=== PATIENT | female | born 1945 | race Caucasian/White ===

== ENCOUNTER 2018-10-26 08:33 | Outpatient (CLI) | payer MEDICARE, SELFPAY ==
[2018-10-26 11:30] LABS: ALT 28 U/L (12-78); AST 23 U/L (15-37); Cholesterol 161 mg/dL (50-200); HDL Cholesterol 44 mg/dL (40-60); LDL CHOLESTEROL 107 mg/dL (<100); Triglyceride 32 mg/dL (30-150)
[2018-10-29 09:29] LABS: Hepatitis C Ab w Rflx HCV PCR Negative (NEGAT)
== END 2018-10-26 08:53 ==
PROVIDERS: PCP Physician Assistant Medical; Visit Provider Nurse Practitioner Family
DX: E78.5 Hyperlipidemia, unspecified (principal)
CPT/HCPCS: 36415; 80061; 83721; 86803; 84450; 84460

== ENCOUNTER 2019-04-01 09:56 | Outpatient (REF) | payer MEDICARE, SELFPAY ==
[2019-04-01 22:26] LABS: Anion Gap 9.5 mmol/L (3-11); BUN 18 mg/dL (7-18); CO2 26.5 mmol/L (21.0-32.0); CREATININE 0.74 mg/dL (0.55-1.02); Calcium 9.1 mg/dL (8.5-10.1); Chloride 105 mmol/L (98-107); Glucose 96 mg/dL (70-100); Magnesium 1.8 mg/dL (1.8-2.4); Sodium 141 mmol/L (136-145); TSH 3.36 uIU/mL (0.358-3.74); Vitamin B12 730 pg/mL (193-986)
== END 2019-04-01 10:16 ==
LOC: NCHCN 09:56
PROVIDERS: PCP Physician Assistant Medical; Visit Provider Nurse Practitioner Family
DX: R20.2 Paresthesia of skin (principal); I48.0 Paroxysmal atrial fibrillation; Z79.01 Long term (current) use of anticoagulants; E78.5 Hyperlipidemia, unspecified; E03.9 Hypothyroidism, unspecified; I10 Essential (primary) hypertension; F32.9 Major depressive disorder, single episode, unspecified
CPT/HCPCS: 80048; 82607; 83735; 84443

== ENCOUNTER 2019-08-29 02:36 | Outpatient (CLI) | payer MEDICARE, SELFPAY ==
--- NOTE | 2019-08-29 15:04 | DI.MAMMO_ITS ---
EXAM: MAMMO SCREENING CLINICAL HISTORY: SCREENING, Z12.39, [facility], Z00.00 TECHNIQUE: Mammograms were interpreted according to the usual protocol including computer analysis w Mark media system, tomosynthesis and C-view imaging. COMPARISON: Current examination is compared with previous examinations including March 2018 FINDINGS: Breasts are of moderate density with fairly symmetrical distribution of fibroglandular tissue. No do minant mass or clumped microcalcification is identified in either breast. Current examination is com pared with previous examinations including March 2018 and there has been no gross interval change in a ppearance in comparison with the previous studies. IMPRESSION: No specific evidence of malignancy at this time. Routine screening examinations are suggested at year ly intervals in this age group according to the ACS/ACR guidelines. Category 1, breast density catego ry B. BI-RADS Cat 1 - Negative Breast Density - Category B - Scattered areas of fibroglandular density
== END 2019-08-29 02:56 ==
PROVIDERS: PCP Physician Assistant Medical; Visit Provider Nurse Practitioner Family
DX: Z12.31 Encounter for screening mammogram for malignant neoplasm of breast (principal)
CPT/HCPCS: 77063; 77067

== ENCOUNTER 2020-06-25 23:19 | Observation (INO) | payer MEDICARE, OTHER, SELFPAY ==
--- NOTE | 2020-06-25 23:00 | RT.EKG_ITS ---
APPROVED REPORT Exam: Resting ECG Patient Location: E HR:119 bpm ECG Measurements Heart Rate 119 AXIS OK [id number] P [id number] QRSd 91 QRS 70 QT 333 T 84 QTc 468 Conclusion Atrial fibrillation...V-rate 100-149, irreg A-activity Paired ventricular premature complexes...sequence of 2 V complexes Low voltage, extremity leads...all extremity leads <0.5mV
[2020-06-25 23:19] VITALS: BP 159/109; PULSE 137; RESP 18; TEMP 36.5; O2SAT 98
[2020-06-25 23:27] VITALS: BP 159/109; PULSE 128
[2020-06-25] MEDS: dilTIAZem 25 MG/5 ML VIAL 20 MG IVP (23:27)
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
[2020-06-25 23:32] VITALS: RESP 18
[2020-06-25 23:40] LABS: Abs Immature Grans 0.02 10^3/uL (0.0-0.06); Absolute Basophil Count 0.04 10^3/uL (0.0-0.2); Absolute Lymphocyte Count 1.53 10^3/uL (1.2-3.4); Absolute Monocyte Count 1.17 10^3/uL (0.1-0.8); Absolute Neutrophil Count 6.45 10^3/uL (1.2-6.7); Basophils % 0.4; Eosinophils % 1.1; HCT 44.9 % (36.0-46.0); Immature Grans % 0.2; Lymphocytes % 16.4; MCH 31.1 pg (27.0-33.0); MCHC 33.4 % (32.0-36.0); MCV 93.2 fL (80-95); MPV 10.1 fL (8.0-11.0); Monocytes % 12.6; Neutrophils % 69.3; Nucleated RBC 0 %; Platelet Count 207 10^3/uL (130-400); RBC 4.82 10^6/uL (3.93-5.22); RDW 12.5 % (11.7-14.6); RDW-SD 43.2 fL; WBC 9.31 10^3/uL (4.4-10.8)
[2020-06-25] MEDS: dilTIAZem 125 MG in Normal Saline 100 ML IV (23:41)
[2020-06-25] MEDS: Normal Saline 1,000 ML 1000 ML IV (23:42)
[2020-06-25 23:45] VITALS: BP 143/94; PULSE 109; PULSE 89; RESP 19; O2SAT 96
--- NOTE | 2020-06-25 23:48 | DI.RAD_ITS ---
EXAM: XR PORTABLE CHEST AP CLINICAL HISTORY: general fatigue, ?pna TECHNIQUE: 2D digital imaging was performed. COMPARISON: CR PORTABLE CHEST ONE VIEW from 08/03/2016 FINDINGS: MEDIASTINUM: Normal. HEART: Normal. PULMONARY VASCULATURE: Normal. LUNGS: When compared to the prior film, there do appear to be increased lung markings in the right pe rihilar region. This may represent atelectasis or pneumonia. PLEURAL SPACE: No pleural effusion or pneumothorax. BONE:Within normal limits for the patient's age. OTHER FINDINGS:Normal. IMPRESSION: Opacities in the right perihilar region which may represent atelectasis or pneumonia. DATA REPOSITORY: RADIATION DOSE DELIVERED:
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
--- NOTE | 2020-06-25 23:57 | DI.VRAD_ITS ---
PROCEDURE INFORMATION: Exam: XR Chest, 1 View Exam date and time: 06/25/2020 11:49 PM Age: 75 years old Clinical indication: Other: General fatigue TECHNIQUE: Imaging protocol: XR of the chest Views: 1 view. COMPARISON: CR PORTABLE CHEST ONE VIEW 08/03/2016 3:18 PM FINDINGS: Lungs: Question trace parenchymal opacities in the right lung, could indicate overlapping shadows versus trace scarring or acute infiltrate. Pleural space: Unremarkable. No pleural effusion. No pneumothorax. Heart/Mediastinum: Unremarkable. No cardiomegaly. Bones/joints: Unremarkable. IMPRESSION: Question trace parenchymal opacities in the right lung, could indicate overlapping shadows versus trace scarring or acute infiltrate. Dictated and Authenticated by: Giovanni Tate MD. Ordering:CHRISTY Davila MD
[2020-06-26] VITALS (31 sets, daily range): BP systolic 108–150; BP diastolic 72–108; PULSE 75–121; RESP 16–29; TEMP 36.4–37.1; O2SAT 95–99
--- NOTE | 2020-06-26 | DI.CT_ITS ---
EXAM: CT ABDOMEN PELVIS W CLINICAL HISTORY: colitis. TECHNIQUE: Imaging Protocol: Axial computed tomography images with coronal and sagittal reformatted images were created and reviewed CONTRAST MATERIAL: Intravenous: Omnipaque 350 Contrast volume: 87 cc Oral: Yes COMPARISON: CR,XR XR PORTABLE CHEST AP from 06/25/2020 FINDINGS: There is enlargement of both atria as well as the left lateral ventricle. There is an infiltrate at the right lung base. No effusion is seen. There is no biliary dilatation. No gallstones are seen. Pancreas, spleen, adrenals and kidneys are unremarkable. Bladder is unremarkable. Patient is statu s post hysterectomy. Stomach is not dilated. There is mild diffuse dilatation of loops of small bow el. Fluid is noted in the colon. There is no abnormal bowel wall thickening. There is no pneumatos is. The aorta shows mild to moderate calcification. The branch vessels show normal enhancement. De generative changes are seen in the spine. Impression: Fluid-filled loops of small and large bowel without evidence of obstruction. No bowel wall thickenin g. Right lower lobe infiltrate. RADIATION DOSE DELIVERED: Total DLP DATA REPOSITORY: All CT scans at this facility are submitted to the National Radiology Data Registry (NRDR) Dose Index Registry (DIR) with the [employer] (ACR). RADIATION OPTIMIZATION: All CT scans at this facility use at least one of these dose optimization te chniques: automated exposure control; mA and/or kV adjustment per patient size (includes targeted exa ms where dose is matched to clinical indication); or iterative reconstruction.
[2020-06-26 00:01] LABS: INR 1.1 (0.9-1.1); Prothrombin Time 10.9 sec (9.3-11.0)
[2020-06-26 00:05] LABS: ALT 41 U/L (14-59); AST 22 U/L (15-37); Albumin 3.4 g/dL (3.4-5.0); Alkaline Phosphatase 88 U/L (46-116); Anion Gap 9.9 mmol/L (3-11); BUN 13 mg/dL (7-18); Bilirubin, Total 0.6 mg/dL (0.2-1.0); CO2 23.1 mmol/L (21.0-32.0); CREATININE 1.04 mg/dL (0.55-1.02); Calcium 9.3 mg/dL (8.5-10.1); Chloride 105 mmol/L (98-107); Estimated GFR 51.38 (mL/min/1.73m2); Glucose 109 mg/dL (74-106); Magnesium 1.6 mg/dL (1.8-2.4); NT-proBNP 2037 pg/mL (<300); Potassium 3.3 mmol/L (3.5-5.1); Sodium 138 mmol/L (136-145); Total Protein 6.9 g/dL (6.4-8.2)
[2020-06-26 00:07] LABS: Troponin I < 0.05 ng/mL (<0.06)
[2020-06-26] MEDS: MAGNESIUM SULFATE 2 GM/50 ML BAG IVPB (00:27)
--- NOTE | 2020-06-26 00:28 | NUR.NOTE ---
Purse given to to take home. Aware of plan for admission. MD Winkler in to see pt
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
[2020-06-26] MEDS: Potassium Chloride 20 MEQ TABCR 40 MEQ PO (00:43)
[2020-06-26 01:13] LABS: FREE T4 0.98 ng/dL (0.76-1.46)
[2020-06-26] MEDS: POTASSIUM CHLORIDE/0.9% NACL 1,000 ML 125 MEQ IV ×2 (01:19→09:02)
[2020-06-26 07:11] LABS: Anion Gap 9.8 mmol/L (3-11); BUN 11 mg/dL (7-18); CO2 19.2 mmol/L (21.0-32.0); CREATININE 0.81 mg/dL (0.55-1.02); Chloride 109 mmol/L (98-107); Potassium 3.6 mmol/L (3.5-5.1); Sodium 138 mmol/L (136-145); Troponin I < 0.05 ng/mL (<0.06)
[2020-06-26] MEDS: Levothyroxine 88 MCG TAB PO (07:32)
[2020-06-26] MEDS: Apixaban 5 MG TAB PO ×2 (07:32→20:00)
[2020-06-26 07:50] LABS: Magnesium 1.9 mg/dL (1.8-2.4)
--- NOTE | 2020-06-26 08:07 | W.PM.PROGNOT ---
Date of Service Date of service: 06/26/20 Time of Service: 11:57 Subjective Subjective Interval history since last seen: Patient was made a PUI because of the diarrhea. Due to her PUI status, I spoke to her on the phone while visualizing her through the glass ICU door and on the video camera in the ICU. She looked comfortable, not in respiratory distress. On cardizem at 5 mg/hr, HR 80-low 100s. 108/85 this am. Getting weaned off of cardizem gtt to oral cardizem today. She feels a lot better, but still has generalized abdominal cramping (but not focal pain). Still having diarrhea - yellow liquid. Denies dizziness, chest pain, feels a little bit short of breath (because she always does when she is in Afib). Denies nausea. Asks if all of the eliquis is in her system given the diarrhea - because she does not want to have a stroke. We talked about how the risk of stroke off of anticoagulation with Afib is 5-6% per year, but that some of the eliquis is likely still getting absorbed. We talked about getting a CT scan of the abdomen if she is COVID-19 negative. Objective Objective Clinical Data: Abnormal lab results 06/25/20 06/25/20 06/26/20 Range/Units 23:32 23:32 06:25 Absolute Monocytes 1.17 H (0.1-0.8) 10^3/uL Potassium 3.3 L (3.5-5.1) mmol/L Chloride 109 H (98-107) mmol/L Carbon Dioxide 19.2 L (21.0-32.0) mmol/L Creatinine 1.04 H (0.55-1.02) mg/dL Glucose 109 H (74-106) mg/dL Magnesium 1.6 L (1.8-2.4) mg/dL NT-Pro-B Natriuret Pep 2037 H (<300) pg/mL TSH 5.40 H (0.36-3.74) uIU/mL Vital Signs Temperature 36.6 C 06/26/20 07:35 Temperature Source Temporal Artery Scan 06/26/20 07:35 Pulse 91 H 06/26/20 07:01 Pulse 121 H 06/26/20 07:01 Respiratory Rate 22 06/26/20 07:01 Respiratory Effort Non-Labored 06/26/20 07:35 Respiratory Depth Normal 06/26/20 07:35 Respiratory Pattern Irregular 06/26/20 07:35 Blood Pressure 108/85 06/26/20 07:01 Blood Pressure Mean 90 06/26/20 07:01 Blood Pressure Position Supine 06/26/20 05:11 Pulse Oximetry 95 06/26/20 05:11 Oxygen Delivery Method Room Air 06/26/20 01:30 Oxygen Flow Rate 0 06/26/20 01:30 Intake & Output 06/25/20 06/25/20 06/26/20 11:59 23:59 11:59 Intake Total 1570 / 1570 Output Total 200 / 200 Balance 1370 / 1370 Weight 61.235 kg 61.1 kg Intake: IV 1000 / 1000 Oral 570 / 570 Output: Urine 200 / 200 Other: Urine Color Yellow Urine Appearance Clear Comment mixed with stool Stool Size Moderate Stool Characteristics Liquid Voiding Methods Bedside Commode Laboratory Results WBC 9.31 10^3/uL (4.4-10.8) 06/25/20 23:32 RBC 4.82 10^6/uL (3.93-5.22) 06/25/20 23:32 Hgb 15.0 g/dL (11.2-15.7) 06/25/20 23:32 Hct 44.9 % (36.0-46.0) 06/25/20 23:32 MCV 93.2 fL (80-95) 06/25/20 23:32 MCH 31.1 pg (27.0-33.0) 06/25/20 23:32 MCHC 33.4 % (32.0-36.0) 06/25/20 23:32 RDW 12.5 % (11.7-14.6) 06/25/20 23:32 Plt Count 207 10^3/uL (130-400) 06/25/20 23:32 MPV 10.1 fL (8.0-11.0) 06/25/20 23:32 Immature Gran % 0.2 06/25/20 23:32 Neutrophils % 69.3 06/25/20 23:32 Lymphocytes % 16.4 06/25/20 23:32 Monocytes % 12.6 06/25/20 23:32 Eosinophils % 1.1 06/25/20 23:32 Basophils % 0.4 06/25/20 23:32 Nucleated RBC % 0 % 06/25/20 23:32 Absolute Neutrophils 6.45 10^3/uL (1.2-6.7) 06/25/20 23:32 Absolute Lymphocytes 1.53 10^3/uL (1.2-3.4) 06/25/20 23:32 Absolute Monocytes 1.17 10^3/uL (0.1-0.8) H 06/25/20 23:32 Absolute Eosinophils 0.10 10^3/uL (0.0-0.7) 06/25/20 23:32 Absolute Basophils 0.04 10^3/uL (0.0-0.2) 06/25/20 23:32 PT 10.9 sec (9.3-11.0) 06/25/20 23:32 INR 1.1 (0.9-1.1) 06/25/20 23:32 APTT 29.0 sec (21.0-31.4) 06/25/20 23:32 Sodium 138 mmol/L (136-145) 06/26/20 06:25 Potassium 3.6 mmol/L (3.5-5.1) 06/26/20 06:25 Chloride 109 mmol/L (98-107) H 06/26/20 06:25 Carbon Dioxide 19.2 mmol/L (21.0-32.0) L 06/26/20 06:25 Anion Gap 9.8 mmol/L (3-11) 06/26/20 06:25 BUN 11 mg/dL (7-18) 06/26/20 06:25 Creatinine 0.81 mg/dL (0.55-1.02) 06/26/20 06:25 Estimated GFR/1.73 m2 >= 60.00 (mL/min/1.73m2) 06/26/20 06:25 Glucose 109 mg/dL (74-106) H 06/25/20 23:32 Calcium 9.3 mg/dL (8.5-10.1) 06/25/20 23:32 Magnesium 1.9 mg/dL (1.8-2.4) 06/26/20 06:25 Total Bilirubin 0.6 mg/dL (0.2-1.0) 06/25/20 23:32 AST 22 U/L (15-37) 06/25/20 23:32 ALT 41 U/L (14-59) 06/25/20 23:32 Alkaline Phosphatase 88 U/L (46-116) 06/25/20 23:32 Troponin I < 0.05 ng/mL (<0.06) 06/26/20 06:25 NT-Pro-B Natriuret Pep 2037 pg/mL (<300) H 06/25/20 23:32 Total Protein 6.9 g/dL (6.4-8.2) 06/25/20 23:32 Albumin 3.4 g/dL (3.4-5.0) 06/25/20 23:32 TSH 5.40 uIU/mL (0.36-3.74) H 06/25/20 23:32 Free T4 0.98 ng/dL (0.76-1.46) 06/25/20 23:32
--- NOTE | 2020-06-26 08:38 | PDOC.CMIN ---
- If Service Date Differs Date of service: 06/26/20 Time of Service: 08:38 Care Management Initial Assess REASON FOR HOSPITALIZATION:: Afib, PUI, rule out COVID PAST MEDICAL HISTORY/PAST SURGICAL HISTORY:: Afib PREVIOUS FUNCTIONAL STATUS/SOCIAL/FAMILY SUPPORTS:: Rosibel lives with her spouse in [place], [place] she drives and is indepedent with ADL's. CURRENT FUNCTIONAL STATUS:: Rosibel is in the ICU she was ruled out for cdiff, Covid is pending at time of CM review, she is a PUI. ADVANCE DIRECTIVES:: None on file - CM to offer forms Has patient been provided with info about the portal/API?: No Did the patient sign up for the portal?: No CODE STATUS:: Full Code INSURANCE COVERAGE / FINANCIAL ISSUES:: Medicare CURRENT HOME/COMMUNITY SERVICES/EQUIPMENT:: No current services. PRIMARY CARE PHYSICIAN:: Manjula Parra POTENTIAL DISCHARGE NEEDS:: Follow up with primary care and specility as directed. PATIENT/FAMILY EDUCATION NEEDS:: Discharge education, limitations and follow up plan of care including ask me three and self management. ANTICIPATED BARRIERS TO DISCHARGE:: None TRANSPORTATION:: Via private car wtih family at time of discharge PLAN:: Rosibel will be discharged home when medically ready. CM will continue to assess for discharge needs and coordiante disposition.
[2020-06-26] MEDS: dilTIAZem 60 MG TAB PO ×2 (11:39→20:00)
--- NOTE | 2020-06-26 13:47 | PHA.REVIEW ---
Pharmacy Admission Review - Admission Clinical Review (Last Reviewed 06/26/20 @ 00:51 by Jose Winkler MD) Atrial fibrillation with RVR (Acute) Diarrhea (Acute) hydralazine Allergy (Intermediate, Unverified 06/17/17 10:52) Dizziness/Lightheade metoprolol Allergy (Unverified 06/17/17 10:52) Cardiac Dysrythmia isosorbide mononitrate [From Imdur] Adverse Reaction (Intermediate, Unverified 06/17/17 10:52) Skin Rash Height 5 ft 2 in Weight 61.1 kg - Renal Dosing Renal Dosing: BUN 11 mg/dL (7-18) 06/26/20 06:25 Creatinine 0.81 mg/dL (0.55-1.02) 06/26/20 06:25 Medications needing adjustments: Reviewed (Crcl ~46 mL/min current meds okay) - Anticoagulation Anticoagulation: Hgb 15.0 g/dL (11.2-15.7) 06/25/20 23:32 Hct 44.9 % (36.0-46.0) 06/25/20 23:32 Plt Count 207 10^3/uL (130-400) 06/25/20 23:32 INR 1.1 (0.9-1.1) 06/25/20 23:32 Creatinine 0.81 mg/dL (0.55-1.02) 06/26/20 06:25 DVT Prohphylaxis: N/A Therapeutic Anticoagulation: Reviewed Medications: Apixaban - Opiate Usage Evaluate Pain Scale/Pains Meds: N/A - Relevant Labs Sodium 138 mmol/L (136-145) 06/26/20 06:25 Potassium 3.6 mmol/L (3.5-5.1) 06/26/20 06:25 Chloride 109 mmol/L (98-107) H 06/26/20 06:25 Magnesium 1.9 mg/dL (1.8-2.4) 06/26/20 06:25 Electrolytes, C-Reactive P, ESR: Reviewed - DM Control DM Control: Glucose 109 mg/dL (74-106) H 06/25/20 23:32 Insulin Dosing: N/A - Heart Failure/DE Heart Failure/DE: Troponin I < 0.05 ng/mL (<0.06) 06/26/20 06:25 NT-Pro-B Natriuret Pep 2037 pg/mL (<300) H 06/25/20 23:32 EF%, KAYE's, B-Blockers, Diuretics: Reviewed - BP Control BP Control: Blood Pressure 127/100 Blood Pressure 138/85 Blood Pressure 143/80 Blood Pressure 137/97 Blood Pressure 136/77 Blood Pressure 127/72 Blood Pressure 134/88 If elevated: Reviewed (HR-86) - Qtc Review If Elevated: N/A (QTc 468) - IV to PO Switch IV Medications: Reviewed - Home Meds Home Med List reviewed: Intervened (Updated schedule of albuterol on home med list based on external med history. Nursing talked to pt regarding diltiazem dose as last Rx for diltiazem was 300 mg and pt had 240 mg on home meds list. Per pt outpatient provider changed the dose to 300 mg, but she asked if she could finish the 240 mg caps before starting the 300 mg caps. Made inpatient provider aware of this. Should be a max of 3 grams per day of acetaminophen given pt's age. Separate admin of levothyroxine from calcium, magnesium, and multivitamin. Separate admin of multivitamin from calcium carbonate. Increased risk of toxicity when taking multiple forms of vitamin D.) Relevent Home Meds Not ordered & why?: albuterol (PRN), calcium carbonate, cholecalciferol, doxazosin (being held), fish oil, lisinopril (being held), magnesium, multivitamin, potassium - Current meds Current Medication Order Review: Intervened (Discontinued duplicate med orders.) - Comments Comments/Follow Ups: Watch HR, BP, mag, Cl, K+, and for med changes (restart of home meds, change from IR to ER diltiazem)
[2020-06-26 14:26] LABS: COVID-19 RT-PCR UVMMC Result Negative (Negative)
[2020-06-26] MEDS: Furosemide 20 MG/2 ML VIAL IVP (16:35)
[2020-06-26] MEDS: Normal Saline Flush 10 ML SYR IVP ×2 (16:36→20:25)
[2020-06-26] MEDS: Normal Saline 500 ML IV (18:40)
[2020-06-26] MEDS: Potassium Chloride 10 MEQ TABCR PO (20:00)
[2020-06-26] MEDS: Cholecalciferol (Vitamin D3) 1,000 UNIT TAB 1000 UNITS PO (20:00)
[2020-06-26] MEDS: Omnipaque 350 MG/ML 100 ML BTL IJ (20:23)
[2020-06-26] MEDS: Normal Saline - Diluent 50 ML VIAL IV (20:24)
[2020-06-26] MEDS: Omnipaque 350 MG/ML 50 ML BTL PO (20:24)
--- NOTE | 2020-06-26 20:49 | DI.VRAD_ITS ---
PROCEDURE INFORMATION: Exam: CT Abdomen And Pelvis With Contrast Exam date and time: 06/26/2020 5:01 PM Age: 75 years old Clinical indication: Condition or disease; Other: Colitis; Prior surgery TECHNIQUE: Imaging protocol: Computed tomography of the abdomen and pelvis with intravenous contrast. Radiation optimization: All CT scans at this facility use at least one of these dose optimization techniques: automated exposure control; mA and/or kV adjustment per patient size (includes targeted exams where dose is matched to clinical indication); or iterative reconstruction. Contrast material: [id number]; Contrast volume: 87 ml; Contrast route: INTRAVENOUS (IV); Other technique: GI contrast given. COMPARISON: No relevant prior studies available. FINDINGS: Lungs: There is hazy right lower lobe consolidation, mild. Cardiomegaly. Liver: Mild heterogeneity noted to the hepatic enhancement pattern. Low-density right lobe lesion, probable cyst. Gallbladder and bile ducts: Normal. No calcified stones. No ductal dilation. Pancreas: Normal. No ductal dilation. Spleen: Normal. No splenomegaly. Adrenals: Normal. No mass. Kidneys and ureters: Normal. No hydronephrosis. Stomach and bowel: There are some diffusely distended small bowel loops with diameter up to 3 cm involving the opacified jejunal loops and unopacified ileal loops. No evidence for transition zone. There are air-fluid levels present in the colon which can be associated with diarrheal illness. No concerning wall thickening evident. Appendix: No evidence of appendicitis. Intraperitoneal space: Mild ascites. Vasculature: Moderate atherosclerotic change present in the vasculature. Lymph nodes: Unremarkable. No enlarged lymph nodes. Bladder: Unremarkable as visualized. Reproductive: Unremarkable as visualized. Bones/joints: Moderate lumbar spondylosis. Soft tissues: Unremarkable. IMPRESSION: 1. Nonspecific bowel pattern. Suspect ileus. Pattern not typical for obstruction. There may be a diarrheal illness involving the colon. 2. Cardiomegaly with heterogeneous hepatic enhancement. Consider possible degree of congestive heart failure. Dictated and Authenticated by: Jaqueline Leon MD. Ordering:TA Honeycutt MD
--- NOTE | 2020-06-26 20:55 | NUR.NOTE ---
To radiology for Ct of abdomen and pelvis after drinking all of contrast provided by dept. pt left in w/c with ticket to ride. Monitor dc'd as ordered. 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 Used commode for more liquid stool and then returned to bed.
[2020-06-27 00:01] VITALS: BP 147/92; PULSE 90; RESP 17; TEMP 36.9; O2SAT 96
[2020-06-27] MEDS: dilTIAZem 60 MG TAB PO ×2 (00:07→06:13)
[2020-06-27 03:30] VITALS: BP 125/78; PULSE 81; RESP 16; TEMP 36; O2SAT 97
[2020-06-27] MEDS: Levothyroxine 88 MCG TAB PO (06:12)
[2020-06-27 06:37] LABS: Abs Immature Grans 0.02 10^3/uL (0.0-0.06); Absolute Basophil Count 0.03 10^3/uL (0.0-0.2); Absolute Eosinophil Count 0.17 10^3/uL (0.0-0.7); Absolute Lymphocyte Count 2.12 10^3/uL (1.2-3.4); Absolute Monocyte Count 0.83 10^3/uL (0.1-0.8); Absolute Neutrophil Count 2.47 10^3/uL (1.2-6.7); Basophils % 0.5; HCT 41.6 % (36.0-46.0); HGB 13.8 g/dL (11.2-15.7); Immature Grans % 0.4; Lymphocytes % 37.6; MCH 30.7 pg (27.0-33.0); MCHC 33.2 % (32.0-36.0); MCV 92.7 fL (80-95); MPV 9.9 fL (8.0-11.0); Monocytes % 14.7; Neutrophils % 43.8; Nucleated RBC 0 %; Platelet Count 235 10^3/uL (130-400); RBC 4.49 10^6/uL (3.93-5.22); RDW 12.5 % (11.7-14.6); RDW-SD 42.7 fL; WBC 5.64 10^3/uL (4.4-10.8)
[2020-06-27 07:07] LABS: Anion Gap 8.8 mmol/L (3-11); BUN 9 mg/dL (7-18); CO2 20.2 mmol/L (21.0-32.0); CREATININE 0.77 mg/dL (0.55-1.02); Calcium 8.7 mg/dL (8.5-10.1); Calculated LDL 93 mg/dL (<100); Chloride 110 mmol/L (98-107); Cholesterol 136 mg/dL (<200); Glucose 73 mg/dL (74-106); HDL Cholesterol 25 mg/dL (40-60); Magnesium 1.5 mg/dL (1.8-2.4); Potassium 3.3 mmol/L (3.5-5.1); Sodium 139 mmol/L (136-145); Triglyceride 94 mg/dL (<150)
[2020-06-27 07:48] VITALS: BP 139/85; PULSE 86; RESP 17; TEMP 36.4; O2SAT 96
[2020-06-27] MEDS: Multivitamin TAB 1 TAB PO (08:31)
[2020-06-27] MEDS: Apixaban 5 MG TAB PO (08:31)
[2020-06-27] MEDS: Calcium Carbonate *TUMS* 500 MG CHEW 1000 MG PO (08:31)
[2020-06-27] MEDS: Omega-3 Fatty Acids 1000 MG CAP PO (08:31)
[2020-06-27] MEDS: dilTIAZem CD 120 MG CAPCR 240 MG PO (08:31)
[2020-06-27] MEDS: Potassium Chloride 20 MEQ TABCR PO (08:32)
[2020-06-27] MEDS: Cholecalciferol (Vitamin D3) 1,000 UNIT TAB 1000 UNITS PO (08:32)
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
[2020-06-27] MEDS: Normal Saline 500 ML IV (09:50)
[2020-06-27] MEDS: MAGNESIUM SULFATE 2 GM/50 ML BAG IVPB (09:50)
[2020-06-27 10:18] LABS: Bilirubin Negative (Negative); Blood Negative (Negative); Clarity Sl Cloudy (Clear); Glucose Negative (Negative); Ketones Negative (Negative); Leukocyte Esterase Negative (Negative); Nitrite Positive (Negative); Specific Gravity 1.015 (1.005-1.025); Urobilinogen 0.2 EU/dL (Up TO 0.2); pH 5.5 (5-8)
[2020-06-27 10:27] LABS: Bacteria Many HPF (Negative); C & S Indicated? Yes; Casts Negative LPF (Negative); Crystals Negative HPF (Negative); Epithelial Cells Few HPF (Negative); Mucus Negative (Negative); RBC 0-2 HPF (0-2)
[2020-06-27] MEDS: Fosfomycin Tromethamine 3 GM PACKET PO (10:41)
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
[2020-06-27 11:46] VITALS: BP 144/85; PULSE 83; RESP 17; TEMP 36.2; O2SAT 96
[2020-06-30 16:23] LABS: Misc Referral (VDH) See Comments
== END 2020-06-27 13:48 | disposition home or self-care (01) ==
LOC: ER 06-26 00:36 → ICU 06-26 08:55 → MS 06-26 23:00
PROVIDERS: Family Medicine; Internal Medicine; Admitting Provider General Practice; Emergency Provider Emergency Medicine; PCP Nurse Practitioner Family; Visit Provider General Practice
DX: I48.91 Unspecified atrial fibrillation (principal); Z11.59 Encounter for screening for other viral diseases; R19.7 Diarrhea, unspecified; E03.9 Hypothyroidism, unspecified; Z79.899 Other long term (current) drug therapy; R53.1 Weakness; R30.0 Dysuria
CPT/HCPCS: 36415; 80048; 80051; 80053; 80061; 84520; 87077; 93005; 96361; 96365; 96375; 99217; 99222; 99291; NC; U0003; 71045; 74177; 81003; 81015; 82565; 83735; 83880; 84439; 84443; 84484; 85025; 85610; 85730; 87086; 87186; 87324; 93010; 99218; G0378; J1941; J3490; Q9967

== ENCOUNTER 2020-07-02 14:03 | Outpatient (REF) | payer MEDICARE, OTHER, SELFPAY ==
[2020-07-02 20:19] LABS: Anion Gap 7.8 mmol/L (3-11); BUN 12 mg/dL (7-18); CO2 26.2 mmol/L (21.0-32.0); CREATININE 0.86 mg/dL (0.55-1.02); Calcium 9.4 mg/dL (8.5-10.1); Chloride 104 mmol/L (98-107); Glucose 83 mg/dL (74-106); Magnesium 1.7 mg/dL (1.8-2.4); Potassium 4.7 mmol/L (3.5-5.1); Sodium 138 mmol/L (136-145)
[2020-07-15 10:41] LABS: Misc Referral (VDH) See Comments
== END 2020-07-02 14:23 ==
LOC: NCHCN 14:03
PROVIDERS: Family Medicine; PCP Nurse Practitioner Family; Visit Provider Nurse Practitioner Family
DX: R89.9 Unspecified abnormal finding in specimens from other organs, systems and tissues (principal); R19.7 Diarrhea, unspecified
CPT/HCPCS: 80048; 87329; 83735; 84443

== ENCOUNTER 2020-07-03 03:00 | Emergency (ER) | payer MEDICARE, OTHER, SELFPAY ==
[2020-07-03] VITALS (20 sets, daily range): BP systolic 129–153; BP diastolic 72–117; PULSE 92–145; RESP 18–29; TEMP 37.6; O2SAT 93–98
--- NOTE | 2020-07-03 03:14 | ED.GENADUL_ITS ---
Discharge Plan Disposition Patient Disposition: HOME Condition: Good Discharge Details Clinical Impression: Diarrhea, Atrial fibrillation Primary Care Provider: Manjula Parra ED Provider: Abhishek Blair [place] Meds and New Rx's Prescriptions: Continued levothyroxine 88 MCG tablet 88 mcg PO DAILY RF: 0 albuterol sulfate 8.5 GM HFA aerosol inhaler 2 puff Inhalation Q4H PRN PRNRF: 0 lisinopril 40 MG tablet 40 mg PO DAILY RF: 0 multivitamin 1 EACH capsule 1 ea PO DAILY RF: 0 Eliquis 5 MG tablet 5 mg PO BID RF: 0 (DME) inhalational spacing device [Aerochamber Plus Flow-Vu] 1 EACH spacer 1 ea Miscellaneous DIRECTED Qty: 1 RF: 0 calcium carbonate 500 MG tablet,chewable 1,000 mg PO DAILY RF: 0 doxazosin 1 MG tablet 1 mg PO DAILY RF: 0 acetaminophen [Tylenol Extra Strength] 500 MG tablet 1,000 mg PO Q6H PRN PRNRF: 0 potassium chloride [Klor-Con M20] 20 MEQ tablet,ER particles/crystals 20 meq PO QAM RF: 0 potassium chloride [Klor-Con M10] 10 MEQ tablet,ER particles/crystals 10 meq PO QPM RF: 0 cholecalciferol (vitamin D3) 1,000 UNITS tablet 1,000 units PO BID RF: 0 Fish Oil 1 EACH capsule 1 ea PO DAILY RF: 0 magnesium L-lactate [Magtab] 84 MG tablet extended release 84 mg PO DAILY Qty: 30 RF: 0 diltiazem HCl 300 mg capsule,extended release 24hr 300 mg PO DAILY RF: 0 Discharge Instructions Instructions: Loperamide (By mouth), Acute Diarrhea (ED) Additional Instructions: Your laboratory studies tonight looked fine. You may try [id number] loperamide (Imodium) for your diarrhea. Continue to stay hydrated and eat a BRAT diet. Do not take your Cardizem this morning as we gave you to you here. Follow-up with primary care next week. Stool studies sent by her are still pending. Return to ED for fever, persistent abdominal pain, vomiting, bloody diarrhea. Referrals: Manjula Parra [Primary Care Provider] - Medical Decision Making Patient presenting with continued diarrhea and generalized weakness. She has history of A. fib. Rate here seems to be quite variable. She takes her Cardizem in the morning. Her abdomen is benign. She is not hypotensive. I reviewed her work-up from before which included CT scan of the abdomen pelvis, stool studies including C. difficile and enteric pathogens. CT scan showed fluid-filled loops of small and large bowel without obstruction or bowel wall thickening. There was evidence of right lower lobe but patient denies cough, shortness of breath, fever. C. diff screen and enteric pathogen screen had come back negative. Primary care has sent Giardia and cryptosporidium testing as well as repeat enteric pathogen screen yesterday. Blood work yesterday showed normal kidney function with normal potassium and essentially normal magnesium just a little low at 1.7. Because of her variable rate will place an IV and give liter of fluid. We will give her her oral Cardizem a little early. We will also give a dose of Imodium. Recheck BMP. BMP remains normal. Heart rate better controlled with liter of fluid and 10 mg IV Cardizem. She has received her oral morning dose of Cardizem as well. She is feeling better. 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 Stool studies still pending from PCP but had been negative previously. Continue hydration and BRAT diet. Medical Records Medical records reviewed: Yes I reviewed the patient's medical records. Lab Data Lab results reviewed: Yes I reviewed the patient's lab results. Labs: HPI General Mode of arrival: ambulatory . Date/Time Provider Initiated Documentation: 07/03/20 03:02 . Limitations to Documentation: no limitations . Information obtained by: patient, RN notes reviewed and old records reviewed . HPI Narrative: Patient presents with continued watery diarrhea which she has now had for a little over a week. She has mild nausea but no real vomiting. She has intermittent cramps which are sporadic and not persistent. She denies fever. She was admitted a week ago with diarrhea, electrolyte disturbance, A. fib with RVR. She continues to have diarrhea. She was seen by her primary care yesterday with repeat stool studies sent and electrolytes rechecked. She does not know these results. She does not have much of an appetite but does manage to eat rice, applesauce, toast, fluids. She has not taken anything for the diarrhea. She denies having lightheadedness, chest pain, shortness of breath. Just feels very weak and rundown. Related Data Home Medications Medication Instructions Recorded Confirmed Agusto 5 mg PO BID 09/13/14 07/03/20 albuterol sulfate 2 puff INHALATION Q4H PRN PRN 09/13/14 07/03/20 inhalational spacing device #1 spacer 09/13/14 06/17/17 [Aerochamber Plus Flow-Vu] levothyroxine 88 mcg PO DAILY 09/13/14 07/03/20 lisinopril 40 mg PO DAILY 09/13/14 07/03/20 multivitamin 1 ea PO DAILY 09/13/14 07/03/20 calcium carbonate 1,000 mg PO DAILY 08/03/16 07/03/20 magnesium L-lactate [Magtab] 84 mg PO DAILY #30 tabcr 01/27/17 07/03/20 Fish Oil 1 ea PO DAILY 06/17/17 07/03/20 acetaminophen [Tylenol Extra 1,000 mg PO Q6H PRN PRN 06/17/17 07/03/20 Strength] cholecalciferol (vitamin D3) 1,000 units PO BID 06/17/17 07/03/20 doxazosin 1 mg PO DAILY 06/17/17 07/03/20 potassium chloride [Klor-Con M10] 10 meq PO QPM 06/17/17 07/03/20 potassium chloride [Klor-Con M20] 20 meq PO QAM 06/17/17 07/03/20 diltiazem HCl 300 mg PO DAILY 06/26/20 07/03/20 Previous Rx's Medication Instructions Recorded inhalational spacing device #1 spacer 09/13/14 [Aerochamber Plus Flow-Vu] magnesium L-lactate [Magtab] 84 mg PO DAILY #30 tabcr 01/27/17 Allergies Allergy/AdvReac Type Severity Reaction Status Date / Time hydralazine Allergy Intermediate Dizziness/L Unverified 07/03/20 03:16 ightheade metoprolol Allergy Cardiac Unverified 07/03/20 03:16 Dysrythmia isosorbide mononitrate AdvReac Intermediate Skin Rash Unverified 07/03/20 03:16 [From Imdur] General Stated Complaint: Nausea/Vomit/Diar MARTHA: 3 Review of Systems Narrative: As documented in HPI otherwise negative as below. Const: no fever, chills Resp: no cough, SOB, pleuritic pain CV: no CP, diaphoresis, edema, syncope GI: no vomiting Neuro: no headache, numbness, focal weakness, confusion PFSH Medical History Atrial fibrillation Essential hypertension (01/27/17) Hyperlipidemia, mixed (01/27/17) Hypothyroidism Surgical History S/P hysterectomy Social History Smoking/Tobacco Use Status: Never Alcohol Intake: never Drug use: Never Substance use type: does not use Do you feel safe at home: Yes Do you feel safe in your relationship?: Yes Exam Narrative Exam Narrative: Vitals: Afebrile. Tachycardic and hypertensive, normal oxygen saturation. Const: WDWN elderly female in NAD. HEENT: NC/AT. Eyes: Normal conjunctiva and sclera. Neck: Supple. Trachea midline. Lungs: Normal respiratory effort. Lungs are clear. Cor: Irr/irr without murmur. Good radial pulses. GI: Soft. NT/ND. No guarding or rebound. Neuro: A+O x 3. Normal speech, mentation, gait. Cranial nerves II - XII grossly intact. No gross motor or sensory deficit. Skin: Warm and dry without rash. Course Vital Signs Vital signs: Vital Signs Temperature 99.7 F H 07/03/20 03:09 Pulse 120 H 07/03/20 03:09 Respiratory Rate 18 07/03/20 03:09 Blood Pressure 153/117 H 07/03/20 03:09 Pulse Oximetry 97 07/03/20 03:09 Temperature 99.7 F H 07/03/20 03:09 Temperature Source Temporal Artery Scan 07/03/20 03:09 Pulse 120 H 07/03/20 03:09 Respiratory Rate 18 07/03/20 03:09 Blood Pressure 153/117 H 07/03/20 03:09 Blood Pressure Position Sitting 07/03/20 03:09 Pulse Oximetry 97 07/03/20 03:09 Oxygen Delivery Method Room Air 07/03/20 03:09 Oxygen Flow Rate 0 07/03/20 03:09 Pain Level 0 07/03/20 03:09
[2020-07-03] MEDS: Normal Saline 1,000 ML 1000 ML IV (03:39)
[2020-07-03] MEDS: Loperamide 2 MG CAP PO (03:47)
[2020-07-03] MEDS: dilTIAZem CD 300 MG CAPCR PO (03:51)
[2020-07-03 03:56] LABS: Anion Gap 8.8 mmol/L (3-11); BUN 11 mg/dL (7-18); CO2 24.2 mmol/L (21.0-32.0); Calcium 9.8 mg/dL (8.5-10.1); Chloride 106 mmol/L (98-107); Estimated GFR 53.76 (mL/min/1.73m2); Glucose 109 mg/dL (74-106); Potassium 3.6 mmol/L (3.5-5.1); Sodium 139 mmol/L (136-145)
[2020-07-03] MEDS: dilTIAZem 25 MG/5 ML VIAL 10 MG IVP (04:29)
--- NOTE | 2020-07-03 04:36 | NUR.NOTE ---
Nursing Note: No diarrhea since arrival to the ER.
== END 2020-07-03 05:13 | disposition home or self-care (01) ==
PROVIDERS: Emergency Provider Emergency Medicine; PCP Nurse Practitioner Family
DX: I48.91 Unspecified atrial fibrillation (principal); R19.7 Diarrhea, unspecified; R53.1 Weakness; Z79.01 Long term (current) use of anticoagulants; I10 Essential (primary) hypertension
CPT/HCPCS: 36415; 80048; 96361; 96374; 99284

== ENCOUNTER 2020-08-31 00:45 | Outpatient (CLI) | payer MEDICARE, OTHER, SELFPAY ==
--- NOTE | 2020-08-31 | DI.MAMMO_ITS ---
EXAM: MG MAMMO SCREENING CLINICAL HISTORY: SCREENING,Z12.39 TECHNIQUE: Mammograms were interpreted according to the usual protocol including computer analysis w [facility] CAD system, tomosynthesis and C-view imaging. COMPARISON: FINDINGS: The breasts of moderate density with fairly symmetrical distribution of fibroglandular tissue. No do minant mass or clumped microcalcification is identified in either breast. The current examination is compared with previous examinations including August 2019 and there has been no gross interval usha nge in appearance in comparison with the prior studies. IMPRESSION: No specific evidence of malignancy at this time. Routine screening examinations are suggested at ye shimon intervals in this age group according to the ACS ACR guidelines. BI-RADS Category 1 - Negative Breast Density - Category B - Scattered areas of fibroglandular density
== END 2020-08-31 01:05 ==
PROVIDERS: PCP Nurse Practitioner Family; Visit Provider Nurse Practitioner Family
DX: Z12.31 Encounter for screening mammogram for malignant neoplasm of breast (principal)
CPT/HCPCS: 77063; 77067

== ENCOUNTER 2020-11-26 09:01 | Outpatient (REF) | payer MEDICARE, OTHER, SELFPAY ==
[2020-11-26 15:34] LABS: HCT 41.5 % (36.0-46.0); HGB 13.7 g/dL (11.2-15.7); MCH 30.7 pg (27.0-33.0); MPV 11.1 fL (8.0-11.0); Platelet Count 234 10^3/uL (130-400); RBC 4.46 10^6/uL (3.93-5.22); RDW-SD 41.6 fL; WBC 7.81 10^3/uL (4.4-10.8)
[2020-11-26 16:07] LABS: Anion Gap 7.1 mmol/L (3-11); BUN 20 mg/dL (7-18); CO2 29.9 mmol/L (21.0-32.0); CREATININE 0.9 mg/dL (0.55-1.02); Calcium 10.3 mg/dL (8.5-10.1); Chloride 104 mmol/L (98-107); Glucose 92 mg/dL (74-106); Potassium 4.5 mmol/L (3.5-5.1); Sodium 141 mmol/L (136-145)
== END 2020-11-26 09:02 | disposition home or self-care (01) ==
LOC: LBN 09:01
PROVIDERS: PCP Nurse Practitioner Family; Visit Provider Internal Medicine Cardiovascular Disease
DX: Z79.01 Long term (current) use of anticoagulants (principal); Z79.899 Other long term (current) drug therapy; I48.20 Chronic atrial fibrillation, unspecified
CPT/HCPCS: 80048; 85027; 83735

== ENCOUNTER 2021-10-01 13:42 | Outpatient (REF) | payer MEDICARE, OTHER, SELFPAY ==
[2021-10-01 15:10] LABS: ALT 38 U/L (14-59); AST 25 U/L (15-37); Calculated LDL 153 mg/dL (<100); Cholesterol 228 mg/dL (<200); HDL Cholesterol 55 mg/dL (40-60); TSH (W/Ref FT4) 1.03 uIU/mL (0.36-3.74); Triglyceride 100 mg/dL (<150)
[2021-10-01 15:36] LABS: Creatine Kinase 83 U/L (26-192)
== END 2021-10-01 13:43 | disposition home or self-care (01) ==
LOC: NCHCN 13:42
PROVIDERS: PCP Nurse Practitioner Family; Visit Provider Nurse Practitioner Family
DX: E78.5 Hyperlipidemia, unspecified (principal); E03.9 Hypothyroidism, unspecified
CPT/HCPCS: 80061; 82550; 84443; 84450; 84460

== ENCOUNTER 2021-10-19 18:53 | Outpatient (REF) | payer MEDICARE, OTHER, SELFPAY | END 2021-10-19 18:54 | disposition home or self-care (01) | LOC: LBN 18:53 | PROVIDERS: PCP Nurse Practitioner Family; Visit Provider Nurse Practitioner Family | DX: N39.0 Urinary tract infection, site not specified (principal) | CPT/HCPCS: 87077; 87086; 87186 ==

== ENCOUNTER 2022-01-04 17:54 | Outpatient (REF) | payer MEDICARE, OTHER, SELFPAY ==
[2022-01-04 13:03] LABS: Anion Gap 6.1 mmol/L (3-11); BUN 25 mg/dL (7-18); CO2 29.9 mmol/L (21.0-32.0); Calcium 10.2 mg/dL (8.5-10.1); Calculated LDL 137 mg/dL (<100); Chloride 103 mmol/L (98-107); Cholesterol 196 mg/dL (<200); Estimated GFR 53.62 (mL/min/1.73m2); Ferritin 190 ng/mL (8-252); Glucose 89 mg/dL (74-106); HDL Cholesterol 45 mg/dL (40-60); Magnesium 2.1 mg/dL (1.8-2.4); Potassium 4.1 mmol/L (3.5-5.1); Sodium 139 mmol/L (136-145); Triglyceride 70 mg/dL (<150)
== END 2022-01-04 17:55 | disposition home or self-care (01) ==
LOC: NCHCN 17:54
PROVIDERS: PCP Nurse Practitioner Family; Visit Provider Nurse Practitioner Family
DX: E78.5 Hyperlipidemia, unspecified (principal); Z00.00 Encounter for general adult medical examination without abnormal findings; I10 Essential (primary) hypertension
CPT/HCPCS: 80048; 80061; 82728; 83735

== ENCOUNTER 2022-01-28 01:00 | Outpatient (CLI) | payer MEDICARE, OTHER, SELFPAY ==
--- NOTE | 2022-01-28 | DI.MAMMO_ITS ---
Exam(s) MAMMO SCREENING EXAM: MAMMO SCREENING CLINICAL HISTORY: SCREENING, Z12.39. TECHNIQUE: Bilateral full field digital CC and MLO mammographic images were obtained with 3D tomosyn thesis and utilizing computer aided detection (CAD). COMPARISON: Prior mammograms were reviewed, the most recent being August 2020. FINDINGS: There has been no significant change in the appearance and distribution of the fibroglandular tissue. There are no new findings in the immediate vicinity of a biopsy marker device in the posterior medial aspect of the left breast which has been present since at least 2013. There are no new spiculated masses nor malignant appearing microcalcification groups. There is no significant architectural distortion nor skin thickening-retraction. IMPRESSION: No radiographic evidence of malignancy. BI-RADS Category 1 - Negative Breast Density - Category B - Scattered areas of fibroglandular density Breast density Category C or D implies that the patient has dense breast tissue. Dense breast tissue can make it harder to find cancer on a mammogram. Dense breast tissue is also associated with an incr eased risk of breast cancer. This information about the result of the mammogram report was provided to the patient to raise their awareness. Use this report when you speak with the patient about their risks for breast cancer, which includes their family history. At that time, you may recommend additional screening tests (Ultrasoun d or MRI) as these tests may add significant information. A negative radiographic report should not delay biopsy if a dominant or clinically suspicious mass is present. Up to ten percent of cancers are not identified on mammography. A negative report may reinforce clinical impression. Adenosis and dense breasts may obscure an underlying neoplasm. False positive reports average 6 to 10%. Patient will receive a letter notifying them of these results.
== END 2022-01-28 01:20 ==
PROVIDERS: PCP Nurse Practitioner Family; Visit Provider Nurse Practitioner Family
DX: Z12.31 Encounter for screening mammogram for malignant neoplasm of breast (principal)
CPT/HCPCS: 77063; 77067

== ENCOUNTER 2022-04-18 17:25 | Outpatient (REF) | payer MEDICARE, OTHER, SELFPAY ==
[2022-04-18 15:08] LABS: HCT 42.8 % (36.0-46.0); MCH 30.9 pg (27.0-33.0); MCHC 32.7 % (32.0-36.0); MCV 95 fL (80-95); MPV 10.5 fL (8.0-11.0); Platelet Count 263 10^3/uL (130-400); RBC 4.53 10^6/uL (3.93-5.22); RDW 12.5 % (11.7-14.6); RDW-SD 43.3 fL; WBC 7.11 10^3/uL (4.4-10.8)
[2022-04-18 15:24] LABS: Calculated LDL 163 mg/dL (<100); Cholesterol 229 mg/dL (<200); HDL Cholesterol 54 mg/dL (40-60); Triglyceride 62 mg/dL (<150)
== END 2022-04-18 17:26 | disposition home or self-care (01) ==
LOC: NCHCN 17:25
PROVIDERS: PCP Nurse Practitioner Family; Visit Provider Nurse Practitioner Family
DX: I10 Essential (primary) hypertension (principal); E78.5 Hyperlipidemia, unspecified; Z79.01 Long term (current) use of anticoagulants; I48.20 Chronic atrial fibrillation, unspecified
CPT/HCPCS: 80061; 85027

== ENCOUNTER 2023-01-16 11:57 | Outpatient (REF) | payer MEDICARE, OTHER, SELFPAY ==
[2023-01-16 16:23] LABS: BUN 23 mg/dL (7-18); CREATININE 0.9 mg/dL (0.55-1.02); Calcium 9.8 mg/dL (8.5-10.1); Calculated LDL 156 mg/dL (<100); Chloride 103 mmol/L (98-107); Cholesterol 223 mg/dL (<200); Estimated GFR 65.03 (mL/min/1.73m2); Glucose 109 mg/dL (74-106); HDL Cholesterol 53 mg/dL (40-60); Potassium 3.8 mmol/L (3.5-5.1); Sodium 138 mmol/L (136-145); Triglyceride 71 mg/dL (<150)
[2023-01-17 13:30] LABS: TSH (W/Ref FT4) 0.99 uIU/mL (0.36-3.74)
== END 2023-01-16 11:58 | disposition home or self-care (01) ==
LOC: NCHCN 11:57
PROVIDERS: PCP Nurse Practitioner Family; Visit Provider Nurse Practitioner Family
DX: E78.5 Hyperlipidemia, unspecified (principal); E03.9 Hypothyroidism, unspecified; I10 Essential (primary) hypertension
CPT/HCPCS: 80048; 80061; 84443

== ENCOUNTER 2023-02-13 16:03 | Inpatient (IN) | payer MEDICARE, OTHER, SELFPAY ==
[2023-02-13] VITALS (27 sets, daily range): BP systolic 105–140; BP diastolic 47–88; PULSE 47–90; RESP 16–29; TEMP 36.1–39.5; O2SAT 89–97
--- NOTE | 2023-02-13 16:45 | RT.EKG_ITS ---
APPROVED REPORT Exam: Resting ECG Reason for Exam: abd pain Patient Location: E HR:79 bpm ECG Measurements Heart Rate 79 AXIS AZ 147 P 62 QRSd 89 QRS 12 QT 393 T 75 QTc 436 Conclusion Sinus rhythm...normal P axis, V-rate 60- 99 Atrial premature complexes in couplets...pair SV complexes w/ short R-R Consider anterior infarct...Q >30mS in V2-V5. Sinus. Normal axis. PACs. No STEMI. I have reviewed and interpreted ECG and agree with software generated interpretation.
--- NOTE | 2023-02-13 16:45 | DI.CT_ITS ---
Exam(s) CT CHEST/ABD/PEL W EXAM: CT CHEST/ABD/PEL W CLINICAL HISTORY: L flank/LUQ pain, lower back pain TECHNIQUE: Imaging Protocol: Axial computed tomography images with coronal and sagittal reformatted images were created and reviewed CONTRAST MATERIAL: Intravenous: Omnipaque 350 contrast volume:100 mL Oral: No COMPARISON: CT CT ABDOMEN PELVIS W from 06/26/2020 FINDINGS: CHEST: Tracheobronchial tree: Patent where visualized. Pulmonary parenchyma: There is scarring or atelectasis in the lung bases bilaterally. No focal conso lidating infiltrates are seen. No architectural distortion. Visualized thyroid gland: Calcifications are seen in the thyroid gland. No follow-up is recommended. Mediastinum and Delia: No dominant adenopathy or fluid collection. The esophagus is unremarkable. The re is a small hiatal hernia. Pleura: No effusion or pneumothorax. Heart: Cardiomegaly. Mild coronary artery calcification is present. No pericardial effusion. Pulmonary arteries: Due to the bolus timing, segmental subsegmental evaluation for pulmonary emboli i s limited. No large central pulmonary embolus is present. Aorta: Thoracic aorta non-dilated. Atherosclerosis. No evidence of dissection. Lymph nodes: Within normal limits. Soft tissues: Unremarkable. Bones:Within normal limits for the patient's age. ABDOMEN: Liver: Normal density. No measurable mass. Portal, Superior Mesenteric, and Splenic Veins: Unremarkable. Gallbladder and Biliary Tract: No radiodense calculus or dilation. Pancreas: Normal density, no abnormal calcifications or inflammatory process. Spleen: Normal. Adrenals: There is a stable left adrenal nodule. The right adrenal gland is unremarkable. Kidneys: Normal size, contour and axis. No radiodense stones or obstructive uropathy. There are few t iny hypodensities in the kidneys. They are too small for further characterization but likely reflect small cysts. No follow-up is recommended. Abdominal Aorta: Abdominal portion non-dilated. Atherosclerosis is present. Bowel: There is no evidence of obstruction or bowel wall thickening. The ascending colon and proxima l transverse colon featureless. No bowel wall thickening or inflammatory stranding is seen. The sig moid colon also has a somewhat featureless appearance to it. There is no evidence of appendicitis. There are few scattered diverticula in the sigmoid colon, but no evidence of acute diverticulitis. Peritoneal Cavity: No ascites, collection or mesenteric inflammatory response. No free air. Lymph Nodes: Within normal limits. Bones: Within normal limits for the patient's age. Soft Tissues: There is a fat containing left inguinal hernia. PELVIS: Bladder: Symmetric distention, no gross wall thickening. Reproductive Organs: Status post hysterectomy. Lymph Nodes: Within normal limits. Bones: Degenerative changes are seen throughout the spine. Grade 1 spondylolisthesis of L4 on L5 is noted. IMPRESSION: 1. Chronic pulmonary changes. No definite acute pulmonary process. 2. Featureless appearance to the colon raising the question of chronic inflammatory disease such as u lcerative colitis. 3. Diverticula are seen in the colon but no evidence of acute diverticulitis. RADIATION DOSE DELIVERED: 1,280.85mGy.cm Total DLP DATA REPOSITORY: All CT scans at this facility are submitted to the National Radiology Data Registry (NRDR) Dose Index Registry (DIR) with the [employer] (ACR). RADIATION OPTIMIZATION: All CT scans at this facility use at least one of these dose optimization te chniques: automated exposure control; mA and/or kV adjustment per patient size (includes targeted exa ms where dose is matched to clinical indication); or iterative reconstruction.
--- NOTE | 2023-02-13 16:52 | ED.GENADUL_ITS ---
Discharge Plan Disposition Patient Disposition: Admit to [facility] Condition: Fair Discharge Details Clinical Impression: Fever of unknown origin, Leukocytosis, Bandemia Admit Date/Time: 02/14/23 11:15 Admit Provider: Jose Skelton Attending Provider: Jose Skelton Primary Care Provider: Manjula Parra ED Provider: Kaya Lee Discharge Data Discharge Date/Time-TO BE ENTERED AT DEPARTURE: 02/13/23 21:19 Medical Decision Making 1620 -- 78-year-old female with a history of hypertension, hyperlipidemia, hypothyroidism and atrial fibrillation on Eliquis presents for generalized fatigue, malaise, nausea and dry heaving since last night and abdominal and back pain today. She was unaware of having a fever. Patient appears generally unwell but nontoxic. Her oral temp was 100.4. Her rectal temp was 103.1. Her abdomen is soft and not significantly tender. She has no CVA tenderness. Normal ENT exam. She has no complaint of posterior headache, neck pain, meningeal signs or altered mental status to suggest meningitis. Lungs clear throughout however her oxygen saturation is 94% on room air. Remainder vitals reassuring. Differential diagnosis includes pyelonephritis, kidney stone, urinary tract infection, pancreatitis, cholecystitis, COVID, influenza. Will obtain screening labs, CT chest abdomen and pelvis and give IV Tylenol, bolus IV fluids. There is an interaction with Zofran and her dofetilide with risk of QT prolongation. EKG obtained and notes normal QTc. Will order IV Zofran. 1900 --Labs and imaging reviewed. White blood cell count 21.65. Bands 5. Lactate normal at 0.7. Magnesium 1.7 and potassium 3.3, will replete. Troponin, lipase and TSH within normal limits. Urinalysis negative for infection. FLUVID negative. CT chest abdomen pelvis negative for acute findings. Patient reassessed and she states she feels better. She still appears fatigued. Oxygen saturation 94 to 96% on room air. She again demonstrates no meningeal signs and is oriented x3. She has no complaint of posterior headache or neck pain. Discussed with patient at length that I do not have a source for her fever and leukocytosis at this time but would recommend admission for observation overnight and potential initiation of antibiotics. She is agreeable with plan. Case discussed with hospitalist accepts patient for admission. Zosyn IV ordered. 1930 --patient noted to have oxygen saturation 86% while sleeping. She was awakened and oxygen saturation increased to 96%. She denies any known history of sleep apnea. When she fell asleep again, oxygen saturation dropped to 89%, will place on 1 L nasal cannula oxygen. Medical Records Medical records reviewed: Yes I reviewed the patient's medical records. Imaging Data Radiologic Study: Radiologist's impression: CT Chest With Contrast; Diagnostic Exam date and time: 02/13/2023 6:02 PM Age: 78 years old Clinical indication: Other: L flank/luq pain, lower back pain; Additional info: R/O kidney stone, pyelo, pneumonia TECHNIQUE: Imaging protocol: Diagnostic computed tomography of the chest with contrast. 3D rendering (Not supervised by radiologist): MIP and/or 3D reconstructed images were created by the technologist. Radiation optimization: All CT scans at this facility use at least one of these dose optimization techniques: automated exposure control; mA and/or kV adjustment per patient size (includes targeted exams where dose is matched to clinical indication); or iterative reconstruction. Contrast material: OMNIPAQUE 350; Contrast volume: 100 ml; Contrast route: INTRAVENOUS (IV);? COMPARISON: CR XR PORTABLE CHEST AP 06/25/2020 11:41 PM FINDINGS: Lungs: Mild scattered scarring/atelectasis noted in the lung bases. No acute pulmonary infiltrate. Pleural spaces: Unremarkable. No pneumothorax. No pleural effusion. Heart: There is moderate cardiomegaly with particular enlargement of the atria. Lymph nodes: Unremarkable. No enlarged lymph nodes. Vasculature: Unremarkable. No aortic aneurysm.? Bones/joints: Moderate degenerative changes noted throughout the thoracic spine. No acute fracture. Soft tissues: Unremarkable. IMPRESSION: No acute abnormality evident in the chest.? Chronic findings as noted.? CT Abdomen And Pelvis With Contrast Exam date and time: 02/13/2023 6:02 PM Age: 78 years old Clinical indication: Other: L flank/luq pain, lower back pain; Additional info: R/O kidney stone, pyelo, pneumonia TECHNIQUE: Imaging protocol: Computed tomography of the abdomen and pelvis with contrast. 3D rendering (Not supervised by radiologist): MIP and/or 3D reconstructed images were created by the technologist. Radiation optimization: All CT scans at this facility use at least one of these dose optimization techniques: automated exposure control; mA and/or kV adjustment per patient size (includes targeted exams where dose is matched to clinical indication); or iterative reconstruction. Contrast material: OMNIPAQUE 350; Contrast volume: 100 ml; Contrast route: INTRAVENOUS (IV);? COMPARISON: CT ABDOMEN PELVIS W 06/26/2020 8:28 PM FINDINGS: Liver: The liver appears mildly enlarged but otherwise unremarkable. Gallbladder and bile ducts: Normal. No calcified stones. No ductal dilation. Pancreas: Normal. No ductal dilation. Spleen: Normal. No splenomegaly. Adrenal glands: Normal. No mass. Kidneys and ureters: Normal. No hydronephrosis. Stomach and bowel: Unremarkable. No obstruction. No mucosal thickening. Appendix: No evidence of appendicitis. Intraperitoneal space: Unremarkable. No free air. No significant fluid collection. Vasculature: Diffuse atherosclerotic calcification noted in the aorta. No evidence of aortic aneurysm or dissection. Lymph nodes: Unremarkable. No enlarged lymph nodes. Urinary bladder: Unremarkable as visualized. Reproductive: Uterus is surgically absent. No adnexal abnormality. Bones/joints: Significant degenerative changes noted throughout the lumbar spine. There is significant facet arthropathy producing grade 1 anterolisthesis of L4. No acute fracture. Soft tissues: Unremarkable. IMPRESSION: No acute abnormality evident in the abdomen or pelvis.? Stable chronic findings as noted. Lab Data Lab results reviewed: Yes I reviewed the patient's lab results. Labs: 02/13/23 18:53 Blood Blood Culture - Final Staphylococcus Aureus 02/13/23 18:44 Blood Blood Culture - Final Staphylococcus Aureus Laboratory Tests Range/Units 02/13/23 02/13/23 02/13/23 17:15 17:15 17:15 WBC (4.4-10.8) 10^3/uL 21.65 H RBC (3.93-5.22) 10^6/uL 4.47 Hgb (11.2-15.7) g/dL 13.8 Hct (36.0-46.0) % 40.4 MCV (80-95) fL 90 MCH (27.0-33.0) pg 30.9 MCHC (32.0-36.0) % 34.2 RDW (11.7-14.6) % 12.1 Plt Count (130-400) 10^3/uL 243 MPV (8.0-11.0) fL 10.0 Immature Gran % See Differential Neutrophils % 81.0 Band Neutrophils % 5 Lymphocytes % 5.0 Monocytes % 7.0 Eosinophils % 0.0 Basophils % 0.0 Metamyelocytes % 2 Nucleated RBC % (0.0-0.3) % 0.0 Absolute Neutrophils (1.2-6.7) 10^3/uL 18.62 H Absolute Lymphocytes (1.2-3.4) 10^3/uL 1.08 L Absolute Monocytes (0.1-0.8) 10^3/uL 1.52 H Absolute Eosinophils (0.0-0.7) 10^3/uL 0.00 Absolute Basophils (0.0-0.2) 10^3/uL 0.00 RBC Morphology Normal PT (9.3-11.0) sec INR (0.9-1.1) VBG Lactate (0.6-1.4) mmol/L Sodium (136-145) mmol/L 136 Potassium (3.5-5.1) mmol/L 3.3 L Chloride (98-107) mmol/L 102 Carbon Dioxide (21.0-32.0) mmol/L 25.6 Anion Gap (3-11) mmol/L 8.4 BUN (7-18) mg/dL 13 Creatinine (0.55-1.02) mg/dL 0.8 Est GFR (CKD-EPI 2020) (mL/min/1.73m2) 74.44 Glucose (74-106) mg/dL 145 H Calcium (8.5-10.1) mg/dL 9.6 Magnesium (1.8-2.4) mg/dL 1.7 L Total Bilirubin (0.2-1.0) mg/dL 1.7 H AST (15-37) U/L 17 ALT (14-59) U/L 16 Alkaline Phosphatase (46-116) U/L 69 Troponin I (<or=60) ng/L < 50 C-Reactive Protein (0.0-0.3) mg/dL Total Protein (6.4-8.2) g/dL 7.5 Albumin (3.4-5.0) g/dL 3.4 Lipase (16-77) U/L 13 L Procalcitonin ng/mL TSH (0.36-3.74) uIU/mL Urine Color (Yellow) Urine Clarity (Clear) Urine pH (5-8) Ur Specific [place] (1.005-1.025) Urine Protein (Negative) mg/dL Urine Ketones (Negative) mg/dL Urine Blood (Negative) Urine Nitrite (Negative) Urine Bilirubin (Negative) Urine Urobilinogen (Up to 0.2) mg/dL Ur Leukocyte Esterase (Negative) Urine RBC (0-2) HPF Urine WBC (0-5) HPF Ur Epithelial Cells (Negative) HPF Urine Crystals (Negative) HPF Urine Bacteria (Negative) HPF Urine Casts (Negative) LPF Urine Mucus (Negative) Ur Culture Indicated? Urine Glucose (Negative) mg/dL Lyme Disease Antibody (Negative) COVID-19 Source SARS-CoV-2 (PCR) (Negative) Influenza Type A (PCR) (Negative) Influenza Type B (PCR) (Negative) RSV (PCR) (Negative) Range/Units 02/13/23 02/13/23 02/13/23 17:15 17:20 17:35 WBC (4.4-10.8) 10^3/uL RBC (3.93-5.22) 10^6/uL Hgb (11.2-15.7) g/dL Hct (36.0-46.0) % MCV (80-95) fL MCH (27.0-33.0) pg MCHC (32.0-36.0) % RDW (11.7-14.6) % Plt Count (130-400) 10^3/uL MPV (8.0-11.0) fL Immature Gran % Neutrophils % Band Neutrophils % Lymphocytes % Monocytes % Eosinophils % Basophils % Metamyelocytes % Nucleated RBC % (0.0-0.3) % Absolute Neutrophils (1.2-6.7) 10^3/uL Absolute Lymphocytes (1.2-3.4) 10^3/uL Absolute Monocytes (0.1-0.8) 10^3/uL Absolute Eosinophils (0.0-0.7) 10^3/uL Absolute Basophils (0.0-0.2) 10^3/uL RBC Morphology PT (9.3-11.0) sec INR (0.9-1.1) VBG Lactate (0.6-1.4) mmol/L Sodium (136-145) mmol/L Potassium (3.5-5.1) mmol/L Chloride (98-107) mmol/L Carbon Dioxide (21.0-32.0) mmol/L Anion Gap (3-11) mmol/L BUN (7-18) mg/dL Creatinine (0.55-1.02) mg/dL Est GFR (CKD-EPI 2020) (mL/min/1.73m2) Glucose (74-106) mg/dL Calcium (8.5-10.1) mg/dL Magnesium (1.8-2.4) mg/dL Total Bilirubin (0.2-1.0) mg/dL AST (15-37) U/L ALT (14-59) U/L Alkaline Phosphatase (46-116) U/L Troponin I (<or=60) ng/L C-Reactive Protein (0.0-0.3) mg/dL Total Protein (6.4-8.2) g/dL Albumin (3.4-5.0) g/dL Lipase (16-77) U/L Procalcitonin ng/mL TSH (0.36-3.74) uIU/mL 0.41 Urine Color (Yellow) Yellow Urine Clarity (Clear) Clear Urine pH (5-8) 7.0 Ur Specific [place] (1.005-1.025) 1.015 Urine Protein (Negative) mg/dL Trace H Urine Ketones (Negative) mg/dL Negative Urine Blood (Negative) Negative Urine Nitrite (Negative) Negative Urine Bilirubin (Negative) Negative Urine Urobilinogen (Up to 0.2) mg/dL 0.2 Ur Leukocyte Esterase (Negative) Negative Urine RBC (0-2) HPF 0-2 Urine WBC (0-5) HPF 0-2 Ur Epithelial Cells (Negative) HPF Few Urine Crystals (Negative) HPF Negative Urine Bacteria (Negative) HPF Negative Urine Casts (Negative) LPF Negative Urine Mucus (Negative) Negative Ur Culture Indicated? No Urine Glucose (Negative) mg/dL Negative Lyme Disease Antibody (Negative) COVID-19 Source Nasopharynx SARS-CoV-2 (PCR) (Negative) Negative Influenza Type A (PCR) (Negative) Negative Influenza Type B (PCR) (Negative) Negative RSV (PCR) (Negative) Negative Range/Units 02/13/23 02/13/23 02/13/23 18:53 18:53 18:53 WBC (4.4-10.8) 10^3/uL RBC (3.93-5.22) 10^6/uL Hgb (11.2-15.7) g/dL Hct (36.0-46.0) % MCV (80-95) fL MCH (27.0-33.0) pg MCHC (32.0-36.0) % RDW (11.7-14.6) % Plt Count (130-400) 10^3/uL MPV (8.0-11.0) fL Immature Gran % Neutrophils % Band Neutrophils % Lymphocytes % Monocytes % Eosinophils % Basophils % Metamyelocytes % Nucleated RBC % (0.0-0.3) % Absolute Neutrophils (1.2-6.7) 10^3/uL Absolute Lymphocytes (1.2-3.4) 10^3/uL Absolute Monocytes (0.1-0.8) 10^3/uL Absolute Eosinophils (0.0-0.7) 10^3/uL Absolute Basophils (0.0-0.2) 10^3/uL RBC Morphology PT (9.3-11.0) sec INR (0.9-1.1) VBG Lactate (0.6-1.4) mmol/L 0.7 Sodium (136-145) mmol/L Potassium (3.5-5.1) mmol/L Chloride (98-107) mmol/L Carbon Dioxide (21.0-32.0) mmol/L Anion Gap (3-11) mmol/L BUN (7-18) mg/dL Creatinine (0.55-1.02) mg/dL Est GFR (CKD-EPI 2020) (mL/min/1.73m2) Glucose (74-106) mg/dL Calcium (8.5-10.1) mg/dL Magnesium (1.8-2.4) mg/dL Total Bilirubin (0.2-1.0) mg/dL AST (15-37) U/L ALT (14-59) U/L Alkaline Phosphatase (46-116) U/L Troponin I (<or=60) ng/L C-Reactive Protein (0.0-0.3) mg/dL 3.53 H Total Protein (6.4-8.2) g/dL Albumin (3.4-5.0) g/dL Lipase (16-77) U/L Procalcitonin ng/mL 0.8 TSH (0.36-3.74) uIU/mL Urine Color (Yellow) Urine Clarity (Clear) Urine pH (5-8) Ur Specific [place] (1.005-1.025) Urine Protein (Negative) mg/dL Urine Ketones (Negative) mg/dL Urine Blood (Negative) Urine Nitrite (Negative) Urine Bilirubin (Negative) Urine Urobilinogen (Up to 0.2) mg/dL Ur Leukocyte Esterase (Negative) Urine RBC (0-2) HPF Urine WBC (0-5) HPF Ur Epithelial Cells (Negative) HPF Urine Crystals (Negative) HPF Urine Bacteria (Negative) HPF Urine Casts (Negative) LPF Urine Mucus (Negative) Ur Culture Indicated? Urine Glucose (Negative) mg/dL Lyme Disease Antibody (Negative) COVID-19 Source SARS-CoV-2 (PCR) (Negative) Influenza Type A (PCR) (Negative) Influenza Type B (PCR) (Negative) RSV (PCR) (Negative) Range/Units 02/13/23 02/13/23 02/14/23 18:53 21:35 06:03 WBC (4.4-10.8) 10^3/uL RBC (3.93-5.22) 10^6/uL Hgb (11.2-15.7) g/dL Hct (36.0-46.0) % MCV (80-95) fL MCH (27.0-33.0) pg MCHC (32.0-36.0) % RDW (11.7-14.6) % Plt Count (130-400) 10^3/uL MPV (8.0-11.0) fL Immature Gran % Neutrophils % Band Neutrophils % Lymphocytes % Monocytes % Eosinophils % Basophils % Metamyelocytes % Nucleated RBC % (0.0-0.3) % Absolute Neutrophils (1.2-6.7) 10^3/uL Absolute Lymphocytes (1.2-3.4) 10^3/uL Absolute Monocytes (0.1-0.8) 10^3/uL Absolute Eosinophils (0.0-0.7) 10^3/uL Absolute Basophils (0.0-0.2) 10^3/uL RBC Morphology PT (9.3-11.0) sec 11.5 H INR (0.9-1.1) 1.1 VBG Lactate (0.6-1.4) mmol/L Sodium (136-145) mmol/L 138 Potassium (3.5-5.1) mmol/L 3.5 Chloride (98-107) mmol/L 105 Carbon Dioxide (21.0-32.0) mmol/L 24.0 Anion Gap (3-11) mmol/L 9.0 BUN (7-18) mg/dL 10 Creatinine (0.55-1.02) mg/dL 1.0 Est GFR (CKD-EPI 2020) (mL/min/1.73m2) 56.95 Glucose (74-106) mg/dL 128 H Calcium (8.5-10.1) mg/dL 8.7 Magnesium (1.8-2.4) mg/dL 2.1 Total Bilirubin (0.2-1.0) mg/dL 1.0 AST (15-37) U/L 14 L ALT (14-59) U/L 15 Alkaline Phosphatase (46-116) U/L 56 Troponin I (<or=60) ng/L C-Reactive Protein (0.0-0.3) mg/dL Total Protein (6.4-8.2) g/dL 6.0 L Albumin (3.4-5.0) g/dL 2.6 L Lipase (16-77) U/L Procalcitonin ng/mL TSH (0.36-3.74) uIU/mL Urine Color (Yellow) Urine Clarity (Clear) Urine pH (5-8) Ur Specific [place] (1.005-1.025) Urine Protein (Negative) mg/dL Urine Ketones (Negative) mg/dL Urine Blood (Negative) Urine Nitrite (Negative) Urine Bilirubin (Negative) Urine Urobilinogen (Up to 0.2) mg/dL Ur Leukocyte Esterase (Negative) Urine RBC (0-2) HPF Urine WBC (0-5) HPF Ur Epithelial Cells (Negative) HPF Urine Crystals (Negative) HPF Urine Bacteria (Negative) HPF Urine Casts (Negative) LPF Urine Mucus (Negative) Ur Culture Indicated? Urine Glucose (Negative) mg/dL Lyme Disease Antibody (Negative) Negative COVID-19 Source SARS-CoV-2 (PCR) (Negative) Influenza Type A (PCR) (Negative) Influenza Type B (PCR) (Negative) RSV (PCR) (Negative) Range/Units 02/14/23 02/14/23 02/14/23 06:03 06:03 06:03 WBC (4.4-10.8) 10^3/uL 14.93 H RBC (3.93-5.22) 10^6/uL 3.84 L Hgb (11.2-15.7) g/dL 11.7 D Hct (36.0-46.0) % 35.8 L MCV (80-95) fL 93 MCH (27.0-33.0) pg 30.5 MCHC (32.0-36.0) % 32.7 RDW (11.7-14.6) % 12.6 Plt Count (130-400) 10^3/uL 202 MPV (8.0-11.0) fL 10.0 Immature Gran % 0.6 Neutrophils % 89.2 Band Neutrophils % Lymphocytes % 5.4 Monocytes % 4.5 Eosinophils % 0.0 Basophils % 0.3 Metamyelocytes % Nucleated RBC % (0.0-0.3) % 0.0 Absolute Neutrophils (1.2-6.7) 10^3/uL 13.32 H Absolute Lymphocytes (1.2-3.4) 10^3/uL 0.81 L Absolute Monocytes (0.1-0.8) 10^3/uL 0.67 Absolute Eosinophils (0.0-0.7) 10^3/uL 0.00 Absolute Basophils (0.0-0.2) 10^3/uL 0.04 RBC Morphology PT (9.3-11.0) sec 11.4 H INR (0.9-1.1) 1.1 VBG Lactate (0.6-1.4) mmol/L Sodium (136-145) mmol/L Potassium (3.5-5.1) mmol/L Chloride (98-107) mmol/L Carbon Dioxide (21.0-32.0) mmol/L Anion Gap (3-11) mmol/L BUN (7-18) mg/dL Creatinine (0.55-1.02) mg/dL Est GFR (CKD-EPI 2020) (mL/min/1.73m2) Glucose (74-106) mg/dL Calcium (8.5-10.1) mg/dL Magnesium (1.8-2.4) mg/dL Total Bilirubin (0.2-1.0) mg/dL AST (15-37) U/L ALT (14-59) U/L Alkaline Phosphatase (46-116) U/L Troponin I (<or=60) ng/L C-Reactive Protein (0.0-0.3) mg/dL 6.50 H Total Protein (6.4-8.2) g/dL Albumin (3.4-5.0) g/dL Lipase (16-77) U/L Procalcitonin ng/mL TSH (0.36-3.74) uIU/mL Urine Color (Yellow) Urine Clarity (Clear) Urine pH (5-8) Ur Specific [place] (1.005-1.025) Urine Protein (Negative) mg/dL Urine Ketones (Negative) mg/dL Urine Blood (Negative) Urine Nitrite (Negative) Urine Bilirubin (Negative) Urine Urobilinogen (Up to 0.2) mg/dL Ur Leukocyte Esterase (Negative) Urine RBC (0-2) HPF Urine WBC (0-5) HPF Ur Epithelial Cells (Negative) HPF Urine Crystals (Negative) HPF Urine Bacteria (Negative) HPF Urine Casts (Negative) LPF Urine Mucus (Negative) Ur Culture Indicated? Urine Glucose (Negative) mg/dL Lyme Disease Antibody (Negative) COVID-19 Source SARS-CoV-2 (PCR) (Negative) Influenza Type A (PCR) (Negative) Influenza Type B (PCR) (Negative) RSV (PCR) (Negative) ECG Data Attestation: I personally reviewed and interpreted this ECG (s) as follows: Interpretation: Rate of 79, sinus with rate variation vs afib, p waves not visible in all leads, normal axis, no STEMI. HPI General Mode of arrival: wheelchair . Date/Time Provider Initiated Documentation: 02/13/23 16:20 . Limitations to Documentation: no limitations . Information obtained by: patient . HPI Narrative: Patient is an 78-year-old female with a history of hypertension, hyperlipidemia, hypothyroidism, atrial fibrillation on Eliquis presents for general malaise since last night with nausea and dry heaving in the middle the night with left- sided abdominal and back pain and lower back pain since this morning. She states the pain in her abdomen is intermittent and sharp and worse with moving. She states the pain in her back is extending also from her left upper quadrant and left side of her abdomen but also has pain across her lower back. She was unaware of having a fever. She states she took Tylenol earlier this morning for pain relief. She states her last bowel movement was today and within normal limits. She denies any ear pain, sore throat, chest pain, difficulty breathing or urinary symptoms. She states she has an occasional cough at baseline but does not feel it is any worse than usual and denies any sputum production. She states she went to a wedding yesterday and felt fine. Related Data Home Medications Medication Instructions Recorded Confirmed albuterol sulfate 90 mcg/actuation 2 puff inhalation Q4H PRN PRN 09/13/14 0 02/13/23 aerosol inhaler apixaban 5 mg tablet (Eliquis) 5 mg PO BID 09/13/14 02/13/23 inhalational spacing device ##1 09/13/14 02/13/23 (Aerochamber Plus Flow-Vu) levothyroxine 88 mcg tablet 88 mcg PO DAILY 09/13/14 02/13/23 lisinopril 40 mg tablet 40 mg PO DAILY 09/13/14 02/13/23 multivitamin 1 ea PO DAILY 09/13/14 02/13/23 calcium carbonate 200 mg calcium 1,000 mg PO DAILY 08/03/16 02/13/23 (500 mg) chewable tablet magnesium L-lactate 84 mg 84 mg PO DAILY ##30 01/27/17 02/13/23 tablet,extended release (Magtab) acetaminophen 500 mg tablet 1,000 mg PO Q6H PRN PRN 06/17/17 02/13/23 (Tylenol Extra Strength) cholecalciferol (vitamin D3) 25 1,000 units PO DAILY 06/17/17 02/13/23 mcg (1,000 unit) tablet doxazosin 1 mg tablet 1 mg PO DAILY 06/17/17 07/03/20 omega-3 fatty acids-fish oil 340 1 ea PO DAILY 06/17/17 02/13/23 mg-1,000 mg capsule (Fish Oil) potassium chloride 10 mEq 10 meq PO QPM 06/17/17 02/13/23 tablet,extended release(part/cryst) (Klor-Con M) potassium chloride 20 mEq 20 meq PO QAM 06/17/17 02/13/23 tablet,extended release(part/cryst) (Klor-Con M) diltiazem HCl 300 mg 300 mg PO DAILY 06/26/20 07/03/20 capsule,extended release 24 hr amlodipine 10 mg tablet 10 mg PO DAILY 02/13/23 02/13/23 dofetilide 250 mcg capsule 250 mcg PO BID 02/13/23 02/13/23 Previous Rx's Medication Instructions Recorded inhalational spacing device ##1 09/13/14 (Aerochamber Plus Flow-Vu) magnesium L-lactate 84 mg 84 mg PO DAILY ##30 01/27/17 tablet,extended release (Magtab) Allergies Allergy/AdvReac Type Severity Reaction Status Date / Time hydralazine Allergy Intermediate Dizziness/L Unverified 02/13/23 16:11 ightheade metoprolol Allergy Cardiac Unverified 02/13/23 16:11 Dysrythmia isosorbide mononitrate AdvReac Intermediate Skin Rash Unverified 02/13/23 16:11 [From Imdur] General Stated Complaint: GenMedical MARTHA: 3 Review of Systems All systems reviewed & are unremarkable except as noted in HPI and below Constitutional Constitutional: Reports as per HPI, Denies chills, Reports fatigue, Denies fever(s), Reports headache(s) and Reports malaise Eyes Eyes: Denies blurry vision ENT Ears, Nose, Mouth, and Throat: Denies dizziness, Reports headache(s), Denies sore throat and Denies throat swelling Cardiovascular Cardiovascular: Denies chest pain and Denies dyspnea Respiratory Respiratory: Denies cough and Denies dyspnea Gastrointestinal Gastrointestinal: Reports abdominal pain, Denies diarrhea and Denies vomiting Genitourinary Genitourinary: Denies hematuria and Denies dysuria Musculoskeletal Musculoskeletal: Reports back pain and Denies numbness Integumentary/Breasts Skin/Breast: Denies lesions and Denies rash Neurologic Neurologic: Denies dizziness, Reports headache(s), Denies localized weakness and Denies numbness Endocrine Endocrine: Reports fatigue Allergic/Immunologic Allergic/Immunologic: Denies throat swelling PFSH All Active Problems (Updated 02/18/23 @ 02:13 by Kaya Lee DO) Fever of unknown origin (Acute) Leukocytosis (Acute) Bandemia (Acute) Tricuspid valve regurgitation, secondary (Acute) Mitral regurgitation (Chronic) Lumbar degenerative disc disease (Acute) Staphylococcus aureus bacteremia (Acute) Palliative care encounter (Acute) Advance care planning (Acute) Discharge planning issues (Acute) DVT prophylaxis (Acute) Back pain (Acute) Gram-positive cocci bacteremia (Acute) Sepsis (Acute) Leukocytosis (leucocytosis) (Acute) Hypokalemia (Chronic) Gastritis (Acute) Fever (Acute) Atrial fibrillation with RVR (Acute) Diarrhea (Acute) Medical History Atrial fibrillation Essential hypertension (01/27/17) Hyperlipidemia, mixed (01/27/17) Hypothyroidism Surgical History History of cardiac radiofrequency ablation History of cataract surgery S/P hysterectomy Social History Smoking/Tobacco Use Status: Never Smoking risk assessment performed?: Yes Alcohol Intake: never Drug use: Never Substance use type: does not use Do you feel safe at home: Yes Do you feel safe in your relationship?: Yes Exam Const General: cooperative, uncomfortable and no acute distress Orientation: alert, awake and oriented x3 HENMT Head: normal to inspection Ears: hearing grossly normal bilaterally and external ears normal Face and sinus: normal facial exam Mouth: oral mucosae normal Throat: posterior oropharynx normal Eyes General: appearance normal, both eyes and all related structures Pupils: PERRL EOM: EOM intact bilaterally Neck Neck: normal visual inspection and No submandibular swelling Lymphatic: no lymphadenopathy noted Chest Chest: normal inspection of the chest and no tenderness Resp Effort & Inspection: normal respiratory effort and able to speak in complete sentences Auscultation: clear to auscultation bilaterally Cardio Rate: regular rate Rhythm: regular rhythm GI Inspection: normal to inspection Palpation: soft, not firm, not rigid and nontender Auscultation: hypoactive bowel sounds Back/Spine/Pelvis Back: no CVA tenderness Thoracic/Lumbar Spine: thoracic and lumbar spine normal to inspection Skin General skin exam: no rashes or lesions noted Neuro General: patient alert, patient awake and patient oriented x3 Cognition: normal cognition Speech: speech normal Motor: muscle tone normal throughout Sensory Exam: no sensory deficits noted Extrem General: normal to inspection, full ROM, capillary refill normal, no calf tenderness bilaterally and no edema Psych Appearance: grossly normal Mental Status: mental status grossly normal Speech and Movement: speech and movement normal Affect: normal affect Course Vital Signs Vital signs: Vital Signs Temperature 100.4 F H 02/13/23 16:08 Pulse 90 02/13/23 16:08 Respiratory Rate 16 02/13/23 16:08 Blood Pressure 140/88 02/13/23 16:08 Pulse Oximetry 94 02/13/23 16:08 Temperature 103.1 F H 02/13/23 16:40 Temperature Source Rectal 02/13/23 16:40 Pulse 90 02/13/23 16:08 Respiratory Rate 16 02/13/23 16:08 Respiratory Effort Non-Labored, Short of Breath 02/13/23 16:11 Blood Pressure 140/88 02/13/23 16:08 Blood Pressure Position Sitting 02/13/23 16:08 Pulse Oximetry 94 02/13/23 16:08 Oxygen Delivery Method Room Air 02/13/23 16:08 Oxygen Flow Rate 0 02/13/23 16:08 Pain Level 7 02/13/23 16:08
[2023-02-13] MEDS: ACETAMINOPHEN 1,000 MG/100 ML BTL 400 MG IVPB (17:21)
[2023-02-13] MEDS: Ondansetron 4 MG/2 ML VIAL IVP (17:23)
[2023-02-13] MEDS: Normal Saline 1,000 ML 1000 ML IV ×2 (17:23→19:36)
[2023-02-13 17:32] LABS: Abs Immature Grans 0.13 10^3/uL (0.0-0.06); HCT 40.4 % (36.0-46.0); HGB 13.8 g/dL (11.2-15.7); MCH 30.9 pg (27.0-33.0); MCHC 34.2 % (32.0-36.0); MCV 90 fL (80-95); Platelet Count 243 10^3/uL (130-400); RBC 4.47 10^6/uL (3.93-5.22); RDW 12.1 % (11.7-14.6); RDW-SD 40.2 fL; WBC 21.65 10^3/uL (4.4-10.8)
[2023-02-13 17:50] LABS: Bilirubin Negative (Negative); Blood Negative (Negative); Clarity Clear (Clear); Glucose Negative (Negative); Ketones Negative (Negative); Leukocyte Esterase Negative (Negative); Nitrite Negative (Negative); Specific Gravity 1.015 (1.005-1.025); Urobilinogen 0.2 mg/dL (Up to 0.2)
[2023-02-13 17:50] LABS: ALT 16 U/L (14-59); AST 17 U/L (15-37); Alkaline Phosphatase 69 U/L (46-116); Anion Gap 8.4 mmol/L (3-11); Bilirubin, Total 1.7 mg/dL (0.2-1.0); CO2 25.6 mmol/L (21.0-32.0); Chloride 102 mmol/L (98-107); Potassium 3.3 mmol/L (3.5-5.1); Sodium 136 mmol/L (136-145); Total Protein 7.5 g/dL (6.4-8.2)
[2023-02-13 17:55] LABS: Lipase 13 U/L (16-77); Troponin I < 50 ng/L (<or=60)
[2023-02-13 18:00] LABS: Albumin 3.4 g/dL (3.4-5.0); BUN 13 mg/dL (7-18); CREATININE 0.8 mg/dL (0.55-1.02); Calcium 9.6 mg/dL (8.5-10.1); Estimated GFR 74.44 (mL/min/1.73m2); Glucose 145 mg/dL (74-106); Magnesium 1.7 mg/dL (1.8-2.4); TSH (W/Ref FT4) 0.41 uIU/mL (0.36-3.74)
[2023-02-13 18:04] LABS: Bacteria Negative HPF (Negative); C & S Indicated? No; Casts Negative LPF (Negative); Crystals Negative HPF (Negative); Epithelial Cells Few HPF (Negative); Mucus Negative (Negative); RBC 0-2 HPF (0-2); WBC 0-2 HPF (0-5)
[2023-02-13] MEDS: Normal Saline - Diluent 50 ML VIAL IJ (18:04)
[2023-02-13] MEDS: Omnipaque 350 MG/ML 100 ML BTL IJ (18:05)
[2023-02-13] MEDS: Normal Saline Flush 10 ML SYR IVP (18:05)
[2023-02-13 18:08] LABS: COVID-19 PCR Negative (Negative); Influenza A PCR Negative (Negative); Influenza B PCR Negative (Negative); RSV PCR Negative (Negative)
[2023-02-13 18:12] LABS: Absolute Lymphocyte Count 1.08 10^3/uL (1.2-3.4); Absolute Monocyte Count 1.52 10^3/uL (0.1-0.8); Absolute Neutrophil Count 18.62 10^3/uL (1.2-6.7); Bands % 5
[2023-02-13 18:13] LABS: Diff Comment Manual Differential; Metamyelocytes % 2; RBC Morphology Normal
[2023-02-13 18:13] LABS: Source Nasopharynx
[2023-02-13] MEDS: MAGNESIUM SULFATE 1 GM/100 ML BAG IVPB (18:30)
[2023-02-13] MEDS: POTASSIUM CHLORIDE 20 MEQ/100 ML BAG 50 MEQ IVPB (18:30)
--- NOTE | 2023-02-13 18:51 | DI.VRAD_ITS ---
PROCEDURE INFORMATION: Exam: CT Chest With Contrast; Diagnostic Exam date and time: 02/13/2023 6:02 PM Age: 78 years old Clinical indication: Other: L flank/luq pain, lower back pain; Additional info: R/O kidney stone, pyelo, pneumonia TECHNIQUE: Imaging protocol: Diagnostic computed tomography of the chest with contrast. 3D rendering (Not supervised by radiologist): MIP and/or 3D reconstructed images were created by the technologist. Radiation optimization: All CT scans at this facility use at least one of these dose optimization techniques: automated exposure control; mA and/or kV adjustment per patient size (includes targeted exams where dose is matched to clinical indication); or iterative reconstruction. Contrast material: OMNIPAQUE 350; Contrast volume: 100 ml; Contrast route: INTRAVENOUS (IV); COMPARISON: CR XR PORTABLE CHEST AP 06/25/2020 11:41 PM FINDINGS: Lungs: Mild scattered scarring/atelectasis noted in the lung bases. No acute pulmonary infiltrate. Pleural spaces: Unremarkable. No pneumothorax. No pleural effusion. Heart: There is moderate cardiomegaly with particular enlargement of the atria. Lymph nodes: Unremarkable. No enlarged lymph nodes. Vasculature: Unremarkable. No aortic aneurysm. Bones/joints: Moderate degenerative changes noted throughout the thoracic spine. No acute fracture. Soft tissues: Unremarkable. IMPRESSION: No acute abnormality evident in the chest. Chronic findings as noted. PROCEDURE INFORMATION: Exam: CT Abdomen And Pelvis With Contrast Exam date and time: 02/13/2023 6:02 PM Age: 78 years old Clinical indication: Other: L flank/luq pain, lower back pain; Additional info: R/O kidney stone, pyelo, pneumonia TECHNIQUE: Imaging protocol: Computed tomography of the abdomen and pelvis with contrast. 3D rendering (Not supervised by radiologist): MIP and/or 3D reconstructed images were created by the technologist. Radiation optimization: All CT scans at this facility use at least one of these dose optimization techniques: automated exposure control; mA and/or kV adjustment per patient size (includes targeted exams where dose is matched to clinical indication); or iterative reconstruction. Contrast material: OMNIPAQUE 350; Contrast volume: 100 ml; Contrast route: INTRAVENOUS (IV); COMPARISON: CT ABDOMEN PELVIS W 06/26/2020 8:28 PM FINDINGS: Liver: The liver appears mildly enlarged but otherwise unremarkable. Gallbladder and bile ducts: Normal. No calcified stones. No ductal dilation. Pancreas: Normal. No ductal dilation. Spleen: Normal. No splenomegaly. Adrenal glands: Normal. No mass. Kidneys and ureters: Normal. No hydronephrosis. Stomach and bowel: Unremarkable. No obstruction. No mucosal thickening. Appendix: No evidence of appendicitis. Intraperitoneal space: Unremarkable. No free air. No significant fluid collection. Vasculature: Diffuse atherosclerotic calcification noted in the aorta. No evidence of aortic aneurysm or dissection. Lymph nodes: Unremarkable. No enlarged lymph nodes. Urinary bladder: Unremarkable as visualized. Reproductive: Uterus is surgically absent. No adnexal abnormality. Bones/joints: Significant degenerative changes noted throughout the lumbar spine. There is significant facet arthropathy producing grade 1 anterolisthesis of L4. No acute fracture. Soft tissues: Unremarkable. IMPRESSION: No acute abnormality evident in the abdomen or pelvis. Stable chronic findings as noted. Dictated and Authenticated by: Jc Euceda MD. Ordering:JANNA Kirkpatrick MD
[2023-02-13 18:59] LABS: Lactate 0.7 mmol/L (0.6-1.4)
--- NOTE | 2023-02-13 19:21 | HPE_ITS ---
Date of service: 02/13/23 Time of Service: 19:21 Assessment and Plan Assessment and plan (1) Fever: Start date: 02/13/23 Status: Acute Assessment and plan: This is an 78-year-old lady who had sudden onset of fever with fatigue and malaise as well as GI symptoms and mild back pain but no obvious source of her fever other than possible gastritis with possible viral infection with exposure and going to a wedding prior to presentation. He was rather short onset of symptoms for exposure and usual incubation times. Other possibility would be bacteremia with abdominal source the patient has been covered with IV Zosyn with doxycycline added because of possibly bronchitis on CT of the chest. She does have mild respiratory symptoms chronically on rescue inhalers for asthma/COPD. This has not been exacerbated recently. Patient will be converted to oral therapy with follow-up on cultures and adjusted accordingly if positive cultures with sensitivities. If she has no positive cultures and fever resolves this could be treated as a viral infection with cessation of antibiotics and supportive care. She will be placed on a clear fluid diet with some nausea with the gastritis. She also be placed on a PPI only if symptoms persist with patient chronically not on anything more than times and presently not having significant gastric symptoms. She is a full code. (2) Gastritis: Start date: 02/13/23 Status: Acute Assessment and plan: Clear fluid diet and symptomatic care holding off on PPI for now with patient feeling better. This may be indicative of viral infection with high fever with no other source for fever thus far discovered. She will have a diet advanced as tolerated. (3) Leukocytosis (leucocytosis): Start date: 02/13/23 Status: Acute Assessment and plan: Significant elevation of WBC above 20,000 and mostly neutrophils with this to be trended as patient is treated with IV antibiotics awaiting culture reports. Symptomatic care and encourage oral hydration. Follow-up CRP and procalcitonin. Lactic has been normal and anion gap was normal. The patient is not appearing septic. Qualifiers: Leukocytosis type: other Qualified Code(s): D72.828 - Other elevated white blood cell count (4) Hypokalemia: Status: Chronic Assessment and plan: Currently on the potassium supplement as outpatient and controlled but acutely low. Patient also had low magnesium with magnesium IV being given. IV potassium with gentle hydration and continue oral potassium with trending lab daily. Patient is not chronically on diuretics. (5) Atrial fibrillation: Assessment and plan: Paroxysmal atrial fibrillation by history status post ablation and on Eliquis. Continue outpatient medical therapy with patient off Cardizem though this was questioned on her outpatient home medication list. Qualifiers: Atrial fibrillation type: paroxysmal Qualified Code(s): I48.0 - Paroxysmal atrial fibrillation (6) Essential hypertension: Assessment and plan: Patient blood pressure slightly low and multiple outpatient medical therapy will be held for now and reinitiated as she is observed with her acute admission. She usually is on lisinopril and Norvasc which is held with Tikosyn to be continued for her atrial fibrillation and off diltiazem as mentioned. She also is on doxazosin which is being held. (7) Hypothyroidism: Assessment and plan: Stable on present dose of supplement to be continued the same. History of Present Illness History of Present Illness Chief Complaint: Nausea with general malaise and fatigue, abdominal cramps and low back pain Narrative: This is an 78-year-old female patient who presented to the ED with sudden onset of nausea with dry heaves the night prior to presentation with with fever measured up to over 103 and general malaise and fatigue. She also had abdominal cramping with discomfort in her lower abdomen and back pain which she attributed to her chronic low back pain. She denies any diarrhea. She had had some rigors and chills but no sweats. At the time I saw the patient she was afebrile and comfortable. She had received some fluids in the ED and was initiated on Zosyn with doxycycline for possible infectious process involving abdominal source and the possibility of bacteremia with her high fever. She also had evidence of bronchitis on imaging which will be covered with doxycycline. She denies any worsening cough but does have chronic asthma with some cough without production of sputum. She does use a rescue inhaler for chronic asthma and has never been a smoker or exposed to secondary smoke. She does with her who has not been ill. She did go to a wedding the evening prior to presentation may have been exposed to illnesses there but no one at the wedding that she is aware of has been ill. She had no different foods or exposure to ticks. She denies any rash but does occasionally have bruises with minor trauma being on Eliquis for paroxysmal atrial fibrillation. Patient had no chest pain or other complaints upon presentation. She denies any weight gain or edema. She is compliant with her medical therapy and is not on Cardizem at this time for her atrial fibrillation having had ablation therapy for her atrial fibrillation and on dofetilide for atrial fibrillation. She also is on antihypertensives though her blood pressure is lower at this time. Patient was admitted for IV antibiotic therapy and follow-up on cultures with a markedly elevated white count though her lactic acid was normal. Procalcitonin and CRP were ordered. At this time she feels closer to baseline. She is a full code. Review of Systems Narrative: 13 point review of systems otherwise unrevealing or stable. PFSH All Active Problems (Updated 02/14/23 @ 00:51 by Jose Skelton) Leukocytosis (leucocytosis) (Acute) Hypokalemia (Chronic) Gastritis (Acute) Fever (Acute) Atrial fibrillation with RVR (Acute) Diarrhea (Acute) Medical History Atrial fibrillation Essential hypertension (01/27/17) Hyperlipidemia, mixed (01/27/17) Hypothyroidism Surgical History History of cardiac radiofrequency ablation History of cataract surgery S/P hysterectomy Social History Smoking/Tobacco Use Status: Never Smoking risk assessment performed?: Yes Alcohol Intake: never Drug use: Never Substance use type: does not use Do you feel safe at home: Yes Do you feel safe in your relationship?: Yes Meds Allergies and Home Medications Allergies Allergy/AdvReac Type Severity Reaction Status Date / Time hydralazine Allergy Intermediate Dizziness/L Unverified 02/13/23 16:11 ightheade metoprolol Allergy Cardiac Unverified 02/13/23 16:11 Dysrythmia isosorbide mononitrate AdvReac Intermediate Skin Rash Unverified 02/13/23 16:11 [From Imdur] Home Medications Medication Instructions Recorded Confirmed Type albuterol sulfate 90 mcg/actuation 2 puff inhalation Q4H PRN PRN 09/13/14 02/13/23 History aerosol inhaler apixaban 5 mg tablet (Eliquis) 5 mg PO BID 09/13/14 02/13/23 History inhalational spacing device ##1 09/13/14 02/13/23 Rx (Aerochamber Plus Flow-Vu) levothyroxine 88 mcg tablet 88 mcg PO DAILY 09/13/14 02/13/23 History lisinopril 40 mg tablet 40 mg PO DAILY 09/13/14 02/13/23 History multivitamin 1 ea PO DAILY 09/13/14 02/13/23 History calcium carbonate 200 mg calcium 1,000 mg PO DAILY 08/03/16 02/13/23 History (500 mg) chewable tablet magnesium L-lactate 84 mg 84 mg PO DAILY ##30 01/27/17 02/13/23 Rx tablet,extended release (Magtab) acetaminophen 500 mg tablet 1,000 mg PO Q6H PRN PRN 06/17/17 02/13/23 History (Tylenol Extra Strength) cholecalciferol (vitamin D3) 25 1,000 units PO DAILY 06/17/17 02/13/23 History mcg (1,000 unit) tablet doxazosin 1 mg tablet 1 mg PO DAILY 06/17/17 07/03/20 History omega-3 fatty acids-fish oil 340 1 ea PO DAILY 06/17/17 02/13/23 History mg-1,000 mg capsule (Fish Oil) potassium chloride 10 mEq 10 meq PO QPM 06/17/17 02/13/23 History tablet,extended release(part/cryst) (Klor-Con M) potassium chloride 20 mEq 20 meq PO QAM 06/17/17 02/13/23 History tablet,extended release(part/cryst) (Klor-Con M) diltiazem HCl 300 mg 300 mg PO DAILY 06/26/20 07/03/20 History capsule,extended release 24 hr amlodipine 10 mg tablet 10 mg PO DAILY 02/13/23 02/13/23 History dofetilide 250 mcg capsule 250 mcg PO BID 02/13/23 02/13/23 History Exam Narrative Exam Narrative: General: Patient appears appropriate for age, alert and oriented x3 and in no acute distress. She is given on a normal conversation sitting up in bed. HEENT: Normocephalic, eyes with pupils equal and reactive to light symme trically, extraocular movement intact and sclera anicteric. Oropharynx with moist mucosa and fair dentition. Neck: Supple without JVD. Back: Slightly stooped posture without CVA tenderness. Lungs: Decreased aeration over the right base with inspiratory coarse crackles sparsely and bronchovesicular breath sounds diffusely with better aeration over other areas of the lungs. No focalizing rales. Slight increased expiratory phase to cough but no expiratory wheeze. Breast: Exam deferred. Heart: Bradycardic rate with irregular rhythm with cardiac care unit nurse revealing sinus rhythm with frequent PACs. No appreciable murmur or gallop. Abdomen: Slightly obese contour, soft and nontender to palpation with no palpable hepatosplenomegaly. No focalizing tenderness or guarding and no rebound. Bowel sounds positive in all quadrants. Genitalia/rectal: Exam deferred. Extremities: Without clubbing, cyanosis or pitting edema. Good capillary refill. Old bruise over right knee which is small without induration. Joints have mild bony arthritic changes. Skin: Normal color, warm and dry with no acute rashes but occasional bruises as mentioned. Neuro: Cranial nerves II through XII gross intact, no focal motor deficits and no tremor. Psych: Normal affect and mood. No abnormal thought processes. Remote and recent memory intact. Results Imaging Imaging Studies: Exam: CT Chest With Contrast; Diagnostic Exam date and time: 02/13/2023 6:02 PM Age: 78 years old Clinical indication: Other: L flank/luq pain, lower back pain; Additional info: R/O kidney stone, pyelo, pneumonia TECHNIQUE: Imaging protocol: Diagnostic computed tomography of the chest with contrast. 3D rendering (Not supervised by radiologist): MIP and/or 3D reconstructed images were created by the technologist. Radiation optimization: All CT scans at this facility use at least one of these dose optimization techniques: automated exposure control; mA and/or kV adjustment per patient size (includes targeted exams where dose is matched to clinical indication); or iterative reconstruction. Contrast material: OMNIPAQUE 350; Contrast volume: 100 ml; Contrast route: INTRAVENOUS (IV);? COMPARISON: CR XR PORTABLE CHEST AP 06/25/2020 11:41 PM FINDINGS: Lungs: Mild scattered scarring/atelectasis noted in the lung bases. No acute pulmonary infiltrate. Pleural spaces: Unremarkable. No pneumothorax. No pleural effusion. Heart: There is moderate cardiomegaly with particular enlargement of the atria. Lymph nodes: Unremarkable. No enlarged lymph nodes. Vasculature: Unremarkable. No aortic aneurysm.? Bones/joints: Moderate degenerative changes noted throughout the thoracic spine. No acute fracture. Soft tissues: Unremarkable. IMPRESSION: No acute abnormality evident in the chest.? Chronic findings as noted.? Exam: CT Abdomen And Pelvis With Contrast Exam date and time: 02/13/2023 6:02 PM Age: 78 years old Clinical indication: Other: L flank/luq pain, lower back pain; Additional info: R/O kidney stone, pyelo, pneumonia TECHNIQUE: Imaging protocol: Computed tomography of the abdomen and pelvis with contrast. 3D rendering (Not supervised by radiologist): MIP and/or 3D reconstructed images were created by the technologist. Radiation optimization: All CT scans at this facility use at least one of these dose optimization techniques: automated exposure control; mA and/or kV adjustment per patient size (includes targeted exams where dose is matched to clinical indication); or iterative reconstruction. Contrast material: OMNIPAQUE 350; Contrast volume: 100 ml; Contrast route: INTRAVENOUS (IV);? COMPARISON: CT ABDOMEN PELVIS W 06/26/2020 8:28 PM FINDINGS: Liver: The liver appears mildly enlarged but otherwise unremarkable. Gallbladder and bile ducts: Normal. No calcified stones. No ductal dilation. Pancreas: Normal. No ductal dilation. Spleen: Normal. No splenomegaly. Adrenal glands: Normal. No mass. Kidneys and ureters: Normal. No hydronephrosis. Stomach and bowel: Unremarkable. No obstruction. No mucosal thickening. Appendix: No evidence of appendicitis. Intraperitoneal space: Unremarkable. No free air. No significant fluid collection. Vasculature: Diffuse atherosclerotic calcification noted in the aorta. No evidence of aortic aneurysm or dissection. Lymph nodes: Unremarkable. No enlarged lymph nodes. Urinary bladder: Unremarkable as visualized. Reproductive: Uterus is surgically absent. No adnexal abnormality. Bones/joints: Significant degenerative changes noted throughout the lumbar spine. There is significant facet arthropathy producing grade 1 anterolisthesis of L4. No acute fracture. Soft tissues: Unremarkable. IMPRESSION: No acute abnormality evident in the abdomen or pelvis.? Stable chronic findings as noted. Exam(s) [id number] US:Echocardiogram Heart *[facility]* *[facility]* [address] [place] [address] ? Date of study: 04/04/2017 ? Transthoracic Echocardiography M-mode, complete 2D, complete spectral Doppler, and color Doppler *STUDY CONCLUSIONS* Summary: 1. Left ventricle: The cavity size was normal. There was mild concentric ?? hypertrophy. Systolic function was normal. The estimated ejection ?? fraction was 60-65%. Wall motion was normal; there were no regional ?? wall motion abnormalities. 2. Mitral valve: There was mild to moderate regurgitation. 3. Left atrium: The atrium was severely dilated. 4. Right ventricle: The cavity size was normal. Wall thickness was ?? normal. Systolic function was normal. 5. Right atrium: The atrium was moderately dilated. 6. Tricuspid valve: There was mild-moderate regurgitation. 7. Pulmonary arteries: Pulmonary systolic pressure was increased, in the ?? range of 45mm Hg to 50mm Hg. 8. Inferior vena cava: The vessel was dilated. The respirophasic ?? diameter changes were in the normal range (greater than or equal to ?? 50%). Labs 02/13/23 17:15 02/13/23 17:15 Labs: Laboratory Results - last 24 hr 02/13/23 02/13/23 02/13/23 17:15 17:15 17:15 WBC 21.65 H RBC 4.47 Hgb 13.8 Hct 40.4 MCV 90 MCH 30.9 MCHC 34.2 RDW 12.1 Plt Count 243 MPV 10.0 Immature Gran % See Differential Neutrophils % 81.0 Band Neutrophils % 5 Lymphocytes % 5.0 Monocytes % 7.0 Eosinophils % 0.0 Basophils % 0.0 Metamyelocytes % 2 Nucleated RBC % 0.0 Absolute Neutrophils 18.62 H Absolute Lymphocytes 1.08 L Absolute Monocytes 1.52 H Absolute Eosinophils 0.00 Absolute Basophils 0.00 RBC Morphology Normal VBG Lactate Sodium 136 Potassium 3.3 L Chloride 102 Carbon Dioxide 25.6 Anion Gap 8.4 BUN 13 Creatinine 0.8 Est GFR (CKD-EPI 2020) 74.44 Glucose 145 H Calcium 9.6 Magnesium 1.7 L Total Bilirubin 1.7 H AST 17 ALT 16 Alkaline Phosphatase 69 Troponin I < 50 Total Protein 7.5 Albumin 3.4 Lipase 13 L TSH Urine Color Urine Clarity Urine pH Ur Specific [place] Urine Protein Urine Ketones Urine Blood Urine Nitrite Urine Bilirubin Urine Urobilinogen Ur Leukocyte Esterase Urine RBC Urine WBC Ur Epithelial Cells Urine Crystals Urine Bacteria Urine Casts Urine Mucus Ur Culture Indicated? Urine Glucose COVID-19 Source SARS-CoV-2 (PCR) Influenza Type A (PCR) Influenza Type B (PCR) RSV (PCR) 02/13/23 02/13/23 02/13/23 17:15 17:20 17:35 WBC RBC Hgb Hct MCV MCH MCHC RDW Plt Count MPV Immature Gran % Neutrophils % Band Neutrophils % Lymphocytes % Monocytes % Eosinophils % Basophils % Metamyelocytes % Nucleated RBC % Absolute Neutrophils Absolute Lymphocytes Absolute Monocytes Absolute Eosinophils Absolute Basophils RBC Morphology VBG Lactate Sodium Potassium Chloride Carbon Dioxide Anion Gap BUN Creatinine Est GFR (CKDEPI 2020) Glucose Calcium Magnesium Total Bilirubin AST ALT Alkaline Phosphatase Troponin I Total Protein Albumin Lipase TSH 0.41 Urine Color Yellow Urine Clarity Clear Urine pH 7.0 Ur Specific [place] 1.015 Urine Protein Trace H Urine Ketones Negative Urine Blood Negative Urine Nitrite Negative Urine Bilirubin Negative Urine Urobilinogen 0.2 Ur Leukocyte Esterase Negative Urine RBC 0-2 Urine WBC 0-2 Ur Epithelial Cells Few Urine Crystals Negative Urine Bacteria Negative Urine Casts Negative Urine Mucus Negative Ur Culture Indicated? No Urine Glucose Negative COVID-19 Source Nasopharynx SARS-CoV-2 (PCR) Negative Influenza Type A (PCR) Negative Influenza Type B (PCR) Negative RSV (PCR) Negative 02/13/23 18:53 WBC RBC Hgb Hct MCV MCH MCHC RDW Plt Count MPV Immature Gran % Neutrophils % Band Neutrophils % Lymphocytes % Monocytes % Eosinophils % Basophils % Metamyelocytes % Nucleated RBC % Absolute Neutrophils Absolute Lymphocytes Absolute Monocytes Absolute Eosinophils Absolute Basophils RBC Morphology VBG Lactate 0.7 Sodium Potassium Chloride Carbon Dioxide Anion Gap BUN Creatinine Est GFR (CKD-EPI 2020) Glucose Calcium Magnesium Total Bilirubin AST ALT Alkaline Phosphatase Troponin I Total Protein Albumin Lipase TSH Urine Color Urine Clarity Urine pH Ur Specific [place] Urine Protein Urine Ketones Urine Blood Urine Nitrite Urine Bilirubin Urine Urobilinogen Ur Leukocyte Esterase Urine RBC Urine WBC Ur Epithelial Cells Urine Crystals Urine Bacteria Urine Casts Urine Mucus Ur Culture Indicated? Urine Glucose COVID-19 Source SARS-CoV-2 (PCR) Influenza Type A (PCR) Influenza Type B (PCR) RSV (PCR) Last Vital Signs Temp 39.5 C H 02/13/23 17:21 Pulse 55 L 02/13/23 19:15 Resp 21 02/13/23 19:15 BP 109/51 L 02/13/23 19:15 Pulse Ox 91 L 02/13/23 19:10 Time Spent Time spent with Patient: >75 minutes Time was spent: preparing to see the patient(eg.review tests), obtaining and/or reviewing separately otained hiistory, ordering medications,tests, procedures, referring, communicating with other health home care administrator, indepentently interpreting results, counseling the patient and care coordination
[2023-02-13] MEDS: PIPERACILLIN/TAZO 3.375 GM in Normal Saline 50 ML IVPB (19:36)
[2023-02-13 21:24] LABS: C-Reactive Protein 3.53 mg/dL (0.0-0.3)
[2023-02-13 21:45] LABS: Procalcitonin 0.8 ng/mL
[2023-02-13 21:54] LABS: INR 1.1 (0.9-1.1); Prothrombin Time 11.5 sec (9.3-11.0)
[2023-02-13] MEDS: POTASSIUM CHLORIDE/0.9% NACL 1,000 ML 100 MEQ IV (22:00)
[2023-02-13] MEDS: Apixaban 5 MG TAB PO (22:06)
[2023-02-13] MEDS: MAGNESIUM SULFATE 2 GM/50 ML BAG IVPB (22:06)
[2023-02-13] MEDS: DOXYCYCLINE 100 MG in Normal Saline 100 ML IVPB (22:36)
[2023-02-13] MEDS: Normal Saline 100 ML (22:37)
[2023-02-14] VITALS (17 sets, daily range): BP systolic 129–176; BP diastolic 57–81; PULSE 56–78; RESP 16–66; TEMP 37.2–40.1; O2SAT 90–96
[2023-02-14] MEDS: PIPERACILLIN/TAZO 3.375 GM in Normal Saline 50 ML IVPB ×2 (01:10→08:26)
[2023-02-14] MEDS: Acetaminophen 325 MG TAB PO ×4 (01:10→19:52)
[2023-02-14] MEDS: Levothyroxine 88 MCG TAB PO (05:04)
[2023-02-14 06:36] LABS: Abs Immature Grans 0.09 10^3/uL (0.0-0.06); Absolute Basophil Count 0.04 10^3/uL (0.0-0.2); Absolute Monocyte Count 0.67 10^3/uL (0.1-0.8); Basophils % 0.3; HCT 35.8 % (36.0-46.0); HGB 11.7 g/dL (11.2-15.7); Immature Grans % 0.6; Lymphocytes % 5.4; MCH 30.5 pg (27.0-33.0); MCHC 32.7 % (32.0-36.0); MCV 93 fL (80-95); Monocytes % 4.5; Neutrophils % 89.2; Platelet Count 202 10^3/uL (130-400); RBC 3.84 10^6/uL (3.93-5.22); RDW 12.6 % (11.7-14.6); RDW-SD 43.1 fL; WBC 14.93 10^3/uL (4.4-10.8)
[2023-02-14 06:41] LABS: Absolute Lymphocyte Count 0.81 10^3/uL (1.2-3.4); Absolute Neutrophil Count 13.32 10^3/uL (1.2-6.7)
[2023-02-14 06:56] LABS: INR 1.1 (0.9-1.1); Prothrombin Time 11.4 sec (9.3-11.0)
[2023-02-14 06:59] LABS: ALT 15 U/L (14-59); AST 14 U/L (15-37); Albumin 2.6 g/dL (3.4-5.0); Alkaline Phosphatase 56 U/L (46-116); BUN 10 mg/dL (7-18); Calcium 8.7 mg/dL (8.5-10.1); Chloride 105 mmol/L (98-107); Estimated GFR 56.95 (mL/min/1.73m2); Glucose 128 mg/dL (74-106); Magnesium 2.1 mg/dL (1.8-2.4); Potassium 3.5 mmol/L (3.5-5.1); Sodium 138 mmol/L (136-145)
[2023-02-14] MEDS: Calcium Carbonate *TUMS* 500 MG CHEW 1000 MG PO (08:21)
[2023-02-14] MEDS: Magnesium Lactate-SR 84 MG TABCR PO (08:22)
[2023-02-14] MEDS: Apixaban 5 MG TAB PO ×2 (08:22→19:53)
[2023-02-14] MEDS: Omega-3 Fatty Acids 1000 MG CAP PO (08:22)
[2023-02-14] MEDS: Dofetilide 250 MCG CAP PO ×2 (08:22→19:53)
[2023-02-14] MEDS: Cholecalciferol (Vitamin D3) 1,000 UNIT TAB 1000 UNITS PO (08:22)
[2023-02-14] MEDS: Multivitamin TAB 1 TAB PO (08:22)
[2023-02-14] MEDS: Potassium Chloride 20 MEQ TABCR PO (08:22)
[2023-02-14] MEDS: DOXYCYCLINE 100 MG in Normal Saline 100 ML IVPB (10:50)
[2023-02-14] MEDS: VANCOMYCIN/WATER (PEG) 1.5 GM/300 ML BAG IVPB (10:51)
[2023-02-14] MEDS: Ketorolac 15 MG/ML VIAL IVP (11:19)
--- NOTE | 2023-02-14 11:39 | PDOC.CMIN ---
- If Service Date Differs Date of service: 02/14/23 Time of Service: 11:39 Care Management Initial Assess REASON FOR HOSPITALIZATION:: Fever with leukocytosis, gastritis PAST MEDICAL HISTORY/PAST SURGICAL HISTORY:: All Active Problems. Leukocytosis (leucocytosis) (Acute). Hypokalemia (Chronic). Gastritis (Acute). Fever (Acute). Atrial fibrillation with RVR (Acute). Diarrhea (Acute). Medical History. Atrial fibrillation. Essential hypertension (01/27/17). Hyperlipidemia, mixed (01/27/17). Hypothyroidism. Surgical History. History of cardiac radiofrequency ablation. History of cataract surgery. S/P hysterectomy PREVIOUS FUNCTIONAL STATUS/SOCIAL/FAMILY SUPPORTS:: Rosibel lives in [place] with her , Dylan. They have a son, Giovanni, who is supportive and lives nearby. She is independent at baseline with her ADL's. CURRENT FUNCTIONAL STATUS:: Tiffanie was lying in bed when CM met with her. She stated that she is feeling a little better than when she arrived, and that her fever has reduced, but she is still not feeling well and is tired. Her and son were in the room visiting. She stated that she is very independent at baseline, and has good support from her family. CM will continue to follow. ADVANCE DIRECTIVES:: Not on file. Palliative care has been consulted to discuss goals of care and complete forms, if agreeable. Has patient been provided with info about the portal/API?: Yes Did the patient sign up for the portal?: No CODE STATUS:: Full Code INSURANCE COVERAGE / FINANCIAL ISSUES:: [facility]/ [employer] CURRENT HOME/COMMUNITY SERVICES/EQUIPMENT:: None PRIMARY CARE PHYSICIAN:: Manjula Parra POTENTIAL DISCHARGE NEEDS:: Evaluations for further needs, follow up appointments. PATIENT/FAMILY EDUCATION NEEDS:: Review discharge instructions and limitations, discussion of self care needs including ask me three. ANTICIPATED BARRIERS TO DISCHARGE:: None identified. TRANSPORTATION:: Via private vehicle with her . PLAN:: Anticipate Rosibel will return home once medically cleared. Her will drive her home via private vehicle when ready. She will follow up with her PCP and discharge plan of care. CM will continue to follow.
[2023-02-14] MEDS: Lisinopril 20 MG TAB PO (11:56)
[2023-02-14] MEDS: cefTRIAXone 2 GM/50 ML BAG IVPB (12:42)
[2023-02-14] MEDS: traMADol 50 MG TAB PO (17:15)
--- NOTE | 2023-02-14 18:38 | PGE_ITS ---
Date of Service Date of service: 02/14/23 Time of Service: 17:15 Assessment and Plan Assessment and plan (1) Sepsis: Status: Acute Assessment and plan: With gram positive cocci in clusters on blood cultures, 4/4 bottles. Abx changed to vancomcyin, ceftriaxone (high dose). Ok to d/c doxycycline. Will repeat blood cultures in am. Obtain echocardiogram. Obtain MRI thoracic and lumbar spine to rule out osteomyelitis/discitis/epidural abscess. There are currently no neurologic deficits to suggest an epidural abscess and I think the MRI can wait until the morning. Antipyretics. While febrile, would continue IVF. Trend CRP, procalcitonin. (2) Gram-positive cocci bacteremia: Status: Acute Assessment and plan: As above (3) Back pain: Status: Acute Assessment and plan: As above (4) Gastritis: Start date: 02/13/23 Status: Acute Assessment and plan: I think this is possibly a response to her septic process. CT abdomen/pelvis showed no evidence of acute diverticulitis, though it suggested possible UC. Will test the patient for infectious causes of diarrhea and provide her with anti-emetics and anti-diarrheals. (5) Hypokalemia: Status: Chronic Assessment and plan: Replete; recheck in am (6) Atrial fibrillation: Assessment and plan: Paroxysmal atrial fibrillation, s/p ablation, on dofetilide and eliquis. Continue current therapy. Qualifiers: Atrial fibrillation type: paroxysmal Qualified Code(s): I48.0 - Paroxysmal atrial fibrillation (7) Essential hypertension: Assessment and plan: We resumed a low dose of her lisinopril. Amlodipine remains on hold. We need to verify if the patient is actually taking diltiazem and doxazosin (the patient states that she felt dizzy and fell while taking doxazosin 3 weeks ago). (8) Hypothyroidism: Assessment and plan: Continue levothyroxine. (9) DVT prophylaxis: Status: Acute Assessment and plan: Continue apixaban (10) Discharge planning issues: Status: Acute Assessment and plan: Full code Palliative care and PT consulted. Subjective Subjective Interval history since last seen: Ms Metcalf c/o [id number] back pain and a circumferential abdominal pain, especially so on the left. She has a little bit of a headache, but no neck pain or pain anywhere else. She denies dizziness, chest pain, shortness of breath. At the time of my visit, she denied nausea. She did report having one episode of diarrhea. Since then, she did develop nausea and vomiting as well as had more bouts of diarrhea. As far as her back pain, she has never had back surgery. She always has some back pain, but it got a lot worse yesterday. She has had tingling in her BLEs for years. There has been no new weakness in the legs - just generalized weakness that she has had all over. She has not had numbness in her saddle area or her legs. 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 She had not had any constipation or fecal incontinence until developing diarrhea today. She does not have any prosthetic joints. The only metal in her body, she thinks, is a marker in her left breast which was placed for a breast biopsy many years ago. Exam Narrative Exam Narrative: General: A very pleasant elderly female who is very uncomfortable when turning, A&Ox3, NAD at rest, appears ill HEENT: EOMI, MMM Heart: RRR, no m/r/g Lungs: CTAB Abdomen: soft, nontender, nondistended Back: no lesions/redness, TTP mid-lower back Extremities: no edema BLEs, no c/c. Objective Last Vital Signs Temp 38.6 C H 02/14/23 18:25 Pulse 57 L 02/14/23 15:34 Resp 18 02/14/23 15:34 BP 165/73 H 02/14/23 15:34 Pulse Ox 93 02/14/23 15:34 Laboratory Results - last 24 hr 02/13/23 02/13/23 02/13/23 18:53 18:53 18:53 WBC RBC Hgb Hct MCV MCH MCHC RDW Plt Count MPV Immature Gran % Neutrophils % Lymphocytes % Monocytes % Eosinophils % Basophils % Nucleated RBC % Absolute Neutrophils Absolute Lymphocytes Absolute Monocytes Absolute Eosinophils Absolute Basophils PT INR VBG Lactate 0.7 Sodium Potassium Chloride Carbon Dioxide Anion Gap BUN Creatinine Est GFR (CKD-EPI 2020) Glucose Calcium Magnesium Total Bilirubin AST ALT Alkaline Phosphatase C-Reactive Protein 3.53 H Total Protein Albumin Procalcitonin 0.8 02/13/23 02/14/23 02/14/23 21:35 06:03 06:03 WBC 14.93 H RBC 3.84 L Hgb 11.7 D Hct 35.8 L MCV 93 MCH 30.5 MCHC 32.7 RDW 12.6 Plt Count 202 MPV 10.0 Immature Gran % 0.6 Neutrophils % 89.2 Lymphocytes % 5.4 Monocytes % 4.5 Eosinophils % 0.0 Basophils % 0.3 Nucleated RBC % 0.0 Absolute Neutrophils 13.32 H Absolute Lymphocytes 0.81 L Absolute Monocytes 0.67 Absolute Eosinophils 0.00 Absolute Basophils 0.04 PT 11.5 H INR 1.1 VBG Lactate Sodium 138 Potassium 3.5 Chloride 105 Carbon Dioxide 24.0 Anion Gap 9.0 BUN 10 Creatinine 1.0 Est GFR (CKD-EPI 2020) 56.95 Glucose 128 H Calcium 8.7 Magnesium 2.1 Total Bilirubin 1.0 AST 14 L ALT 15 Alkaline Phosphatase 56 C-Reactive Protein Total Protein 6.0 L Albumin 2.6 L Procalcitonin 02/14/23 02/14/23 06:03 06:03 WBC RBC Hgb Hct MCV MCH MCHC RDW Plt Count MPV Immature Gran % Neutrophils % Lymphocytes % Monocytes % Eosinophils % Basophils % Nucleated RBC % Absolute Neutrophils Absolute Lymphocytes Absolute Monocytes Absolute Eosinophils Absolute Basophils PT 11.4 H INR 1.1 VBG Lactate Sodium Potassium Chloride Carbon Dioxide Anion Gap BUN Creatinine Est GFR (CKD-EPI 2020) Glucose Calcium Magnesium Total Bilirubin AST ALT Alkaline Phosphatase C-Reactive Protein 6.50 H Total Protein Albumin Procalcitonin Time Spent with Patient Time Spent with Patient: 35-49 minutes Time was spent: preparing to see the patient(eg.review tests), obtaining and/or reviewing separately otained hiistory, ordering medications,tests, procedures, referring, communicating with other health child care lead teacher, indepentently interpreting results, counseling the patient and care coordination
[2023-02-14] MEDS: Ondansetron 4 MG/2 ML VIAL IVP (18:49)
[2023-02-14] MEDS: Loperamide 2 MG CAP PO (18:50)
[2023-02-14] MEDS: Potassium Chloride 10 MEQ TABCR PO (19:53)
[2023-02-15] VITALS (14 sets, daily range): BP systolic 96–193; BP diastolic 47–91; PULSE 56–92; RESP 16–24; TEMP 36.7–39.2; O2SAT 88–98
--- NOTE | 2023-02-15 | DI.RAD_ITS ---
Exam(s) XR CHEST 2V PA LATERAL EXAM: XR CHEST 2V PA LATERAL CLINICAL HISTORY: pneumonia TECHNIQUE: 2D digital imaging was performed. COMPARISON: CR PORTABLE CHEST ONE VIEW from 08/03/2016 CR,XR XR PORTABLE CHEST AP from 06/25/[address] ABDOMEN PELVIS W from 06/26/[address] CHEST/ABD/PEL W from 02/13/2023 MR MR THORACIC SPINE WO/W from 02/15/2023 FINDINGS: HEART: Enlarged, unchanged. Aorta: Tortuous. PULMONARY VASCULATURE: Normal. LUNGS: Increased densities seen in the right upper lobe and posterior right lower lobe. Trace right pleural effusion. No left-sided infiltrate is visible. PLEURAL SPACE: No pleural effusion or pneumothorax. BONE:Unremarkable for age. IMPRESSION: Right upper and lower lobe infiltrates. Trace right pleural effusion. DATA REPOSITORY: RADIATION DOSE DELIVERED:
[2023-02-15] MEDS: traMADol 50 MG TAB PO ×2 (02:41→21:24)
[2023-02-15] MEDS: Levothyroxine 88 MCG TAB PO (06:28)
--- NOTE | 2023-02-15 06:39 | NUR.NOTE ---
pt called rn into room c/o of SOB. On assessment pt rigoring and tachypnec. VS taken (see worklist). pt sating at 88% on RA. Pt placed on 3 L NC SpO2 up to 95%. Tordol administered. concessions manager made aware. Pt now resting comfortably in bed on 2 L NC sating 96%.
[2023-02-15 06:54] LABS: Absolute Basophil Count 0.05 10^3/uL (0.0-0.2); Absolute Eosinophil Count 0.02 10^3/uL (0.0-0.7); Absolute Monocyte Count 1.18 10^3/uL (0.1-0.8); Absolute Neutrophil Count 12.75 10^3/uL (1.2-6.7); Basophils % 0.3; Eosinophils % 0.1; HCT 38.5 % (36.0-46.0); HGB 12.8 g/dL (11.2-15.7); Immature Grans % 0.7; Lymphocytes % 6.6; MCH 30.8 pg (27.0-33.0); MCHC 33.2 % (32.0-36.0); MCV 93 fL (80-95); MPV 10.5 fL (8.0-11.0); Monocytes % 7.8; Neutrophils % 84.5; Platelet Count 196 10^3/uL (130-400); RBC 4.16 10^6/uL (3.93-5.22); RDW 12.4 % (11.7-14.6); RDW-SD 42.8 fL; WBC 15.09 10^3/uL (4.4-10.8)
[2023-02-15 07:00] LABS: Anion Gap 4.5 mmol/L (3-11); BUN 7 mg/dL (7-18); C-Reactive Protein 7.65 mg/dL (0.0-0.3); CO2 26.5 mmol/L (21.0-32.0); CREATININE 0.7 mg/dL (0.55-1.02); Calcium 9.3 mg/dL (8.5-10.1); Chloride 104 mmol/L (98-107); Estimated GFR 87.37 (mL/min/1.73m2); Glucose 145 mg/dL (74-106); Magnesium 1.5 mg/dL (1.8-2.4); Potassium 3.4 mmol/L (3.5-5.1); Sodium 135 mmol/L (136-145)
[2023-02-15] MEDS: Lisinopril 20 MG TAB PO (07:56)
[2023-02-15] MEDS: Omega-3 Fatty Acids 1000 MG CAP PO (07:56)
[2023-02-15] MEDS: Potassium Chloride 20 MEQ TABCR PO (07:56)
[2023-02-15] MEDS: Cholecalciferol (Vitamin D3) 1,000 UNIT TAB 1000 UNITS PO (07:56)
[2023-02-15] MEDS: Multivitamin TAB 1 TAB PO (07:56)
[2023-02-15] MEDS: Dofetilide 250 MCG CAP PO ×2 (07:56→20:10)
[2023-02-15] MEDS: Magnesium Lactate-SR 84 MG TABCR PO (07:56)
[2023-02-15] MEDS: Calcium Carbonate *TUMS* 500 MG CHEW 1000 MG PO (07:57)
[2023-02-15] MEDS: Apixaban 5 MG TAB PO ×2 (07:57→20:11)
--- NOTE | 2023-02-15 08:00 | DI.MRI_ITS ---
Exam(s) MR THORACIC SPINE WO/W EXAM: MR THORACIC SPINE WO/W CLINICAL HISTORY: back pain, bacteremia. TECHNIQUE: Multiplanar multisequence MRI of the Thoracic spine was performed. CONTRAST MATERIAL: IV Contrast: 13 mL of Dotarem contrast administered. COMPARISON: CT CT CHEST/ABD/PEL W from 02/13/2023 FINDINGS: Bones: The vertebral body heights are well maintained. Alignment is satisfactory. The signal characte ristics are unremarkable. There are small endplate osteophytes Cord: The thoracic cord is normal size and signal intensity. No intrinsic cord lesion is present. N o abnormal enhancement. Discs: No disc herniation. Mild disc bulging. Soft tissues: Normal. There is no evidence of suspicious enhancement in the thoracic spine.. Lungs: Not well evaluated due to respiratory motion. Small right pleural effusion, not present on pr ior CT. right upper lobe infiltrate visible posteriorly. Question of additional posterior left upp er lobe infiltrate. IMPRESSION: No significant abnormality in the lumbar spine. No findings to suggest osteomyelitis or discitis. A right upper lobe infiltrate is visible as well as a small right pleural effusion. Question of rodrigo tional smaller left upper lobe infiltrate. Chest x-ray recommended. DATA REPOSITORY:
--- NOTE | 2023-02-15 08:00 | DI.MRI_ITS ---
Exam(s) MR LUMBAR SPINE WO/W EXAM: MR LUMBAR SPINE WO/W CLINICAL HISTORY: lower back pain, bacteremia TECHNIQUE: Multiplanar multisequence MRI of the Lumbar Spine was performed. CONTRAST MATERIAL: IV Contrast: 13 mL of Dotarem contrast administered for both the thoracic and lum bar spine exams.. COMPARISON: CR,XR XR PORTABLE CHEST AP from 06/25/[address] CHEST/ABD/PEL W from 02/13/2023 FINDINGS: Bones: The last intervertebral disc space is designated the L5/S1 level for the numbering purpose of this examination. The vertebral body heights are well maintained. Alignment is satisfactory. The sig nal characteristics are unremarkable. Cord: The conus tip ends at the T12 level. It is of normal size and signal intensity. T12-L1: No disc herniations or bulges are present. L1-2: Loss of disc height eccentric toward the right. Mild disc bulging. Facet degenerative changes. Right neural foraminal narrowing. No central canal stenosis. L2-3: Loss of disc height eccentric toward the left. Endplate osteophytes causing bilateral neural fo raminal narrowing, severe on the left. No significant central canal stenosis. L3-4: Disc space narrowing and prominent endplate osteophytes eccentric toward the left. Facet degen erative changes. Severe left neural foraminal narrowing. Mild central canal stenosis. L4-5: Mild broad-based disc bulging. Facet degenerative changes. Ligamentous hypertrophy. Mild centr al canal stenosis. Moderate to severe right neural foraminal narrowing. L5-S1: Mild disc bulging. Facet degenerative changes. No significant central canal stenosis. Moderat e bilateral neural foraminal narrowing. Soft tissues: The visualized SI joints and sacrum are well maintained. The paraspinal soft tissues ar e unremarkable. There is no evidence of suspicious enhancement. IMPRESSION: Degenerative changes causing multilevel neural foraminal narrowing. Mild central canal stenosis noted at L3-4. No findings to suggest osteomyelitis or discitis. DATA REPOSITORY:
[2023-02-15] MEDS: Normal Saline Flush 10 ML SYR IVP (09:31)
[2023-02-15] MEDS: Gadoterate meglumine 20 ML SYRINGE 13 ML IVP (09:32)
[2023-02-15] MEDS: VANCOMYCIN/WATER (PEG) 1 GM/200 ML BAG IVPB (10:27)
--- NOTE | 2023-02-15 11:00 | IN_ITS ---
Date of service: 02/15/23 Time of Service: 10:18 PT Notes Visit Reasons: Fever with Leukocytosis, Gastritis Physical Therapy Inpatient Initial Evaluation Date: 02/15/2023 Referring Doctor: Tangela House MD PT Orders: PT CONSULT: Limited ability Precautions: Fall. Standard. Activity as tolerated. Patient Profile/Admitting Diagnosis: Tiffanie is an 78-year-old female admitted on 02/13/2023 due to generalized fatigue, nausea, dry heaving abdominal pain, and back pain. Patient is admitted to [facility] for management of sepsis, gram-positive bacteremia, back pain, gastritis, leukocytosis, hypokalemia, hypothyroidism, and atrial fibrillation. PMHX: All Active Problems?(Updated 02/14/23 @ 00:51 by Jose Skelton) Leukocytosis (leucocytosis) (Acute) Hypokalemia (Chronic) Gastritis (Acute) Fever (Acute) Atrial fibrillation with RVR (Acute) Diarrhea (Acute) Medical History? Atrial fibrillation Essential hypertension (01/27/17) Hyperlipidemia, mixed (01/27/17) Hypothyroidism Surgical History? History of cardiac radiofrequency ablation History of cataract surgery S/P hysterectomy Social History/Home Situation: Lives with in a private home with a ramp to enter. Laundry area is in the basement with a flight of steps with support on both sides. Bedroom is on the second floor with a rail on one side. Independent with all aspects of ADLs prior to admission. Equipment Owned/DME: None Subjective: Reports decreasing pain in her tummy and back areas. States that she has been going to physical therapy for her right shoulder pain sustained from a previous fall. Indicates having fallen several days ago on her left upper extremity. Verbalizes increased pain in her low back area that radiates down her right leg with walking. Complained of SOB with walking. Feels that she is more swollen in her legs today. Objective: General Observation: Came back from MRI testing being transferred by PROPERTY ASSESSMENT MONITOR from transport chair to bedside chair with no assistive device. Telemetry monitoring in place. IV access left upper extremity. Nurse Roxann managing IV pole. Dylan and daughter present as well. Mental Status: Alert and oriented as to person, place, time, and purpose. Able to pay attention, focus, and respond appropriately. Pain: 3?4/10 in abdominal and low back areas Vital Signs: BP relatively higher at 165/70s mmHg; all other VS are WNL ROM: Right Upper Extremity: Shoulder Flexion WFL. Shoulder abduction WFL. Elbow flexion WFL. Wrist flexion WFL. Functional opening and closing of hand WFL. Left Upper Extremity: Shoulder Flexion WFL. Shoulder abduction WFL. Elbow flexion WFL. Wrist flexion WFL. Functional opening and closing of hand WFL. Right Lower Extremity: Hip flexion WFL. Hip abduction WFL. Knee flexion WFL. Ankle dorsiflexion WFL. Ankle plantarflexion WFL. Left Lower Extremity: Hip flexion WFL. Hip abduction WFL. Knee flexion WFL. Ankle dorsiflexion WFL. Ankle plantarflexion WFL. Strength: Right Upper Extremity: Shoulder flexors 4-/5. Shoulder abductors 4-/5. Elbow flexors 4-/5. Elbow extensors 4-/5. Content Administrator strong. Left Upper Extremity: Shoulder flexors 4-/5. Shoulder abductors 4-/5. Elbow flexors 4-/5. Elbow extensors 4-/5. Content Administrator strong. Right Lower Extremity: Hip flexors 3+/5. Hip abductors 3+/5. Knee flexors 4-/5. Knee extensors 4-/5. Ankle dorsiflexors 4-/5. Ankle plantarflexors 4-/5. Left Lower Extremity: Hip flexors 4/5. Hip abductors 4/5. Knee flexors 4/5. Knee extensors 4/5. Ankle dorsiflexors 4/5. Ankle plantarflexors 4/5. Bed Mobility/Transfers: Supine to sit independent Sit to supine independent Sit to stand independent Stand to sit independent Bed to reclining chair supervision Reclining chair to bed supervision Gait: Instructed patient with level surface ambulation of 250 feet requiring stand by assist. Merlyn decreased. Step height on R decreased. Step length on R decreased. Reported lateralization of pain to the R LE with activity limiting distance walked. 91% oxygen saturation via finger oximetry after activity. Balance: Static Sitting: Normal Dynamic Sitting: Normal Static Standing: Fair Dynamic Standing: Fair Special Tests: Mobility Limitations Standardized Measure [facility] 6 clicks Basic Mobility Inpatient Short Form: Raw Score: 23 CMS Score: 11% deficit Informed Consent/Education: Patient was instructed in purpose of PT consult and plan of care. Agreeable to proceed with established PT POC to achieve personal goals. Assessment: Activity tolerance limited by pain report in low back and abdominal area, shortness of breath and fatigue. Patient presents with clinical signs and symptoms consistent with current/admitting diagnoses that have resulted to mobility limitations, gait instability, generalized weakness, and overall ADL decline as demonstrated by the following impairment level findings: 1. Decreased strength to B UE/LE major muscle groups 2. Impaired standing balance 3. Impaired activity tolerance 4. Shortness of breath 5. Swelling in B legs Impairments are contributing to the following functional limitations: 1. Decline in bed mobility skills 2. Decline in transfer skills 3. Difficulty with ambulation without assistive device and physical assistance 4. Increased completion time for mobility ADL performance 5. Increased risk for falls 6. Difficulty with managing steps alone safely Patient is assessed as a [id number] moderate complexity based on the following: History: 78-year-old female with past medical history as indicated above Examination: Demonstrable impairment in strength, balance, and mobility level with underlying impairments and functional limitations as exhibited above as well as deficit score of 11% utilizing the [facility] Mobility Inpatient Short Form Presentation: Evolving Decision Makin moderate complexity Goals: Goals X1 week 1. Supine-Sit independent 2. Sit-Supine independent 3. Sit-Stand independent 4. Stand-Sit independent with no AD 5. Bed-Chair independent with no AD 6. Chair-Bed independent with no AD 7. Independent gait on level surface with use of no for at least AD feet without report of pain nor dyspnea 8. Independent stair negotiation while holding onto 1 rail rails for at least 12 steps without report of pain nor dyspnea 9. Independent with home exercise program 10. Good static and dynamic standing balance/tolerance PLAN OF CARE/TREATMENT PLAN: 1-2x/day, 7 days/week x 1 week. Plan of care has been reviewed with the WIND FIELD MANAGER providing the service under Physical Therapy direction. Initiate low back exercises to minimize pain: posterior pelvic tilts x10, pelvic rock x 10, piriformis stretch x 5 sh x 5 reps, AKTC with ADIM x 5 Progress mobility level to using no AD with level surface ambulation and stair negotiation. Provide HEP for above exercises. DISCHARGE RECOMMENDATIONS: [] Home with no services [] [X] Home with services. HH PT to increase safety with mobility ADL performance at home and then resume OP PT for UE rehab. [] Home with outpatient PT [] [] SNF for continued rehabilitation [] [] Security Compliance Engineer Care [] [] SNF versus LTC based on ability to participate and progress [] TREATMENT CODE/TIME: 16577 x 20, [id number] x 12 minutes beginning at 10:18 AM. Thank you for the opportunity to participate in the care of this patient. Angelika Wynn PT, DPT, CLT [facility] [place], [place]
[2023-02-15] MEDS: Loperamide 2 MG CAP PO (11:40)
[2023-02-15] MEDS: Acetaminophen 325 MG TAB PO ×2 (11:40→19:28)
[2023-02-15] MEDS: Ketorolac 15 MG/ML VIAL IVP (11:41)
[2023-02-15 11:42] LABS: Lyme Ab w Rflx to Lyme Confirm Negative (Negative)
[2023-02-15] MEDS: cefTRIAXone 2 GM/50 ML BAG IVPB (11:49)
--- NOTE | 2023-02-15 13:41 | PDOC.CMPRO ---
- If Service Date Differs Date of service: 02/15/23 Time of Service: 13:41 Care Management Progress Note S/O:Tiffanie was sitting up in bed visiting with her son Giovanni when CM met with her. She was pleasant and agreeable to conversation and engaged well with CM. Tiffanie stated that she is feeling a little bit better today, although she admitted that she has some lower abdominal and hip pain. She explained that she had dry heaves yesterday and feels it may be muscular discomfort from that. CM discussed the fact that she has bacteremia and that it is likely she will need IV antibiotics for an extended period of time. CM explained the various options for administering the medication; home infusion, through the OP Infusion center or swing bed. Tiffanie indicated that she would prefer home infusion if it is feasible. While it is known that she has S. aureus bacteremia, susceptibilities are as yet unknown. The source of her fever and bacteremia remains unclear as well. A:iTffanie is an 78 year old woman admitted on 02/14/23 with fever P:Anticipate Rosibel will return home once medically cleared. She will likely need emt intermediate IV antibiotics for her bacteremia. It is not yet clear what the medication and regimen will be; that information will help determine the methodology for the infusions. Her will drive her home via private vehicle and she will follow up with her PCP and discharge plan of care. CM will continue to follow and support discharge needs.
--- NOTE | 2023-02-15 14:42 | CHAPLAIN ---
Rosibel was in bed and had her and son visiting with her when I stopped in. In introduced myself and explained my role. She was pleasant but seemed tired and not interested in further conversation. I offered support and let her know that third shift lieutenant is available 15/05 when she asked if I'm here everyday. I will continue to visit. According to Care Management notes, Rosibel is waiting to hear if she'll need longterm IV antibiotics and if they can be administered at home.
--- NOTE | 2023-02-15 15:13 | PGE_ITS ---
Date of Service Date of service: 02/15/23 Time of Service: 15:13 Assessment and Plan Assessment and plan (1) Staphylococcus aureus bacteremia: Status: Acute Assessment and plan: patient currently on high dose Rocephin and Vancomcyin. She has evidence of consolidation on her CXR, this may be her source of her bacteremia. Her echo did not show vegetations however she has significant aortic calcifications and has MR and TR. Repeat blood cultures were drawn today. If they continue to be positive then I will recommend she go to [facility] or [facility] for HALEY. I explained to her and caregiver as well as the patient that she will need 6 weeks of iv antibiotics. I inquired as to whether or not she has any hardware such as a prosthetic joint that could be a nidus for infection and she denies any. She says that she will get frequent cuts/scratches from working in the yard but has no open sores. Professional time spent interviewing and examining patient, discussion of goals of care with hospital team (care management, nursing and consulting professionals) was 45 minutes. (2) Atrial fibrillation: Assessment and plan: patient has hx of afib but rhythm remains SR w/ frequent PAC and PVC. I will resume diltiazem but use short acting and titrate as her BP and HR allow. She has reaction to metoprolol. Qualifiers: Atrial fibrillation type: paroxysmal Qualified Code(s): I48.0 - Par oxysmal atrial fibrillation (3) Back pain: Status: Acute Assessment and plan: patient has lumbar DJD; no abscess or osteomyelitis on her MRI of her lumbar or thoracic spine. she has L3-L4 central canall stenosis that is mild. will use topical NSAIDS (i.e. voltaren gel). (4) DVT prophylaxis: Status: Acute Assessment and plan: patient chronically on apixaban for her PAF. (5) Discharge planning issues: Status: Acute (6) Lumbar degenerative disc disease: Status: Acute Subjective Subjective Interval history since last seen: Patient complains of increased dyspnea w/ any effort. She states that this has been coming on for several weeks prior to admission. No CP. She understands that she has a bacterial infection in her blood stream. I told her that her blood cultures are growing Staph aureus. I also explained this to her and to her caregiver. I explained the serious nature and how this can or may have already infected her heart valves. Her echocardiogram demonstrated normal LV size and fxn w/ LVEF 55% and probably normal RV size and fxn. However she has moderate MR and moderate TR and her RVSP is significantly elevated at 64 mm. While the echo did not go over her diastolic function, she most certainly has diastolic HF. Exam Narrative Exam Narrative: Elderly white female lying in bed in semirecumbent position moderately dyspneic with prolonged conversation. Neck veins show prominent JVD Lungs with diffuse bilateral rales Heart is irregular rhythm and slightly tachycardic with a systolic murmur over the apex no thrill heave or gallop Abdomen soft nontender Lower extremities without peripheral cyanosis or edema Skin exam reveals no open sores or ulcers or wounds of her hands arms legs feet. Objective Last Vital Signs Temp 37.7 C H 02/15/23 11:19 Pulse 60 02/15/23 11:19 Resp 16 02/15/23 11:19 BP 159/73 H 02/15/23 11:19 Pulse Ox 92 02/15/23 11:19 Laboratory Results - last 24 hr 02/13/23 02/15/23 02/15/23 18:53 06:25 06:25 WBC 15.09 H RBC 4.16 Hgb 12.8 Hct 38.5 MCV 93 MCH 30.8 MCHC 33.2 RDW 12.4 Plt Count 196 MPV 10.5 Immature Gran % 0.7 Neutrophils % 84.5 Lymphocytes % 6.6 Monocytes % 7.8 Eosinophils % 0.1 Basophils % 0.3 Nucleated RBC % 0.0 Absolute Neutrophils 12.75 H Absolute Lymphocytes 1.00 L Absolute Monocytes 1.18 H Absolute Eosinophils 0.02 Absolute Basophils 0.05 Sodium 135 L Potassium 3.4 L Chloride 104 Carbon Dioxide 26.5 Anion Gap 4.5 BUN 7 Creatinine 0.7 Est GFR (CKD-EPI 2020) 87.37 Glucose 145 H Calcium 9.3 Magnesium 1.5 L C-Reactive Protein 7.65 H Lyme Disease Antibody Negative Time Spent with Patient Time Spent with Patient: 35-49 minutes Time was spent: preparing to see the patient(eg.review tests), obtaining and/or reviewing separately otained hiistory, ordering medications,tests, procedures, referring, communicating with other health rn critical care, indepentently interpreting results, counseling the patient and care coordination
[2023-02-15 15:44] LABS: Lab Add On Test DONE
[2023-02-15 16:03] LABS: NT-proBNP 5031 pg/mL (<300)
--- NOTE | 2023-02-15 16:04 | W.PALLCONSUL ---
Date of service: 02/15/23 Time of Service: 13:00 History of Present Illness Narrative: Mrs. Moreno is an 78 y/o F currently inpatient in ICU at [facility] 2/2 sepsis w/staph; PMHx sig for A Fib, HTN, HLD, hypothyroid; present today Dylan and son Michele Hospital course: presented to ED on 02/13 w/CC fatigue, N/V, abd/back pain; febrile, leukocytosis found on work up, consistent w/sepsis, admitted inpatient for observation and abx; clear liquid diet d/t gastritis on admit; gram positive cocci in initial cultures, vanco and ceftriaxone on board, repeat cultures pending; no known source of infection at this time, ECHO/MRI both neg today; work-up ongoing; plan 6wks abx pending culture today, TBD on abx treatment plan; - MRI found lumbar spinal stenosis, consistent w/pain complaints; ECHO w/multiple valve regurg - per staff: fever broke last night, pain improved, N/abd pain improved w/Zofran this morning; has had a busy day w/imaging, OOB and visits; tolerating clear liquid diet appropriately Tiffanie reports it has been a busy day but is agreeable to meet w/palliative care; - A fib: she has had this chronically, f/b Dr. Soto, most recently seen less than a month ago; occasionally it acts up w/increased tachy/palpitation sensations, had previously participated in conversion around 1x/wk, but stopped going, has been converting on own w/24h typically, this has been occurring more; considering restarting conversions; denies sensation currently; aware of leaky valve, however has not heard results of ECHO - decreased exercise tolerance w/increased SOB noted, remains independent w/ADLs at baseline and during hosiptal stay; no pain; hoping to get better Jello, looking forward to increasing diet from clear liquids - lives in [place] w/ Dylan, son Michele lives close by, 3 other daughters, all involved Has never completed AD, nor identified a HCA; would want ba Bautista to be HCA w/shared decision making w/other 3 daughters; preference to have all life-sustaining interventions done at this time, including CPR if her heart were to stop; would want to be kept alive w/machines, give me a couple of months Assessment and Plan Assessment and plan (1) Discharge planning issues: Status: Acute Assessment and plan: discharge status unclear, pending blood cultures and abx plan (2) Back pain: Status: Acute Assessment and plan: improved today MRI confirms stenosis (3) Gram-positive cocci bacteremia: Status: Acute Assessment and plan: continue vanc and ceftriaxone repeat BC pending ECHO/MRI r/o infective etiology; source remains unknown (4) Sepsis: Status: Acute Assessment and plan: as above (5) Leukocytosis (leucocytosis): Status: Acute Assessment and plan: improving Qualifiers: Leukocytosis type: other Qualified Code(s): D72.828 - Other elevated white blood cell count (6) Gastritis: Status: Acute Assessment and plan: controlled, continues clear liquid (7) Advance care planning: Status: Acute Assessment and plan: never completed AD/HCA Discussion regarding Code Status preferences - patient wants to be a Full Code identified HCA as ba Bautista, would want all family participating in decision agreeable to follow up w/PC to review/complete AD, in outpatient setting (8) Palliative care encounter: Status: Acute Assessment and plan: PC to follow-up outpatient available for repeat consult pending discharge plans Review of Systems Narrative: as per HPI PFSH All Active Problems (Updated 02/15/23 @ 16:19 by Yodit Murphy NP) Palliative care encounter (Acute) Advance care planning (Acute) Discharge planning issues (Acute) DVT prophylaxis (Acute) Back pain (Acute) Gram-positive cocci bacteremia (Acute) Sepsis (Acute) Leukocytosis (leucocytosis) (Acute) Hypokalemia (Chronic) Gastritis (Acute) Fever (Acute) Atrial fibrillation with RVR (Acute) Diarrhea (Acute) Medical History Atrial fibrillation Essential hypertension (01/27/17) Hyperlipidemia, mixed (01/27/17) Hypothyroidism Surgical History History of cardiac radiofrequency ablation History of cataract surgery S/P hysterectomy Social History Smoking/Tobacco Use Status: Never Smoking risk assessment performed?: Yes Alcohol Intake: never Drug use: Never Substance use type: does not use Do you feel safe at home: Yes Do you feel safe in your relationship?: Yes Exam Narrative Exam Narrative: General: older adult famle, comfortable, NAD; lying in bed w/ and son at bedside throughout visit HEENT: atraumatic, normocephalic, hearing WNL Resp: normal resp effort, able to speak full sentences, no acute resp distress, on room air Skin: no lesions or rashes noted; did not conduct full skin exam Extremities: no pedal edema Psych: cooperative, pleasant, calm; speech/movement WNL; MS appropriate; thought process normal; insight/judgment limited Results Last Vital Signs Temp 99.3 F 02/15/23 15:15 Pulse 68 02/15/23 15:15 Resp 20 02/15/23 15:15 BP 175/91 H 02/15/23 15:15 Pulse Ox 93 02/15/23 15:15 Labs 02/15/23 06:25 02/15/23 06:25 Labs: Laboratory Results - last 24 hr 02/13/23 02/15/23 02/15/23 18:53 06:25 06:25 WBC 15.09 H RBC 4.16 Hgb 12.8 Hct 38.5 MCV 93 MCH 30.8 MCHC 33.2 RDW 12.4 Plt Count 196 MPV 10.5 Immature Gran % 0.7 Neutrophils % 84.5 Lymphocytes % 6.6 Monocytes % 7.8 Eosinophils % 0.1 Basophils % 0.3 Nucleated RBC % 0.0 Absolute Neutrophils 12.75 H Absolute Lymphocytes 1.00 L Absolute Monocytes 1.18 H Absolute Eosinophils 0.02 Absolute Basophils 0.05 Sodium 135 L Potassium 3.4 L Chloride 104 Carbon Dioxide 26.5 Anion Gap 4.5 BUN 7 Creatinine 0.7 Est GFR (CKD-EPI 2020) 87.37 Glucose 145 H Calcium 9.3 Magnesium 1.5 L C-Reactive Protein 7.65 H Lyme Disease Antibody Negative Add-On Test Request 02/15/23 06:25 WBC RBC Hgb Hct MCV MCH MCHC RDW Plt Count MPV Immature Gran % Neutrophils % Lymphocytes % Monocytes % Eosinophils % Basophils % Nucleated RBC % Absolute Neutrophils Absolute Lymphocytes Absolute Monocytes Absolute Eosinophils Absolute Basophils Sodium Potassium Chloride Carbon Dioxide Anion Gap BUN Creatinine Est GFR (CKD-EPI 2020) Glucose Calcium Magnesium C-Reactive Protein Lyme Disease Antibody Add-On Test Request DONE
--- NOTE | 2023-02-15 16:07 | W.POCUS ---
Pocus Exam Limited Thoracic Lung Exam DATE OF EXAM: 02/15/23 PROVIDER THAT PERFORMED THE STUDY: Louis Claros REASON FOR EXAM: Shortness ofBreath VISUALIZED STRUCTURES: right anterior, left anterior, right lateral, left lateral, right posterior, left posterior, right subcostal and left subcostal PERTINENT FINDINGS/IMPRESSION: B-lines/left side thoracis location: anterior, lateral and posterior, B-lines/right side thoracis location: anterior, lateral and posterior and Pneumonia (RLL consolidation, dense B lines LLL w/ ragged pleura, suggestive of consolidation in LLL) INCIDENTAL FINDINGS: Patient w/ diffuse bilateral B line pattern in upper and lower bailon in anterior, posterolateral and posterior bailon w/ heavy predominance in both bases, consolidation and small effusion seen in right posterolateral field. Findings are consistent w/ pneumonia and CHF; clinical correlation recommended. Exam complete
[2023-02-15] MEDS: Potassium Chloride 10 MEQ CAPCR 20 MEQ PO (16:09)
[2023-02-15] MEDS: Furosemide 20 MG/2 ML VIAL IVP (16:09)
--- NOTE | 2023-02-15 17:44 | PT.INTREAT ---
Date of service: 02/15/23 Time of Service: 16:46 PT Notes Visit Reasons: Fever with Leukocytosis, Gastritis Physical Therapy Inpatient Treatment Note Date: 02/15/2023 Precautions: Fall. Standard. Activity as tolerated. Subjective: Per son, patient was this shaky when she spiked a temp the last time. Wondering whether fever is returning. Nurse Roxann was approached and retoook patients VS. Politely refused doing more this afternoon due to fatigue, chills, and SOB. Objective: General Observation: Shakiness/chills in B UE/LE Mental Status: Alert and oriented as to person, place, time, and purpose. Pain: R low back pain at 2-12/30 Vital Signs: Nurse Eden recommended use of 2L of O2 when OOB Bed Mobility/Transfers: Supine to sit independent Sit to supine independent Sit to stand independent Stand to sit independent Bed to bedside commode supervision bedside commomde to bed supervision Gait: Instructed patient with level surface ambulation of 250 feet requiring stand by assist. Merlyn decreased.? Step height on R decreased.? Step length? on R decreased.? Reported lateralization of pain to the R LE with activity limiting distance walked.? 91% oxygen saturation via finger oximetry after activity. Balance: Static Sitting: Normal Dynamic Sitting: Normal Static Standing: Fair Dynamic Standing: Fair Assessment: Limited by increased shakiness in B UE/LE and OLGUIN with oxygen saturation 88% on RA with just transfer to and from bed to use bedside commode to void urine. Has just taken Lasix. Deferred any further activity this afternoon aside from providing transfer assiatnce and facilitating safe bed positioning. PLAN OF CARE/TREATMENT PLAN: 1-2x/day, 7 days/week x 1 week. Plan of care has been reviewed with the BAND INSTRUMENT REPAIRER providing the service under Physical Therapy direction. Initiate low back exercises to minimize pain: posterior pelvic tilts x10,? pelvic rock x 10,? piriformis stretch x 5 sh x 5 reps,? AKTC with ADIM x 5 Progress mobility level to using no AD with level surface ambulation and stair negotiation. Provide HEP for above exercises. DISCHARGE RECOMMENDATIONS: [] ? Home with no services [] [X] ? Home with services.? HH PT to increase safety with mobility ADL performance at home and then resume OP PT for UE rehab. [] ? Home with outpatient PT [] [] ? SNF for continued rehabilitation [] [] ? Surg Tech Care [] [] ? SNF versus LTC based on ability to participate and progress [] TREATMENT CODE/TIME: [id number] x 19 minutes beginning at 16:46 PM.
[2023-02-15] MEDS: Magnesium Oxide 400 MG TAB 800 MG PO (20:10)
[2023-02-15] MEDS: Potassium Chloride 10 MEQ TABCR 20 MEQ PO (20:11)
[2023-02-16] VITALS (9 sets, daily range): BP systolic 150–175; BP diastolic 70–91; PULSE 59–85; RESP 16–18; TEMP 36–38.5; O2SAT 91–96
[2023-02-16] MEDS: Acetaminophen 325 MG TAB PO (05:34)
[2023-02-16] MEDS: Levothyroxine 88 MCG TAB PO (05:34)
[2023-02-16 06:26] LABS: Abs Immature Grans 0.07 10^3/uL (0.0-0.06); Absolute Basophil Count 0.05 10^3/uL (0.0-0.2); Absolute Eosinophil Count 0.04 10^3/uL (0.0-0.7); Absolute Lymphocyte Count 1.22 10^3/uL (1.2-3.4); Basophils % 0.4; Eosinophils % 0.3; HCT 37.6 % (36.0-46.0); HGB 12.6 g/dL (11.2-15.7); Immature Grans % 0.6; Lymphocytes % 9.8; MCH 30.7 pg (27.0-33.0); MCHC 33.5 % (32.0-36.0); MCV 92 fL (80-95); MPV 10.7 fL (8.0-11.0); Neutrophils % 78.9; Platelet Count 209 10^3/uL (130-400); RDW 12.1 % (11.7-14.6); WBC 12.46 10^3/uL (4.4-10.8)
[2023-02-16 06:30] LABS: Absolute Monocyte Count 1.25 10^3/uL (0.1-0.8); Absolute Neutrophil Count 9.83 10^3/uL (1.2-6.7)
[2023-02-16 06:48] LABS: Anion Gap 3.7 mmol/L (3-11); BUN 5 mg/dL (7-18); CO2 32.3 mmol/L (21.0-32.0); CREATININE 0.7 mg/dL (0.55-1.02); Calcium 9.3 mg/dL (8.5-10.1); Chloride 102 mmol/L (98-107); Estimated GFR 87.37 (mL/min/1.73m2); Glucose 101 mg/dL (74-106); Potassium 3.1 mmol/L (3.5-5.1); Sodium 138 mmol/L (136-145)
[2023-02-16 06:51] LABS: C-Reactive Protein 9.06 mg/dL (0.0-0.3); Magnesium 1.5 mg/dL (1.8-2.4)
[2023-02-16] MEDS: Normal Saline Flush 10 ML SYR IVP ×3 (08:24→15:16)
[2023-02-16] MEDS: Magnesium Oxide 400 MG TAB 800 MG PO ×2 (08:26→21:51)
[2023-02-16] MEDS: Omega-3 Fatty Acids 1000 MG CAP PO (08:26)
[2023-02-16] MEDS: Dofetilide 250 MCG CAP PO ×2 (08:26→21:50)
[2023-02-16] MEDS: Cholecalciferol (Vitamin D3) 1,000 UNIT TAB 1000 UNITS PO (08:27)
[2023-02-16] MEDS: Magnesium Lactate-SR 84 MG TABCR PO (08:27)
[2023-02-16] MEDS: Multivitamin TAB 1 TAB PO (08:27)
[2023-02-16] MEDS: Lisinopril 20 MG TAB PO (08:27)
[2023-02-16] MEDS: Calcium Carbonate *TUMS* 500 MG CHEW 1000 MG PO (08:27)
[2023-02-16] MEDS: Potassium Chloride 20 MEQ TABCR PO (08:27)
[2023-02-16] MEDS: Apixaban 5 MG TAB PO ×2 (08:27→21:51)
[2023-02-16] MEDS: Diclofenac 1% Gel 100 GM TUBE TP ×3 (08:32→16:14)
--- NOTE | 2023-02-16 09:09 | PDOC.CMPRO ---
- If Service Date Differs Date of service: 02/16/23 Time of Service: 09:09 Care Management Progress Note S/O:Tiffanie was sitting up in a chair when CM met with her. Her and son were present and participated in the discussion. Tiffanie indicated that she is finally beginning to feel better. She has less pain and her breathing has improved. Tiffanie's blood cultures drawn on 02/15/23 remain positive. To date, 4/4 sets are growing gram positive cocci. The 2 sets from 02/13/23 have grown MSSA. Tiffanie had a fever again at 5:30 am of 38.5, but has been afebrile since, with the highest temperature today being 37.7. The provider has discontinued the Vancomycin as MRSA has been ruled out. At this time Tiffanie continues to be treated for the bacteremia with Rocephin. The provider has indicated that [facility] department may be consulted for their recommendations for agent of choice and duration of treatment. Both Tiffanie and her family have stated that if it is possible, they would like to either come to the Infusion Center or have home infusion to complete the course of treatment when she is ready for discharge. e of her fever and bacteremia remains unclear as well. A:Tiffanie is an 78 year old woman admitted on 02/14/23 with fever P:Anticipate Rosibel will return home once medically cleared. She will likely need watermelon harvesting supervisor IV antibiotics for her bacteremia. It is not yet clear what the medication and regimen will be; that information will help determine the methodology for the infusions. Her will drive her home via private vehicle and she will follow up with her PCP and discharge plan of care. CM will continue to follow and support discharge needs.
[2023-02-16] MEDS: VANCOMYCIN/WATER (PEG) 1 GM/200 ML BAG IVPB (10:07)
[2023-02-16] MEDS: cefTRIAXone 2 GM/50 ML BAG IVPB (11:29)
[2023-02-16] MEDS: amLODIPine 10 MG TAB PO (11:55)
[2023-02-16 12:26] LABS: Vancomycin, Random 29.1 ug/mL
[2023-02-16] MEDS: traMADol 50 MG TAB PO (13:26)
--- NOTE | 2023-02-16 13:56 | PT.INNT ---
Date of service: 02/16/23 Time of Service: 11:38 PT Notes Visit Reasons: Fever with Leukocytosis, Gastritis Patient is on the phone. Therapist to return this afternoon.
--- NOTE | 2023-02-16 14:26 | W.PM.PROGNOT ---
Date of Service Date of service: 02/16/23 Time of Service: 14:26 Assessment and Plan Assessment and plan (1) Staphylococcus aureus bacteremia: Status: Acute Assessment and plan: Will dc her vancomycin and increase her Rocephin to 2 gm IV q12h. I will also consult w/ I.D. at [employer], and I told her that I would discuss her case w/ Dr. Soto, her vocational technical education teacher Professional time spent interviewing and examining patient, discussion of goals of care with hospital team (care management, nursing and consulting professionals) was 30 minutes. (2) Atrial fibrillation: Assessment and plan: patient refused her diltiazem. she remains on Tikosyn at 250 mcg bid. she remains anticoagulated on apixaban 5 mg bid. Her rhythm goes intermittent afib and at times is NSR w/ PAC and PVC. I will discuss her case w/ Dr. Soto and see if he would recommend addition of diltiazem. Her electrolytes needs to be corrected as her K is low at 3.1 today and her Mg is also low at 1.5. Her diarrhea may be contributed by the addition of magnesium oxide. Qualifiers: Atrial fibrillation type: paroxysmal Qualified Code(s): I48.0 - Paroxysmal atrial fibrillation (3) Back pain: Status: Acute Assessment and plan: patient has lumbar DJD; no abscess or osteomyelitis on her MRI of her lumbar or thoracic spine. she has L3-L4 central canall stenosis that is mild. will use topical NSAIDS (i.e. voltaren gel). continue Tramadol prn (4) Lumbar degenerative disc disease: Status: Acute (5) DVT prophylaxis: Status: Acute Assessment and plan: patient chronically on apixaban for her PAF. (6) Discharge planning issues: Status: Acute Assessment and plan: patient will be dc home when medically stable. I anticipate that she will either need home health w/ home antibiotic or she will have to return for outpatient infusions. Subjective Subjective Interval history since last seen: Patient complaining of still being on liquid diet, she also says that she is having diarrhea about 3 liquid BM today. She still has bacteremia as of yestedays repeat blood cultures. Her initial BC from 02/13 grew MSSA. I will dc her vancomycin and put her on high dose Rocephin 2 gm IV q12h. She asked me to talk w/ her vocational technical education teacher, Dr. Donn Soto at [facility] [place], [place]. I explained to her that with repeat blood cultures she will likely need a HALEY to look for vegetations on her valves. Exam Narrative Exam Narrative: Patient is alert, oriented, complaining of lower back pain; I explained to her that her MRI of her spine did not show any abscess or osteomyelitis Lungs: improved, less rales; now only in lower bailon bilaterally Heart: irregular, irregular Extremities: no pitting edema Objective Last Vital Signs Temp 37.0 C 02/16/23 11:11 Pulse 61 02/16/23 11:11 Resp 18 02/16/23 11:11 BP 175/91 H 02/16/23 11:11 Pulse Ox 95 02/16/23 11:11 Laboratory Results - last 24 hr 02/15/23 02/15/23 02/16/23 06:25 06:25 05:36 WBC RBC Hgb Hct MCV MCH MCHC RDW Plt Count MPV Immature Gran % Neutrophils % Lymphocytes % Monocytes % Eosinophils % Basophils % Nucleated RBC % Absolute Neutrophils Absolute Lymphocytes Absolute Monocytes Absolute Eosinophils Absolute Basophils Sodium Potassium Chloride Carbon Dioxide Anion Gap BUN Creatinine Est GFR (CKD-EPI 2020) Glucose Calcium Magnesium 1.5 L C-Reactive Protein 9.06 H NT-Pro-B Natriuret Pep 5031 H Random Vancomycin Add-On Test Request DONE 02/16/23 02/16/23 02/16/23 05:36 05:36 11:55 WBC 12.46 H RBC 4.10 Hgb 12.6 Hct 37.6 MCV 92 MCH 30.7 MCHC 33.5 RDW 12.1 Plt Count 209 MPV 10.7 Immature Gran % 0.6 Neutrophils % 78.9 Lymphocytes % 9.8 Monocytes % 10.0 Eosinophils % 0.3 Basophils % 0.4 Nucleated RBC % 0.0 Absolute Neutrophils 9.83 H Absolute Lymphocytes 1.22 Absolute Monocytes 1.25 H Absolute Eosinophils 0.04 Absolute Basophils 0.05 Sodium 138 Potassium 3.1 L Chloride 102 Carbon Dioxide 32.3 H Anion Gap 3.7 BUN 5 L Creatinine 0.7 Est GFR (CKD-EPI 2020) 87.37 Glucose 101 Calcium 9.3 Magnesium C-Reactive Protein NT-Pro-B Natriuret Pep Random Vancomycin 29.1 Add-On Test Request Time Spent with Patient Time Spent with Patient: 25-34 minutes Time was spent: preparing to see the patient(eg.review tests), ordering medications,tests, procedures, referring, communicating with other health child care leader, indepentently interpreting results, counseling the patient and care coordination
[2023-02-16 14:36] LABS: C Diff PCR Negative (Negative)
[2023-02-16] MEDS: POTASSIUM CHLORIDE 10 MEQ/100 ML BAG 100 MEQ IVPB ×3 (14:54→18:18)
[2023-02-16] MEDS: MAGNESIUM SULFATE 4 GM/100 ML BAG IVPB (14:54)
--- NOTE | 2023-02-16 15:08 | PT.INNT ---
Date of service: 02/16/23 Time of Service: 15:08 PT Notes Visit Reasons: Fever with Leukocytosis, Gastritis Patient declines therapy, citing too much back pain. RN reports pt had Tramadol at 1:30, pt questions why it hasn't kicked in. Patient states doing therapy right now might kill her. Advised pt that if she changes her mind, I'm here until 5 pm.
--- NOTE | 2023-02-16 16:06 | PHA.REVIEW2 ---
Pharmacy Admission Review - Admission Clinical Review (Last Reviewed 02/15/23 @ 16:15 by Yodit Murphy NP) Lumbar degenerative disc disease (Acute) Staphylococcus aureus bacteremia (Acute) Palliative care encounter (Acute) Advance care planning (Acute) Discharge planning issues (Acute) DVT prophylaxis (Acute) Back pain (Acute) Gram-positive cocci bacteremia (Acute) Sepsis (Acute) Leukocytosis (leucocytosis) (Acute) Gastritis (Acute) Fever (Acute) hydralazine Allergy (Intermediate, Unverified 02/13/23 16:11) Dizziness/Lightheade metoprolol Allergy (Unverified 02/13/23 16:11) Cardiac Dysrythmia isosorbide mononitrate [From Imdur] Adverse Reaction (Intermediate, Unverified 02/13/23 16:11) Skin Rash Resuscitation Status Full Code Height 5 ft 2 in Weight 68.6 kg - Renal Dosing Renal Dosing: BUN 5 mg/dL (7-18) L 02/16/23 05:36 Creatinine 0.7 mg/dL (0.55-1.02) 02/16/23 05:36 Medications needing adjustments: Reviewed (crcl = 40, current meds ok) - Anticoagulation Anticoagulation: Hgb 12.6 g/dL (11.2-15.7) 02/16/23 05:36 Hct 37.6 % (36.0-46.0) 02/16/23 05:36 Plt Count 209 10^3/uL (130-400) 02/16/23 05:36 INR 1.1 (0.9-1.1) 02/14/23 06:03 Creatinine 0.7 mg/dL (0.55-1.02) 02/16/23 05:36 DVT Prophylaxis: Reviewed Medications: Apixaban Therapeutic Anticoagulation: Reviewed Medications: Apixaban (Afib) - Opiate Usage Evaluate Pain Scale/Pains Meds: Reviewed - Relevant Labs Sodium 138 mmol/L (136-145) 02/16/23 05:36 Potassium 3.1 mmol/L (3.5-5.1) L 02/16/23 05:36 Chloride 102 mmol/L (98-107) 02/16/23 05:36 Magnesium 1.5 mg/dL (1.8-2.4) L 02/16/23 05:36 C-Reactive Protein 9.06 mg/dL (0.0-0.3) H 02/16/23 05:36 Electrolytes, C-Reactive P, ESR: Reviewed (mag + potassium repletion) - DM Control DM Control: Glucose 101 mg/dL (74-106) 02/16/23 05:36 DM Control: Reviewed - Cardiac Review Cardiac Review: Troponin I < 50 ng/L (<or=60) 02/13/23 17:15 NT-Pro-B Natriuret Pep 5031 pg/mL (<300) H 02/15/23 06:25 BP, HR, EF%: Reviewed - Qtc Review QTc: Reviewed (QTc = 436 on 02/13/23) - IV to PO Switch IV Medications: Reviewed - Home Meds Home Med List reviewed: Reviewed - Current meds Current Medication Order Review: Reviewed Antibiotic Review - Pharmacy Antibiotic Review Pharmacy Antibiotic Activity: Abx regimen adjustment (switched from ceftriaxone + vanco to oxacillin 2g q4h per ID consult (MSSA)) Relevant Labs: Relevant Labs 02/16/23 05:36 C-Reactive Protein 9.06 H - Antibiotic Information Antibiotic Review Info: indication: bacteremia, duration: 4-6 weeks
[2023-02-16] MEDS: Acetaminophen 500 MG TAB 1000 MG PO (16:10)
[2023-02-16] MEDS: Loperamide 2 MG CAP PO (16:10)
[2023-02-16 18:58] LABS: Legionella Ag Detection Urine Negative (Negative)
[2023-02-16] MEDS: Potassium Chloride 10 MEQ TABCR 20 MEQ PO (21:51)
[2023-02-17] VITALS (8 sets, daily range): BP systolic 132–206; BP diastolic 74–92; PULSE 57–75; RESP 16–21; TEMP 36.4–37.4; O2SAT 93–98
[2023-02-17] MEDS: Acetaminophen 500 MG TAB 1000 MG PO ×4 (01:02→22:55)
[2023-02-17 06:48] LABS: Abs Immature Grans 0.06 10^3/uL (0.0-0.06); Absolute Basophil Count 0.07 10^3/uL (0.0-0.2); Absolute Eosinophil Count 0.17 10^3/uL (0.0-0.7); Absolute Lymphocyte Count 1.81 10^3/uL (1.2-3.4); Absolute Monocyte Count 1.13 10^3/uL (0.1-0.8); Basophils % 0.6; Eosinophils % 1.5; HCT 35.4 % (36.0-46.0); Immature Grans % 0.5; Lymphocytes % 16.4; MCH 30.4 pg (27.0-33.0); MCHC 33.9 % (32.0-36.0); MCV 90 fL (80-95); MPV 10.1 fL (8.0-11.0); Monocytes % 10.2; Neutrophils % 70.8; Platelet Count 244 10^3/uL (130-400); RBC 3.95 10^6/uL (3.93-5.22); RDW 11.9 % (11.7-14.6); RDW-SD 38.9 fL; WBC 11.03 10^3/uL (4.4-10.8)
[2023-02-17 06:52] LABS: Absolute Neutrophil Count 7.81 10^3/uL (1.2-6.7)
[2023-02-17] MEDS: Levothyroxine 88 MCG TAB PO (06:53)
[2023-02-17 07:17] LABS: Anion Gap 5.8 mmol/L (3-11); BUN 7 mg/dL (7-18); C-Reactive Protein 9.54 mg/dL (0.0-0.3); CO2 29.2 mmol/L (21.0-32.0); CREATININE 0.6 mg/dL (0.55-1.02); Chloride 105 mmol/L (98-107); Estimated GFR 90.68 (mL/min/1.73m2); Glucose 94 mg/dL (74-106); Potassium 3.2 mmol/L (3.5-5.1); Sodium 140 mmol/L (136-145)
[2023-02-17] MEDS: Magnesium Lactate-SR 84 MG TABCR PO (07:46)
[2023-02-17] MEDS: amLODIPine 10 MG TAB PO (07:46)
[2023-02-17] MEDS: Apixaban 5 MG TAB PO ×2 (07:46→19:15)
[2023-02-17] MEDS: Omega-3 Fatty Acids 1000 MG CAP PO (07:46)
[2023-02-17] MEDS: Multivitamin TAB 1 TAB PO (07:47)
[2023-02-17] MEDS: Potassium Chloride 20 MEQ TABCR PO ×4 (07:47→19:14)
[2023-02-17] MEDS: Magnesium Oxide 400 MG TAB 800 MG PO ×2 (07:47→19:13)
[2023-02-17] MEDS: Calcium Carbonate *TUMS* 500 MG CHEW 1000 MG PO (07:47)
[2023-02-17] MEDS: Dofetilide 250 MCG CAP PO ×2 (07:47→19:14)
[2023-02-17] MEDS: Lisinopril 20 MG TAB 40 MG PO (07:47)
[2023-02-17] MEDS: Cholecalciferol (Vitamin D3) 1,000 UNIT TAB 1000 UNITS PO (07:47)
[2023-02-17 08:34] LABS: Lab Add On Test DONE
--- NOTE | 2023-02-17 08:58 | PDOC.CMPRO ---
- If Service Date Differs Date of service: 02/17/23 Time of Service: 08:58 Care Management Progress Note S/O:Tiffanie was sitting up in a chair when CM met with her. She was smiling and stated that she is feeling even better today than yesterday. She went on to state that she feels a little bit better each day. Tiffanie has not had a fever since early yesterday morning and her WBC is down to 11.03; it was 21.65 on admission. Tiffanie has been working with PT. She did well this morning and was able to ambulate 300 feet. Tiffanie shared that she is very active at baseline and is rarely home. Now that the organism and susceptibilities causing her bacteremia are known, a definitive plan for her antibiotic regimen has been formulated. She will be receiving Oxacillin 2Gm Iv Q4h for 4-6 weeks. Efforts are underway to schedule Tiffanie for a HALEY at [facility], hopefully Monday. If it is negative she will likely only need 4 weeks. Referrals were sent to [facility] and [facility] for pricing and to determine if they are able to accommodate the frequency of the infusions. A:Tiffanie is an 78 year old woman admitted on 02/14/23 with fever P:Anticipate Rosibel will return home once medically cleared. She will need market reporter IV antibiotics (4-6 weeks) for her bacteremia. She will be receiving Oxacillin 2 Gm IV every 4h. Referrals have been sent to [facility] and [facility] . Tiffanie's will drive her home via private vehicle and she will follow up with her PCP and discharge plan of care. CM will continue to follow and support discharge needs.
[2023-02-17] MEDS: Normal Saline Flush 10 ML SYR IVP ×4 (10:21→21:43)
--- NOTE | 2023-02-17 10:26 | PT.INTREAT ---
Date of service: 02/17/23 Time of Service: 10:06 PT Notes Visit Reasons: Fever with Leukocytosis, Gastritis Inpatient Physical Therapy Treatment Note [facility] Date: [] PRECAUTIONS: Fall. Standard. Activity as tolerated. SUBJECTIVE: Patient reports feeling much better today than yesterday, back pain about a 2, agreeable to therapy. OBJECTIVE: PAIN: patient reports a 2, during ambulation reports right hip acting up as well. BED MOBILITY/TRANSFERS Rolling L/R: independent Supine-sit: independent Sit-supine: independent Sit-stand: independent Stand-sit: independent Bed-Chair:independent Chair-bed: independent GAIT Assistive Device: rolling walker Weight bearing: full Assist: contact guard with gait belt Distance: 300 feet Deviation: good foot clearance in swing phase, forward leaning posture, symmetrical stride length early but reduced stance phase on right as patient started to verbalize that right hip was bothering her. VITALS: THEREX: supine pelvic rocks x5, patient reports that is uncomfortable, alternating knee to chest, patient reports pulling sensation in low back as well as right hip pain even in reduced range. ASSESSMENT: Patient tolerated ambulation well, back exercises rapidly degraded patient's countenance. PLAN: Confer with PT re: core activation exercises. Patient agreeable to walk again in the afternoon. TREATMENT CODE/TIME: 04369 Gait 12 minutes
[2023-02-17 11:52] LABS: Campylobacter PCR Negative (Negative); Salmonella PCR Negative (Negative); Shiga Toxin PCR Negative (Negative); Shigella/Enteroinvasive Ecoli Negative (Negative)
--- NOTE | 2023-02-17 13:24 | PGE_ITS ---
Date of Service Date of service: 02/17/23 Time of Service: 13:53 Assessment and Plan Assessment and plan (1) Staphylococcus aureus bacteremia: Status: Acute Assessment and plan: Case has been reviewed with ID Dr. Kothari from [facility] as well as with Dr. Recinos from cardiology at [facility] as well as with the HALEY service at [facility]. Plan will be for HALEY on Monday. Continue oxacillin 2 g IV every 4 hours. Continue monitoring her labs and repeating her blood cultures daily until there is no growth. Professional time spent interviewing and examining patient, discussion of goals of care with hospital team (care management, nursing and consulting professionals) was 30 minutes. (2) Atrial fibrillation: Assessment and plan: Patient states that Dr. Soto is told her not to take Cardizem due to concern for low heart rates. Patient admits that even prior to hospitalization she been going in and out of atrial fibrillation. She can feel it when it occurs. I confirm with her that the monitor shows her being intermittent sinus rhythm with PACs and intermittently going into A-fib at a controlled rate. For now we will continue current dose of Tikosyn. Not treat with diltiazem or metoprolol unless she has rapid A-fib. Patient remains on apixaban. Qualifiers: Atrial fibrillation type: paroxysmal Qualified Code(s): I48.0 - Paroxysmal atrial fibrillation (3) Back pain: Status: Acute Assessment and plan: patient has lumbar DJD; no abscess or osteomyelitis on her MRI of her lumbar or thoracic spine. she has L3-L4 central canall stenosis that is mild. will use topical NSAIDS (i.e. voltaren gel). continue Tramadol prn (4) Lumbar degenerative disc disease: Status: Acute (5) DVT prophylaxis: Status: Acute Assessment and plan: patient chronically on apixaban for her PAF. (6) Discharge planning issues: Status: Acute Assessment and plan: patient will be dc home when medically stable. Patient will need home health services with assistance with IV infusion of 4 to 6 weeks of oxacillin. Subjective Subjective Interval history since last seen: Patient states she is feeling better if she is not feeling short of breath today. I explained to her and her and her daughter that I have made calls to [facility] cardiology and infectious disease services. ID recommends a minimum of 4 weeks and up to 6 weeks of IV antibiotics targeted to MSSA bacteremia. This should include either Ancef or nafcillin or oxacillin. I switch her over to oxacillin 2 g IV every 4 hours. Case management has faxed orders from me to 2 different home health companies to see with the cost of coverage for 6 weeks of oxacillin will be. I also explained to the patient and her family that I have arranged with [facility] cardiology to perform a HALEY but this cannot be done until next Monday. HALEY will be performed to look for vegetations on her valves. If vegetations are present she will need at least 6 weeks of antibiotics. I also explained that once her blood cultures are showing no growth we can proceed with a PICC line so she can do home antibiotic therapy. Exam Narrative Exam Narrative: Patient is alert and oriented x3. Lungs are clear to auscultation Heart is irregularly irregular with a soft systolic murmur over the apex no thrill or heave Extremities without peripheral edema Review of telemetry shows she goes intermittent atrial fibrillation with intermittent normal sinus rhythm with frequent PACs. Objective Last Vital Signs Temp 36.7 C 02/17/23 11:24 Pulse 57 L 02/17/23 11:24 Resp 19 02/17/23 11:24 BP 155/91 H 02/17/23 11:24 Pulse Ox 96 02/17/23 11:24 Laboratory Results - last 24 hr 02/15/23 02/15/23 02/16/23 13:25 20:20 15:07 WBC RBC Hgb Hct MCV MCH MCHC RDW Plt Count MPV Immature Gran % Neutrophils % Lymphocytes % Monocytes % Eosinophils % Basophils % Nucleated RBC % Absolute Neutrophils Absolute Lymphocytes Absolute Monocytes Absolute Eosinophils Absolute Basophils Sodium Potassium Chloride Carbon Dioxide Anion Gap BUN Creatinine Est GFR (CKD-EPI 2020) Glucose Calcium Magnesium C-Reactive Protein Stl C.difficile Tox PCR Negative Cancelled Urine Legionella Ag Negative Add-On Test Request 02/17/23 02/17/23 02/17/23 06:20 06:20 06:20 WBC 11.03 H RBC 3.95 Hgb 12.0 Hct 35.4 L MCV 90 MCH 30.4 MCHC 33.9 RDW 11.9 Plt Count 244 MPV 10.1 Immature Gran % 0.5 Neutrophils % 70.8 Lymphocytes % 16.4 Monocytes % 10.2 Eosinophils % 1.5 Basophils % 0.6 Nucleated RBC % 0.0 Absolute Neutrophils 7.81 H Absolute Lymphocytes 1.81 Absolute Monocytes 1.13 H Absolute Eosinophils 0.17 Absolute Basophils 0.07 Sodium 140 Potassium 3.2 L Chloride 105 Carbon Dioxide 29.2 Anion Gap 5.8 BUN 7 Creatinine 0.6 Est GFR (CKD-EPI 2020) 90.68 Glucose 94 Calcium 9.0 Magnesium C-Reactive Protein 9.54 H Stl C.difficile Tox PCR Urine Legionella Ag Add-On Test Request DONE 02/17/23 06:20 WBC RBC Hgb Hct MCV MCH MCHC RDW Plt Count MPV Immature Gran % Neutrophils % Lymphocytes % Monocytes % Eosinophils % Basophils % Nucleated RBC % Absolute Neutrophils Absolute Lymphocytes Absolute Monocytes Absolute Eosinophils Absolute Basophils Sodium Potassium Chloride Carbon Dioxide Anion Gap BUN Creatinine Est GFR (CKD-EPI 2020) Glucose Calcium Magnesium 2.0 C-Reactive Protein Stl C.difficile Tox PCR Urine Legionella Ag Add-On Test Request Time Spent with Patient Time Spent with Patient: 25-34 minutes Time was spent: preparing to see the patient(eg.review tests), ordering medications,tests, procedures, referring, communicating with other health customer care representative ([facility] cardiology and HALEY services and infectious disease services), indepentently interpreting results, counseling the patient and care coordination
--- NOTE | 2023-02-17 15:40 | PT.INNT ---
PT Notes Visit Reasons: Fever with Leukocytosis, Gastritis Patient declined therapy this afternoon.
[2023-02-17 16:54] LABS: Potassium 3.5 mmol/L (3.5-5.1)
[2023-02-17] MEDS: Loperamide 2 MG CAP PO (17:36)
[2023-02-17 18:32] LABS: Anaplasma phagocytophilum Negative (Negative); B. miyamotoi PCR Negative (Negative); Babesia divergens/MO-1 Negative (Negative); Babesia duncani Negative (Negative); Babesia microti Negative (Negative); Ehrlichia chaffeensis Negative (Negative); Ehrlichia ewingii/canis Negative (Negative); Ehrlichia muris eauclairensis Negative (Negative)
[2023-02-17] MEDS: cloNIDine 0.1 MG TAB PO (23:35)
[2023-02-18] VITALS (10 sets, daily range): BP systolic 131–166; BP diastolic 60–98; PULSE 51–66; RESP 19–20; TEMP 36–36.7; O2SAT 93–98
[2023-02-18] MEDS: Levothyroxine 88 MCG TAB PO (05:56)
[2023-02-18] MEDS: Omega-3 Fatty Acids 1000 MG CAP PO (08:57)
[2023-02-18] MEDS: Multivitamin TAB 1 TAB PO (08:57)
[2023-02-18] MEDS: Lisinopril 20 MG TAB 40 MG PO (08:57)
[2023-02-18] MEDS: Potassium Chloride 20 MEQ TABCR PO ×2 (08:57→11:19)
[2023-02-18] MEDS: Cholecalciferol (Vitamin D3) 1,000 UNIT TAB 1000 UNITS PO (08:58)
[2023-02-18] MEDS: amLODIPine 10 MG TAB PO (08:58)
[2023-02-18] MEDS: Acetaminophen 500 MG TAB 1000 MG PO ×2 (08:58→16:11)
[2023-02-18] MEDS: Calcium Carbonate *TUMS* 500 MG CHEW 1000 MG PO (08:58)
[2023-02-18] MEDS: Dofetilide 250 MCG CAP PO ×2 (08:58→20:01)
[2023-02-18] MEDS: Apixaban 5 MG TAB PO ×2 (08:58→20:01)
[2023-02-18] MEDS: Magnesium Oxide 400 MG TAB 800 MG PO ×2 (09:18→20:02)
--- NOTE | 2023-02-18 09:27 | PT.INTREAT ---
PT Notes Visit Reasons: Fever with Leukocytosis, Gastritis PRECAUTIONS: Fall. Standard. Activity as tolerated. SUBJECTIVE: Pt in bed when approached for therapy this morning, pt agreed to participating with therapy. OBJECTIVE: ? PAIN: Pt reports 3/10 for lowback pain, reports that the gait belt helps with minimizing pain ? BED MOBILITY/TRANSFERS ? Rolling L/R: independent Supine-sit: independent ? Sit-supine: independent ? Sit-stand:?independent ? Stand-sit: independent? Bed-Chair:independent ? Chair-bed: independent ? GAIT? Assistive Device: rolling walker? Weight bearing: full Assist: SBA? Distance:? 300' x2 ? Deviation: decreased step height and step length. ? Therapeutic Activities 73485 10mins: instruction in dynamic activities with one on one patient contact by the provider to improve functional performance?as follows: Standing/Seated/Supine TRA activation Standing/Seated/Supine gluteal sets Deep breathing exercises ? ASSESSMENT:? Pt able to complete two round around the perimeter of the MS payne without increase on her low anupama pain, took seated rest break inbetween distances to allow for morning pills to be taken orally and prevent over fatigue as well. PLAN: Continue with global strengthening and continue with gait training, as tolerated for progression toward baseline level of function. TREATMENT CODE/TIME: 01828 Gait 20 minutes [id number] Therapeutic activity 10mins 7:35-8:05am
--- NOTE | 2023-02-18 09:43 | PT.INTREAT ---
PT Notes Visit Reasons: Fever with Leukocytosis, Gastritis PRECAUTIONS: Fall. Standard. Activity as tolerated. SUBJECTIVE: Pt in bed when approached for therapy this morning, pt wearing lumbar support this morning, pt agreed to participating with therapy. OBJECTIVE: ? PAIN: pt reports 1/10 for pain ? BED MOBILITY/TRANSFERS ? Rolling L/R: independent Supine-sit: independent ? Sit-supine: independent ? Sit-stand:?independent ? Stand-sit: independent? Bed-Chair:independent ? Chair-bed: independent ? GAIT? Assistive Device: rolling walker? Weight bearing: full Assist: SBA? Distance:? 300' x2 ? Deviation: good step quality with min verbal cue for emphasis on hip flexion and knee flexion to increase step height. ? Therapeutic Activities 55360 15mins: instruction in dynamic activities with one on one patient contact by the provider to improve functional performance?as follows: Standing/Seated/Supine TRA activation Standing/Seated/Supine gluteal sets Deep breathing exercises ? ? Stair negotiation training 6steps on 4 4steps on 6, 14steps initiated by going up followed by going down flight of stairs unilateral handrail, step through gait SBA for safety. ? ASSESSMENT:? Pt reports that the lowback is feeling very good today and was able to tolerate addition of stair training taking rest break after pt reach the top of the stairs before coming down. pt reports that the lowback pain did not increased with activity. PLAN: Continue with global strengthening and continue with gait training, as tolerated for progression toward baseline level of function. TREATMENT CODE/TIME: 16197 Gait 10 minutes [id number] Therapeutic activity 15mins 7:40-8:10am
[2023-02-18] MEDS: Normal Saline Flush 10 ML SYR IVP ×4 (10:09→21:40)
[2023-02-18 10:49] LABS: ALT 17 U/L (14-59); AST 20 U/L (15-37); Albumin 2.6 g/dL (3.4-5.0); Alkaline Phosphatase 67 U/L (46-116); BUN 11 mg/dL (7-18); Bilirubin, Total 0.5 mg/dL (0.2-1.0); C-Reactive Protein 5.81 mg/dL (0.0-0.3); CREATININE 0.8 mg/dL (0.55-1.02); Calcium 9.8 mg/dL (8.5-10.1); Chloride 105 mmol/L (98-107); Estimated GFR 74.44 (mL/min/1.73m2); Glucose 116 mg/dL (74-106); Magnesium 1.8 mg/dL (1.8-2.4); Potassium 4.4 mmol/L (3.5-5.1); Sodium 138 mmol/L (136-145); Total Protein 6.2 g/dL (6.4-8.2)
[2023-02-18 11:17] LABS: Abs Immature Grans 0.09 10^3/uL (0.0-0.06); Absolute Basophil Count 0.08 10^3/uL (0.0-0.2); Absolute Eosinophil Count 0.31 10^3/uL (0.0-0.7); Absolute Lymphocyte Count 1.85 10^3/uL (1.2-3.4); Absolute Neutrophil Count 7.97 10^3/uL (1.2-6.7); Basophils % 0.7; Eosinophils % 2.7; HCT 36.6 % (36.0-46.0); HGB 12.6 g/dL (11.2-15.7); Immature Grans % 0.8; Lymphocytes % 16.1; MCH 31.3 pg (27.0-33.0); MCHC 34.4 % (32.0-36.0); MCV 91 fL (80-95); MPV 10.9 fL (8.0-11.0); Monocytes % 10.4; Neutrophils % 69.3; Platelet Count 254 10^3/uL (130-400); RBC 4.03 10^6/uL (3.93-5.22); RDW 12.1 % (11.7-14.6); RDW-SD 40.6 fL
[2023-02-18] MEDS: Diclofenac 1% Gel 100 GM TUBE TP (11:20)
--- NOTE | 2023-02-18 13:22 | PGE_ITS ---
Date of Service Date of service: 02/18/23 Time of Service: 13:22 Assessment and Plan Assessment and plan (1) Staphylococcus aureus bacteremia: Status: Acute Assessment and plan: continue oxacillin 2 gm iv q4h; awaiting HALEY for next week at [facility], hopefully on Monday but have not heard a confirmed time yet. blood cultures were still positive as of 02/17. repeat blood cultures sent today. Professional time spent interviewing and examining patient, discussion of goals of care with hospital team (care management, nursing and consulting professionals) was 20 minutes. (2) Atrial fibrillation: Assessment and plan: Patient states that Dr. Soto is told her not to take Cardizem due to concern for low heart rates. Patient admits that even prior to hospitalization she been going in and out of atrial fibrillation. She can feel it when it occurs. I confirm with her that the monitor shows her being intermittent sinus rhythm with PACs and intermittently going into A-fib at a controlled rate. For now we will continue current dose of Tikosyn. Not treat with diltiazem or metoprolol unless she has rapid A-fib. Patient remains on apixaban. Patient currently in sinus rhythm to sinus bradycardia w/ PACs Qualifiers: Atrial fibrillation type: paroxysmal Qualified Code(s): I48.0 - Paroxysmal atrial fibrillation (3) Back pain: Status: Acute Assessment and plan: patient has lumbar DJD; no abscess or osteomyelitis on her MRI of her lumbar or thoracic spine. she has L3-L4 central canall stenosis that is mild. will use topical NSAIDS (i.e. voltaren gel). continue Tramadol prn (4) Lumbar degenerative disc disease: Status: Acute Assessment and plan: as above (5) DVT prophylaxis: Status: Acute Assessment and plan: patient chronically on apixaban for her PAF. (6) Discharge planning issues: Status: Acute Assessment and plan: patient will be dc home when medically stable. Patient will need home health services with assistance with IV infusion of 4 to 6 weeks of oxacillin. Subjective Subjective Interval history since last seen: She is feeling better. No acute complaints. Back pain is better. She was wearing her soft back brace and has been ambulating for P.T. w/ walker. No fevers for 48 hr. CRP still elevated but declining at 5.8 from 9.5. WBC still elevated at 11,000. Potassium is finally normalized at 4.4. Exam Narrative Exam Narrative: Rosibel is alert and oriented person place time circumstance sitting up in her chair talking with the nurse. Lungs are clear anteriorly posteriorly she has some fine bibasilar rales no rhonchi or wheezing Heart is regular rate and rhythm with a systolic murmur over the apex Extremities without peripheral cyanosis or edema Objective Last Vital Signs Temp 36.7 C 02/18/23 11:07 Pulse 54 L 02/18/23 11:07 Resp 20 02/18/23 11:07 BP 149/81 H 02/18/23 11:07 Pulse Ox 96 02/18/23 11:07 Laboratory Results - last 24 hr 02/15/23 02/17/23 02/18/23 13:25 16:32 09:39 WBC RBC Hgb Hct MCV MCH MCHC RDW Plt Count MPV Immature Gran % Neutrophils % Lymphocytes % Monocytes % Eosinophils % Basophils % Nucleated RBC % Absolute Neutrophils Absolute Lymphocytes Absolute Monocytes Absolute Eosinophils Absolute Basophils Sodium 138 Potassium 3.5 4.4 Chloride 105 Carbon Dioxide 27.0 Anion Gap 6.0 BUN 11 Creatinine 0.8 Est GFR (CKD-EPI 2020) 74.44 Glucose 116 H Calcium 9.8 Magnesium 1.8 Total Bilirubin 0.5 AST 20 ALT 17 Alkaline Phosphatase 67 C-Reactive Protein 5.81 H Total Protein 6.2 L Albumin 2.6 L Stool Campylobacter PCR Negative Stool Salmonella PCR Negative Stool Shigella PCR Negative Shiga Toxin (PCR) Negative 02/18/23 10:37 WBC 11.50 H RBC 4.03 Hgb 12.6 Hct 36.6 MCV 91 MCH 31.3 MCHC 34.4 RDW 12.1 Plt Count 254 MPV 10.9 Immature Gran % 0.8 Neutrophils % 69.3 Lymphocytes % 16.1 Monocytes % 10.4 Eosinophils % 2.7 Basophils % 0.7 Nucleated RBC % 0.0 Absolute Neutrophils 7.97 H Absolute Lymphocytes 1.85 Absolute Monocytes 1.20 H Absolute Eosinophils 0.31 Absolute Basophils 0.08 Sodium Potassium Chloride Carbon Dioxide Anion Gap BUN Creatinine Est GFR (CKD-EPI 2020) Glucose Calcium Magnesium Total Bilirubin AST ALT Alkaline Phosphatase C-Reactive Protein Total Protein Albumin Stool Campylobacter PCR Stool Salmonella PCR Stool Shigella PCR Shiga Toxin (PCR) Time Spent with Patient Time Spent with Patient: <25 minutes Time was spent: preparing to see the patient(eg.review tests), ordering med ications,tests, procedures, indepentently interpreting results, counseling the patient and care coordination
[2023-02-18] MEDS: Furosemide 20 MG TAB PO (14:06)
[2023-02-19] VITALS (9 sets, daily range): BP systolic 156–167; BP diastolic 83–99; PULSE 54–72; RESP 20; TEMP 35.9–36.8; O2SAT 93–99
[2023-02-19] MEDS: Acetaminophen 500 MG TAB 1000 MG PO ×4 (00:12→23:39)
[2023-02-19] MEDS: Normal Saline Flush 10 ML SYR IVP ×3 (01:52→14:25)
[2023-02-19] MEDS: Levothyroxine 88 MCG TAB PO (05:40)
[2023-02-19 06:23] LABS: Abs Immature Grans 0.17 10^3/uL (0.0-0.06); Absolute Eosinophil Count 0.49 10^3/uL (0.0-0.7); Absolute Lymphocyte Count 3.21 10^3/uL (1.2-3.4); Absolute Monocyte Count 0.97 10^3/uL (0.1-0.8); Basophils % 0.8; Eosinophils % 4.1; HCT 38.9 % (36.0-46.0); Immature Grans % 1.4; Lymphocytes % 26.9; MCH 30.2 pg (27.0-33.0); MCHC 33.4 % (32.0-36.0); MCV 91 fL (80-95); MPV 11.3 fL (8.0-11.0); Monocytes % 8.1; Neutrophils % 58.7; Platelet Count 303 10^3/uL (130-400); RDW 12.4 % (11.7-14.6); RDW-SD 40.7 fL; WBC 11.93 10^3/uL (4.4-10.8)
[2023-02-19 06:40] LABS: Anion Gap 8.6 mmol/L (3-11); BUN 13 mg/dL (7-18); CO2 29.4 mmol/L (21.0-32.0); Calcium 10.2 mg/dL (8.5-10.1); Chloride 104 mmol/L (98-107); Estimated GFR 56.95 (mL/min/1.73m2); Glucose 105 mg/dL (74-106); Potassium 3.4 mmol/L (3.5-5.1); Sodium 142 mmol/L (136-145)
[2023-02-19] MEDS: Multivitamin TAB 1 TAB PO (08:47)
[2023-02-19] MEDS: Omega-3 Fatty Acids 1000 MG CAP PO (08:47)
[2023-02-19] MEDS: Lisinopril 20 MG TAB 40 MG PO (08:48)
[2023-02-19] MEDS: Calcium Carbonate *TUMS* 500 MG CHEW 1000 MG PO (08:49)
[2023-02-19] MEDS: Potassium Chloride 20 MEQ TABCR PO (08:49)
[2023-02-19] MEDS: amLODIPine 10 MG TAB PO (08:50)
[2023-02-19] MEDS: Cholecalciferol (Vitamin D3) 1,000 UNIT TAB 1000 UNITS PO (08:50)
[2023-02-19] MEDS: Magnesium Oxide 400 MG TAB 800 MG PO ×2 (08:50→19:52)
[2023-02-19] MEDS: Diclofenac 1% Gel 100 GM TUBE TP ×4 (08:51→21:37)
[2023-02-19] MEDS: Apixaban 5 MG TAB PO ×2 (08:52→19:53)
[2023-02-19] MEDS: Dofetilide 250 MCG CAP PO ×2 (08:53→19:53)
[2023-02-19] MEDS: Furosemide 20 MG TAB PO (08:53)
--- NOTE | 2023-02-19 10:16 | W.PM.PROGNOT ---
Date of Service Date of service: 02/19/23 Time of Service: 10:16 Assessment and Plan Assessment and plan (1) Staphylococcus aureus bacteremia: Status: Acute Assessment and plan: continue oxacillin 2 gm iv q4h; awaiting HALEY for next week at [facility], hopefully on Monday but have not heard a confirmed time yet. blood cultures were still positive as of 02/17. repeat blood cultures from 02/18 are still pending results. Professional time spent interviewing and examining patient, discussion of goals of care with hospital team (care management, nursing and consulting professionals) was 20 minutes. (2) Atrial fibrillation: Assessment and plan: patient goes in and out of afib. she remains on Tikosyn 250 mcg bid and Eliquis 5 mg bid; she will follow up w/ Dr. Donn Soto upon discharge Qualifiers: Atrial fibrillation type: paroxysmal Qualified Code(s): I48.0 - Paroxysmal atrial fibrillation (3) Back pain: Status: Acute Assessment and plan: patient has lumbar DJD; no abscess or osteomyelitis on her MRI of her lumbar or thoracic spine. she has L3-L4 central canall stenosis that is mild. will use topical NSAIDS (i.e. voltaren gel). continue Tramadol prn (4) Lumbar degenerative disc disease: Status: Acute Assessment and plan: as above (5) DVT prophylaxis: Status: Acute Assessment and plan: patient chronically on apixaban for her PAF. (6) Discharge planning issues: Status: Acute Assessment and plan: patient will be dc home when medically stable. Patient will need home health services with assistance with IV infusion of 4 to 6 weeks of oxacillin. Subjective Subjective Interval history since last seen: Patient is feeling better today, almost human per the patient. No fevers or chills and no CP. I asked her if Dr. Soto is aware that she goes in and out of afib. She says that he is. I explained to her that Tikosyn is suppose to keep her in sinus rhythm and if she is going in and out of afib then her Tikosyn is not doing its job and it is time to either increase her dose or change to another anitarrhythmic or accept that she is not going to maintain sinus rhythm and focus on rate control in addition to anticoagulation. I told her that I will leave this Dr. Soto to decide. As for her HALEY, I told her that the woman who schedules the HALEY at [facility] never got back to us after she told me on Monday that they would schedule her on Monday. I spoke w/ the transfer center at [facility] and they could not get in touch w/ anyone in the HALEY department but will call me back tomorrow after 8 am. I told the patient that her HALEY may or may not happen tomorrow. We will keep her NPO tonight for possible HALEY tomorrow. Exam Narrative Exam Narrative: Rosibel is alert and oriented sitting up at the bedside talking with her nurse. She is in no discomfort. Denies any dyspnea or chest pain. Lungs are clear anteriorly posterior she has some fine bibasilar rales Heart is irregularly irregular and controlled rate Extremities without edema Objective Last Vital Signs Temp 35.9 C L 02/19/23 07:37 Pulse 71 02/19/23 09:05 Resp 20 02/19/23 07:37 BP 158/99 H 02/19/23 07:37 Pulse Ox 99 02/19/23 07:37 Laboratory Results - last 24 hr 02/18/23 02/18/23 02/19/23 09:39 10:37 05:48 WBC 11.50 H RBC 4.03 Hgb 12.6 Hct 36.6 MCV 91 MCH 31.3 MCHC 34.4 RDW 12.1 Plt Count 254 MPV 10.9 Immature Gran % 0.8 Neutrophils % 69.3 Lymphocytes % 16.1 Monocytes % 10.4 Eosinophils % 2.7 Basophils % 0.7 Nucleated RBC % 0.0 Absolute Neutrophils 7.97 H Absolute Lymphocytes 1.85 Absolute Monocytes 1.20 H Absolute Eosinophils 0.31 Absolute Basophils 0.08 Sodium 138 142 Potassium 4.4 3.4 L D Chloride 105 104 Carbon Dioxide 27.0 29.4 Anion Gap 6.0 8.6 BUN 11 13 Creatinine 0.8 1.0 Est GFR (CKD-EPI 2020) 74.44 56.95 Glucose 116 H 105 Calcium 9.8 10.2 H Magnesium 1.8 Total Bilirubin 0.5 AST 20 ALT 17 Alkaline Phosphatase 67 C-Reactive Protein 5.81 H Total Protein 6.2 L Albumin 2.6 L 02/19/23 05:48 WBC 11.93 H RBC 4.30 Hgb 13.0 Hct 38.9 MCV 91 MCH 30.2 MCHC 33.4 RDW 12.4 Plt Count 303 MPV 11.3 H Immature Gran % 1.4 Neutrophils % 58.7 Lymphocytes % 26.9 Monocytes % 8.1 Eosinophils % 4.1 Basophils % 0.8 Nucleated RBC % 0.0 Absolute Neutrophils 7.00 H Absolute Lymphocytes 3.21 Absolute Monocytes 0.97 H Absolute Eosinophils 0.49 Absolute Basophils 0.10 Sodium Potassium Chloride Carbon Dioxide Anion Gap BUN Creatinine Est GFR (CKD-EPI 2020) Glucose Calcium Magnesium Total Bilirubin AST ALT Alkaline Phosphatase C-Reactive Protein Total Protein Albumin Time Spent with Patient Time Spent with Patient: <25 minutes Time was spent: preparing to see the patient(eg.review tests), referring, communicating with other health post anesthesia care unit nurse (discussion w/ nursing and [facility] transfer center), indepentently interpreting results, counseling the patient and care coordination
[2023-02-19] MEDS: Normal Saline 500 ML 100 ML IV (10:18)
[2023-02-19] MEDS: Potassium Chloride 10 MEQ CAPCR 30 MEQ PO (11:04)
[2023-02-19 12:07] LABS: Lab Add On Test DONE
[2023-02-19 12:15] LABS: Magnesium 1.9 mg/dL (1.8-2.4)
[2023-02-19 16:58] LABS: Streptococcus Pneumoniae Ag, U Negative (Negative)
[2023-02-19] MEDS: Potassium Chloride 10 MEQ CAPCR 20 MEQ PO (19:52)
[2023-02-20] VITALS (10 sets, daily range): BP systolic 128–183; BP diastolic 75–99; PULSE 51–78; RESP 17–20; TEMP 36–36.9; O2SAT 94–98
[2023-02-20] MEDS: Levothyroxine 88 MCG TAB PO (05:23)
[2023-02-20 07:05] LABS: Anion Gap 8.9 mmol/L (3-11); BUN 13 mg/dL (7-18); CO2 29.1 mmol/L (21.0-32.0); Calcium 9.4 mg/dL (8.5-10.1); Chloride 106 mmol/L (98-107); Estimated GFR 56.95 (mL/min/1.73m2); Glucose 99 mg/dL (74-106); Potassium 3.4 mmol/L (3.5-5.1); Sodium 144 mmol/L (136-145)
[2023-02-20] MEDS: Lisinopril 20 MG TAB 40 MG PO (08:46)
[2023-02-20] MEDS: Omega-3 Fatty Acids 1000 MG CAP PO (08:46)
[2023-02-20] MEDS: Multivitamin TAB 1 TAB PO (08:47)
[2023-02-20] MEDS: Potassium Chloride 10 MEQ CAPCR 20 MEQ PO ×2 (08:47→20:55)
[2023-02-20] MEDS: Calcium Carbonate *TUMS* 500 MG CHEW 1000 MG PO (08:47)
[2023-02-20] MEDS: Furosemide 20 MG TAB PO (08:48)
[2023-02-20] MEDS: Dofetilide 250 MCG CAP PO ×2 (08:48→20:55)
[2023-02-20] MEDS: amLODIPine 10 MG TAB PO (08:48)
[2023-02-20] MEDS: Cholecalciferol (Vitamin D3) 1,000 UNIT TAB 1000 UNITS PO (08:48)
[2023-02-20] MEDS: Magnesium Oxide 400 MG TAB 800 MG PO ×2 (08:48→20:54)
[2023-02-20] MEDS: Acetaminophen 500 MG TAB 1000 MG PO ×3 (08:49→23:57)
[2023-02-20] MEDS: Diclofenac 1% Gel 100 GM TUBE TP ×4 (08:50→21:02)
[2023-02-20] MEDS: Normal Saline Flush 10 ML SYR IVP ×2 (09:08→16:50)
--- NOTE | 2023-02-20 09:15 | CMPROGNOTE_ITS ---
- If Service Date Differs Date of service: 02/20/23 Time of Service: 09:15 Care Management Progress Note S/O:Tiffanie was sitting up in a chair when CM met with her. She was in good spirits and has been ambulating in the hallway and visiting with family. Tiffanie was to have had a HALEY at [facility] today but [facility] stated they never received the order. CM re-faxed the order to [facility] and the provider is waiting to hear back. Last week CM faxed referrals to [facility] and [facility] for home infusion of IVAB. [facility] is having staffing issues at this time and are unable to accomodate her treatment plan. [facility] called CM this morning and informed CM that Medicare will not cover the cost of Oxacillin and her out of pocket cost would be over $!200/week. CM discussed the situation with the provider and the order will be re-submitted using a different antibiotic to determine if that can be covered. A:Tiffanie is an 78 year old woman admitted on 02/14/23 with fever P:Anticipate Rosibel will return home once medically cleared. She will need nursing home IV antibiotics (4-6 weeks) for her bacteremia. Referrals have been sent to [facility] and [facility] (see above). [facility] declined the referral and [facility] learned that Medicare will not support the use of Oxacillin. A different will be considered. CM will continue to follow and support discharge needs.
--- NOTE | 2023-02-20 09:15 | PDOC.CMPRO ---
- If Service Date Differs Date of service: 02/20/23 Time of Service: 09:15 Care Management Progress Note S/O:Tiffanie was sitting up in a chair when CM met with her. She was in good spirits and has been ambulating in the hallway and visiting with family. Tiffanie was to have had a HALEY at [facility] today but [facility] stated they never received the order. CM re-faxed the order to [facility] and the provider is waiting to hear back. Last week CM faxed referrals to [facility] and [facility] for home infusion of IVAB. [facility] is having staffing issues at this time and are unable to accomodate her treatment plan. [facility] called CM this morning and informed CM that Medicare will not cover the cost of Oxacillin and her out of pocket cost would be over $!200/week. CM discussed the situation with the provider and the order will be re-submitted using a different antibiotic to determine if that can be covered. A:Tiffanie is an 78 year old woman admitted on 02/14/23 with fever P:Anticipate Rosibel will return home once medically cleared. She will need fci IV antibiotics (4-6 weeks) for her bacteremia. Referrals have been sent to [facility] and [facility] (see above). [facility] declined the referral and [facility] learned that Medicare will not support the use of Oxacillin. A different will be considered. CM will continue to follow and support discharge needs.
--- NOTE | 2023-02-20 10:27 | W.PM.PROGNOT ---
Date of Service Date of service: 02/20/23 Time of Service: 10:27 Assessment and Plan Assessment and plan (1) Staphylococcus aureus bacteremia: Status: Acute Assessment and plan: continue oxacillin 2 gm iv q4h; repeat blood cultures from 02/18 no growth to date. She will need 6 weeks of antibiotics from 02/18 (end date will be April 01) Still awaiting HALEY. [facility] says that they never recievied the faxed order for the HALEY on Monday. I called [facility] and our meter reader has repeated the fax order and I asked her to follow up w/ phone call to confirm. Professional time spent interviewing and examining patient, discussion of goals of care with hospital team (care management, nursing and consulting professionals) was 20 minutes. (2) Atrial fibrillation: Assessment and plan: patient goes in and out of afib. she remains on Tikosyn 250 mcg bid and Eliquis 5 mg bid; she will follow up w/ Dr. Donn Soto upon discharge Qualifiers: Atrial fibrillation type: paroxysmal Qualified Code(s): I48.0 - Paroxysmal atrial fibrillation (3) Back pain: Status: Acute Assessment and plan: patient has lumbar DJD; no abscess or osteomyelitis on her MRI of her lumbar or thoracic spine. she has L3-L4 central canall stenosis that is mild. will use topical NSAIDS (i.e. voltaren gel). continue Tramadol prn. Back pain seems to be improving. Patient working w/ P.T. (4) Lumbar degenerative disc disease: Status: Acute Assessment and plan: as above (5) DVT prophylaxis: Status: Acute Assessment and plan: patient chronically on apixaban for her PAF. (6) Discharge planning issues: Status: Acute Assessment and plan: patient will be dc home when medically stable. Patient will need home health services with assistance with IV infusion of 4 to 6 weeks of oxacillin. Subjective Subjective Patient reports: no new complaints and feels better; denies shortness of breath Exam Narrative Exam Narrative: Rosibel is alert and oriented sitting up at the bedside talking with physical therapist. She is in no discomfort. Denies any dyspnea or chest pain. Lungs are clear anteriorly posterior she has some fine bibasilar rales Heart is very regular today. Extremities without edema Objective Last Vital Signs Temp 36.9 C 02/20/23 07:17 Pulse 64 02/20/23 07:17 Resp 17 02/20/23 07:17 BP 168/77 H 02/20/23 07:17 Pulse Ox 95 02/20/23 07:17 Laboratory Results - last 24 hr 02/13/23 02/15/23 02/19/23 18:53 20:20 05:48 Sodium Potassium Chloride Carbon Dioxide Anion Gap BUN Creatinine Est GFR (CKD-EPI 2020) Glucose Calcium Magnesium B. divergens/MO-1 PCR Negative Babesia duncani (PCR) Negative Babesia microti DNA PCR Negative E.chaffeensis DNA (PCR) Negative E.ewingii/canis DNA PCR Negative E.muris eauclairensis (PCR) Negative Ur Strep pneumoniae Ag Negative A. phagocytophilum (PCR) Negative Blood B. miyamotoi (PCR) Negative Add-On Test Request DONE 02/19/23 02/20/23 05:48 06:09 Sodium 144 Potassium 3.4 L Chloride 106 Carbon Dioxide 29.1 Anion Gap 8.9 BUN 13 Creatinine 1.0 Est GFR (CKD-EPI 2020) 56.95 Glucose 99 Calcium 9.4 Magnesium 1.9 B. divergens/MO-1 PCR Babesia duncani (PCR) Babesia microti DNA PCR E.chaffeensis DNA (PCR) E.ewingii/canis DNA PCR E.muris eauclairensis (PCR) Ur Strep pneumoniae Ag A. phagocytophilum (PCR) Blood B. miyamotoi (PCR) Add-On Test Request Time Spent with Patient Time Spent with Patient: <25 minutes Time was spent: preparing to see the patient(eg.review tests), indepentently interpreting results, counseling the patient and care coordination
[2023-02-20] MEDS: Apixaban 5 MG TAB PO ×2 (10:50→20:55)
--- NOTE | 2023-02-20 11:36 | PT.INTREAT ---
Date of service: 02/20/23 Time of Service: 10:19 PT Notes Visit Reasons: Fever with Leukocytosis, Gastritis Inpatient Physical Therapy Treatment Note [facility] Date: 02/20/23 PRECAUTIONS: Fall, standard, activity as tolerated SUBJECTIVE: Patient supine in bed, reports just getting into bed, reports feeling extremely fatigued, is agreeable to therapy. OBJECTIVE: PAIN: 0/10 reported BED MOBILITY/TRANSFERS Rolling L/R: Independent Supine-sit: Independent Sit-supine: Independent Sit-stand: Independent Stand-sit: Independent Bed-Chair: Independent Chair-bed: Independent GAIT Assistive Device: Rolling walker Weight bearing: Full Assist: standby Distance: 900 feet, with seated rest after every 300 feet Deviation: head forward posture, good foot clearance, symmetrical stride length, ASSESSMENT: Patient tolerates session very well. PLAN: Continue plan of care, this afternoon focus on stairs, patient needs to be able to do a full flight. TREATMENT CODE/TIME: 25875 Gait 23 minutes
--- NOTE | 2023-02-20 12:51 | DI.RAD_ITS ---
Exam(s) XR PORTABLE CHEST AP EXAM: XR PORTABLE CHEST AP CLINICAL HISTORY: picc line placement TECHNIQUE: 2D digital imaging was performed of the chest. One image was obtained. An AP view was ob tained. COMPARISON: CR,XR XR PORTABLE CHEST AP from 06/25/2020 CR XR CHEST 2V PA LATERAL from 02/15/2023 FINDINGS: Examination is limited due to patient positioning. MEDIASTINUM: Normal. HEART: Normal. PULMONARY VASCULATURE: Normal. LUNGS: There has been significant improvement of the pulmonary infiltrates compared to the prior exam ination. No new infiltrates are seen. PLEURAL SPACE: No pleural effusion or pneumothorax. BONE:Within normal limits for the patient's age. OTHER FINDINGS:The tip of the right PICC line is seen in the superior vena cava. IMPRESSION: Tip of the right PICC line is seen in the superior vena cava. The findings were discussed with the [facility] care team on the date of the examination. DATA REPOSITORY: RADIATION DOSE DELIVERED:
[2023-02-20] MEDS: Normal Saline 500 ML 30 ML IV (14:00)
[2023-02-20 15:04] LABS: Mycoplasma Pneumoniae PCR Negative; Specimen source sputum
--- NOTE | 2023-02-20 17:06 | PT.INTREAT ---
Date of service: 02/20/23 Time of Service: 15:32 PT Notes Visit Reasons: Fever with Leukocytosis, Gastritis Inpatient Physical Therapy Treatment Note [facility] Date: 02/20/23 PRECAUTIONS: Standard, Activity as Tolerated SUBJECTIVE: Patient reports being concerned that she will miss health and social care teacher, feels better after resting up (initially refused therapy immediately following PICC placement). OBJECTIVE: PAIN: None reported BED MOBILITY/TRANSFERS Rolling L/R: Independent Supine-sit: Independent Sit-supine: Independent Sit-stand: Independent Stand-sit: Independent Bed-Chair: Independent Chair-bed: Independent GAIT Assistive Device: front wheeled walker Weight bearing: full Assist: standby Distance: 100 feet Deviation: good foot clearance, symmetrical step length, forward curved posture. ASSESSMENT: Patient tolerates therapy well, asks to remain sitting at the end of the dumas by the window. and RN notified. PLAN: Continue strengthening per plan of care TREATMENT CODE/TIME: 21234 Gait 10 minutes
[2023-02-21] VITALS (12 sets, daily range): BP systolic 109–191; BP diastolic 62–99; PULSE 51–89; RESP 16–18; TEMP 36.3–37.2; O2SAT 95–98
[2023-02-21] MEDS: Levothyroxine 88 MCG TAB PO (05:42)
[2023-02-21 07:27] LABS: Anion Gap 10.5 mmol/L (3-11); BUN 16 mg/dL (7-18); CO2 27.5 mmol/L (21.0-32.0); Calcium 9.6 mg/dL (8.5-10.1); Chloride 104 mmol/L (98-107); Estimated GFR 56.95 (mL/min/1.73m2); Glucose 98 mg/dL (74-106); Magnesium 1.8 mg/dL (1.8-2.4); Potassium 3.3 mmol/L (3.5-5.1); Sodium 142 mmol/L (136-145)
--- NOTE | 2023-02-21 09:09 | CMPROGNOTE_ITS ---
- If Service Date Differs Date of service: 02/21/23 Time of Service: 09:10 Care Management Progress Note S/O:Tiffanie was sitting up in a chair when CM met with her. She appeared to be in good spirits and engaged easily with CM. Tiffanie is scheduled to go to [facility] for a HALEY tomorrow morning. Transportation via [employer] was coordinated by the nursing supervisor cell maintenance. They will arrive at [facility] at 7am to be at [facility] for 8:30 am. Tiffanie will likely be discharged on 02/23/23. LOUANN is coordinating home IVAB infusions through [facility] and [facility]. Tiffanie has a close and supportive family and her daughters have offered to assist with the process at home as needed. A:Tiffanie is an 78 year old woman admitted on 02/14/23 with fever P:Tiffanie is scheduled to go to [facility] via [employer] tomorrow with a 0700 pickup time. She will likely discharge home on . Tiffanie will have new home health services for nursing to enable her to receive IVAB infusions through [facility]. She will follow up with her community providers and plan of care and transport with family. CM will continue to follow and support Tiffanie and her discharge planning needs.
[2023-02-21] MEDS: Lisinopril 20 MG TAB 40 MG PO (09:23)
[2023-02-21] MEDS: Dofetilide 250 MCG CAP PO ×2 (09:25→20:00)
[2023-02-21] MEDS: amLODIPine 10 MG TAB PO (09:25)
[2023-02-21] MEDS: Cholecalciferol (Vitamin D3) 1,000 UNIT TAB 1000 UNITS PO (09:25)
[2023-02-21] MEDS: Potassium Chloride 10 MEQ CAPCR 20 MEQ PO ×3 (09:26→19:59)
[2023-02-21] MEDS: Omega-3 Fatty Acids 1000 MG CAP PO (09:26)
[2023-02-21] MEDS: Multivitamin TAB 1 TAB PO (09:26)
[2023-02-21] MEDS: Furosemide 20 MG TAB PO (09:26)
[2023-02-21] MEDS: Magnesium Oxide 400 MG TAB 800 MG PO ×2 (09:27→19:59)
[2023-02-21] MEDS: Apixaban 5 MG TAB PO (09:28)
[2023-02-21] MEDS: Acetaminophen 500 MG TAB 1000 MG PO ×2 (09:28→15:14)
[2023-02-21] MEDS: Calcium Carbonate *TUMS* 500 MG CHEW 1000 MG PO (09:29)
[2023-02-21] MEDS: Normal Saline Flush 10 ML SYR IVP ×3 (09:31→17:59)
[2023-02-21] MEDS: Diclofenac 1% Gel 100 GM TUBE TP ×3 (09:34→19:59)
--- NOTE | 2023-02-21 12:38 | W.PM.PROGNOT ---
Date of Service Date of service: 02/21/23 Time of Service: 12:38 Assessment and Plan Assessment and plan (1) Staphylococcus aureus bacteremia: Status: Acute Assessment and plan: continue oxacillin 2 gm iv q4h; repeat blood cultures from 02/18 no growth to date. She will need 6 weeks of antibiotics from 02/18 (end date will be April 01) When discharged, changing to ampicillin d/t insurance coverage. HALEY scheduled as down and back at [facility] for tomorrow AM (2) Atrial fibrillation: Assessment and plan: patient goes in and out of afib. she remains on Tikosyn 250 mcg bid and Eliquis 5 mg bid; she will follow up w/ Dr. Donn Soto upon discharge Qualifiers: Atrial fibrillation type: paroxysmal Qualified Code(s): I48.0 - Paroxysmal atrial fibrillation (3) Back pain: Status: Acute Assessment and plan: patient has lumbar DJD; no abscess or osteomyelitis on her MRI of her lumbar or thoracic spine. + L3-L4 central canal stenosis that is mild. Continue topical NSAIDS (i.e. voltaren gel) and Tramadol prn. Patient working w/ P.T. (4) Lumbar degenerative disc disease: Status: Acute Assessment and plan: as above (5) DVT prophylaxis: Status: Acute Assessment and plan: patient chronically on apixaban for her PAF. (6) Discharge planning issues: Status: Acute Assessment and plan: patient will be dc home when medically stable. Patient will need home health services with assistance with IV infusion of 4 to 6 weeks of oxacillin. Subjective Subjective Patient reports: no new complaints, feels better and afebrile; denies nausea, vomiting or shortness of breath Interval history since last seen: Appetite improved today. Exam Narrative Exam Narrative: Sitting in recliner. NAD. Plesant and conversant. Lungs are clear. Nonlabored breathing. Heart RRR. No murmur Extremities without edema Objective Last Vital Signs Temp 36.3 C L 02/21/23 11:33 Pulse 64 02/21/23 11:33 Resp 16 02/21/23 11:33 BP 185/92 H 02/21/23 11:33 Pulse Ox 98 02/21/23 11:33 Laboratory Results - last 24 hr 02/15/23 02/21/23 14:26 06:00 Sodium 142 Potassium 3.3 L Chloride 104 Carbon Dioxide 27.5 Anion Gap 10.5 BUN 16 Creatinine 1.0 Est GFR (CKD-EPI 2020) 56.95 Glucose 98 Calcium 9.6 Magnesium 1.8 M. pneumoniae Source sputum M. pneumoniae (PCR) Negative Time Spent with Patient Time Spent with Patient: 25-34 minutes Time was spent: preparing to see the patient(eg.review tests), obtaining and/or reviewing separately otained hiistory, ordering medications,tests, procedures, indepentently interpreting results and counseling the patient
--- NOTE | 2023-02-21 13:37 | PT.INNT ---
Date of service: 02/21/23 Time of Service: 10:03 PT Notes Visit Reasons: Fever with Leukocytosis, Gastritis Patient is sitting up in chair, IV present in left arm. Declines therapy while hooked up to IV, reports she will do double this afternooon.
--- NOTE | 2023-02-21 16:37 | PT.INTREAT ---
Date of service: 02/21/23 Time of Service: 16:00 PT Notes Visit Reasons: Fever with Leukocytosis, Gastritis Inpatient Physical Therapy Treatment Note [facility] Date: 02/21/23 PRECAUTIONS:Fall, Standard, Activity as tolerated SUBJECTIVE: Patient reports fatigue, is agreeable to therapy OBJECTIVE: PAIN: none reported BED MOBILITY/TRANSFERS Rolling L/R: independent Supine-sit: independent Sit-supine: independent Sit-stand: independent Stand-sit: independent Bed-Chair: independent Chair-bed: independent GAIT Assistive Device: front wheeled walker Weight bearing: full Assist: supervision Distance: 650 feet Deviation: Patient demonstrates forward leaning posture, good foot clearance, good stride length, symmetrical stepping. STAIRS: Patient ascends and descends 13 stairs in stairwell in continuous reciprocal gait pattern with one railing. Contact guard with gait belt. Patient demonstrates good balance and safety awareness. ASSESSMENT: Patient tolerates therapy well. PLAN: Continue treatment per plan of care TREATMENT CODE/TIME: 45112 Gait 27 minutes starting at 1600.
[2023-02-22] VITALS (9 sets, daily range): BP systolic 150–195; BP diastolic 71–99; PULSE 61–81; RESP 18–19; TEMP 36.4–37.3; O2SAT 96–98
[2023-02-22] MEDS: Levothyroxine 88 MCG TAB PO (05:28)
[2023-02-22 06:57] LABS: Abs Immature Grans 0.32 10^3/uL (0.0-0.06); Absolute Basophil Count 0.13 10^3/uL (0.0-0.2); Absolute Eosinophil Count 0.37 10^3/uL (0.0-0.7); Absolute Monocyte Count 1.06 10^3/uL (0.1-0.8); Absolute Neutrophil Count 8.61 10^3/uL (1.2-6.7); Eosinophils % 2.9; HCT 38.5 % (36.0-46.0); HGB 12.7 g/dL (11.2-15.7); Immature Grans % 2.5; Lymphocytes % 18.7; MCH 30.3 pg (27.0-33.0); MCV 92 fL (80-95); MPV 10.5 fL (8.0-11.0); Monocytes % 8.2; Neutrophils % 66.7; Platelet Count 348 10^3/uL (130-400); RBC 4.19 10^6/uL (3.93-5.22); RDW 12.9 % (11.7-14.6); RDW-SD 43.5 fL; WBC 12.91 10^3/uL (4.4-10.8)
[2023-02-22 07:10] LABS: Absolute Lymphocyte Count 2.41 10^3/uL (1.2-3.4)
--- NOTE | 2023-02-22 09:40 | PDOC.CMPRO ---
- If Service Date Differs Date of service: 02/22/23 Time of Service: 09:40 Care Management Progress Note S/O:Tiffanie went to [email or web address] today for a HALEY. Per provider, there is no vegetation on her heart valves which may mean a shorter course of IV antibiotics. Tiffanie was gone most of the day and reported being exhausted upon her return. She was dozing on and off when CM met with her. has coordinated the delivery of her IVAB through [facility]. They will arrive by [facility] late tomorrow afternoon at her home. CM will also coordinate with home health to initiate services tomorrow after their arrival. A:Tiffanie is an 78 year old woman admitted on 02/14/23 with fever P:Tiffanie will likely discharge home tomorrow. She will have new home health services for nursing to enable her to receive IVAB infusions through [facility]. She will follow up with her community providers and plan of care and transport with family. will continue to follow and support Tiffanie and her discharge planning needs.
--- NOTE | 2023-02-22 11:32 | PT.INNT ---
Date of service: 02/22/23 PT Notes Visit Reasons: Fever with Leukocytosis, Gastritis Patient out of facility for an [id number] HALEY.
[2023-02-22] MEDS: Potassium Chloride 10 MEQ CAPCR 20 MEQ PO ×2 (13:54→20:16)
[2023-02-22] MEDS: amLODIPine 10 MG TAB PO (14:23)
[2023-02-22] MEDS: Lisinopril 20 MG TAB 40 MG PO (14:25)
[2023-02-22] MEDS: Acetaminophen 500 MG TAB 1000 MG PO (15:52)
[2023-02-22] MEDS: Diclofenac 1% Gel 100 GM TUBE TP ×2 (15:53→20:16)
--- NOTE | 2023-02-22 16:03 | W.PM.PROGNOT ---
Date of Service Date of service: 02/22/23 Time of Service: 16:03 Assessment and Plan Assessment and plan (1) Staphylococcus aureus bacteremia: Status: Acute Assessment and plan: HALEY negative for valvular vegetations. repeat blood cultures from 02/18 no growth to date. She will need 6 weeks of antibiotics from 02/18 (end date will be April 01) Changing antibiotic coverage from oxacillin to cefazolin d/t insurance coverage as well as for ease of administration (Q8H vs Q4H). (2) Atrial fibrillation: Assessment and plan: patient goes in and out of afib. she remains on Tikosyn 250 mcg bid and Eliquis 5 mg bid; she will follow up w/ Dr. Donn Soto upon discharge Qualifiers: Atrial fibrillation type: paroxysmal Qualified Code(s): I48.0 - Paroxysmal atrial fibrillation (3) Back pain: Status: Acute Assessment and plan: patient has lumbar DJD; no abscess or osteomyelitis on her MRI of her lumbar or thoracic spine. + L3-L4 central canal stenosis that is mild. Continue topical NSAIDS (i.e. voltaren gel) and Tramadol prn. Patient working w/ P.T. (4) Lumbar degenerative disc disease: Status: Acute Assessment and plan: as above (5) DVT prophylaxis: Status: Acute Assessment and plan: patient chronically on apixaban for her PAF. (6) Discharge planning issues: Status: Acute Assessment and plan: Likely home tomorrow if antibiotic is delivered. Patient will need home health services with assistance with IV infusion of 6 weeks of cefazolin. Subjective Subjective Patient reports: no new complaints and afebrile; denies nausea, vomiting or shortness of breath Exam Narrative Exam Narrative: Lying in bed. Appears tired. NAD. Plesant and conversant. Lungs are clear. Nonlabored breathing. Heart RRR. No murmur Extremities without edema Objective Last Vital Signs Temp 36.7 C 02/22/23 13:45 Pulse 77 02/22/23 13:45 Resp 18 02/22/23 13:45 BP 195/99 H 02/22/23 13:45 Pulse Ox 96 02/22/23 13:45 Laboratory Results - last 24 hr 02/22/23 06:00 WBC 12.91 H RBC 4.19 Hgb 12.7 Hct 38.5 MCV 92 MCH 30.3 MCHC 33.0 RDW 12.9 Plt Count 348 MPV 10.5 Immature Gran % 2.5 Neutrophils % 66.7 Lymphocytes % 18.7 Monocytes % 8.2 Eosinophils % 2.9 Basophils % 1.0 Nucleated RBC % 0.0 Absolute Neutrophils 8.61 H Absolute Lymphocytes 2.41 Absolute Monocytes 1.06 H Absolute Eosinophils 0.37 Absolute Basophils 0.13 Time Spent with Patient Time Spent with Patient: 25-34 minutes Time was spent: preparing to see the patient(eg.review tests), ordering medications,tests, procedures, referring, communicating with other health pediatric critical care nurse and indepentently interpreting results
[2023-02-22] MEDS: Apixaban 5 MG TAB PO (20:15)
[2023-02-22] MEDS: Magnesium Oxide 400 MG TAB 800 MG PO (20:15)
[2023-02-22] MEDS: Dofetilide 250 MCG CAP PO (20:15)
[2023-02-22] MEDS: ceFAZolin 2 GM/50 ML BAG IVPB (22:22)
[2023-02-23] VITALS (7 sets, daily range): BP systolic 125–177; BP diastolic 68–88; PULSE 53–84; RESP 16; TEMP 36.4–37.5; O2SAT 94–98
[2023-02-23] MEDS: ceFAZolin 2 GM/50 ML BAG IVPB ×3 (05:35→21:04)
[2023-02-23] MEDS: Levothyroxine 88 MCG TAB PO (05:35)
[2023-02-23 07:23] LABS: Abs Immature Grans 0.24 10^3/uL (0.0-0.06); Absolute Eosinophil Count 0.22 10^3/uL (0.0-0.7); Absolute Lymphocyte Count 2.03 10^3/uL (1.2-3.4); Absolute Monocyte Count 1.19 10^3/uL (0.1-0.8); Absolute Neutrophil Count 10.17 10^3/uL (1.2-6.7); Basophils % 0.9; Eosinophils % 1.6; HCT 36.7 % (36.0-46.0); HGB 12.1 g/dL (11.2-15.7); Immature Grans % 1.7; Lymphocytes % 14.5; MCH 30.1 pg (27.0-33.0); MCV 91 fL (80-95); MPV 9.4 fL (8.0-11.0); Monocytes % 8.5; Neutrophils % 72.8; Platelet Count 396 10^3/uL (130-400); RBC 4.02 10^6/uL (3.93-5.22); RDW 12.8 % (11.7-14.6); RDW-SD 42.5 fL; WBC 13.97 10^3/uL (4.4-10.8)
[2023-02-23 07:25] LABS: Absolute Basophil Count 0.13 10^3/uL (0.0-0.2)
[2023-02-23 07:33] LABS: Anion Gap 12.5 mmol/L (3-11); BUN 14 mg/dL (7-18); CO2 23.5 mmol/L (21.0-32.0); Chloride 102 mmol/L (98-107); Estimated GFR 56.95 (mL/min/1.73m2); Glucose 103 mg/dL (74-106); Potassium 3.4 mmol/L (3.5-5.1); Sodium 138 mmol/L (136-145)
[2023-02-23] MEDS: Diclofenac 1% Gel 100 GM TUBE TP ×3 (08:28→17:15)
[2023-02-23] MEDS: Magnesium Oxide 400 MG TAB 800 MG PO ×2 (08:29→21:04)
[2023-02-23] MEDS: Omega-3 Fatty Acids 1000 MG CAP PO (08:29)
[2023-02-23] MEDS: Apixaban 5 MG TAB PO ×2 (08:29→21:04)
[2023-02-23] MEDS: amLODIPine 10 MG TAB PO (08:30)
[2023-02-23] MEDS: Dofetilide 250 MCG CAP PO ×2 (08:30→21:04)
[2023-02-23] MEDS: Calcium Carbonate *TUMS* 500 MG CHEW 1000 MG PO (08:30)
[2023-02-23] MEDS: Acetaminophen 500 MG TAB 1000 MG PO ×2 (08:30→17:15)
[2023-02-23] MEDS: Cholecalciferol (Vitamin D3) 1,000 UNIT TAB 1000 UNITS PO (08:30)
[2023-02-23] MEDS: Lisinopril 20 MG TAB 40 MG PO (08:31)
[2023-02-23] MEDS: Multivitamin TAB 1 TAB PO (08:31)
[2023-02-23] MEDS: Potassium Chloride 10 MEQ CAPCR 20 MEQ PO ×3 (08:31→21:04)
[2023-02-23] MEDS: Furosemide 20 MG TAB PO (08:31)
--- NOTE | 2023-02-23 09:29 | PT.INTREAT ---
Date of service: 02/23/23 Time of Service: 09:10 PT Notes Visit Reasons: Fever with Leukocytosis, Gastritis Inpatient Physical Therapy Treatment Note [facility] Date: 02/23/23 PRECAUTIONS: Fall, standard, activity as tolerated. SUBJECTIVE: patient reports feeling like a million bucks, she just showered and is clean and fresh. Also reports more energy this morning. OBJECTIVE: PAIN: none reported BED MOBILITY/TRANSFERS Rolling L/R: Independent Supine-sit: Independent Sit-supine: Independent Sit-stand: Independent Stand-sit: Independent Bed-Chair: Independent Chair-bed: Independent GAIT Assistive Device: front wheeled walker Weight bearing: full Assist: supervision Distance: 600 feet Deviation: forward stooped posture. Patient declines to wear lumbar support. Good foot clearance, reduced stride length, adequate gait speed. STAIRS: Ascends and descends 13 stairs with standby assist, reciprocal gait pattern, one hand rail. ASSESSMENT: Patient tolerates therapy well today, demonstrates minimal shortness of breath after ascending 13 stairs and approximately 500 feet through 600 foot walk. Recovers quickly in standing. PLAN: Continue therapy per plan of care. Patient may discharge home today with home health services. TREATMENT CODE/TIME: 51363 Gait 14 minutes beginning at 9:10 a.m.
--- NOTE | 2023-02-23 12:31 | W.PM.PROGNOT ---
Date of Service Date of service: 02/23/23 Time of Service: 12:31 Assessment and Plan Assessment and plan (1) Staphylococcus aureus bacteremia: Status: Acute Assessment and plan: HALEY negative for valvular vegetations. repeat blood cultures from 02/18 no growth to date. She will need 6 weeks of antibiotics from 02/18 (end date will be April 01) Changing antibiotic coverage from oxacillin to cefazolin d/t insurance coverage as well as for ease of administration (Q8H vs Q4H). D/C planned for tomorrow when antibiotic will be available and HH in place. (2) Atrial fibrillation: Assessment and plan: patient goes in and out of afib. she remains on Tikosyn 250 mcg bid and Eliquis 5 mg bid; she will follow up w/ Dr. Donn Soto upon discharge Qualifiers: Atrial fibrillation type: paroxysmal Qualified Code(s): I48.0 - Paroxysmal atrial fibrillation (3) Back pain: Status: Acute Assessment and plan: patient has lumbar DJD; no abscess or osteomyelitis on her MRI of her lumbar or thoracic spine. + L3-L4 central canal stenosis that is mild. Continue topical NSAIDS (i.e. voltaren gel) and Tramadol prn. Patient working w/ P.T. (4) Lumbar degenerative disc disease: Status: Acute Assessment and plan: as above (5) DVT prophylaxis: Status: Acute Assessment and plan: patient chronically on apixaban for her PAF. (6) Discharge planning issues: Status: Acute Assessment and plan: Home tomorrow if antibiotic is delivered. Patient will need home health services with assistance with IV infusion of 6 weeks of cefazolin. Subjective Subjective Patient reports: no new complaints, tolerating a regular diet and afebrile; denies nausea, vomiting or shortness of breath Exam Narrative Exam Narrative: Sitting up in bed. NAD. Pleasant and conversant. Lungs are clear. Nonlabored breathing. Heart RRR. No murmur Extremities without edema Objective Last Vital Signs Temp 36.4 C L 02/23/23 12:21 Pulse 67 02/23/23 12:21 Resp 16 02/23/23 12:21 BP 138/84 02/23/23 12:21 Pulse Ox 96 02/23/23 12:21 Laboratory Results - last 24 hr 02/23/23 02/23/23 02/23/23 06:00 06:00 07:05 WBC Cancelled RBC Cancelled Hgb Cancelled Hct Cancelled MCV Cancelled MCH Cancelled MCHC Cancelled RDW Cancelled Plt Count Cancelled MPV Cancelled Immature Gran % Cancelled Neutrophils % Cancelled Band Neutrophils % Cancelled Lymphocytes % Cancelled Atypical Lymphs % Cancelled Monocytes % Cancelled Eosinophils % Cancelled Basophils % Cancelled Metamyelocytes % Cancelled Myelocytes % Cancelled Promyelocytes % Cancelled Other Cells % Cancelled Nucleated RBC % Cancelled Absolute Neutrophils Cancelled Absolute Lymphocytes Cancelled Absolute Monocytes Cancelled Absolute Eosinophils Cancelled Absolute Basophils Cancelled RBC Morphology Cancelled Polychromasia Cancelled Hypochromasia Cancelled Poikilocytosis Cancelled Basophilic Stippling Cancelled Anisocytosis Cancelled Microcytosis Cancelled Macrocytosis Cancelled Spherocytes Cancelled Tear Drop Cells Cancelled Ovalocytes Cancelled Stomatocytes Cancelled Knowles-Niederwald Bodies Cancelled [place] Cells/Echinocytes Cancelled Acanthocytes (Spur) Cancelled Schistocytes Cancelled Sodium Cancelled 138 Potassium Cancelled 3.4 L Chloride Cancelled 102 Carbon Dioxide Cancelled 23.5 Anion Gap Cancelled 12.5 H BUN Cancelled 14 Creatinine Cancelled 1.0 Est GFR (CKD-EPI 2020) Cancelled 56.95 Glucose Cancelled 103 Calcium Cancelled 10.0 02/23/23 07:05 WBC 13.97 H RBC 4.02 Hgb 12.1 Hct 36.7 MCV 91 MCH 30.1 MCHC 33.0 RDW 12.8 Plt Count 396 MPV 9.4 Immature Gran % 1.7 Neutrophils % 72.8 Band Neutrophils % Lymphocytes % 14.5 Atypical Lymphs % Monocytes % 8.5 Eosinophils % 1.6 Basophils % 0.9 Metamyelocytes % Myelocytes % Promyelocytes % Other Cells % Nucleated RBC % 0.0 Absolute Neutrophils 10.17 H Absolute Lymphocytes 2.03 Absolute Monocytes 1.19 H Absolute Eosinophils 0.22 Absolute Basophils 0.13 RBC Morphology Polychromasia Hypochromasia Poikilocytosis Basophilic Stippling Anisocytosis Microcytosis Macrocytosis Spherocytes Tear Drop Cells Ovalocytes Stomatocytes Knowles-Niederwald Bodies [place] Cells/Echinocytes Acanthocytes (Spur) Schistocytes Sodium Potassium Chloride Carbon Dioxide Anion Gap BUN Creatinine Est GFR (CKD-EPI 2020) Glucose Calcium Time Spent with Patient Time Spent with Patient: <25 minutes Time was spent: preparing to see the patient(eg.review tests), ordering medications,tests, procedures, referring, communicating with other health vocational childcare teacher and indepentently interpreting results
--- NOTE | 2023-02-23 12:36 | PDOC.CMPRO ---
- If Service Date Differs Date of service: 02/23/23 Time of Service: 12:36 Care Management Progress Note S/O:Tiffanie was sitting up on the side of her bed when CM met with her. She remains in good spirits and engaged well with CM. Tiffanie's discharge is going to be postponed until tomorrow. Home health was not able to accommodate a same day admission today and the time of the antibiotic delivery could not be confirmed. LOUANN was informed by DylanTiffanie's that the antibiotics did, in fact, arrive at 11 am. CM coordinated with [facility] to initiate Tiffanie's admission at 1 pm tomorrow. Her antibiotic, Ancef, is scheduled every 8 hours at 10 pm, 6 am and 2 pm. Tiffanie has indicated that all of her children are likely to participate in the education for and administration of the medication. A:Tiffanie is an 78 year old woman admitted on 02/14/23 with fever P:Tiffanie will likely discharge home tomorrow. She will have new home health services for nursing to enable her to receive IVAB infusions through [facility]. She will follow up with her community providers and plan of care and transport with family. will continue to follow and support Tiffanie and her discharge planning needs.
--- NOTE | 2023-02-23 14:07 | CHAPLAIN ---
Tiffanie was happy to let me know that she's being discharged tomorrow. She's been here more than a week and is looking forward to getting back to her home. She remains in good spirits, is pleasant and easily engages in conversation.
[2023-02-23 15:17] LABS: Lab Add On Test DONE
--- NOTE | 2023-02-23 16:10 | PT.INTREAT ---
Date of service: 02/23/23 Time of Service: 15:28 PT Notes Visit Reasons: Fever with Leukocytosis, Gastritis Inpatient Physical Therapy Treatment Note [facility] Date: 02/23/23 PRECAUTIONS: Fall. Standard. Activity as tolerated. SUBJECTIVE: Patient reports feeling ok, a little tired. OBJECTIVE: PAIN: none reported BED MOBILITY/TRANSFERS Rolling L/R: Independent Supine-sit: Independent Sit-supine: Independent Sit-stand: Independent Stand-sit: Independent Bed-Chair: Independent Chair-bed: Independent GAIT Assistive Device: Front wheeled walker, upgraded to single point cane skilled nursing. Weight bearing: full Assist: supervision with FWW, CGA with single point cane Distance: 700 feet Deviation: head forward posture. No loss of balance, no shortness of breath. STAIRS: ascends and descends 13 stairs with single railing, single point cane. ASSESSMENT: Patient's stamina is improving, Patient appears safe with single point cane as evidenced by a comfortable, even step length, a natural arm swing. PLAN: Continue treatment per plan of care, Patient expected to discharge to home tomorrow with home health PT services. TREATMENT CODE/TIME: 59257 Gait 14 minutes beginning at 15:28
[2023-02-24 00:30] VITALS: BP 130/87; PULSE 85; RESP 15; TEMP 37; O2SAT 95
[2023-02-24 03:10] VITALS: BP 158/75; PULSE 53; RESP 16; TEMP 36.8; O2SAT 94
[2023-02-24] MEDS: Levothyroxine 88 MCG TAB PO (05:28)
[2023-02-24] MEDS: ceFAZolin 2 GM/50 ML BAG IVPB (05:28)
[2023-02-24 06:42] LABS: Abs Immature Grans 0.14 10^3/uL (0.0-0.06); Absolute Eosinophil Count 0.27 10^3/uL (0.0-0.7); Absolute Lymphocyte Count 2.44 10^3/uL (1.2-3.4); Absolute Neutrophil Count 7.37 10^3/uL (1.2-6.7); Eosinophils % 2.3; HGB 11.9 g/dL (11.2-15.7); Immature Grans % 1.2; Lymphocytes % 21.2; MCH 30.4 pg (27.0-33.0); MCHC 33.1 % (32.0-36.0); MCV 92 fL (80-95); MPV 10.4 fL (8.0-11.0); Monocytes % 10.4; Neutrophils % 63.9; Platelet Count 309 10^3/uL (130-400); RBC 3.91 10^6/uL (3.93-5.22); RDW 12.8 % (11.7-14.6); RDW-SD 42.7 fL; WBC 11.53 10^3/uL (4.4-10.8)
[2023-02-24 06:48] LABS: Absolute Basophil Count 0.12 10^3/uL (0.0-0.2)
[2023-02-24 07:04] LABS: C-Reactive Protein 2.46 mg/dL (0.0-0.3)
[2023-02-24] MEDS: Diclofenac 1% Gel 100 GM TUBE TP (07:54)
[2023-02-24] MEDS: Magnesium Oxide 400 MG TAB 800 MG PO (07:54)
[2023-02-24] MEDS: Calcium Carbonate *TUMS* 500 MG CHEW 1000 MG PO (07:54)
[2023-02-24] MEDS: Apixaban 5 MG TAB PO (07:54)
[2023-02-24] MEDS: amLODIPine 10 MG TAB PO (07:55)
[2023-02-24] MEDS: Furosemide 20 MG TAB PO (07:55)
[2023-02-24] MEDS: Omega-3 Fatty Acids 1000 MG CAP PO (07:55)
[2023-02-24] MEDS: Acetaminophen 500 MG TAB 1000 MG PO (07:55)
[2023-02-24] MEDS: Cholecalciferol (Vitamin D3) 1,000 UNIT TAB 1000 UNITS PO (07:55)
[2023-02-24] MEDS: Dofetilide 250 MCG CAP PO (07:56)
[2023-02-24] MEDS: Lisinopril 20 MG TAB 40 MG PO (07:56)
[2023-02-24] MEDS: Multivitamin TAB 1 TAB PO (07:56)
[2023-02-24] MEDS: Potassium Chloride 10 MEQ CAPCR 20 MEQ PO (07:56)
[2023-02-24 08:03] VITALS: BP 167/88; PULSE 66; RESP 17; TEMP 36.5; O2SAT 97
--- NOTE | 2023-02-24 09:57 | CMDISCH_ITS ---
- If Service Date Differs Date of service: 02/24/23 Time of Service: 09:57 LACE Index Scoring Tool - Questions: Length of Stay (in days): 7 - 13 Acuity (Admit via E.D.?): Yes E.D. Visits: 1 - Answers: Total Score: 9 Risk of Readmission: Low Risk Care Management Discharge Reason for Hospitalization: Fever with leukocytosis, gastritis Discharge Plan: Tiffanie will discharge home with new home health services for nursing to enable her to receive IVAB infusions through [facility]. She will follow up with her community providers and plan of care and transport with family. Patient/Family Education Needs: Review discharge instructions and limitations, d iscussion of self care needs including ask me three. Services Needed at Discharge: Home Delivered Meals, Home Health Care Services
--- NOTE | 2023-02-24 10:26 | W.PM.DS.N ---
Date of service: 02/24/23 Time of Service: 10:26 DS: Diagnosis Discharge Diagnosis (1) Staphylococcus aureus bacteremia: Status: Acute Asessment and Plan: To complete a 6 week course of IV antibiotics; initially on oxacillin, now discharged on cefazolin through 04/01/23. Monitor CMP, CBC weekly. (2) Atrial fibrillation: Asessment and Plan: On Tikosyn and Eliquis. (3) Back pain: Status: Acute Asessment and Plan: PT for acute on chronic back pain. (4) Lumbar degenerative disc disease: Status: Acute Asessment and Plan: above. (5) Discharge planning issues: Status: Acute Asessment and Plan: Home with nursing and PT. Discharge Plan Disposition Patient Disposition: Home W/Home Health Services Condition: Improving Discharge Details Reason For Visit: Fever with Leukocytosis, Gastritis Admit Date/Time: 02/14/23 11:15 Admit Provider: Jose Skelton Attending Provider: Jose Skelton Primary Care Provider: Manjula Parra Hospital Course Hospital Course: This is an 78-year-old female patient who presented to the ED with sudden onset of nausea with dry heaves the night prior to presentation with with fever measured up to over 103 and general malaise and fatigue.? She also had abdominal cramping with discomfort in her lower abdomen and back pain which she attributed to her chronic low back pain.? She denied any diarrhea.? She had had some rigors and chills but no sweats.? At the time hospitalist saw the patient she was afebrile and comfortable.? She had received some fluids in the ED and was initiated on Zosyn with doxycycline for possible infectious process involving abdominal source and the possibility of bacteremia with her high fever.? She also had evidence of bronchitis on imaging which will be covered with doxycycline.? She denied any worsening cough but does have chronic asthma with some cough without production of sputum.? She does use a rescue inhaler for chronic asthma and has never been a smoker or exposed to secondary smoke.? She lives with her who has not been ill.? She did go to a wedding the evening prior to presentation may have been exposed to illnesses there but no one at the wedding that she is aware of has been ill.? She had no different foods or exposure to ticks.? She denied any rash but does occasionally have bruises with minor trauma being on Eliquis for paroxysmal atrial fibrillation.? Patient had no chest pain or other complaints upon presentation.? She denied any weight gain or edema.? She is compliant with her medical therapy and is not on Cardizem at this time for her atrial fibrillation having had ablation therapy for her atrial fibrillation and on dofetilide for atrial fibrillation.? She also is on antihypertensives though her blood pressure was lower at time of presentation.? Patient was admitted for IV antibiotic therapy and follow-up on cultures with a markedly elevated white count though her lactic acid was normal.? See Diagnosis PCP f/u in 1-2 weeks. Home Meds and New Rx's Prescriptions: New acetaminophen 500 mg Tablet 1,000 mg PO Q8H PRN (Reason: Back Pain) Qty: 0 0RF cefazolin in dextrose (iso-os) 2 gram/50 mL Piggyback 2 g IVPB Q8H Qty: 0 0RF polyethylene glycol 3350 17 gram Powder In Packet 17 g PO DAILY PRN PRN (Reason: Constipation) Qty: 0 0RF diclofenac sodium 1 % Gel 2 - 4 g topical QID Qty: 200 1RF Continued levothyroxine 88 MCG tablet 88 mcg PO DAILY albuterol sulfate 8.5 GM HFA aerosol inhaler 2 puff Inhalation Q4H PRN PRN Patient Comments: not recently Rx Instructions: q4-6h prn lisinopril 40 MG tablet 40 mg PO DAILY multivitamin 1 EACH capsule 1 ea PO DAILY Eliquis 5 MG tablet 5 mg PO BID calcium carbonate 500 MG tablet,chewable 1,000 mg PO DAILY acetaminophen [Tylenol Extra Strength] 500 MG tablet 1,000 mg PO Q6H PRN PRN potassium chloride [Klor-Con M20] 20 MEQ tablet,ER particles/crystals 20 meq PO QAM potassium chloride [Klor-Con M10] 10 MEQ tablet,ER particles/crystals 10 meq PO QPM cholecalciferol (vitamin D3) 1,000 UNITS tablet 1,000 units PO DAILY Fish Oil 1 EACH capsule 1 ea PO DAILY dofetilide 250 mcg capsule 250 mcg PO BID Patient Comments: TAKE ONE CAPSULE BY MOUTH TWICE A DAY amlodipine 10 mg tablet 10 mg PO DAILY Patient Comments: TAKE ONE TABLET BY MOUTH EVERY DAY magnesium L-lactate [Magtab] 84 MG tablet extended release 84 mg PO DAILY Qty: 30 0RF Discontinued doxazosin 1 MG tablet 1 mg PO DAILY Patient Comments: No longer taking 02/13/23 CT diltiazem HCl 300 mg capsule,extended release 24hr 300 mg PO DAILY Patient Comments: No longer taking 02/13/23 CT No Action (DME) Aerochamber Plus Flow-Vu 1 EACH spacer 1 ea Miscellaneous DIRECTED Qty: 1 0RF Discharge Instructions Instructions: Gastritis (DC) Stand Alone Forms: Nursing Discharge Form Referrals: Manjula Parra [Primary Care Provider] - 03/06/23 4:00 pm Activity:: Activity as Tolerated Equipment/Supplies:: No Equipment Needed Diet:: Resume usual home diet Discharge Orders Discharge Orders: Discharge Order (Routine); Ordered 02/24/23 Ordered By: Tu Robledo DS: Summary Time Spent with Patient providing and/or coordinating discharge services: Greater than 30 minutes Status at Discharge Functional status at discharge: uses cane/walker Overall status at discharge: patient is progressing back to baseline Mental Status: mental status grossly normal Speech and Movement: speech clear Mood: congruent mood Affect: normal affect Exam Narrative Exam Narrative: Sitting in chair, then ambulating with nurse. NAD. Pleasant and conversant. Lungs are clear. Nonlabored breathing. Heart RRR. No murmur Extremities without edema Psych Mental Status: mental status grossly normal Speech and Movement: speech clear Mood: congruent mood Affect: normal affect DS: Data Vitals/I&O Vitals and I&O: Vital Signs Temperature 36.5 C 02/24/23 08:03 Temperature Source Tympanic 02/24/23 08:03 Pulse 66 02/24/23 08:03 Pulse Rhythm Regular 02/24/23 08:03 Pulse 55 L 02/13/23 20:45 Respiratory Rate 17 02/24/23 08:03 Respiratory Effort Normal, Non-Labored 02/24/23 08:03 Respiratory Depth Normal 02/24/23 08:03 Respiratory Pattern Normal 02/23/23 22:23 Blood Pressure 167/88 H 02/24/23 08:03 Blood Pressure Mean 64 02/13/23 20:45 Blood Pressure Position Sitting 02/13/23 16:08 Pulse Oximetry 97 02/24/23 08:03 Oxygen Delivery Method Room Air 02/24/23 08:03 Oxygen Flow Rate 0 02/24/23 08:03 Pain Level 2 02/23/23 22:25 Comment Pt. denies pain at this time. 02/21/23 11:40 Intake & Output 02/23/23 02/23/23 02/24/23 11:59 23:59 11:59 Intake Total 700 / 1670 970 / 1670 350 / 350 Output Total 470 / 820 350 / 820 150 / 150 Balance 230 / 850 620 / 850 200 / 200 Weight 65 kg 65.3 kg Intake: IV 50 / 150 100 / 150 Oral 650 / 1520 870 / 1520 350 / 350 Output: Urine 470 / 820 350 / 820 150 / 150 Other: Urine Color Yellow Pale Pale Urine Appearance Clear Clear Clear Stool Size Moderate Moderate Stool Characteristics Liquid Liquid Brown Voiding Methods Toilet Toilet Data Completed and Pending Labs on day of discharge: Labs from last 24 hours 02/24/23 02/24/23 02/14/23 05:50 05:50 06:03 WBC 11.53 H RBC 3.91 L Hgb 11.9 Hct 36.0 MCV 92 MCH 30.4 MCHC 33.1 RDW 12.8 Plt Count 309 MPV 10.4 Immature Gran % 1.2 Neutrophils % 63.9 Lymphocytes % 21.2 Monocytes % 10.4 Eosinophils % 2.3 Basophils % 1.0 Nucleated RBC % 0.0 Absolute Neutrophils 7.37 H Absolute Lymphocytes 2.44 Absolute Monocytes 1.20 H Absolute Eosinophils 0.27 Absolute Basophils 0.12 C-Reactive Protein 2.46 H Add-On Test Request DONE PFS All Active Problems Fever of unknown origin (Acute) Leukocytosis (Acute) Bandemia (Acute) Tricuspid valve regurgitation, secondary (Acute) Mitral regurgitation (Chronic) Lumbar degenerative disc disease (Acute) Staphylococcus aureus bacteremia (Acute) Palliative care encounter (Acute) Advance care planning (Acute) Discharge planning issues (Acute) DVT prophylaxis (Acute) Back pain (Acute) Gram-positive cocci bacteremia (Acute) Sepsis (Acute) Leukocytosis (leucocytosis) (Acute) Hypokalemia (Chronic) Gastritis (Acute) Fever (Acute) Atrial fibrillation with RVR (Acute) Diarrhea (Acute) Medical History Atrial fibrillation Essential hypertension (01/27/17) Hyperlipidemia, mixed (01/27/17) Hypothyroidism Surgical History History of cardiac radiofrequency ablation History of cataract surgery S/P hysterectomy Social History Smoking/Tobacco Use Status: Never Smoking risk assessment performed?: Yes Alcohol Intake: never Drug use: Never Substance use type: does not use Do you feel safe at home: Yes Do you feel safe in your relationship?: Yes Time Spent with Patient Time Spent with Patient: 45-69 minutes Time was spent: preparing to see the patient(eg.review tests), ordering medications,tests, procedures, referring, communicating with other health care transitions manager, indepentently interpreting results and counseling the patient
--- NOTE | 2023-02-24 10:37 | PDOC.HHF2F ---
Home Health Referral Home Health Orders Clinical synopsis of why skilled professionals are needed: Pt presented with fever and leukocytosis; septic. Found to have MSSA bacteremia. CXR should evidence of consolidation. Treated for pneumonia; likely pneumonia was source of bacteremia. Patient has lumbar DJD; no abscess or osteomyelitis on her MRI of her lumbar or thoracic spine. she has L3-L4 central canall stenosis that is mild; topical NSAIDS ordered. Initially on oxacillin. Changed to cefazolin; End date of 04/01/23. Medical diagnosis necessitation home health referral: MSSA bacteremia on course of IV antibiotics. Debility d/t acute on chronic back pain. Registered Nurse: Check all that apply Instruct on new or changed medication(s)/assess compliance: Ordered IV therapy, consisting of: Cefazolin 2 grams Q8H Physical Therapist: Check all that apply Increase strength & endurance for safe mobility at home: Ordered To design/establish home maintenance program: Ordered Fall reduction therapy program for patient with history of frequent falls: Ordered Home safety evaluation and teaching/gait training including stair management (if applicable): Ordered Home Bound Status Requires the aid of supportive device (check all that apply): Walker Assistance of another person (Describe assistance and medical necessity): Unsteady gait requiring assist device and standby assist. Describe why leaving home would require a considerable and taxing effort: Safety Concerns: describe (Extensive degenerative joint disease of vertebrae with acute on chronic pain. Unsteady gait with risk of falls. ) Encounter Date and Reason: I certify that a FTF encounter for this patient was performed on February 24, 2023 and that such encounter was related to the primary reason the patient requires home health services. The encounter was conducted in the following manner: By me as the certifying physician, BRIDAL CONSULTANT, PA or By an inpatient physician, BRIDAL CONSULTANT or PA during an inpatient stay who communicated findings to me, Certification And Authentication I certify that I composed the above information based on my clinical judgment relating to this patient's medical condition and, if applicable, clinical findings communicated to me by the NPP or inpatient physician who performed the FTF encounter. Name of Provider that will be monitoring home health services: Tu Robledo
--- NOTE | 2023-02-25 12:40 | INDS_ITS ---
Date of service: 02/23/23 PT Notes Visit Reasons: Fever with Leukocytosis, Gastritis Physical Therapy Inpatient Discharge Summary Date: 02/23/2023 Dates of service: 02/15/2023 through 02/23/2023 This is a clinical summary of care provided for the duration of dates listed above. No charge was made in the completion of this documentation. Referring Doctor:? Tangela House,? PT Orders: PT CONSULT: Limited ability Precautions: Fall. Standard. Activity as tolerated. Patient Profile/Admitting Diagnosis:? Tiffanie is an 78-year-old female admitted on 02/13/2023 due to generalized fatigue, nausea, dry heaving abdominal pain, and back pain.? Patient is admitted to [facility] for management of sepsis, gram-positive bacteremia, back pain, gastritis, leukocytosis, hypokalemia, hypothyroidism, and atrial fibrillation. PMHX: All Active Problems?(Updated 02/14/23 @ 00:51 by Jose Skelton) Leukocytosis (leucocytosis) (Acute) Hypokalemia (Chronic) Gastritis (Acute) Fever (Acute) Atrial fibrillation with RVR (Acute) Diarrhea (Acute) Medical History? Atrial fibrillation Essential hypertension (01/27/17) Hyperlipidemia, mixed (01/27/17) Hypothyroidism Surgical History? History of cardiac radiofrequency ablation History of cataract surgery S/P hysterectomy Social History/Home Situation: Lives with in a private home with a ramp to enter.? Laundry area is in the basement with a flight of steps with support on both sides.? Bedroom is on the second floor with a rail on one side.? Independent with all aspects of ADLs prior to admission. Equipment Owned/DME: None Subjective: Reports decreasing pain in her tummy and back areas.? States that she has been going to physical therapy for her right shoulder pain sustained from a previous fall.? Indicates having fallen several days ago on her left upper extremity.? Verbalizes increased pain in her low back area that radiates down her right leg with walking. Complained of SOB with walking.? Feels that she is more swollen in her legs today. Objective: General Observation: Came back from MRI testing being transferred by [facility] from transport chair to bedside chair with no assistive device.? Telemetry monitoring in place.? IV access left upper extremity.? Nurse Roxann managing IV pole.? Dylan and daughter present as well. Mental Status: Alert and oriented as to person, place, time, and purpose. Able to pay attention, focus, and respond appropriately. Pain: 3?4/10 in abdominal and low back areas Vital Signs: BP relatively higher at 165/70s mmHg; all other VS are WNL ROM: Right Upper Extremity: ? Shoulder Flexion WFL. Shoulder abduction WFL. Elbow flexion WFL. Wrist flexion WFL. Functional opening and closing of hand WFL. Left Upper Extremity:? Shoulder Flexion WFL. Shoulder abduction WFL. Elbow flexion WFL. Wrist flexion WFL. Functional opening and closing of hand WFL. Right Lower Extremity: Hip flexion WFL. Hip abduction WFL. Knee flexion WFL. Ankle dorsiflexion WFL. Ankle plantarflexion WFL. Left Lower Extremity: Hip flexion WFL. Hip abduction WFL. Knee flexion WFL. Ankle dorsiflexion WFL. Ankle plantarflexion WFL. Strength: Right Upper Extremity: Shoulder flexors 4-/5. Shoulder abductors 4-/5. Elbow flexors 4-/5. Elbow extensors 4-/5. Cabinetmaker Helper strong. Left Upper Extremity: Shoulder flexors 4-/5. Shoulder abductors 4-/5. Elbow flexors 4-/5. Elbow extensors 4-/5. Cabinetmaker Helper strong. Right Lower Extremity: Hip flexors 3+/5. Hip abductors 3+/5. Knee flexors 4-/5. Knee extensors 4-/5. Ankle dorsiflexors 4-/5. Ankle plantarflexors 4-/5. Left Lower Extremity: Hip flexors 4/5. Hip abductors 4/5. Knee flexors 4/5. Knee extensors 4/5. Ankle dorsiflexors 4/5. Ankle plantarflexors 4/5. BED MOBILITY/TRANSFERS? Rolling L/R: Independent Supine-sit: Independent? Sit-supine: Independent ? Sit-stand: Independent? Stand-sit: Independent ? Bed-Chair: Independent ? Chair-bed: Independent ? GAIT? Assistive Device: Front wheeled walker, upgraded to single point cane care home.? Weight bearing: full Assist: supervision with FWW, CGA with single point cane ? Distance:? 700 feet ? Deviation: head forward posture. No loss of balance, no shortness of breath.? STAIRS: ascends and descends 13 stairs with single railing, single point cane. ? Balance: Static Sitting: Normal Dynamic Sitting: Normal Static Standing: Fair Dynamic Standing: Fair Special Tests: Mobility Limitations Standardized Measure [facility]-PAC 6 clicks Basic Mobility Inpatient Short Form: Raw Score: 24? CMS Score: 0% deficit? ? ? Assessment: Activity tolerance limited by pain report in low back and abdominal area,? shortness of breath and fatigue.? Patient presents with clinical signs and symptoms consistent with current/admitting diagnoses that have resulted to mobility limitations, gait instability, generalized weakness, and overall ADL decline as demonstrated by the following impairment level findings: 1.? Decreased strength to B UE/LE major muscle groups 2.? Impaired standing balance 3.? Impaired activity tolerance 4.? Shortness of breath 5.? Swelling in B legs Impairments are contributing to the following functional limitations: 1.? Decline in bed mobility skills 2.? Decline in transfer skills 3.? Difficulty with ambulation without assistive device and physical assistance 4.? Increased completion time for mobility ADL performance 5.? Increased risk for falls 6.? Difficulty with managing steps alone safely Patient is [place] a 29838 moderate complexity based on the following: History: 78-year-old female with past medical history as indicated above Examination: Demonstrable impairment in strength, balance, and mobility level wi th underlying impairments and functional limitations as exhibited above as well as deficit score of 11% utilizing the [facility] Mobility Inpatient Short Form Presentation: Evolving Decision Makin moderate complexity Goals: Goals X1 week 1. Supine-Sit independent MET 2. Sit-Supine independent MET 3. Sit-Stand independent MET 4. Stand-Sit independent with no AD MET 5. Bed-Chair independent with no AD MET 6. Chair-Bed independent with no AD MET 7. Independent gait on level surface with use of no AD for at least 1000 feet without report of pain nor dyspnea NOT MET 8. Independent stair negotiation while holding onto 1 rail rails for at least 12 steps without report of pain nor dyspnea NOT MET 9. Independent with home exercise program NOT MET NOT MET 10. Good static and dynamic standing balance/tolerance PLAN OF CARE/TREATMENT PLAN: 1-2x/day, 7 days/week x 1 week. Plan of care has been reviewed with the CLINICAL DOCUMENTATION IMPROVEMENT SPECIALIST providing the service under Physical Therapy direction. Initiate low back exercises to minimize pain: posterior pelvic tilts x10,? pelvic rock x 10,? piriformis stretch x 5 sh x 5 reps,? AKTC with ADIM x 5 Progress mobility level to using no AD with level surface ambulation and stair negotiation. Provide HEP for above exercises. DISCHARGE RECOMMENDATIONS: [] ? Home with no services [] [X] ? Home with services.? HH PT to increase safety with mobility ADL performance at home and then resume OP PT for UE rehab. [] ? Home with outpatient PT [] [] ? SNF for continued rehabilitation [] [] ? Long-Term Care [] [] ? SNF versus LTC based on ability to participate and progress [] TREATMENT CODE/TIME: [place] Thank you for the opportunity to participate in the care of this patient. Angelika Wynn PT, DPT, CLT [facility] [place], [place]
== END 2023-02-24 11:13 | disposition home health service (06) | DRG 872 ==
LOC: ER 20:13 → MS 21:24
PROVIDERS: Family Medicine; Internal Medicine; Admitting Provider Family Medicine; Emergency Provider Physician Assistant; PCP Nurse Practitioner Family; Visit Provider Family Medicine
DX: I50.30 Unspecified diastolic (congestive) heart failure; I48.0 Paroxysmal atrial fibrillation; E87.6 Hypokalemia; B95.61 Methicillin susceptible Staphylococcus aureus infection as the cause of diseases classified elsewhere; K29.00 Acute gastritis without bleeding; E83.42 Hypomagnesemia; A41.9 Sepsis, unspecified organism; Z79.01 Long term (current) use of anticoagulants; E03.9 Hypothyroidism, unspecified; R19.7 Diarrhea, unspecified; I70.0 Atherosclerosis of aorta; I08.1 Rheumatic disorders of both mitral and tricuspid valves; I49.1 Atrial premature depolarization; I49.3 Ventricular premature depolarization; M51.36 Other intervertebral disc degeneration, lumbar region; I11.0 Hypertensive heart disease with heart failure; G89.29 Other chronic pain; M54.50 Low back pain, unspecified; M48.061 Spinal stenosis, lumbar region without neurogenic claudication; J45.909 Unspecified asthma, uncomplicated; J20.9 Acute bronchitis, unspecified; D72.825 Bandemia
CPT/HCPCS: 36410; 36415; 36569; 72158; 74177; 76604; 80048; 80053; 83690; 84145; 87040; 87077; 87081; 87449; 87493; 87505; 87637; 87798; 93005; 93312; 96365; 96367; 96368; 97110; 97112; 97116; 97162; 97530; 99285; 71045; 71046; 71260; 72157; 80202; 81003; 81015; 83605; 83735; 83880; 84132; 84443; 84484; 85025; 85610; 86140; 86618; 87070; 87186; 87205; 87581; 87899; 93010; 93306; 94667; 94668; 99223; 99231; 99232; 99233; 99239; A0425; A0428; G0378; J0131; J0690; J1885; J1941; J2405; J2543; J2700; J3475; J3480; J3490

== ENCOUNTER 2023-02-27 18:09 | Outpatient (REF) | payer MEDICARE, OTHER, SELFPAY ==
[2023-02-27 18:24] LABS: Abs Immature Grans 0.07 10^3/uL (0.0-0.06); Absolute Basophil Count 0.08 10^3/uL (0.0-0.2); Absolute Eosinophil Count 0.13 10^3/uL (0.0-0.7); Absolute Lymphocyte Count 2.15 10^3/uL (1.2-3.4); Absolute Monocyte Count 1.17 10^3/uL (0.1-0.8); Absolute Neutrophil Count 6.74 10^3/uL (1.2-6.7); Basophils % 0.8; Eosinophils % 1.3; HCT 31.9 % (36.0-46.0); HGB 10.4 g/dL (11.2-15.7); Immature Grans % 0.7; Lymphocytes % 20.8; MCH 30.4 pg (27.0-33.0); MCHC 32.6 % (32.0-36.0); MCV 93 fL (80-95); Monocytes % 11.3; Neutrophils % 65.1; Platelet Count 334 10^3/uL (130-400); RBC 3.42 10^6/uL (3.93-5.22); RDW 12.8 % (11.7-14.6); RDW-SD 43.8 fL; WBC 10.34 10^3/uL (4.4-10.8)
[2023-02-27 18:37] LABS: ALT 12 U/L (14-59); AST 13 U/L (15-37); Albumin 2.5 g/dL (3.4-5.0); Alkaline Phosphatase 67 U/L (46-116); Anion Gap 8.5 mmol/L (3-11); BUN 15 mg/dL (7-18); Bilirubin, Total 0.4 mg/dL (0.2-1.0); C-Reactive Protein 4.17 mg/dL (0.0-0.3); CO2 26.5 mmol/L (21.0-32.0); CREATININE 0.8 mg/dL (0.55-1.02); Calcium 9.9 mg/dL (8.5-10.1); Chloride 103 mmol/L (98-107); Estimated GFR 74.44 (mL/min/1.73m2); Glucose 105 mg/dL (74-106); Sodium 138 mmol/L (136-145); Total Protein 6.3 g/dL (6.4-8.2)
== END 2023-02-27 18:10 | disposition home or self-care (01) ==
LOC: LBN 18:09
PROVIDERS: PCP Nurse Practitioner Family; Visit Provider Nurse Practitioner Family
DX: A41.9 Sepsis, unspecified organism (principal); Z79.2 Long term (current) use of antibiotics; I11.0 Hypertensive heart disease with heart failure; B95.61 Methicillin susceptible Staphylococcus aureus infection as the cause of diseases classified elsewhere; I08.1 Rheumatic disorders of both mitral and tricuspid valves
CPT/HCPCS: 80053; 85025; 86140

== ENCOUNTER 2023-03-06 16:03 | Outpatient (REF) | payer MEDICARE, OTHER, SELFPAY ==
[2023-03-06 18:42] LABS: Abs Immature Grans 0.05 10^3/uL (0.0-0.06); Absolute Basophil Count 0.11 10^3/uL (0.0-0.2); Absolute Eosinophil Count 0.38 10^3/uL (0.0-0.7); Absolute Lymphocyte Count 1.93 10^3/uL (1.2-3.4); Absolute Neutrophil Count 6.18 10^3/uL (1.2-6.7); Basophils % 1.1; Eosinophils % 3.9; HCT 34.5 % (36.0-46.0); HGB 11.2 g/dL (11.2-15.7); Immature Grans % 0.5; MCHC 32.5 % (32.0-36.0); MCV 93 fL (80-95); MPV 10.6 fL (8.0-11.0); Monocytes % 10.4; Neutrophils % 64.1; Platelet Count 425 10^3/uL (130-400); RBC 3.73 10^6/uL (3.93-5.22); RDW 12.4 % (11.7-14.6); RDW-SD 42.5 fL; WBC 9.65 10^3/uL (4.4-10.8)
[2023-03-06 19:33] LABS: ALT 16 U/L (14-59); AST 16 U/L (15-37); Albumin 2.8 g/dL (3.4-5.0); Alkaline Phosphatase 77 U/L (46-116); Anion Gap 5.5 mmol/L (3-11); BUN 18 mg/dL (7-18); Bilirubin, Total 0.3 mg/dL (0.2-1.0); CO2 28.5 mmol/L (21.0-32.0); CREATININE 0.9 mg/dL (0.55-1.02); Calcium 10.4 mg/dL (8.5-10.1); Chloride 103 mmol/L (98-107); Estimated GFR 64.63 (mL/min/1.73m2); Glucose 81 mg/dL (74-106); Potassium 4.2 mmol/L (3.5-5.1); Sodium 137 mmol/L (136-145)
[2023-03-06 19:42] LABS: TSH (W/Ref FT4) 2.77 uIU/mL (0.36-3.74)
== END 2023-03-06 16:04 | disposition home or self-care (01) ==
LOC: LBN 16:03
PROVIDERS: PCP Nurse Practitioner Family; Visit Provider Nurse Practitioner Family
DX: R79.89 Other specified abnormal findings of blood chemistry; E03.9 Hypothyroidism, unspecified; R78.81 Bacteremia; M54.59 Other low back pain; L50.8 Other urticaria
CPT/HCPCS: 80053; 84443; 85025; 86140

== ENCOUNTER 2023-03-13 16:46 | Outpatient (REF) | payer MEDICARE, OTHER, SELFPAY ==
[2023-03-13 17:46] LABS: Abs Immature Grans 0.06 10^3/uL (0.0-0.06); Absolute Basophil Count 0.13 10^3/uL (0.0-0.2); Absolute Eosinophil Count 0.34 10^3/uL (0.0-0.7); Absolute Lymphocyte Count 1.49 10^3/uL (1.2-3.4); Absolute Monocyte Count 1.01 10^3/uL (0.1-0.8); Absolute Neutrophil Count 7.64 10^3/uL (1.2-6.7); Basophils % 1.2; Eosinophils % 3.2; HCT 34.7 % (36.0-46.0); HGB 11.3 g/dL (11.2-15.7); Immature Grans % 0.6; MCH 30.3 pg (27.0-33.0); MCHC 32.6 % (32.0-36.0); MCV 93 fL (80-95); MPV 11.1 fL (8.0-11.0); Monocytes % 9.5; Neutrophils % 71.5; Platelet Count 360 10^3/uL (130-400); RBC 3.73 10^6/uL (3.93-5.22); RDW 12.6 % (11.7-14.6); RDW-SD 43.1 fL; WBC 10.67 10^3/uL (4.4-10.8)
[2023-03-13 18:14] LABS: ALT 14 U/L (14-59); AST 19 U/L (15-37); Alkaline Phosphatase 80 U/L (46-116); BUN 18 mg/dL (7-18); Bilirubin, Total 0.4 mg/dL (0.2-1.0); C-Reactive Protein 0.74 mg/dL (0.0-0.3); CREATININE 0.8 mg/dL (0.55-1.02); Calcium 10.7 mg/dL (8.5-10.1); Chloride 104 mmol/L (98-107); Estimated GFR 74.44 (mL/min/1.73m2); Glucose 96 mg/dL (74-106); Potassium 4.3 mmol/L (3.5-5.1); Sodium 140 mmol/L (136-145); Total Protein 7.3 g/dL (6.4-8.2)
== END 2023-03-13 16:47 | disposition home or self-care (01) ==
LOC: LBN 16:46
PROVIDERS: PCP Nurse Practitioner Family; Visit Provider Nurse Practitioner Family
DX: A41.01 Sepsis due to Methicillin susceptible Staphylococcus aureus (principal); Z79.2 Long term (current) use of antibiotics
CPT/HCPCS: 80053; 85025; 86140

== ENCOUNTER 2023-03-21 15:14 | Outpatient (REF) | payer MEDICARE, OTHER, SELFPAY ==
[2023-03-21 15:35] LABS: Abs Immature Grans 0.04 10^3/uL (0.0-0.06); Absolute Basophil Count 0.08 10^3/uL (0.0-0.2); Absolute Eosinophil Count 0.52 10^3/uL (0.0-0.7); Absolute Lymphocyte Count 0.94 10^3/uL (1.2-3.4); Absolute Monocyte Count 0.85 10^3/uL (0.1-0.8); Absolute Neutrophil Count 5.77 10^3/uL (1.2-6.7); Eosinophils % 6.3; HGB 10.9 g/dL (11.2-15.7); Immature Grans % 0.5; Lymphocytes % 11.5; MCH 30.4 pg (27.0-33.0); MCV 92 fL (80-95); MPV 10.8 fL (8.0-11.0); Monocytes % 10.4; Neutrophils % 70.3; Platelet Count 304 10^3/uL (130-400); RBC 3.59 10^6/uL (3.93-5.22); RDW 12.6 % (11.7-14.6); RDW-SD 42.4 fL
[2023-03-21 16:00] LABS: Anion Gap 8.5 mmol/L (3-11); BUN 21 mg/dL (7-18); C-Reactive Protein 1.16 mg/dL (0.0-0.3); CO2 26.5 mmol/L (21.0-32.0); CREATININE 0.9 mg/dL (0.55-1.02); Calcium 10.5 mg/dL (8.5-10.1); Chloride 104 mmol/L (98-107); Estimated GFR 64.63 (mL/min/1.73m2); Glucose 90 mg/dL (74-106); Potassium 4.4 mmol/L (3.5-5.1); Sodium 139 mmol/L (136-145)
== END 2023-03-21 15:15 | disposition home or self-care (01) ==
LOC: LBN 15:14
PROVIDERS: PCP Nurse Practitioner Family; Visit Provider Nurse Practitioner Family
DX: A41.01 Sepsis due to Methicillin susceptible Staphylococcus aureus (principal); Z79.2 Long term (current) use of antibiotics; M46.26 Osteomyelitis of vertebra, lumbar region; I10 Essential (primary) hypertension
CPT/HCPCS: 80048; 85025; 86140

== ENCOUNTER 2023-03-21 23:35 | Inpatient (IN) | payer MEDICARE, OTHER, SELFPAY ==
[2023-03-21 23:33] VITALS: TEMP 36.7
--- NOTE | 2023-03-21 23:42 | DI.CT_ITS ---
Exam(s) CT LUMBAR SPINE RECONS CT CHEST/ABD/PEL W EXAM: CT CHEST/ABD/PEL W CLINICAL HISTORY: fever, bacteremia, back pain. TECHNIQUE: Imaging Protocol: Axial computed tomography images with coronal and sagittal reformatted images were created and reviewed CONTRAST MATERIAL: Intravenous: Omnipaque 350 Contrast volume:100 ml Oral: / no COMPARISON: CT CT CHEST/ABD/PEL W from 02/13/2023 CR XR PORTABLE CHEST AP from 02/20/[address] LUMBAR SPINE RECONS from 03/22/2023 FINDINGS: CHEST: Tracheobronchial tree: Patent where visualized. Pulmonary parenchyma: Somewhat limited evaluation due to respiratory motion at the lung bases. Are n ot increased densities are seen in the lingula more prominent on the prior exam. Increased densities are also seen at the right lung base, slightly more prominent. Findings could represent infiltrates versus atelectasis. Scarring is noted in the right middle lobe and at the left lung base. No conso lidation or dominant measurable mass. Pleura: No effusion or pneumothorax. Lymph nodes: Within normal limits. Aorta: Thoracic portion non-dilated. Atherosclerotic changes. Pulmonary arteries: No emboli visible. Exam not tailored to evaluate for emboli. Dilatation of the main pulmonary arteries, unchanged from prior. Heart: Enlarged bilateral atria. Coronary artery calcifications. Bones: Unremarkable for age. No lytic or blastic lesions.No compression fractures. ABDOMEN:PELVIS: Liver: Normal density. No measurable mass. Gallbladder and biliary tract: Gallbladder is somewhat distended but shows no evidence of wall thicke melinda. No radiodense calculus or biliary dilation. Pancreas: Normal density, no abnormal calcifications or inflammatory process. Spleen: Normal. Kidneys: Normal size, contour and axis. No radiodense stones or obstructive uropathy. No suspicious m asses seen. Adrenal glands: No masses seen. Aorta: Abdominal portion non-dilated. Atherosclerotic changes. Lymph nodes: Within normal limits. Soft tissues: Unremarkable. Bladder: Symmetric distention, no gross wall thickening. Bowel: No obstruction or bowel wall thickening. Peritoneal cavity: No ascites, collection or mesenteric inflammatory response. Bones: Lumbar spine: There is abnormal erosion of the superior endplate of L5 centrally as well as th e small focus of a erosion in the inferior endplate of L4. These findings were not seen on the previo us exam. There is slight sclerosis in the superior endplate of L5 which shows slight anterior home yoanna. There is an increased soft tissue density in the region of the disc. This was not present the p revious exam. The findings could represent discitis and osteomyelitis. Degenerative disc changes and facet degenerative changes are present at multiple other levels. Mild d egenerative scoliosis. Pelvis: No evidence of fracture, lytic or blastic lesion. Mild degenerative changes of the hips. Dege nerative changes also seen in the pubic symphysis and lower SI joints. Reproductive organs: Status post hysterectomy. IMPRESSION: Chest CT: Infiltrates versus atelectasis in the lingula and right lung base. Dilated pulmonary arteries. No gross emboli. Abdomen pelvic CT: New erosion of the inferior endplate of L4 and superior endplate of L5 with surrounding increased den sity in the disc space.. The findings could represent discitis and osteomyelitis. MRI recommended for further evaluation. Otherwise no acute abnormality in the abdomen or pelvis. RADIATION DOSE DELIVERED: 1256.4 mGy.cm Total DLP DATA REPOSITORY: All CT scans at this facility are submitted to the National Radiology Data Registry (NRDR) Dose Index Registry (DIR) with the [employer] [place] [employer] ([employer]). RADIATION OPTIMIZATION: All CT scans at this facility use at least one of these dose optimization te chniques: automated exposure control; mA and/or kV adjustment per patient size (includes targeted exa ms where dose is matched to clinical indication); or iterative reconstruction.
[2023-03-21 23:45] VITALS: TEMP 37.9
[2023-03-22] VITALS (55 sets, daily range): BP systolic 138–197; BP diastolic 66–99; PULSE 49–86; RESP 17–32; TEMP 36.8–38; O2SAT 88–97
--- NOTE | 2023-03-22 | DI.US_ITS ---
Exam(s) US UPPER EXTREMITY VENOUS RT EXAM: US UPPER EXTREMITY VENOUS RT CLINICAL HISTORY: Fever of unknown origin, has a PICC line. TECHNIQUE: Ultrasound examination of the right upper extremity venous system(s) is performed using g rayscale, color-flow, and spectral Doppler analysis. COMPARISON: No exams were available for comparison FINDINGS: The right internal jugular, axillary, subclavian, cephalic, basilic, brachial, and median cubital vei ns are patent without evidence of thrombosis. No superficial venous varicosities. No focal fluid co llection. No significant edema. IMPRESSION: No deep or superficial venous thrombosis. DATA REPOSITORY:
--- NOTE | 2023-03-22 | DI.RAD_ITS ---
Exam(s) XR HIP RT COMPLETE AP PELVIS EXAM: XR HIP RT COMPLETE AP PELVIS INDICATION: R hip pain. COMPARISON: CT CT CHEST/ABD/PEL W from 03/22/[address] LUMBAR SPINE RECONS from 03/22/2023 TECHNIQUE: 2D digital imaging was performed. Three views. FINDINGS: There is contrast in the urinary bladder from recent CT. No fracture or dislocation is seen. The hi p joint spaces are maintained. There is mild acetabular spurring. The SI joints show degenerative c hanges greater inferiorly. IMPRESSION: No acute abnormality. DATA REPOSITORY: RADIATION DOSE DELIVERED:
[2023-03-22 00:09] LABS: Bilirubin Negative (Negative); Blood Trace-intact (Negative); Clarity Clear (Clear); Glucose Negative (Negative); Ketones Negative (Negative); Leukocyte Esterase Negative (Negative); Nitrite Negative (Negative); Specific Gravity 1.015 (1.005-1.025); Urobilinogen 0.2 mg/dL (Up to 0.2)
[2023-03-22 00:19] LABS: Lactate 1.3 mmol/L (0.6-1.4)
[2023-03-22 00:24] LABS: Bacteria Rare HPF (Negative); C & S Indicated? No; Crystals Few Amorphous HPF (Negative); Epithelial Cells Few HPF (Negative); Mucus Negative (Negative); RBC 0-2 HPF (0-2)
[2023-03-22 00:25] LABS: Abs Immature Grans 0.06 10^3/uL (0.0-0.06); Absolute Basophil Count 0.08 10^3/uL (0.0-0.2); Absolute Eosinophil Count 0.43 10^3/uL (0.0-0.7); Absolute Lymphocyte Count 0.79 10^3/uL (1.2-3.4); Absolute Monocyte Count 0.81 10^3/uL (0.1-0.8); Absolute Neutrophil Count 8.03 10^3/uL (1.2-6.7); Basophils % 0.8; Eosinophils % 4.2; HCT 38.6 % (36.0-46.0); HGB 12.8 g/dL (11.2-15.7); Immature Grans % 0.6; Lymphocytes % 7.7; MCH 30.3 pg (27.0-33.0); MCHC 33.2 % (32.0-36.0); MCV 92 fL (80-95); MPV 10.4 fL (8.0-11.0); Monocytes % 7.9; Neutrophils % 78.8; Platelet Count 323 10^3/uL (130-400); RBC 4.22 10^6/uL (3.93-5.22); RDW 12.7 % (11.7-14.6); RDW-SD 42.2 fL
[2023-03-22] MEDS: Omnipaque 350 MG/ML 100 ML BTL IJ (00:28)
[2023-03-22] MEDS: Normal Saline - Diluent 50 ML VIAL IJ (00:30)
[2023-03-22] MEDS: Normal Saline Flush 10 ML SYR IJ (00:34)
[2023-03-22 00:35] LABS: COVID-19 PCR Negative (Negative); Influenza A PCR Negative (Negative); Influenza B PCR Negative (Negative); RSV PCR Negative (Negative)
[2023-03-22 00:39] LABS: Source Nasopharynx
[2023-03-22 00:40] LABS: ESR 52 mm/hr (0-30)
[2023-03-22 00:48] LABS: ALT 15 U/L (14-59); AST 39 U/L (15-37); Albumin 3.4 g/dL (3.4-5.0); Alkaline Phosphatase 96 U/L (46-116); Anion Gap 10.9 mmol/L (3-11); BUN 19 mg/dL (7-18); Bilirubin, Total 0.4 mg/dL (0.2-1.0); CO2 26.1 mmol/L (21.0-32.0); Calcium 11.1 mg/dL (8.5-10.1); Chloride 102 mmol/L (98-107); Estimated GFR 56.95 (mL/min/1.73m2); Glucose 127 mg/dL (74-106); Sodium 139 mmol/L (136-145); Total Protein 8.1 g/dL (6.4-8.2)
[2023-03-22 00:54] LABS: C-Reactive Protein 1.59 mg/dL (0.0-0.3)
[2023-03-22] MEDS: Normal Saline 1,000 ML 150 ML IV (01:03)
[2023-03-22 01:10] LABS: Procalcitonin 0.1 ng/mL
[2023-03-22] MEDS: ACETAMINOPHEN 1,000 MG/100 ML BTL 400 MG IVPB (01:53)
--- NOTE | 2023-03-22 01:53 | ED.GENADUL_ITS ---
Discharge Plan Disposition Patient Disposition: Admit to [facility] Condition: Stable Discharge Details Chief Complaint: GenMedical Clinical Impression: Fever of unknown origin, Back pain Primary Care Provider: Manjula Parra ED Provider: [place] Home Meds and New Rx's Prescriptions: No Action levothyroxine 88 MCG tablet 88 mcg PO DAILY albuterol sulfate 8.5 GM HFA aerosol inhaler 2 puff Inhalation Q4H PRN PRN Patient Comments: not recently Rx Instructions: q4-6h prn lisinopril 40 MG tablet 40 mg PO DAILY multivitamin 1 EACH capsule 1 ea PO DAILY Eliquis 5 MG tablet 5 mg PO BID (DME) Aerochamber Plus Flow-Vu 1 EACH spacer 1 ea Miscellaneous DIRECTED Qty: 1 0RF calcium carbonate 500 MG tablet,chewable 1,000 mg PO DAILY acetaminophen [Tylenol Extra Strength] 500 MG tablet 1,000 mg PO Q6H PRN PRN potassium chloride [Klor-Con M20] 20 MEQ tablet,ER particles/crystals 20 meq PO QAM potassium chloride [Klor-Con M10] 10 MEQ tablet,ER particles/crystals 10 meq PO QPM cholecalciferol (vitamin D3) 1,000 UNITS tablet 1,000 units PO DAILY Fish Oil 1 EACH capsule 1 ea PO DAILY dofetilide 250 mcg capsule 250 mcg PO BID Patient Comments: TAKE ONE CAPSULE BY MOUTH TWICE A DAY amlodipine 10 mg tablet 10 mg PO DAILY Patient Comments: TAKE ONE TABLET BY MOUTH EVERY DAY acetaminophen 500 mg Tablet 1,000 mg PO Q8H PRN (Reason: Back Pain) Qty: 0 0RF cefazolin in dextrose (iso-os) 2 gram/50 mL Piggyback 2 g IVPB Q8H Qty: 0 0RF polyethylene glycol 3350 17 gram Powder In Packet 17 g PO DAILY PRN PRN (Reason: Constipation) Qty: 0 0RF Patient Comments: not taking diclofenac sodium 1 % Gel 2 - 4 g topical QID Qty: 200 1RF magnesium L-lactate [Magtab] 84 MG tablet extended release 84 mg PO DAILY Qty: 30 0RF Medical Decision Making 78-year-old female with a past medical history of atrial fibrillation on Eliquis, lumbar degenerative disc disease, mitral regurg, who presents today for evaluation of low back pain and fatigue and generalized aches. Patient was recently admitted and subsequently discharged on 02/24/2023 for bacteremia from Staph aureus, who is currently receiving extended IV antibiotic therapy of cefazolin through 04/01/2023. For the last few days the patient has noticed increased pain in her lower back, climaxing today. She denies any falls or trau ma. She denies any fever or chills. She denies any chest pain or shortness of breath. Family has been taking NSAID therapy and rotating every few hours [id number] for control of the pain. Patient denies missing any doses of her infusion. No other complaints at this time. Pain is made worse with movement. Improved by nothing. She denies any bowel or bladder incontinence. She denies any saddle anesthesia. She does admit to minimal tingling on the back of her thighs but none in the genital region. No other modifying factors. Exam demonstrates lumbar spinal tenderness throughout. No abdominal pain. Good rectal tone, normal saddle is sensation, normal sensation on the lower lower extremities bilaterally. Tympanic temperature normal, oral temperature normal, but rectal temperature is elevated to 100.2. Concern for infectious etiology. Continue bacteremia, UTI, or pneumonia is of concern. However with the patient's chronic bacteremia over the last few weeks there is also increased concern for lumbar spine pathology, paraspinal abscess, discitis, or other infectious etiology. We will start with a CT scan of the chest abdomen pelvis, gently rehydrate, perform laboratory work-up, monitor closely and reassess. 2: [address] scan results. ESR elevated slightly at 52, procalcitonin mildly elevated at 0.1, lactate 1.3, CRP is 1.59. Urinalysis is negative for evidence of significant infection. No white count or bandemia. Mild left shift. Mild lymphopenia. COVID flu and RSV are negative. Pending CT imaging. 2:[address] scan shows evidence of slight gallbladder distention however no gallstones or evidence of cholecystitis. There is evidence of mild pulmonary infiltrates in the lower lobes. No evidence of acute pathology in the lumbar spine suggestive of large abscess. I am still concerned with the patient's worsening back pain, her fever, and her symptoms in spite of being on chronic antibiotics. Sources remain potential lumbar etiology, her PICC line which has not been changed, pneumonia. I do feel that the patient would benefit from admission for further evaluation, pending blood cultures, and MRI of the lumbar spine back. I did contact the hospitalist and discussed the case with Dr. House. She agrees with plan for admission. I was going to utilize vancomycin and Zosyn for broad- spectrum coverage, however as the admitting provider she is requesting vancomycin and continued cefazolin. We will place this order at her request on her behalf. I have extensively reviewed the treatment plan with the patient. I have addressed all patient concerns at this time. I have also discussed the plan with the admitting physician and they agree with the current assessment and plan and have agreed to assume responsibility for the patient. All parties demonstrate verbal understanding and agreement with our assessment and plan at this time. The documentation in this chart was dictated using [employer] dictation software. Please excuse any dictation errors. FINDINGS: Lungs: Patchy infiltrates and or subsegmental atelectasis in the lung bases. Pleural spaces: No pneumothorax or pleural effusions. Heart: Minimal cardiomegaly. No pericardial effusion. Coronary arteries: Coronary artery calcifications. Lymph nodes: No adenopathy. Nonspecific subcentimeter mediastinal lymph nodes. Vasculature: No aortic aneurysm or dissection. Main pulmonary artery dilated to 3.5 cm. No central or lobar pulmonary artery filling defects. Evaluation more distally limited due to technique utilized. Bones/joints: The spine demonstrates mild degenerative changes at multiple levels. The spine demonstrates mild degenerative changes at multiple levels. Soft tissues: Unremarkable. IMPRESSION: 1. Patchy infiltrates can not be excluded in both lower lobes 2. Minimal cardiomegaly. 3. Coronary artery disease. 4. Dilated main pulmonary artery. 5. No central or lobar pulmonary artery filling defects. Evaluation more distally limited FINDINGS: Liver: There is a small region of focal fatty infiltration in the liver adjacent to the falciform ligament. No mass. Gallbladder and bile ducts: Gallbladder distended without wall thickening or calcified gallstone. No biliary ductal dilatation. Pancreas: Normal. No ductal dilation. Spleen: Normal. No splenomegaly. Adrenal glands: Normal. No mass. Kidneys and ureters: Homogeneous enhancement of renal parenchyma. No hydronephrosis. Stomach and bowel: No dilated loops of bowel Appendix: No evidence of appendicitis. Intraperitoneal space: Unremarkable. No free air. No significant fluid collectio n. Vasculature: Unremarkable. No abdominal aortic aneurysm. Lymph nodes: Unremarkable. No enlarged lymph nodes. Urinary bladder: Unremarkable as visualized. Reproductive: Unremarkable as visualized. Bones/joints: The spine demonstrates mild degenerative changes at multiple levels. Mild convex right scoliosis of lumbar spine. L4 and L5 vertebrae are minimally subluxed anteriorly with respect to segment below. Soft tissues: Unremarkable. IMPRESSION: The gallbladder is distended but otherwise normal. Gallbladder distention is a nonspecific finding and can be related to patient fasting state. Correlate clinically. Thank you for allowing us to participate in the care of your patient. Dictated and Authenticated by: Marcos Bella DO 03/22/2023 2:23 AM Eastern Time ([place] & [place]) HPI General Date/Time Provider Initiated Documentation: 03/21/23 23:42 . HPI Narrative: 78-year-old female with a past medical history of atrial fibrillation on Eliquis, lumbar degenerative disc disease, mitral regurg, who presents today for evaluation of low back pain and fatigue and generalized aches. Patient was recently admitted and subsequently discharged on 02/24/2023 for bacteremia from Staph aureus, who is currently receiving extended IV antibiotic therapy of cefazolin through 04/01/2023. For the last few days the patient has noticed increased pain in her lower back, climaxing today. She denies any falls or trauma. She denies any fever or chills. She denies any chest pain or shortness of breath. Family has been taking NSAID therapy and rotating every few hours [id number] for control of the pain. Patient denies missing any doses of her infusion. No other complaints at this time. Pain is made worse with movement. Improved by nothing. She denies any bowel or bladder incontinence. She denies any saddle anesthesia. She does admit to minimal tingling on the back of her thighs but none in the genital region. No other modifying factors. Related Data Home Medications Medication Instructions Recorded Confirmed albuterol sulfate 90 mcg/actuation 2 puff inhalation Q4H PRN PRN 09/13/14 02/13/23 aerosol inhaler apixaban 5 mg tablet (Eliquis) 5 mg PO BID 09/13/14 02/13/23 inhalational spacing device ##1 09/13/14 02/13/23 (Aerochamber Plus Flow-Vu) levothyroxine 88 mcg tablet 88 mcg PO DAILY 09/13/14 02/13/23 lisinopril 40 mg tablet 40 mg PO DAILY 09/13/14 02/13/23 multivitamin 1 ea PO DAILY 09/13/14 02/13/23 calcium carbonate 200 mg calcium 1,000 mg PO DAILY 08/03/16 02/13/23 (500 mg) chewable tablet magnesium L-lactate 84 mg 84 mg PO DAILY ##30 01/27/17 02/13/23 tablet,extended release (Magtab) acetaminophen 500 mg tablet 1,000 mg PO Q6H PRN PRN 06/17/17 02/13/23 (Tylenol Extra Strength) cholecalciferol (vitamin D3) 25 1,000 units PO DAILY 06/17/17 02/13/23 mcg (1,000 unit) tablet omega-3 fatty acids-fish oil 340 1 ea PO DAILY 06/17/17 02/13/23 mg-1,000 mg capsule (Fish Oil) potassium chloride 10 mEq 10 meq PO QPM 06/17/17 02/13/23 tablet,extended release(part/cryst) (Klor-Con M) potassium chloride 20 mEq 20 meq PO QAM 06/17/17 02/13/23 tablet,extended release(part/cryst) (Klor-Con M) amlodipine 10 mg tablet 10 mg PO DAILY 02/13/23 02/13/23 dofetilide 250 mcg capsule 250 mcg PO BID 02/13/23 02/13/23 acetaminophen 500 mg tablet 1,000 mg PO Q8H PRN Back Pain #0 02/24/23 tabs cefazolin 2 gram/50 mL in dextrose 2 g (50 mL) IVPB Q8H #0 ea 02/24/23 (iso-osmotic) intravenous piggyback diclofenac sodium 1 % topical gel 2 - 4 g topical QID #200 grams 02/24/23 polyethylene glycol 3350 17 gram 17 g PO DAILY PRN PRN Constipation 02/24/23 oral powder packet #0 ea Previous Rx's Medication Instructions Recorded inhalational spacing device ##1 09/13/14 (Aerochamber Plus Flow-Vu) magnesium L-lactate 84 mg 84 mg PO DAILY ##30 01/27/17 tablet,extended release (Magtab) acetaminophen 500 mg tablet 1,000 mg PO Q8H PRN Back Pain #0 02/24/23 tabs cefazolin 2 gram/50 mL in dextrose 2 g (50 mL) IVPB Q8H #0 ea 02/24/23 (iso-osmotic) intravenous piggyback diclofenac sodium 1 % topical gel 2 - 4 g topical QID #200 grams 02/24/23 polyethylene glycol 3350 17 gram 17 g PO DAILY PRN PRN Constipation 02/24/23 oral powder packet #0 ea Allergies Allergy/AdvReac Type Severity Reaction Status Date / Time hydralazine Allergy Intermediate Dizziness/L Unverified 03/21/23 23:46 ightheade metoprolol Allergy Cardiac Unverified 03/21/23 23:46 Dysrythmia isosorbide mononitrate AdvReac Intermediate Skin Rash Unverified 03/21/23 23:46 [From Imdur] General Stated Complaint: GenMedical MARTHA: 3 Review of Systems All systems reviewed & are unremarkable except as noted in HPI and below PFSH All Active Problems (Updated 03/22/23 @ 03:05 by [place] Hanna DO) Fever of unknown origin (Acute) Back pain (Acute) Tricuspid valve regurgitation, secondary (Acute) Mitral regurgitation (Chronic) Lumbar degenerative disc disease (Acute) Staphylococcus aureus bacteremia (Acute) Back pain (Acute) Hypokalemia (Chronic) Gastritis (Acute) Atrial fibrillation with RVR (Acute) Diarrhea (Acute) Medical History Atrial fibrillation Essential hypertension (01/27/17) Hyperlipidemia, mixed (01/27/17) Hypothyroidism Surgical History History of cardiac radiofrequency ablation History of cataract surgery S/P hysterectomy Social History Smoking/Tobacco Use Status: Never Smoking risk assessment performed?: Yes Alcohol Intake: never Drug use: Never Substance use type: does not use Do you feel safe at home: Yes Do you feel safe in your relationship?: Yes Exam Narrative Exam Narrative: 1.Const: Well-nourished, Well-developed, appearing stated age 2.Eyes: PERRL, no conjunctival injection, and symmetrical lids. 3.ENT: Atraumatic external nose and ears. Dry MM. Neck: Symmetric, trachea midline, No thyromegaly. 4.CVS: +S1/S2, No murmurs or gallops. Peripheral pulses 2+ and equal in all extremities. Brisk capillary refill in all extremities. 5.RESP: Unlabored respiratory effort. Clear to auscultation bilaterally. No wheezes rales or rhonchi 6.GI: Soft, Nontender/Nondistended, No hepatosplenomegaly. No guarding or rebound. 7.MSK: Normocephalic/Atraumatic, Extremities w/o deformity or ttp No cyanosis or clubbing, Normal movement of all extremities Patient demonstrates tenderness over the lower lumbar spine midline and paraspinal. Rectal exam demonstrates normal rectal tone. Good perirectal sensation. No saddle anesthesia. Sensation is present in the buttock, posterior thighs, lateral medial and anterior thighs as well. 5 out of 5 strength in lower extremities. Patient is able to stand and pivot. 8.Skin: Warm, Dry. No rashes or lesions. 9.Neuro: licensing court magistrate II-XII grossly intact. Sensation grossly intact, no focal neurologic deficits. 10.Psych: (AAO) x3. Appropriate mood and affect Course Vital Signs Vital signs: Vital Signs Temperature 36.7 C 03/21/23 23:33 Temperature 36.7 C 03/21/23 23:33 Temperature Source Tympanic 03/21/23 23:33 Pulse 79 03/22/23 01:31 Pulse 82 03/22/23 01:31 Respiratory Rate 29 H 03/22/23 01:31 Respiratory Effort Normal 03/21/23 23:39 Blood Pressure 168/79 H 03/22/23 01:31 Blood Pressure Mean 103 03/22/23 01:31 Pulse Oximetry 94 03/22/23 01:31 Oxygen Delivery Method Room Air 03/21/23 23:33 Oxygen Flow Rate 0 03/21/23 23:33 Pain Level 8 03/21/23 23:33 Lab/Test Results Lab/Test Results: 03/21/23 00:11 Blood Blood Culture - Pending 03/21/23 00:01 Blood Blood Culture - Pending Laboratory Tests Range/Units 03/21/23 03/21/23 03/22/23 23:54 23:54 00:10 WBC (4.4-10.8) 10^3/uL RBC (3.93-5.22) 10^6/uL Hgb (11.2-15.7) g/dL Hct (36.0-46.0) % MCV (80-95) fL MCH (27.0-33.0) pg MCHC (32.0-36.0) % RDW (11.7-14.6) % Plt Count (130-400) 10^3/uL MPV (8.0-11.0) fL Immature Gran % Neutrophils % Lymphocytes % Monocytes % Eosinophils % Basophils % Nucleated RBC % (0.0-0.3) % Absolute Neutrophils (1.2-6.7) 10^3/uL Absolute Lymphocytes (1.2-3.4) 10^3/uL Absolute Monocytes (0.1-0.8) 10^3/uL Absolute Eosinophils (0.0-0.7) 10^3/uL Absolute Basophils (0.0-0.2) 10^3/uL ESR (0-30) mm/hr VBG Lactate (0.6-1.4) mmol/L Sodium (136-145) mmol/L Potassium (3.5-5.1) mmol/L Chloride (98-107) mmol/L Carbon Dioxide (21.0-32.0) mmol/L Anion Gap (3-11) mmol/L BUN (7-18) mg/dL Creatinine (0.55-1.02) mg/dL Est GFR (CKD-EPI 2020) (mL/min/1.73m2) Glucose (74-106) mg/dL Calcium (8.5-10.1) mg/dL Total Bilirubin (0.2-1.0) mg/dL AST (15-37) U/L ALT (14-59) U/L Alkaline Phosphatase (46-116) U/L C-Reactive Protein (0.0-0.3) mg/dL 1.59 H Total Protein (6.4-8.2) g/dL Albumin (3.4-5.0) g/dL Procalcitonin ng/mL Urine Color (Yellow) Yellow Urine Clarity (Clear) Clear Urine pH (5-8) 7.0 Ur Specific [place] (1.005-1.025) 1.015 Urine Protein (Negative) mg/dL Trace H Urine Ketones (Negative) mg/dL Negative Urine Blood (Negative) Trace-intact H Urine Nitrite (Negative) Negative Urine Bilirubin (Negative) Negative Urine Urobilinogen (Up to 0.2) mg/dL 0.2 Ur Leukocyte Esterase (Negative) Negative Urine RBC (0-2) HPF 0-2 Urine WBC (0-5) HPF 3-5 Ur Epithelial Cells (Negative) HPF Few Urine Crystals (Negative) HPF Few Amorphous Urine Bacteria (Negative) HPF Rare Urine Mucus (Negative) Negative Ur Culture Indicated? No Urine Glucose (Negative) mg/dL Negative COVID-19 Source Nasopharynx SARS-CoV-2 (PCR) (Negative) Negative Influenza Type A (PCR) (Negative) Negative Influenza Type B (PCR) (Negative) Negative RSV (PCR) (Negative) Negative Range/Units 03/22/23 03/22/23 03/22/23 00:10 00:10 00:10 WBC (4.4-10.8) 10^3/uL RBC (3.93-5.22) 10^6/uL Hgb (11.2-15.7) g/dL Hct (36.0-46.0) % MCV (80-95) fL MCH (27.0-33.0) pg MCHC (32.0-36.0) % RDW (11.7-14.6) % Plt Count (130-400) 10^3/uL MPV (8.0-11.0) fL Immature Gran % Neutrophils % Lymphocytes % Monocytes % Eosinophils % Basophils % Nucleated RBC % (0.0-0.3) % Absolute Neutrophils (1.2-6.7) 10^3/uL Absolute Lymphocytes (1.2-3.4) 10^3/uL Absolute Monocytes (0.1-0.8) 10^3/uL Absolute Eosinophils (0.0-0.7) 10^3/uL Absolute Basophils (0.0-0.2) 10^3/uL ESR (0-30) mm/hr 52 H VBG Lactate (0.6-1.4) mmol/L Sodium (136-145) mmol/L 139 Potassium (3.5-5.1) mmol/L 4.0 Chloride (98-107) mmol/L 102 Carbon Dioxide (21.0-32.0) mmol/L 26.1 Anion Gap (3-11) mmol/L 10.9 BUN (7-18) mg/dL 19 H Creatinine (0.55-1.02) mg/dL 1.0 Est GFR (CKD-EPI 2020) (mL/min/1.73m2) 56.95 Glucose (74-106) mg/dL 127 H Calcium (8.5-10.1) mg/dL 11.1 H Total Bilirubin (0.2-1.0) mg/dL 0.4 AST (15-37) U/L 39 H ALT (14-59) U/L 15 Alkaline Phosphatase (46-116) U/L 96 C-Reactive Protein (0.0-0.3) mg/dL Total Protein (6.4-8.2) g/dL 8.1 Albumin (3.4-5.0) g/dL 3.4 Procalcitonin ng/mL 0.1 Urine Color (Yellow) Urine Clarity (Clear) Urine pH (5-8) Ur Specific [place] (1.005-1.025) Urine Protein (Negative) mg/dL Urine Ketones (Negative) mg/dL Urine Blood (Negative) Urine Nitrite (Negative) Urine Bilirubin (Negative) Urine Urobilinogen (Up to 0.2) mg/dL Ur Leukocyte Esterase (Negative) Urine RBC (0-2) HPF Urine WBC (0-5) HPF Ur Epithelial Cells (Negative) HPF Urine Crystals (Negative) HPF Urine Bacteria (Negative) HPF Urine Mucus (Negative) Ur Culture Indicated? Urine Glucose (Negative) mg/dL COVID-19 Source SARS-CoV-2 (PCR) (Negative) Influenza Type A (PCR) (Negative) Influenza Type B (PCR) (Negative) RSV (PCR) (Negative) Range/Units 03/22/23 03/22/23 00:10 00:10 WBC (4.4-10.8) 10^3/uL 10.20 RBC (3.93-5.22) 10^6/uL 4.22 Hgb (11.2-15.7) g/dL 12.8 Hct (36.0-46.0) % 38.6 MCV (80-95) fL 92 MCH (27.0-33.0) pg 30.3 MCHC (32.0-36.0) % 33.2 RDW (11.7-14.6) % 12.7 Plt Count (130-400) 10^3/uL 323 MPV (8.0-11.0) fL 10.4 Immature Gran % 0.6 Neutrophils % 78.8 Lymphocytes % 7.7 Monocytes % 7.9 Eosinophils % 4.2 Basophils % 0.8 Nucleated RBC % (0.0-0.3) % 0.0 Absolute Neutrophils (1.2-6.7) 10^3/uL 8.03 H Absolute Lymphocytes (1.2-3.4) 10^3/uL 0.79 L Absolute Monocytes (0.1-0.8) 10^3/uL 0.81 H Absolute Eosinophils (0.0-0.7) 10^3/uL 0.43 Absolute Basophils (0.0-0.2) 10^3/uL 0.08 ESR (0-30) mm/hr VBG Lactate (0.6-1.4) mmol/L 1.3 Sodium (136-145) mmol/L Potassium (3.5-5.1) mmol/L Chloride (98-107) mmol/L Carbon Dioxide (21.0-32.0) mmol/L Anion Gap (3-11) mmol/L BUN (7-18) mg/dL Creatinine (0.55-1.02) mg/dL Est GFR (CKD-EPI 2020) (mL/min/1.73m2) Glucose (74-106) mg/dL Calcium (8.5-10.1) mg/dL Total Bilirubin (0.2-1.0) mg/dL AST (15-37) U/L ALT (14-59) U/L Alkaline Phosphatase (46-116) U/L C-Reactive Protein (0.0-0.3) mg/dL Total Protein (6.4-8.2) g/dL Albumin (3.4-5.0) g/dL Procalcitonin ng/mL Urine Color (Yellow) Urine Clarity (Clear) Urine pH (5-8) Ur Specific [place] (1.005-1.025) Urine Protein (Negative) mg/dL Urine Ketones (Negative) mg/dL Urine Blood (Negative) Urine Nitrite (Negative) Urine Bilirubin (Negative) Urine Urobilinogen (Up to 0.2) mg/dL Ur Leukocyte Esterase (Negative) Urine RBC (0-2) HPF Urine WBC (0-5) HPF Ur Epithelial Cells (Negative) HPF Urine Crystals (Negative) HPF Urine Bacteria (Negative) HPF Urine Mucus (Negative) Ur Culture Indicated? Urine Glucose (Negative) mg/dL COVID-19 Source SARS-CoV-2 (PCR) (Negative) Influenza Type A (PCR) (Negative) Influenza Type B (PCR) (Negative) RSV (PCR) (Negative)
--- NOTE | 2023-03-22 02:24 | DI.VRAD_ITS ---
PROCEDURE INFORMATION: Exam: CT Chest With Contrast; Diagnostic Exam date and time: 03/22/2023 12:21 AM Age: 78 years old Clinical indication: Other: Fever, bacteremia, back pain TECHNIQUE: Imaging protocol: Diagnostic computed tomography of the chest with contrast. Radiation optimization: All CT scans at this facility use at least one of these dose optimization techniques: automated exposure control; mA and/or kV adjustment per patient size (includes targeted exams where dose is matched to clinical indication); or iterative reconstruction. Contrast material: OMNIPAQUE 350; Contrast volume: 100 ml; Contrast route: INTRAVENOUS (IV); COMPARISON: CT CHEST/ABD/PEL W 02/13/2023 6:02 PM FINDINGS: Lungs: Patchy infiltrates and or subsegmental atelectasis in the lung bases. Pleural spaces: No pneumothorax or pleural effusions. Heart: Minimal cardiomegaly. No pericardial effusion. Coronary arteries: Coronary artery calcifications. Lymph nodes: No adenopathy. Nonspecific subcentimeter mediastinal lymph nodes. Vasculature: No aortic aneurysm or dissection. Main pulmonary artery dilated to 3.5 cm. No central or lobar pulmonary artery filling defects. Evaluation more distally limited due to technique utilized. Bones/joints: The spine demonstrates mild degenerative changes at multiple levels. The spine demonstrates mild degenerative changes at multiple levels. Soft tissues: Unremarkable. IMPRESSION: 1. Patchy infiltrates can not be excluded in both lower lobes. 2. Minimal cardiomegaly. 3. Coronary artery disease. 4. Dilated main pulmonary artery. 5. No central or lobar pulmonary artery filling defects. Evaluation more distally limited PROCEDURE INFORMATION: Exam: CT Abdomen And Pelvis With Contrast Exam date and time: 03/22/2023 12:21 AM Age: 78 years old Clinical indication: Other: Fever, bacteremia, back pain TECHNIQUE: Imaging protocol: Computed tomography of the abdomen and pelvis with contrast. Radiation optimization: All CT scans at this facility use at least one of these dose optimization techniques: automated exposure control; mA and/or kV adjustment per patient size (includes targeted exams where dose is matched to clinical indication); or iterative reconstruction. Contrast material: OMNIPAQUE 350; Contrast volume: 100 ml; Contrast route: INTRAVENOUS (IV); COMPARISON: CT CHEST/ABD/PEL W 02/13/2023 6:02 PM FINDINGS: Liver: There is a small region of focal fatty infiltration in the liver adjacent to the falciform ligament. No mass. Gallbladder and bile ducts: Gallbladder distended without wall thickening or calcified gallstone. No biliary ductal dilatation. Pancreas: Normal. No ductal dilation. Spleen: Normal. No splenomegaly. Adrenal glands: Normal. No mass. Kidneys and ureters: Homogeneous enhancement of renal parenchyma. No hydronephrosis. Stomach and bowel: No dilated loops of bowel Appendix: No evidence of appendicitis. Intraperitoneal space: Unremarkable. No free air. No significant fluid collection. Vasculature: Unremarkable. No abdominal aortic aneurysm. Lymph nodes: Unremarkable. No enlarged lymph nodes. Urinary bladder: Unremarkable as visualized. Reproductive: Unremarkable as visualized. Bones/joints: The spine demonstrates mild degenerative changes at multiple levels. Mild convex right scoliosis of lumbar spine. L4 and L5 vertebrae are minimally subluxed anteriorly with respect to segment below. Soft tissues: Unremarkable. IMPRESSION: The gallbladder is distended but otherwise normal. Gallbladder distention is a nonspecific finding and can be related to patient fasting state. Correlate clinically. Dictated and Authenticated by: Marcos Bella MD. Ordering:SHOBHA Vickers MD
--- NOTE | 2023-03-22 02:37 | DI.VRAD_ITS ---
PROCEDURE INFORMATION: Exam: CT Lumbar Spine Without Contrast Exam date and time: 03/22/2023 12:21 AM Age: 78 years old Clinical indication: Other: Fever, back pain, bacteremia, R/O abscess TECHNIQUE: Imaging protocol: Computed tomography of the lumbar spine without contrast. Radiation optimization: All CT scans at this facility use at least one of these dose optimization techniques: automated exposure control; mA and/or kV adjustment per patient size (includes targeted exams where dose is matched to clinical indication); or iterative reconstruction. Other technique: Examination was performed at the same time as enhanced CT examination of chest, abdomen and pelvis. COMPARISON: MR LUMBAR SPINE WO/W 02/15/2023 9:24 AM, reviewed in conjunction with concurrent CT examination of abdomen and pelvis FINDINGS: Bones/joints: No acute fracture. L4 and L5 are minimally subluxed anteriorly with respect to segment below. Mild convex right scoliosis. The spine demonstrates mild degenerative changes at multiple levels. Circumferential disc bulge in combination with hypertrophic endplate degenerative changes posteriorly and relatively shortened pedicles combined to cause canal stenosis at the 2-3 level. No significant neural foraminal narrowing. Soft tissues: No abnormal areas of enhancement in spinal canal or about the imaged portion of the spine IMPRESSION: 1. No acute fracture or subluxation. 2. Multifactorial canal stenosis at L2-L3 level. 3. Anterior subluxations of L4 and L5. 4. No abnormal areas of enhancement are demonstrated in canal or about the spine. 5. CT evaluation for epidural abscess is limited in absence of intrathecal contrast. If there is concern for same, further evaluation with enhanced CT following intrathecal contrast administration or nonenhanced and enhanced MRI examination are recommended. Dictated and Authenticated by: Marcos Bella MD. Ordering:SHOBHA Vickers MD
--- NOTE | 2023-03-22 02:57 | W.PM.HP.N ---
Date of service: 03/22/23 Time of Service: 03:29 Assessment and Plan Assessment and plan (1) Fever: Status: Resolved Assessment and plan: The patient had a negative UA, has some degree respiratory symptoms, although it's not clear if they are better or worse, has R hip pain and Lower back pain, does have a PICC. I do not believe distended gallbladder to be a potential source of fever in this case, and the patient does admit to being fasted. Concern is that she could either have a PICC line infection or a venous thrombus formed around the PICC. Await blood culture results with expanded abx (cefazolin + zosyn). Obtain a sputum c&S. Obtain MRSA nares. C/s orthopedics after obtaining an XR of R hip. Obtain MRI lumbar spine w/w/o contrast. Monitor for diarrhea. Obtain an ultrasound of UE to r/o a DVT. (2) Back pain: Status: Acute Assessment and plan: Would benefit from a repeat MRI of lumbar spine in am. C/s PT as well. (3) Staphylococcus aureus bacteremia: Status: Acute Assessment and plan: Continue cefazolin. (4) Lumbar degenerative disc disease: Status: Chronic Assessment and plan: C/s PT. Rx heat, tylenol. (5) DVT prophylaxis: Status: Acute Assessment and plan: eliquis (6) Discharge planning issues: Status: Acute Assessment and plan: Full code Anticipate discharge home w/ resumption of HH services History of Present Illness History of Present Illness Chief Complaint: lower back pain Narrative: Mr Metcalf is an 78 year old female with PMHx of Afib s/p ablation on dofetilide and eliquis, as well as h/o hypertension, hypothyroidism, and chronic lower back pain, who is undergoing home IV antibiotic therapy for MSSA bacteremia (cefazolin) via a PICC line, planned to be on antibiotics through 04/01/23, who presented to [facility] ED today c/o worsening lower back pain, R hip>L hip pain and with a borderline temperature of 37.8. The patient did not feel the temperature; it was recorded upon arrival to the ER rectally. She has had worsening of the pain in her lower back and hip for about a week since working with PT. She has had a cough which has been minimally productive. The patient thinks it has been worse over the last couple of days; her son feels it's better. She denies urinary symptoms other than frequency. She has had some nausea, but none now. She would like something to drink/eat. She feels dehydrated. CT of the lumbar spine ruled out any obvious infectious process. CT chest showed possible patchy infiltrates in B lower loves. There is evidence of a distended gallbladder on CT as well. Blood cultures were obtained both via PICC and peripherally. The patient was started on vancomycin and continued on cefazolin. Hospitalist admission was requested. Review of Systems All systems reviewed & are unremarkable except as noted in HPI and below PFSH All Active Problems (Updated 03/22/23 @ 03:38 by Tangela House MD) Discharge planning issues (Acute) DVT prophylaxis (Acute) Fever of unknown origin (Acute) Back pain (Acute) Tricuspid valve regurgitation, secondary (Acute) Mitral regurgitation (Chronic) Lumbar degenerative disc disease (Chronic) Staphylococcus aureus bacteremia (Acute) Back pain (Acute) Hypokalemia (Chronic) Gastritis (Acute) Atrial fibrillation with RVR (Acute) Diarrhea (Acute) Medical History Atrial fibrillation Essential hypertension (01/27/17) Hyperlipidemia, mixed (01/27/17) Hypothyroidism Surgical History History of cardiac radiofrequency ablation History of cataract surgery S/P hysterectomy Social History Smoking/Tobacco Use Status: Never Smoking risk assessment performed?: Yes Alcohol Intake: never Drug use: Never Substance use type: does not use Do you feel safe at home: Yes Do you feel safe in your relationship?: Yes Meds Allergies and Home Medications Allergies Allergy/AdvReac Type Severity Reaction Status Date / Time hydralazine Allergy Intermediate Dizziness/L Unverified 03/21/23 23:46 ightheade metoprolol Allergy Cardiac Unverified 03/21/23 23:46 Dysrythmia isosorbide mononitrate AdvReac Intermediate Skin Rash Unverified 03/21/23 23:46 [From Imdur] Home Medications Medication Instructions Recorded Confirmed Type albuterol sulfate 90 mcg/actuation 2 puff inhalation Q4H PRN PRN 09/13/14 03/22/23 History aerosol inhaler apixaban 5 mg tablet (Eliquis) 5 mg PO BID 09/13/14 03/22/23 History inhalational spacing device ##1 09/13/14 03/22/23 Rx (Aerochamber Plus Flow-Vu) levothyroxine 88 mcg tablet 88 mcg PO DAILY 09/13/14 03/22/23 History lisinopril 40 mg tablet 40 mg PO DAILY 09/13/14 03/22/23 History multivitamin 1 ea PO DAILY 09/13/14 03/22/23 History calcium carbonate 200 mg calcium 1,000 mg PO DAILY 08/03/16 03/22/23 History (500 mg) chewable tablet magnesium L-lactate 84 mg 84 mg PO DAILY ##30 01/27/17 03/22/23 Rx tablet,extended release (Magtab) acetaminophen 500 mg tablet 1,000 mg PO Q6H PRN PRN 06/17/17 03/22/23 History (Tylenol Extra Strength) cholecalciferol (vitamin D3) 25 1,000 units PO DAILY 06/17/17 03/22/23 History mcg (1,000 unit) tablet omega-3 fatty acids-fish oil 340 1 ea PO DAILY 06/17/17 03/22/23 History mg-1,000 mg capsule (Fish Oil) potassium chloride 10 mEq 10 meq PO QPM 06/17/17 03/22/23 History tablet,extended release(part/cryst) (Klor-Con M) potassium chloride 20 mEq 20 meq PO QAM 06/17/17 03/22/23 History tablet,extended release(part/cryst) (Klor-Con M) amlodipine 10 mg tablet 10 mg PO DAILY 02/13/23 03/22/23 History dofetilide 250 mcg capsule 250 mcg PO BID 02/13/23 03/22/23 History acetaminophen 500 mg tablet 1,000 mg PO Q8H PRN Back Pain #0 02/24/23 03/22/23 Rx tabs cefazolin 2 gram/50 mL in dextrose 2 g (50 mL) IVPB Q8H #0 ea 02/24/23 03/22/23 Rx (iso-osmotic) intravenous piggyback diclofenac sodium 1 % topical gel 2 - 4 g topical QID #200 grams 02/24/23 03/22/23 Rx polyethylene glycol 3350 17 gram 17 g PO DAILY PRN PRN Constipation 02/24/23 03/22/23 Rx oral powder packet #0 ea Exam Narrative Exam Narrative: General: Weak and frail appearing elderly female who is A&Ox3, tired. Neurological: A&ox3, no focal deficits Psychiatric: Appropriate speech pattern/content Skin: Visible skin in tact HEENT: Atraumatic, normocephalic, EOMI, dry MM, clear oropharynx, no submandibular or cervical lymphadenopathy, no goiter or JVD Cardiovascular: RRR, no m/r/g Lungs: coarse breath sounds at B bases Gastrointestinal: soft, nontender, nondistended Genitourinary: has an external catheter Extremities: no edema BLEs, +1 pedal pulses B. RUE PICC line in place without erythema or swelling of RUE. Results Imaging Additional studies: CT chest/abdomen/pelvis: 1. ? Patchy infiltrates can not be excluded in both lower lobes. 2. ? Minimal cardiomegaly. 3. ? Coronary artery disease. 4. ? Dilated main pulmonary artery. 5. ? No central or lobar pulmonary artery filling defects. Evaluation more distally limited The gallbladder is distended but otherwise normal. Gallbladder distention is a nonspecific finding and can be related to patient fasting state. Correlate clinically. Labs 03/22/23 00:10 03/22/23 00:10 Labs: Laboratory Results - last 24 hr 03/21/23 03/21/23 03/22/23 23:54 23:54 00:10 WBC RBC Hgb Hct MCV MCH MCHC RDW Plt Count MPV Immature Gran % Neutrophils % Lymphocytes % Monocytes % Eosinophils % Basophils % Nucleated RBC % Absolute Neutrophils Absolute Lymphocytes Absolute Monocytes Absolute Eosinophils Absolute Basophils ESR VBG Lactate Sodium Potassium Chloride Carbon Dioxide Anion Gap BUN Creatinine Est GFR (CKD-EPI 2020) Glucose Calcium Total Bilirubin AST ALT Alkaline Phosphatase C-Reactive Protein 1.59 H Total Protein Albumin Procalcitonin Urine Color Yellow Urine Clarity Clear Urine pH 7.0 Ur Specific [place] 1.015 Urine Protein Trace H Urine Ketones Negative Urine Blood Trace-intact H Urine Nitrite Negative Urine Bilirubin Negative Urine Urobilinogen 0.2 Ur Leukocyte Esterase Negative Urine RBC 0-2 Urine WBC 3-5 Ur Epithelial Cells Few Urine Crystals Few Amorphous Urine Bacteria Rare Urine Mucus Negative Ur Culture Indicated? No Urine Glucose Negative COVID-19 Source Nasopharynx SARS-CoV-2 (PCR) Negative Influenza Type A (PCR) Negative Influenza Type B (PCR) Negative RSV (PCR) Negative 03/22/23 03/22/23 03/22/23 00:10 00:10 00:10 WBC RBC Hgb Hct MCV MCH MCHC RDW Plt Count MPV Immature Gran % Neutrophils % Lymphocytes % Monocytes % Eosinophils % Basophils % Nucleated RBC % Absolute Neutrophils Absolute Lymphocytes Absolute Monocytes Absolute Eosinophils Absolute Basophils ESR 52 H VBG Lactate Sodium 139 Potassium 4.0 Chloride 102 Carbon Dioxide 26.1 Anion Gap 10.9 BUN 19 H Creatinine 1.0 Est GFR (CKD-EPI 2020) 56.95 Glucose 127 H Calcium 11.1 H Total Bilirubin 0.4 AST 39 H ALT 15 Alkaline Phosphatase 96 C-Reactive Protein Total Protein 8.1 Albumin 3.4 Procalcitonin 0.1 Urine Color Urine Clarity Urine pH Ur Specific [place] Urine Protein Urine Ketones Urine Blood Urine Nitrite Urine Bilirubin Urine Urobilinogen Ur Leukocyte Esterase Urine RBC Urine WBC Ur Epithelial Cells Urine Crystals Urine Bacteria Urine Mucus Ur Culture Indicated? Urine Glucose COVID-19 Source SARS-CoV-2 (PCR) Influenza Type A (PCR) Influenza Type B (PCR) RSV (PCR) 03/22/23 03/22/23 00:10 00:10 WBC 10.20 RBC 4.22 Hgb 12.8 Hct 38.6 MCV 92 MCH 30.3 MCHC 33.2 RDW 12.7 Plt Count 323 MPV 10.4 Immature Gran % 0.6 Neutrophils % 78.8 Lymphocytes % 7.7 Monocytes % 7.9 Eosinophils % 4.2 Basophils % 0.8 Nucleated RBC % 0.0 Absolute Neutrophils 8.03 H Absolute Lymphocytes 0.79 L Absolute Monocytes 0.81 H Absolute Eosinophils 0.43 Absolute Basophils 0.08 ESR VBG Lactate 1.3 Sodium Potassium Chloride Carbon Dioxide Anion Gap BUN Creatinine Est GFR (CKD-EPI 2020) Glucose Calcium Total Bilirubin AST ALT Alkaline Phosphatase C-Reactive Protein Total Protein Albumin Procalcitonin Urine Color Urine Clarity Urine pH Ur Specific [place] Urine Protein Urine Ketones Urine Blood Urine Nitrite Urine Bilirubin Urine Urobilinogen Ur Leukocyte Esterase Urine RBC Urine WBC Ur Epithelial Cells Urine Crystals Urine Bacteria Urine Mucus Ur Culture Indicated? Urine Glucose COVID-19 Source SARS-CoV-2 (PCR) Influenza Type A (PCR) Influenza Type B (PCR) RSV (PCR) Last Vital Signs Temp 37.9 C H 03/21/23 23:45 Pulse 78 03/22/23 02:31 Resp 29 H 03/22/23 02:40 BP 158/78 H 03/22/23 02:31 Pulse Ox 93 03/22/23 01:32 Time Spent Time spent with Patient: 55-74 minutes Time was spent: preparing to see the patient(eg.review tests), obtaining and/or reviewing separately otained hiistory, ordering medications,tests, procedures, referring, communicating with other health respiratory care program director, indepentently interpreting results, counseling the patient and care coordination
[2023-03-22] MEDS: ceFAZolin 2 GM/50 ML BAG IVPB ×3 (03:04→20:27)
[2023-03-22] MEDS: Levothyroxine 88 MCG TAB PO (05:15)
[2023-03-22] MEDS: traMADol 50 MG TAB PO (06:07)
[2023-03-22 06:22] LABS: Abs Immature Grans 0.05 10^3/uL (0.0-0.06); Absolute Basophil Count 0.07 10^3/uL (0.0-0.2); Absolute Eosinophil Count 0.19 10^3/uL (0.0-0.7); Absolute Monocyte Count 0.66 10^3/uL (0.1-0.8); Absolute Neutrophil Count 5.01 10^3/uL (1.2-6.7); Eosinophils % 2.8; HGB 10.8 g/dL (11.2-15.7); Immature Grans % 0.7; Lymphocytes % 11.8; MCH 30.2 pg (27.0-33.0); MCHC 32.7 % (32.0-36.0); MCV 92 fL (80-95); Monocytes % 9.7; Platelet Count 307 10^3/uL (130-400); RBC 3.58 10^6/uL (3.93-5.22); RDW 12.7 % (11.7-14.6); RDW-SD 42.5 fL; WBC 6.78 10^3/uL (4.4-10.8)
[2023-03-22 06:37] LABS: Anion Gap 9.4 mmol/L (3-11); BUN 13 mg/dL (7-18); C-Reactive Protein 1.39 mg/dL (0.0-0.3); CO2 26.6 mmol/L (21.0-32.0); CREATININE 0.8 mg/dL (0.55-1.02); Calcium 9.8 mg/dL (8.5-10.1); Chloride 106 mmol/L (98-107); Estimated GFR 74.44 (mL/min/1.73m2); Glucose 111 mg/dL (74-106); Magnesium 1.5 mg/dL (1.8-2.4); Potassium 3.2 mmol/L (3.5-5.1); Sodium 142 mmol/L (136-145)
[2023-03-22] MEDS: oxyCODONE 5 MG TAB 2.5 MG PO (07:34)
[2023-03-22] MEDS: Lactated Ringers 1,000 ML 100 ML IV ×2 (07:35→19:06)
[2023-03-22] MEDS: Trimethobenzamide 200 MG/2 ML VIAL IM (08:34)
[2023-03-22] MEDS: Ketorolac 15 MG/ML VIAL IVP ×3 (08:36→18:55)
[2023-03-22] MEDS: HYDROmorphone 2 MG TAB PO (08:41)
[2023-03-22] MEDS: POTASSIUM CHLORIDE 10 MEQ/100 ML BAG 100 MEQ IVPB ×3 (08:42→13:17)
[2023-03-22] MEDS: MAGNESIUM SULFATE 4 GM/100 ML BAG IVPB (08:43)
--- NOTE | 2023-03-22 09:58 | INITIAL_ITS ---
Date of service: 03/22/23 Time of Service: 09:58 Care Management Initial Assmt Initial Assessment REASON FOR HOSPITALIZATION:: fever PREVIOUS FUNCTIONAL STATUS/SOCIAL/FAMILY SUPPORTS:: Rosibel lives in [place] with her , Dylan. They have a son, Giovanni, who is supportive and lives nearby. She is independent at baseline with her ADL's. Tiffanie has been receiving home IV antibiotics for the past 3 weeks and has been receiving home health s ervices for PT and nursing. CURRENT FUNCTIONAL STATUS:: Tiffanie was lying in bed when CM met with her. Her eyes were closed and she was groaning in pain. She stated that her back pain is severe. Tiffanie had an MRI today which identified the presence of osteomyelitis of the L4 and L5 vertebral bodies with epidural and adjacent soft tissue extension. Her Dylan was present and shared that when Tiffanie was first discharged, she did very well. She was able to go outside and get some fresh air and her infusions were going well. He then identified an event which occurred when a home health nurse or PT attempted to help Tiffanie out of bed. Somehow she twisted her back in the process and has been in pain ever since. Dylan also shared that Tiffanie has been unable to tolerate food. He indicated that she feels hungry but becomes nauseated when she tries to eat. Dylan also expressed concern and frustration with Tiffanie's continued decline. He informed CM that she has bee n fighting very hard but that she is discouraged and does not seem to be getting better. ADVANCE DIRECTIVES:: none on file Has patient been provided with info about the portal/API?: Yes Did the patient sign up for the portal?: No CODE STATUS:: Full Code INSURANCE COVERAGE / FINANCIAL ISSUES:: Medicare [employer] [place] CURRENT HOME/COMMUNITY SERVICES/EQUIPMENT:: Home IV antibiotic infusions Home health nursing and PT PRIMARY CARE PHYSICIAN:: Manjula Parra POTENTIAL DISCHARGE NEEDS:: Evaluations for further needs, follow up appointments. PATIENT/FAMILY EDUCATION NEEDS:: Review discharge instructions, activity, medications, limitations and follow up plan, discussion of self care needs including ask me three. ANTICIPATED BARRIERS TO DISCHARGE:: need for prolonged IV antibiotic therapy TRANSPORTATION:: Via private vehicle with her . PLAN:: Anticipate Rosibel will return home once medically cleared with a resumption of home health services. Her will drive her home via private vehicle and she will follow up with her PCP and discharge plan of care. CM will continue to follow and support discharge planning concerns.. PFSH All Active Problems (Updated 03/22/23 @ 14:30 by PATRICK Cedeno) Osteoarthritis of right hip (Acute) Discharge planning issues (Acute) DVT prophylaxis (Acute) Fever of unknown origin (Acute) Back pain (Acute) Tricuspid valve regurgitation, secondary (Acute) Mitral regurgitation (Chronic) Lumbar degenerative disc disease (Chronic) Staphylococcus aureus bacteremia (Acute) Back pain (Acute) Hypokalemia (Chronic) Gastritis (Acute) Atrial fibrillation with RVR (Acute) Diarrhea (Acute) Medical History Atrial fibrillation Essential hypertension (01/27/17) Hyperlipidemia, mixed (01/27/17) Hypothyroidism Surgical History History of cardiac radiofrequency ablation History of cataract surgery S/P hysterectomy Social History Smoking/Tobacco Use Status: Never Smoking risk assessment performed?: Yes Alcohol Intake: never Drug use: Never Substance use type: does not use Do you feel safe at home: Yes Do you feel safe in your relationship?: Yes
[2023-03-22] MEDS: HYDROmorphone 2 MG/ML SYR 1 MG IVP (10:27)
--- NOTE | 2023-03-22 10:43 | W.PM.PROGNOT ---
Date of Service Date of service: 03/22/23 Time of Service: 10:43 Assessment and Plan Assessment and plan (1) Osteomyelitis of lumbar spine: Status: Acute Assessment and plan: Since I saw her this morning, her MRI of her LS spine has come back and she has new findings of L4-L5 vertebral osteomyelitis w/ epidural abscess when compared to her prior MRI of her LS spine from 02/15/23 which demonstrated DJD w/ multi-level neuroforaminal narrowing and mild central canal stenosis of L3-L4 and L4-L5. I have discussed her findings w/ the patient and her family this afternoon. I have placed calls to [facility] and to [facility] transfer centers to discuss transfer to neurosurgery/spine surgery for drainage of her epidural abscess. Patient will continue on Vancomycin and Ancef. We are currently treating her MSSA bacteremia. She had HALEY last admission which was done at [facility] and showed no vegetations. [facility] called me back and had no bed availability. [facility] called me back and I had a lengthy discussion w/ Dr. Emery, orthopedic spine surgery, and w/ the hospitalist, Dr. Sachin Garner, they have accepted her for transfer to [facility] on medicine service to be transferred in the next 48 hr. Patient will have IR and ID consults for IR intervention of drainage of epidural abscess and biopsy of vertebral osteomyelitis. Professional time spent interviewing and examining patient, discussion of goals of care with hospital team (care management, nursing and consulting professionals) was over 60 minutes. (2) Back pain: Status: Acute Assessment and plan: secondary to above (3) Osteoarthritis of right hip: Status: Acute Assessment and plan: antiinflammatory agents (i.e. ketorolac) and narcotic pain medications. (4) Atrial fibrillation: Assessment and plan: patient has PAF, rhythm controlled w/ Tikosyn, chronic anticoagulation w/ Apixaban. However, I have put her apixaban on hold beginning tonight as she will need IR bx of her lumbar vertebral osteomyelitis and drainage of her epidural abscess. She has no prosthetic heart valves and no recent PE or DVT, her apixaban is prophylaxis for stroke prevention in setting of PAF, therefore she does not need bridging anticoagulation while off apixaban. Qualifiers: Atrial fibrillation type: paroxysmal Qualified Code(s): I48.0 - Paroxysmal atrial fibrillation (5) DVT prophylaxis: Status: Acute Assessment and plan: has been on apixaban, will add SCD since she will be off her apixaban over next 4 days. (6) Discharge planning issues: Status: Acute Assessment and plan: patient will be transferred to [facility] in the next 24 to 48 hours as noted above. Family and patient updated on the plans Subjective Subjective Interval history since last seen: 78 yr old female w/ PMH of afib controlled w/ Tikosyn and anticoagulated w/ Eliquis, who has been on Ancef for MSSA bacteremia and presented to the hospital w/ increasing low back pain and bilateral hip pain R>L. CT of her LS spine demonstrated canal stenosis at L2-L3 and anterior subluxation of L4 and L5 but no abnormal areas of enhancement and no fractures. She was admitted for pain control and for MRI of her LS spine and hips to evaluate for osteomyelitis. Previous workup has revealed lumbar DJD. She had a HALEY at [facility] during her last hospitalization that did not show any vegetations. She had MRI of her LS spine during her last admission that did not show osteomyelitis but demonstrated DJD. Her back pain is severe enough that she is requiring iv narcotics in addition to toradol. Exam Narrative Exam Narrative: Patient was in exquisite pain until she was medicated w/ iv dilaudid. Pain better controlled afterwards but made her sleepy. Back: she has point tenderness over lower lumbar area but not exquisite now after medicated No point tenderness over her hips although she says that her back pain radiates to both hips. She has fairly good ROM of her hips. I did not elicit hip pain w/ ROM Lungs: clear Heart: regular, no murmur or rub Abdomen: soft, nontender Extremities: no edema Normal bilateral leg/foot strength and ROM, normal sensory to light touch Objective Last Vital Signs Temp 37.8 C H 03/22/23 09:51 Pulse 52 L 03/22/23 09:49 Resp 17 03/22/23 04:55 BP 150/99 H 03/22/23 09:49 Pulse Ox 93 03/22/23 09:49 Laboratory Results - last 24 hr 03/21/23 03/21/23 03/22/23 23:54 23:54 00:10 WBC RBC Hgb Hct MCV MCH MCHC RDW Plt Count MPV Immature Gran % Neutrophils % Lymphocytes % Monocytes % Eosinophils % Basophils % Nucleated RBC % Absolute Neutrophils Absolute Lymphocytes Absolute Monocytes Absolute Eosinophils Absolute Basophils ESR VBG Lactate Sodium Potassium Chloride Carbon Dioxide Anion Gap BUN Creatinine Est GFR (CKD-EPI 2020) Glucose Calcium Magnesium Total Bilirubin AST ALT Alkaline Phosphatase C-Reactive Protein 1.59 H Total Protein Albumin Procalcitonin Urine Color Yellow Urine Clarity Clear Urine pH 7.0 Ur Specific [place] 1.015 Urine Protein Trace H Urine Ketones Negative Urine Blood Trace-intact H Urine Nitrite Negative Urine Bilirubin Negative Urine Urobilinogen 0.2 Ur Leukocyte Esterase Negative Urine RBC 0-2 Urine WBC 3-5 Ur Epithelial Cells Few Urine Crystals Few Amorphous Urine Bacteria Rare Urine Mucus Negative Ur Culture Indicated? No Urine Glucose Negative COVID-19 Source Nasopharynx SARS-CoV-2 (PCR) Negative Influenza Type A (PCR) Negative Influenza Type B (PCR) Negative RSV (PCR) Negative 03/22/23 03/22/23 03/22/23 00:10 00:10 00:10 WBC RBC Hgb Hct MCV MCH MCHC RDW Plt Count MPV Immature Gran % Neutrophils % Lymphocytes % Monocytes % Eosinophils % Basophils % Nucleated RBC % Absolute Neutrophils Absolute Lymphocytes Absolute Monocytes Absolute Eosinophils Absolute Basophils ESR 52 H VBG Lactate Sodium 139 Potassium 4.0 Chloride 102 Carbon Dioxide 26.1 Anion Gap 10.9 BUN 19 H Creatinine 1.0 Est GFR (CKD-EPI 2020) 56.95 Glucose 127 H Calcium 11.1 H Magnesium Total Bilirubin 0.4 AST 39 H ALT 15 Alkaline Phosphatase 96 C-Reactive Protein Total Protein 8.1 Albumin 3.4 Procalcitonin 0.1 Urine Color Urine Clarity Urine pH Ur Specific [place] Urine Protein Urine Ketones Urine Blood Urine Nitrite Urine Bilirubin Urine Urobilinogen Ur Leukocyte Esterase Urine RBC Urine WBC Ur Epithelial Cells Urine Crystals Urine Bacteria Urine Mucus Ur Culture Indicated? Urine Glucose COVID-19 Source SARS-CoV-2 (PCR) Influenza Type A (PCR) Influenza Type B (PCR) RSV (PCR) 03/22/23 03/22/23 03/22/23 00:10 00:10 05:50 WBC 10.20 RBC 4.22 Hgb 12.8 Hct 38.6 MCV 92 MCH 30.3 MCHC 33.2 RDW 12.7 Plt Count 323 MPV 10.4 Immature Gran % 0.6 Neutrophils % 78.8 Lymphocytes % 7.7 Monocytes % 7.9 Eosinophils % 4.2 Basophils % 0.8 Nucleated RBC % 0.0 Absolute Neutrophils 8.03 H Absolute Lymphocytes 0.79 L Absolute Monocytes 0.81 H Absolute Eosinophils 0.43 Absolute Basophils 0.08 ESR VBG Lactate 1.3 Sodium 142 Potassium 3.2 L Chloride 106 Carbon Dioxide 26.6 Anion Gap 9.4 BUN 13 Creatinine 0.8 Est GFR (CKD-EPI 2020) 74.44 Glucose 111 H Calcium 9.8 Magnesium 1.5 L Total Bilirubin AST ALT Alkaline Phosphatase C-Reactive Protein 1.39 H Total Protein Albumin Procalcitonin Urine Color Urine Clarity Urine pH Ur Specific [place] Urine Protein Urine Ketones Urine Blood Urine Nitrite Urine Bilirubin Urine Urobilinogen Ur Leukocyte Esterase Urine RBC Urine WBC Ur Epithelial Cells Urine Crystals Urine Bacteria Urine Mucus Ur Culture Indicated? Urine Glucose COVID-19 Source SARS-CoV-2 (PCR) Influenza Type A (PCR) Influenza Type B (PCR) RSV (PCR) 03/22/23 05:50 WBC 6.78 RBC 3.58 L Hgb 10.8 L D Hct 33.0 L MCV 92 MCH 30.2 MCHC 32.7 RDW 12.7 Plt Count 307 MPV 10.0 Immature Gran % 0.7 Neutrophils % 74.0 Lymphocytes % 11.8 Monocytes % 9.7 Eosinophils % 2.8 Basophils % 1.0 Nucleated RBC % 0.0 Absolute Neutrophils 5.01 Absolute Lymphocytes 0.80 L Absolute Monocytes 0.66 Absolute Eosinophils 0.19 Absolute Basophils 0.07 ESR VBG Lactate Sodium Potassium Chloride Carbon Dioxide Anion Gap BUN Creatinine Est GFR (CKD-EPI 2020) Glucose Calcium Magnesium Total Bilirubin AST ALT Alkaline Phosphatase C-Reactive Protein Total Protein Albumin Procalcitonin Urine Color Urine Clarity Urine pH Ur Specific [place] Urine Protein Urine Ketones Urine Blood Urine Nitrite Urine Bilirubin Urine Urobilinogen Ur Leukocyte Esterase Urine RBC Urine WBC Ur Epithelial Cells Urine Crystals Urine Bacteria Urine Mucus Ur Culture Indicated? Urine Glucose COVID-19 Source SARS-CoV-2 (PCR) Influenza Type A (PCR) Influenza Type B (PCR) RSV (PCR) Time Spent with Patient Time Spent with Patient: >50 minutes Time was spent: preparing to see the patient(eg.review tests), obtaining and/or reviewing separately otained hiistory, ordering medications,tests, procedures, referring, communicating with other health plant health care technician (Calls to [facility] transfer center, calls to [facility] including discussion with spine orthopedic surgery and hospitalist services), indepentently interpreting results, counseling the patient and care coordination
[2023-03-22] MEDS: Gadoterate meglumine 20 ML VIAL IVP (11:32)
[2023-03-22] MEDS: Normal Saline Flush 10 ML SYR IVP ×4 (11:34→20:28)
--- NOTE | 2023-03-22 11:56 | OCONE_ITS ---
PFSH All Active Problems (Updated 03/22/23 @ 03:38 by Tangela House MD) Discharge planning issues (Acute) DVT prophylaxis (Acute) Fever of unknown origin (Acute) Back pain (Acute) Tricuspid valve regurgitation, secondary (Acute) Mitral regurgitation (Chronic) Lumbar degenerative disc disease (Chronic) Staphylococcus aureus bacteremia (Acute) Back pain (Acute) Hypokalemia (Chronic) Gastritis (Acute) Atrial fibrillation with RVR (Acute) Diarrhea (Acute) Medical History Atrial fibrillation Essential hypertension (01/27/17) Hyperlipidemia, mixed (01/27/17) Hypothyroidism Surgical History History of cardiac radiofrequency ablation History of cataract surgery S/P hysterectomy Social History Smoking/Tobacco Use Status: Never Smoking risk assessment performed?: Yes Alcohol Intake: never Drug use: Never Substance use type: does not use Do you feel safe at home: Yes Do you feel safe in your relationship?: Yes Results Last Vital Signs Temp 100.0 F H 03/22/23 09:51 Pulse 52 L 03/22/23 09:49 Resp 17 03/22/23 04:55 BP 150/99 H 03/22/23 09:49 Pulse Ox 93 03/22/23 09:49 Labs 03/22/23 05:50 03/22/23 05:50 Labs: Laboratory Results - last 24 hr 03/21/23 03/21/23 03/22/23 23:54 23:54 00:10 WBC RBC Hgb Hct MCV MCH MCHC RDW Plt Count MPV Immature Gran % Neutrophils % Lymphocytes % Monocytes % Eosinophils % Basophils % Nucleated RBC % Absolute Neutrophils Absolute Lymphocytes Absolute Monocytes Absolute Eosinophils Absolute Basophils ESR VBG Lactate Sodium Potassium Chloride Carbon Dioxide Anion Gap BUN Creatinine Est GFR (CKD-EPI 2020) Glucose Calcium Magnesium Total Bilirubin AST ALT Alkaline Phosphatase C-Reactive Protein 1.59 H Total Protein Albumin Procalcitonin Urine Color Yellow Urine Clarity Clear Urine pH 7.0 Ur Specific [place] 1.015 Urine Protein Trace H Urine Ketones Negative Urine Blood Trace-intact H Urine Nitrite Negative Urine Bilirubin Negative Urine Urobilinogen 0.2 Ur Leukocyte Esterase Negative Urine RBC 0-2 Urine WBC 3-5 Ur Epithelial Cells Few Urine Crystals Few Amorphous Urine Bacteria Rare Urine Mucus Negative Ur Culture Indicated? No Urine Glucose Negative COVID-19 Source Nasopharynx SARS-CoV-2 (PCR) Negative Influenza Type A (PCR) Negative Influenza Type B (PCR) Negative RSV (PCR) Negative 03/22/23 03/22/23 03/22/23 00:10 00:10 00:10 WBC RBC Hgb Hct MCV MCH MCHC RDW Plt Count MPV Immature Gran % Neutrophils % Lymphocytes % Monocytes % Eosinophils % Basophils % Nucleated RBC % Absolute Neutrophils Absolute Lymphocytes Absolute Monocytes Absolute Eosinophils Absolute Basophils ESR 52 H VBG Lactate Sodium 139 Potassium 4.0 Chloride 102 Carbon Dioxide 26.1 Anion Gap 10.9 BUN 19 H Creatinine 1.0 Est GFR (CKD-EPI 2020) 56.95 Glucose 127 H Calcium 11.1 H Magnesium Total Bilirubin 0.4 AST 39 H ALT 15 Alkaline Phosphatase 96 C-Reactive Protein Total Protein 8.1 Albumin 3.4 Procalcitonin 0.1 Urine Color Urine Clarity Urine pH Ur Specific [place] Urine Protein Urine Ketones Urine Blood Urine Nitrite Urine Bilirubin Urine Urobilinogen Ur Leukocyte Esterase Urine RBC Urine WBC Ur Epithelial Cells Urine Crystals Urine Bacteria Urine Mucus Ur Culture Indicated? Urine Glucose COVID-19 Source SARS-CoV-2 (PCR) Influenza Type A (PCR) Influenza Type B (PCR) RSV (PCR) 03/22/23 03/22/23 03/22/23 00:10 00:10 05:50 WBC 10.20 RBC 4.22 Hgb 12.8 Hct 38.6 MCV 92 MCH 30.3 MCHC 33.2 RDW 12.7 Plt Count 323 MPV 10.4 Immature Gran % 0.6 Neutrophils % 78.8 Lymphocytes % 7.7 Monocytes % 7.9 Eosinophils % 4.2 Basophils % 0.8 Nucleated RBC % 0.0 Absolute Neutrophils 8.03 H Absolute Lymphocytes 0.79 L Absolute Monocytes 0.81 H Absolute Eosinophils 0.43 Absolute Basophils 0.08 ESR VBG Lactate 1.3 Sodium 142 Potassium 3.2 L Chloride 106 Carbon Dioxide 26.6 Anion Gap 9.4 BUN 13 Creatinine 0.8 Est GFR (CKD-EPI 2020) 74.44 Glucose 111 H Calcium 9.8 Magnesium 1.5 L Total Bilirubin AST ALT Alkaline Phosphatase C-Reactive Protein 1.39 H Total Protein Albumin Procalcitonin Urine Color Urine Clarity Urine pH Ur Specific [place] Urine Protein Urine Ketones Urine Blood Urine Nitrite Urine Bilirubin Urine Urobilinogen Ur Leukocyte Esterase Urine RBC Urine WBC Ur Epithelial Cells Urine Crystals Urine Bacteria Urine Mucus Ur Culture Indicated? Urine Glucose COVID-19 Source SARS-CoV-2 (PCR) Influenza Type A (PCR) Influenza Type B (PCR) RSV (PCR) 03/22/23 05:50 WBC 6.78 RBC 3.58 L Hgb 10.8 L D Hct 33.0 L MCV 92 MCH 30.2 MCHC 32.7 RDW 12.7 Plt Count 307 MPV 10.0 Immature Gran % 0.7 Neutrophils % 74.0 Lymphocytes % 11.8 Monocytes % 9.7 Eosinophils % 2.8 Basophils % 1.0 Nucleated RBC % 0.0 Absolute Neutrophils 5.01 Absolute Lymphocytes 0.80 L Absolute Monocytes 0.66 Absolute Eosinophils 0.19 Absolute Basophils 0.07 ESR VBG Lactate Sodium Potassium Chloride Carbon Dioxide Anion Gap BUN Creatinine Est GFR (CKD-EPI 2020) Glucose Calcium Magnesium Total Bilirubin AST ALT Alkaline Phosphatase C-Reactive Protein Total Protein Albumin Procalcitonin Urine Color Urine Clarity Urine pH Ur Specific [place] Urine Protein Urine Ketones Urine Blood Urine Nitrite Urine Bilirubin Urine Urobilinogen Ur Leukocyte Esterase Urine RBC Urine WBC Ur Epithelial Cells Urine Crystals Urine Bacteria Urine Mucus Ur Culture Indicated? Urine Glucose COVID-19 Source SARS-CoV-2 (PCR) Influenza Type A (PCR) Influenza Type B (PCR) RSV (PCR)
--- NOTE | 2023-03-22 12:00 | DI.MRI_ITS ---
Exam(s) MR LUMBAR SPINE WO/W EXAM: MR LUMBAR SPINE WO/W CLINICAL HISTORY: concern for an epidural abscess, discitis, OM TECHNIQUE: Multiplanar multisequence MRI of the Lumbar Spine was performed. CONTRAST MATERIAL: IV Contrast: 12 mL of Dotarem contrast administered. COMPARISON: MR MR LUMBAR SPINE WO/W from 02/15/[address] CHEST/ABD/PEL W from 03/22/[address] LUMBAR SPINE RECONS from 03/22/2023 FINDINGS: There is abnormal low signal on T1 weighted images and high signal on the STIR images with in the kuldip ority of the L4 and L5 vertebral bodies. There is abnormal postcontrast enhancement in these vertebr al bodies as well as in the intervening disc with erosion of the adjacent endplates. There is some i ncreased enhancement seen extending along the posterior aspects of the vertebral bodies, in the epidu ral space. There is also some soft tissue density seen extending into the soft tissues to the right of the L4 and L5 vertebral bodies. These findings were not present on the recent exam. The remaining levels show no abnormal enhancement or change in appearance from the prior exam. Degen erative changes are again noted at multiple levels. IMPRESSION: Findings consistent with osteomyelitis of the L4 and L5 vertebral bodies with epidural and adjacent s oft tissue extension. DATA REPOSITORY:
[2023-03-22] MEDS: Potassium Chloride 20 MEQ TABCR PO (13:11)
[2023-03-22] MEDS: Dofetilide 250 MCG CAP PO ×2 (13:12→20:23)
[2023-03-22] MEDS: Magnesium Lactate-SR 84 MG TABCR PO (13:12)
[2023-03-22] MEDS: Cholecalciferol (Vitamin D3) 1,000 UNIT TAB 1000 UNITS PO (13:12)
[2023-03-22] MEDS: Lisinopril 20 MG TAB 40 MG PO (13:12)
[2023-03-22] MEDS: Gabapentin 100 MG CAP PO ×3 (13:12→20:17)
[2023-03-22] MEDS: Calcium Carbonate *TUMS* 500 MG CHEW 1000 MG PO (13:12)
[2023-03-22] MEDS: amLODIPine 10 MG TAB PO (13:13)
[2023-03-22] MEDS: Multivitamin w/Minerals TAB 1 TAB PO (13:13)
[2023-03-22] MEDS: Apixaban 5 MG TAB PO (13:13)
[2023-03-22] MEDS: Omega-3 Fatty Acids 1000 MG CAP PO (13:13)
[2023-03-22] MEDS: Magnesium Oxide 400 MG TAB PO (13:13)
[2023-03-22] MEDS: guaiFENesin 600 MG TABCR PO ×2 (13:13→20:25)
[2023-03-22] MEDS: HYDROmorphone 2 MG TAB 1 MG PO ×3 (13:14→21:48)
[2023-03-22] MEDS: Normal Saline 500 ML IV (13:32)
--- NOTE | 2023-03-22 14:27 | W.ORTHOCONSU ---
Date of service: 03/22/23 Time of Service: 14:28 Assessment and Plan Assessment and plan (1) Osteoarthritis of right hip: Status: Acute Assessment and plan: 78-year-old female consulted in the ICU for right hip and back pain Pt w/ PMH of afib controlled w/ Tikosyn and anticoagulated w/ Eliquis, who has been on Ancef for MSSA bacteremia and presented to the hospital w/ increasing low back pain and bilateral hip pain R>L. CT of her LS spine demonstrated canal stenosis at L2-L3 and anterior subluxation of L4 and L5 but no abnormal areas of enhancement and no fractures. She was admitted from the ER for pain control and for MRI of her LS spine and hips to evaluate for osteomyelitis. Previous workup has revealed lumbar DJD. She had a HALEY at [facility] during her last hospitalization that did not show any vegetations. Ortho consult requested for bilat hip pain. Patient admits to chronic bilateral hip pain, right worse than left. She typically ambulates without any assistive device. She denies recent trauma to her hip. Reports that her right hip pain is near her baseline but her back pain is worse than her baseline. Bilateral hips, normal visual inspection without erythema or ecchymosis. No warmth to palpation. Normal pedal pulses and capillary refill. Mild reproducible diffuse lateral right hip tenderness to palpation. There is no discomfort with active or passive hip flexion, internal or external rotation. Patient able to lift her legs and bend her knees without difficulty. With movement of her lower extremity she does endorse some mild back pain. Patient with strong dorsi and plantarflexion of the bilateral feet. There is diffuse mild lumbar discomfort, worse over L3, 4, 5. No warmth on palpation. No ecchymosis or erythema visualized. No induration, fluctuance, pointing abscess. Neuro, vascular, tendon intact. No saddle paresthesias. No evidence of cauda equina. Reviewed CT imaging from the ER last night, hip x-ray today as well as MRI. Appears to have some right hip degenerative changes. MRI reveals L4-5 osteomyelitis with enhancement in the epidural space. I do not see any evidence of a septic hip joint. Source of infection is likely the L4-5 osteomyelitis. Recommend contacting tertiary care center for consultation and possible transfer to orthopedics/spine neurosurgery for the osteomyelitis of L4-L5 with epidural space enhancement and soft tissue involvement. Otherwise, encouraged gentle use of the right hip. Call back if hip status changes. (2) Osteomyelitis of lumbar spine: Status: Acute PFSH All Active Problems (Updated 03/22/23 @ 15:46 by PATRICK Cedeno) Osteomyelitis of lumbar spine (Acute) Osteoarthritis of right hip (Acute) Discharge planning issues (Acute) DVT prophylaxis (Acute) Fever of unknown origin (Acute) Back pain (Acute) Tricuspid valve regurgitation, secondary (Acute) Mitral regurgitation (Chronic) Lumbar degenerative disc disease (Chronic) Staphylococcus aureus bacteremia (Acute) Back pain (Acute) Hypokalemia (Chronic) Gastritis (Acute) Atrial fibrillation with RVR (Acute) Diarrhea (Acute) Medical History Atrial fibrillation Essential hypertension (01/27/17) Hyperlipidemia, mixed (01/27/17) Hypothyroidism Surgical History History of cardiac radiofrequency ablation History of cataract surgery S/P hysterectomy Social History Smoking/Tobacco Use Status: Never Smoking risk assessment performed?: Yes Alcohol Intake: never Drug use: Never Substance use type: does not use Do you feel safe at home: Yes Do you feel safe in your relationship?: Yes Results Last Vital Signs Temp 37.8 C H 03/22/23 09:51 Pulse 57 L 03/22/23 12:58 Resp 17 03/22/23 04:55 BP 177/76 H 03/22/23 12:58 Pulse Ox 92 03/22/23 12:58 Labs 03/22/23 05:50 03/22/23 05:50 Labs: Laboratory Results - last 24 hr 03/21/23 03/21/23 03/22/23 23:54 23:54 00:10 WBC RBC Hgb Hct MCV MCH MCHC RDW Plt Count MPV Immature Gran % Neutrophils % Lymphocytes % Monocytes % Eosinophils % Basophils % Nucleated RBC % Absolute Neutrophils Absolute Lymphocytes Absolute Monocytes Absolute Eosinophils Absolute Basophils ESR VBG Lactate Sodium Potassium Chloride Carbon Dioxide Anion Gap BUN Creatinine Est GFR (CKD-EPI 2020) Glucose Calcium Magnesium Total Bilirubin AST ALT Alkaline Phosphatase C-Reactive Protein 1.59 H Total Protein Albumin Procalcitonin Urine Color Yellow Urine Clarity Clear Urine pH 7.0 Ur Specific [place] 1.015 Urine Protein Trace H Urine Ketones Negative Urine Blood Trace-intact H Urine Nitrite Negative Urine Bilirubin Negative Urine Urobilinogen 0.2 Ur Leukocyte Esterase Negative Urine RBC 0-2 Urine WBC 3-5 Ur Epithelial Cells Few Urine Crystals Few Amorphous Urine Bacteria Rare Urine Mucus Negative Ur Culture Indicated? No Urine Glucose Negative COVID-19 Source Nasopharynx SARS-CoV-2 (PCR) Negative Influenza Type A (PCR) Negative Influenza Type B (PCR) Negative RSV (PCR) Negative 03/22/23 03/22/23 03/22/23 00:10 00:10 00:10 WBC RBC Hgb Hct MCV MCH MCHC RDW Plt Count MPV Immature Gran % Neutrophils % Lymphocytes % Monocytes % Eosinophils % Basophils % Nucleated RBC % Absolute Neutrophils Absolute Lymphocytes Absolute Monocytes Absolute Eosinophils Absolute Basophils ESR 52 H VBG Lactate Sodium 139 Potassium 4.0 Chloride 102 Carbon Dioxide 26.1 Anion Gap 10.9 BUN 19 H Creatinine 1.0 Est GFR (CKD-EPI 2020) 56.95 Glucose 127 H Calcium 11.1 H Magnesium Total Bilirubin 0.4 AST 39 H ALT 15 Alkaline Phosphatase 96 C-Reactive Protein Total Protein 8.1 Albumin 3.4 Procalcitonin 0.1 Urine Color Urine Clarity Urine pH Ur Specific [place] Urine Protein Urine Ketones Urine Blood Urine Nitrite Urine Bilirubin Urine Urobilinogen Ur Leukocyte Esterase Urine RBC Urine WBC Ur Epithelial Cells Urine Crystals Urine Bacteria Urine Mucus Ur Culture Indicated? Urine Glucose COVID-19 Source SARS-CoV-2 (PCR) Influenza Type A (PCR) Influenza Type B (PCR) RSV (PCR) 03/22/23 03/22/23 03/22/23 00:10 00:10 05:50 WBC 10.20 RBC 4.22 Hgb 12.8 Hct 38.6 MCV 92 MCH 30.3 MCHC 33.2 RDW 12.7 Plt Count 323 MPV 10.4 Immature Gran % 0.6 Neutrophils % 78.8 Lymphocytes % 7.7 Monocytes % 7.9 Eosinophils % 4.2 Basophils % 0.8 Nucleated RBC % 0.0 Absolute Neutrophils 8.03 H Absolute Lymphocytes 0.79 L Absolute Monocytes 0.81 H Absolute Eosinophils 0.43 Absolute Basophils 0.08 ESR VBG Lactate 1.3 Sodium 142 Potassium 3.2 L Chloride 106 Carbon Dioxide 26.6 Anion Gap 9.4 BUN 13 Creatinine 0.8 Est GFR (CKD-EPI 2020) 74.44 Glucose 111 H Calcium 9.8 Magnesium 1.5 L Total Bilirubin AST ALT Alkaline Phosphatase C-Reactive Protein 1.39 H Total Protein Albumin Procalcitonin Urine Color Urine Clarity Urine pH Ur Specific [place] Urine Protein Urine Ketones Urine Blood Urine Nitrite Urine Bilirubin Urine Urobilinogen Ur Leukocyte Esterase Urine RBC Urine WBC Ur Epithelial Cells Urine Crystals Urine Bacteria Urine Mucus Ur Culture Indicated? Urine Glucose COVID-19 Source SARS-CoV-2 (PCR) Influenza Type A (PCR) Influenza Type B (PCR) RSV (PCR) 03/22/23 05:50 WBC 6.78 RBC 3.58 L Hgb 10.8 L D Hct 33.0 L MCV 92 MCH 30.2 MCHC 32.7 RDW 12.7 Plt Count 307 MPV 10.0 Immature Gran % 0.7 Neutrophils % 74.0 Lymphocytes % 11.8 Monocytes % 9.7 Eosinophils % 2.8 Basophils % 1.0 Nucleated RBC % 0.0 Absolute Neutrophils 5.01 Absolute Lymphocytes 0.80 L Absolute Monocytes 0.66 Absolute Eosinophils 0.19 Absolute Basophils 0.07 ESR VBG Lactate Sodium Potassium Chloride Carbon Dioxide Anion Gap BUN Creatinine Est GFR (CKD-EPI 2020) Glucose Calcium Magnesium Total Bilirubin AST ALT Alkaline Phosphatase C-Reactive Protein Total Protein Albumin Procalcitonin Urine Color Urine Clarity Urine pH Ur Specific [place] Urine Protein Urine Ketones Urine Blood Urine Nitrite Urine Bilirubin Urine Urobilinogen Ur Leukocyte Esterase Urine RBC Urine WBC Ur Epithelial Cells Urine Crystals Urine Bacteria Urine Mucus Ur Culture Indicated? Urine Glucose COVID-19 Source SARS-CoV-2 (PCR) Influenza Type A (PCR) Influenza Type B (PCR) RSV (PCR)
[2023-03-22] MEDS: Docusate Sodium 100 MG CAP PO ×2 (15:11→20:25)
[2023-03-22 17:31] LABS: Potassium 3.6 mmol/L (3.5-5.1)
[2023-03-22 17:33] LABS: Magnesium 2.3 mg/dL (1.8-2.4)
--- NOTE | 2023-03-22 18:06 | PT.INNT ---
Date of service: 03/22/23 Time of Service: 18:06 PT Notes Visit Reasons: New Fever,MSSA Bacteremia on Treatment,Worsening o Held off on evaluation in light of new diagnosis of L4-L5 osteomyelitis with soft tissue involvement. Advised by NIKOLAS Gonzales to hold off on PT assessment today. Will make sure to touch base with hospitalist tomorrow morning for clearance to evaluate/mobilize for PT.
[2023-03-22] MEDS: Methocarbamol 750 MG TAB PO (20:14)
[2023-03-22] MEDS: Acetaminophen 500 MG TAB 1000 MG PO (20:16)
[2023-03-22] MEDS: Potassium Chloride 10 MEQ CAPCR 20 MEQ PO (20:22)
[2023-03-22] MEDS: VANCOMYCIN/WATER (PEG) 1 GM/200 ML BAG IVPB (21:48)
[2023-03-22] MEDS: Senna TAB 1 TAB PO (21:48)
[2023-03-23] VITALS (12 sets, daily range): BP systolic 138–173; BP diastolic 63–91; PULSE 49–68; TEMP 37.1–38.1
[2023-03-23] MEDS: Ketorolac 15 MG/ML VIAL IVP ×3 (00:11→12:07)
[2023-03-23] MEDS: HYDROmorphone 2 MG TAB 1 MG PO ×2 (02:42→07:56)
--- NOTE | 2023-03-23 02:57 | NUR.NOTE ---
-246-Hydromorphone 1 mg po given for severe low back pain. repositioned to right side.L K pad colin lower baclk
[2023-03-23] MEDS: ceFAZolin 2 GM/50 ML BAG IVPB ×2 (03:22→12:09)
[2023-03-23] MEDS: traMADol 50 MG TAB PO (03:23)
[2023-03-23] MEDS: Acetaminophen 500 MG TAB 1000 MG PO (03:23)
[2023-03-23] MEDS: HYDROmorphone 2 MG/ML SYR 1 MG IVP ×3 (04:55→15:11)
[2023-03-23] MEDS: Levothyroxine 88 MCG TAB PO (05:15)
[2023-03-23 06:27] LABS: Abs Immature Grans 0.06 10^3/uL (0.0-0.06); Absolute Basophil Count 0.07 10^3/uL (0.0-0.2); Absolute Eosinophil Count 0.47 10^3/uL (0.0-0.7); Absolute Lymphocyte Count 0.67 10^3/uL (1.2-3.4); Absolute Monocyte Count 0.77 10^3/uL (0.1-0.8); Absolute Neutrophil Count 8.42 10^3/uL (1.2-6.7); Basophils % 0.7; Eosinophils % 4.5; HCT 31.4 % (36.0-46.0); HGB 10.5 g/dL (11.2-15.7); Immature Grans % 0.6; Lymphocytes % 6.4; MCH 30.5 pg (27.0-33.0); MCHC 33.4 % (32.0-36.0); MCV 91 fL (80-95); MPV 9.8 fL (8.0-11.0); Monocytes % 7.4; Neutrophils % 80.4; Platelet Count 260 10^3/uL (130-400); RBC 3.44 10^6/uL (3.93-5.22); RDW 12.7 % (11.7-14.6); RDW-SD 42.1 fL; WBC 10.46 10^3/uL (4.4-10.8)
[2023-03-23 06:32] LABS: ESR 43 mm/hr (0-30)
[2023-03-23 06:38] LABS: Anion Gap 8.1 mmol/L (3-11); BUN 9 mg/dL (7-18); C-Reactive Protein 1.49 mg/dL (0.0-0.3); CO2 25.9 mmol/L (21.0-32.0); CREATININE 0.9 mg/dL (0.55-1.02); Calcium 9.5 mg/dL (8.5-10.1); Chloride 100 mmol/L (98-107); Estimated GFR 64.63 (mL/min/1.73m2); Glucose 110 mg/dL (74-106); Magnesium 1.6 mg/dL (1.8-2.4); Potassium 3.2 mmol/L (3.5-5.1); Sodium 134 mmol/L (136-145)
[2023-03-23] MEDS: Normal Saline Flush 10 ML SYR IVP ×2 (07:57→15:11)
[2023-03-23] MEDS: HYDROmorphone 2 MG TAB PO ×3 (08:55→15:12)
[2023-03-23] MEDS: Calcium Carbonate *TUMS* 500 MG CHEW 1000 MG PO (08:58)
[2023-03-23] MEDS: Lisinopril 20 MG TAB 40 MG PO (08:58)
[2023-03-23] MEDS: Methocarbamol 750 MG TAB PO ×2 (08:59→12:08)
[2023-03-23] MEDS: Docusate Sodium 100 MG CAP PO ×2 (08:59→13:47)
[2023-03-23] MEDS: Dofetilide 250 MCG CAP PO (08:59)
[2023-03-23] MEDS: Gabapentin 100 MG CAP PO ×2 (08:59→13:46)
[2023-03-23] MEDS: Cholecalciferol (Vitamin D3) 1,000 UNIT TAB 1000 UNITS PO (08:59)
[2023-03-23] MEDS: Potassium Chloride 20 MEQ TABCR PO ×2 (08:59→13:46)
[2023-03-23] MEDS: Multivitamin w/Minerals TAB 1 TAB PO (08:59)
[2023-03-23] MEDS: guaiFENesin 600 MG TABCR PO (08:59)
[2023-03-23] MEDS: amLODIPine 10 MG TAB PO (08:59)
[2023-03-23] MEDS: Omega-3 Fatty Acids 1000 MG CAP PO (08:59)
[2023-03-23] MEDS: Normal Saline 500 ML IV (09:27)
[2023-03-23] MEDS: POTASSIUM CHLORIDE 10 MEQ/100 ML BAG 100 MEQ IVPB ×2 (09:27→10:30)
--- NOTE | 2023-03-23 09:40 | CMPROGNOTE_ITS ---
Date of service: 03/23/23 Time of Service: 09:40 Care Management Progress Note Progress Note Text Progress Note Text: S/O:Tiffanie was sitting up in bed visiting with her family when CM met with her. She appeared to be in good spirits and was able to confirm that her pain is much better controlled at this time. She did state that during the night she was in a great deal of pain, as she was yesterday. With a new diagnosis of epidural abscess, Tiffanie's analgesic regimen has been adjusted to give her regularly scheduled doses of pain medication with orders for additional PRN doses if needed. Tiffanie is awaiting a bed at [facility], hopefully within the next 24-48 hours. Tiffanie and her son Giovanni requested that CM assist with the completion of Advanced Directives before Tiffanie is transferred. CM was able to facilitate the completion of the document and filed and registered it per protocol. A: Tiffanie is an 78 year old woman admitted on 03/22/23 with fever P:Tiffanie has been accepted for transfer to [facility] when they have a bed opening. She has been found to have osteomyelitis of L4 and L5 with an epidural abscess. She will transport via EMS coordinated by the nursing cloth napping supervisor. CM will continue to support Tiffanie and her discharge needs..
[2023-03-23] MEDS: MAGNESIUM SULFATE 4 GM/100 ML BAG IVPB (10:08)
--- NOTE | 2023-03-23 10:17 | W.PM.PROGNOT ---
Date of Service Date of service: 03/23/23 Time of Service: 10:17 Assessment and Plan Assessment and plan (1) Osteomyelitis of lumbar spine: Status: Acute Assessment and plan: MRI of her LS spine has new findings of L4-L5 vertebral osteomyelitis w/ epidural abscess when compared to her prior MRI of her LS spine from 02/15/23 which demonstrated DJD w/ multi-level neuroforaminal narrowing and mild central canal stenosis of L3-L4 and L4-L5. Case was discussed yesterday w/ ortho spine surgery and hospitalist at [facility] and she has been accepted for transfer when bed becomes available. I discussed her case w/ Dr. Phi Ha today. He feels that her osteomyelitis probably was from her prior MSSA bacteremia and that the MRI 02/15 did not show the osteomyelitis as it was too early and that the bacteremia seeded her spine and had not enough time to develope into radiologically apparent infection. He feels that it is still appropriate to continue the Vancomycin and the Ancef for now pending her transfer and obtaining drainage of the epidural abscess and bone biopsy/culture but feels that her infection is likely from her prior MSSA bacteremia. I did discuss whether or not her PICC line should be routinely changed and he does not think this is necessary particularly since she has no evidence of infection from the PICC line site. also her repeat blood cultures have no growth so far. MRSA screen is also negative. Professional time spent interviewing and examining patient, discussion of goals of care with hospital team (care management, nursing and consulting professionals) was 40 minutes. (2) Back pain: Status: Acute Assessment and plan: secondary to above. continue Toradol, APAP, change prn oral dilaudid to scheduled along w/ prn iv or po for breakthrough pain. (3) Osteoarthritis of right hip: Status: Acute Assessment and plan: antiinflammatory agents (i.e. ketorolac) and narcotic pain medications. (4) Atrial fibrillation: Assessment and plan: patient has PAF, rhythm controlled w/ Tikosyn, chronic anticoagulation w/ Apixaban. However, I have put her apixaban on hold as of evening of 03/22 as she will need IR bx of her lumbar vertebral osteomyelitis and drainage of her epidural abscess. She has no prosthetic heart valves and no recent PE or DVT, her apixaban is prophylaxis for stroke prevention in setting of PAF, therefore she does not need bridging anticoagulation while off apixaban. Qualifiers: Atrial fibrillation type: paroxysmal Qualified Code(s): I48.0 - Paroxysmal atrial fibrillation (5) DVT prophylaxis: Status: Acute Assessment and plan: has been on apixaban, will add SCD since she will be off her apixaban over next 4 days. (6) Discharge planning issues: Status: Acute Assessment and plan: patient will be transferred to [facility] in the next 24 to 48 hours as noted above. Family and patient updated on the plans Subjective Subjective Interval history since last seen: Patient continues to have intermittent severe pain in her lower back. This morning she required parenteral hydromorphone to control her pain. I have her on prn oral dilaudid, scheduled doses of Tylenol and ketorolac but will change her prn hydrmorphone to scheduled doses of hydromorphone. Once we get steady control of her low back pain, then consider a duragesic patch. I think what will defiinitively treat her back pain will be for her to have the epidural abscess drained and get control of her infection souce. Her blood cultures from this admission still show no growth. Her MRSA screen was negative. She remains on Vancomycin and Ancef. Patient states that she has not had a BM Exam Narrative Exam Narrative: Patient appears fatigued but otherwise is alert and oriented Lungs: clear anterriorly Heart: RRR, no murmur or rub Abdomen: soft, nontender, normal bowel sounds Legs/feet: normal ROM and strength and sensation Objective Last Vital Signs Temp 37.1 C 03/23/23 08:11 Pulse 49 L 03/23/23 08:01 Resp 18 03/22/23 23:59 BP 164/64 H 03/23/23 08:01 Pulse Ox 92 03/22/23 23:59 Laboratory Results - last 24 hr 03/22/23 03/22/23 03/23/23 17:17 17:17 06:00 WBC RBC Hgb Hct MCV MCH MCHC RDW Plt Count MPV Immature Gran % Neutrophils % Lymphocytes % Monocytes % Eosinophils % Basophils % Nucleated RBC % Absolute Neutrophils Absolute Lymphocytes Absolute Monocytes Absolute Eosinophils Absolute Basophils ESR Sodium 134 L Potassium 3.6 3.2 L Chloride 100 Carbon Dioxide 25.9 Anion Gap 8.1 BUN 9 Creatinine 0.9 Est GFR (CKD-EPI 2020) 64.63 Glucose 110 H Calcium 9.5 Magnesium 2.3 1.6 L C-Reactive Protein 1.49 H 03/23/23 03/23/23 06:00 06:00 WBC 10.46 RBC 3.44 L Hgb 10.5 L Hct 31.4 L MCV 91 MCH 30.5 MCHC 33.4 RDW 12.7 Plt Count 260 MPV 9.8 Immature Gran % 0.6 Neutrophils % 80.4 Lymphocytes % 6.4 Monocytes % 7.4 Eosinophils % 4.5 Basophils % 0.7 Nucleated RBC % 0.0 Absolute Neutrophils 8.42 H Absolute Lymphocytes 0.67 L Absolute Monocytes 0.77 Absolute Eosinophils 0.47 Absolute Basophils 0.07 ESR 43 H Sodium Potassium Chloride Carbon Dioxide Anion Gap BUN Creatinine Est GFR (CKD-EPI 2020) Glucose Calcium Magnesium C-Reactive Protein Time Spent with Patient Time Spent with Patient: 35-49 minutes Time was spent: preparing to see the patient(eg.review tests), referring, communicating with other health home care chaplain (Angela Gonzales, [facility]), indepentently interpreting results, counseling the patient (and family including her and daughter) and care coordination
[2023-03-23] MEDS: Magnesium Oxide 400 MG TAB PO (10:30)
[2023-03-23] MEDS: Magnesium Lactate-SR 84 MG TABCR PO (10:30)
[2023-03-23] MEDS: Polyethylene Glycol 3350 17 GM PACKET PO ×3 (12:07→12:44)
[2023-03-23] MEDS: Methylnaltrexone 12 MG/0.6 ML VIAL SC ×2 (12:42→14:06)
[2023-03-23 14:14] LABS: Potassium 3.5 mmol/L (3.5-5.1)
[2023-03-23 14:17] LABS: Magnesium 3.2 mg/dL (1.8-2.4)
--- NOTE | 2023-03-23 14:29 | PHACLINREV_ITS ---
Pharmacy Admission Review - Admission Clinical Review (Last Reviewed 03/22/23 @ 01:57 by Rancho Hanna DO) Osteomyelitis of lumbar spine (Acute) Osteoarthritis of right hip (Acute) Discharge planning issues (Acute) DVT prophylaxis (Acute) Fever of unknown origin (Acute) Back pain (Acute) Staphylococcus aureus bacteremia (Acute) hydralazine Allergy (Intermediate, Unverified 03/21/23 23:46) Dizziness/Lightheade metoprolol Allergy (Unverified 03/21/23 23:46) Cardiac Dysrythmia isosorbide mononitrate [From Imdur] Adverse Reaction (Intermediate, Unverified 03/21/23 23:46) Skin Rash Resuscitation Status Full Code Height 5 ft 2 in Weight 67.6 kg - Renal Dosing Renal Dosing: BUN 9 mg/dL (7-18) 03/23/23 06:00 Creatinine 0.9 mg/dL (0.55-1.02) 03/23/23 06:00 Medications needing adjustments: Reviewed (crcl = 40, current meds ok. monitor for addition of new medications that could need adjustment) - Anticoagulation Anticoagulation: Hgb 10.5 g/dL (11.2-15.7) L 03/23/23 06:00 Hct 31.4 % (36.0-46.0) L 03/23/23 06:00 Plt Count 260 10^3/uL (130-400) 03/23/23 06:00 Creatinine 0.9 mg/dL (0.55-1.02) 03/23/23 06:00 DVT Prophylaxis: Reviewed Medications: Apixaban Therapeutic Anticoagulation: Reviewed Medications: Apixaban (for paroxysmal AFib. Eliquis 5 mg BID - on hold pending IR biopsy, abcess drainage. SCD's while on hold (bridge not indicated - pt has no prosthetic valves, no recent VTE)) - Opiate Usage Evaluate Pain Scale/Pains Meds: Reviewed Scheduled Bowel Reg ordered if on Opiates?: Yes - Relevant Labs ESR 43 mm/hr (0-30) H 03/23/23 06:00 Sodium 134 mmol/L (136-145) L 03/23/23 06:00 Potassium 3.5 mmol/L (3.5-5.1) 03/23/23 13:55 Chloride 100 mmol/L (98-107) 03/23/23 06:00 Magnesium 3.2 mg/dL (1.8-2.4) H 03/23/23 13:55 C-Reactive Protein 1.49 mg/dL (0.0-0.3) H 03/23/23 06:00 Electrolytes, C-Reactive P, ESR: Reviewed - DM Control DM Control: Glucose 110 mg/dL (74-106) H 03/23/23 06:00 DM Control: N/A - Cardiac Review BP, HR, EF%: Reviewed (on amlodipine, lisinopril, dofetilide) - Qtc Review QTc: Reviewed (last EKG on record 02/13/23. QTc = 436) - IV to PO Switch IV Medications: Reviewed (IV abx necessary at this time for treatment of osteomyelitis/epidural abcess, continue IV ketorolac for severe pain) - Home Meds Home Med List reviewed: Reviewed - Current meds Current Medication Order Review: Reviewed (pain control - dilaudid scheduled QID plus prn, IV ketorolac, methocarbamol) - Comments Comments/Follow Ups: transfer to [facility] when bed available for IR intervention Antibiotic Review - Pharmacy Antibiotic Review Pharmacy Antibiotic Activity: Reviewed, no change Relevant Labs: Relevant Labs 03/23/23 06:00 C-Reactive Protein 1.49 H - Antibiotic Information Antibiotic Review Info: pt recently admitted here last month for staph bacteremia, discharged home 02/24/23 on extended course of IV cefazolin (stop date 04/01). Returns now with vertebral osteomyelitis w/ epidural abcess. Vancomycin added (dosed 1 gram q18h via [employer] kinetics program for anticipated trough = 17). Trough ordered to be drawn 03/24 at 0900
--- NOTE | 2023-03-23 14:32 | CHAPLAIN ---
Tiffanie lives in [place], [place] with her . Today her daughter and granddaughter are with her when I visit. Tiffanie is a bit groggy but her nurse Lynda said she would be in soon to wake Tiffanie up to take some pills. I spoke mostly with Rosibel's daughter and granddaughter. Rosibel will likely be transferred to [facility].
--- NOTE | 2023-03-23 14:53 | W.PM.DS.N ---
Date of service: 03/23/23 Time of Service: 14:53 DS: Diagnosis Discharge Diagnosis (1) Osteomyelitis of lumbar spine: Status: Acute Asessment and Plan: see discharge plan for details of her hospitalization. Also see admission H&P and my notes from 03/22/23 for details (2) Back pain: Status: Acute (3) Osteoarthritis of right hip: Status: Acute (4) Atrial fibrillation: Asessment and Plan: patient remains on Tikosyn, however her her anticoagulation is on hold d/t need for spinal abscess drainage and spine biopsy/culture. (5) DVT prophylaxis: Status: Acute (6) Discharge planning issues: Status: Acute Discharge Plan Disposition Patient Disposition: Transfer-Acute Inpatient Care Specific Acute Inpt Facility: [facility] Condition: Stable Discharge Details Reason For Visit: New Fever,MSSA Bacteremia on Treatment,Worsening o Admit Date/Time: 03/22/23 02:52 Admit Provider: Tangela House Attending Provider: Tangela House Primary Care Provider: Manjula Parra Hospital Course Hospital Course: 78 yr old female w/ hx of PAF rhythm controlled w/ Tikosyn, anticoagulated chronically on Eliquis, HTN, HLD and chronic OA of her hips and back who was hospitalized at [facility] from 02/13 to 02/23/23 for MSSA bacteremia. No source was found. During that hospitalization she had low back pain which was evaluated w/ MRI of LS spine which did not show any osteomyelitis but demonstrated DJD w/ facet arthritis, degenerative disc disease and moderate lumbar canal stenosis and multilevel foraminal stenosis. Back pain improved w/ analgesic and physical therapy and she underwent TTE and subsequently was sent to [facility] for [facility] looking for endocarditis. None was found. Her blood cultures initially cleared and she was discharged w/ PICC line in her left arm to complete 6 weeks of Ancef (after she was initially treated in the hospital w/ oxacillin). She subsequently returned to [facility] on 03/22 with progressively worsening lower back pain over the past week to the point she could not get out of bed on her own. Pain has required narcotic analgesics to control and even w/ Toradol, Robaxin and Dilaudid she still has exquisite low back pain. CT of her LS spine was done on admission and demonstrated her known DJD of her LS spine but no abscess or bony erosions. MRI was done later that day on 03/22 and demonstrated osteomyelitis of the lumbar spine L4, L5 vertebral bodies along w/ epidural abscess. Blood cultures were obtained on admission and MRSA screen was done. MRSA screen was negative. Blood cultures to date have been no growth. She was continued on her Ancef 2 gm iv q8hr but Vancomycin was added to her regimen. [facility] was called to request transfer but no bed availability. [facility] was called and request for transfer and phone consultation w/ spine surgery. I spoke w/ Dr. Emery, from orthopedic, we discussed her findings and as she had no symptoms referrable to cord compression, i.e. no myelopathy of her legs, no sensory deficit and no bowel/bladder incontinence and no MRI suggestion of cord compression, she was not deemed an emergency for surgical intervention but was considered an urgent request for transfer to [facility] for IR guided drainage of her epidural abscess and bone biopsy/culture from her lumbar spinal osteomyelitis and consultation with infectious disease. Our orthopedic was consulted on her hip pain but her images of her hips did not show any evidence of bony erosions and ortho felt that she had good ROM of her hips and her pain was all referred from her spinal epidural abscess and osteomyelitis. Dr. Sachin Garner, hospitalist was consulted at the time of the spine surgical consult from [facility] and he agreed to accept the patient in transfer for definitive IR drainage, bone biopsy/culture and I.D. consultation and continued antibiotics. I consulted by phone w/ I.D. Dr. Phi Ha on the morning of 03/23 to discuss whether her PICC should be replaced but given that her repeat blood cultures showed no growth and her PICC line showed no signs of local infection, he believes that her oseteomyelitis probably was seeded when she first presented w/ the MSSA bacteremia back in January and that the original MRI did not show the infection as the infection had not evolved enough to cause radiologic changes. He agreed w/ continued dual coverage w/ Ancef and Vancomycin pending her transfer to [facility]. Patient's Elquis was put on hold begining on the evening of 03/22/23. Her last dose of Eliquis was 03/22 at 13:13. Home Meds and New Rx's Prescriptions: No Action levothyroxine 88 MCG tablet 88 mcg PO DAILY albuterol sulfate 8.5 GM HFA aerosol inhaler 2 puff Inhalation Q4H PRN PRN Patient Comments: not recently Rx Instructions: q4-6h prn lisinopril 40 MG tablet 40 mg PO DAILY multivitamin 1 EACH capsule 1 ea PO DAILY Eliquis 5 MG tablet 5 mg PO BID (DME) Aerochamber Plus Flow-Vu 1 EACH spacer 1 ea Miscellaneous DIRECTED Qty: 1 0RF calcium carbonate 500 MG tablet,chewable 1,000 mg PO DAILY acetaminophen [Tylenol Extra Strength] 500 MG tablet 1,000 mg PO Q6H PRN PRN potassium chloride [Klor-Con M20] 20 MEQ tablet,ER particles/crystals 20 meq PO QAM potassium chloride [Klor-Con M10] 10 MEQ tablet,ER particles/crystals 10 meq PO QPM cholecalciferol (vitamin D3) 1,000 UNITS tablet 1,000 units PO DAILY Fish Oil 1 EACH capsule 1 ea PO DAILY dofetilide 250 mcg capsule 250 mcg PO BID Patient Comments: TAKE ONE CAPSULE BY MOUTH TWICE A DAY amlodipine 10 mg tablet 10 mg PO DAILY Patient Comments: TAKE ONE TABLET BY MOUTH EVERY DAY acetaminophen 500 mg Tablet 1,000 mg PO Q8H PRN (Reason: Back Pain) Qty: 0 0RF cefazolin in dextrose (iso-os) 2 gram/50 mL Piggyback 2 g IVPB Q8H Qty: 0 0RF polyethylene glycol 3350 17 gram Powder In Packet 17 g PO DAILY PRN PRN (Reason: Constipation) Qty: 0 0RF Patient Comments: not taking diclofenac sodium 1 % Gel 2 - 4 g topical QID Qty: 200 1RF magnesium L-lactate [Magtab] 84 MG tablet extended release 84 mg PO DAILY Qty: 30 0RF Discharge Instructions Instructions: Osteomyelitis (DC) Activity:: Activity as Tolerated Equipment/Supplies:: No Equipment Needed Diet:: Normal Diet Discharge Orders Discharge Orders: Discharge Order (Routine); Ordered 03/23/23 Ordered By: Louis Claros DS: Summary Time Spent with Patient providing and/or coordinating discharge services: Greater than 30 minutes Specific discharge activities: Interview/exam of patient, educating patient and/or family about need for transfer and alternative treatment options, coordination of transfer w/ receiving facility and discussion of case w/ accepting provider(s), completion of transfer orders and discharge summary Status at Discharge Functional status at discharge: uses cane/walker Overall status at discharge: patient is not back to baseline Mental Status: mental status grossly normal Speech and Movement: speech and movement normal Mood: congruent mood Affect: normal affect Exam Narrative Exam Narrative: Patient appears fatigued but otherwise is alert and oriented Lungs: clear anterriorly Heart: RRR, no murmur or rub Abdomen: soft, nontender, normal bowel sounds Legs/feet: normal ROM and strength and sensation Psych Mental Status: mental status grossly normal Speech and Movement: speech and movement normal Mood: congruent mood Affect: normal affect DS: Data Vitals/I&O Vitals and I&O: Vital Signs Temperature 38.1 C H 03/23/23 11:23 Temperature Source Temporal Artery Scan 03/23/23 11:23 Pulse 62 03/23/23 14:01 Pulse Rhythm Irregular 03/23/23 08:11 Pulse 72 03/22/23 04:01 Respiratory Rate 18 03/22/23 23:59 Respiratory Effort Normal, Non-Labored 03/23/23 08:11 Respiratory Depth Normal 03/23/23 08:11 Respiratory Pattern Normal 03/23/23 08:11 Blood Pressure 173/73 H 03/23/23 14:01 Blood Pressure Mean 97 03/23/23 14:01 Blood Pressure Position Left Lateral 03/22/23 09:13 Pulse Oximetry 92 03/22/23 23:59 Oxygen Delivery Method Room Air 03/23/23 08:11 Oxygen Flow Rate 0 03/23/23 08:11 Pain Level 2 03/23/23 13:09 Intake & Output 03/22/23 03/23/23 03/23/23 23:59 11:59 23:59 Intake Total 2933.333 / 4663.333 1559.917 / 1749.917 190 / 1749.917 Output Total 107 / 1875 1000 / 1850 850 / 1850 Balance 1858.333 / 2788.333 559.917 / -100.083 -660 / -100.083 Weight 67.6 kg Intake: IV 3.333 / 3433.333 1079.917 / 1229.917 150 / 1229.917 Oral 980 / 1230 480 / 520 40 / 520 Output: Urine 1075 / 1875 1000 / 1850 850 / 1850 Other: Urine Color Yellow Straw Yellow Urine Appearance Clear Clear Clear Urine Odor Normal None Comment Wick urine collection device in place and attached to wall suction. pt has pure wick system for voiding Voiding Methods Bedpan Data Completed and Pending Labs on day of discharge: Labs from last 24 hours 03/23/23 03/23/23 03/23/23 13:55 13:55 06:00 WBC RBC Hgb Hct MCV MCH MCHC RDW Plt Count MPV Immature Gran % Neutrophils % Lymphocytes % Monocytes % Eosinophils % Basophils % Nucleated RBC % Absolute Neutrophils Absolute Lymphocytes Absolute Monocytes Absolute Eosinophils Absolute Basophils ESR 43 H Sodium Potassium 3.5 Chloride Carbon Dioxide Anion Gap BUN Creatinine Est GFR (CKD-EPI 2020) Glucose Calcium Magnesium 3.2 H C-Reactive Protein 03/23/23 03/23/23 03/22/23 06:00 06:00 17:17 WBC 10.46 RBC 3.44 L Hgb 10.5 L Hct 31.4 L MCV 91 MCH 30.5 MCHC 33.4 RDW 12.7 Plt Count 260 MPV 9.8 Immature Gran % 0.6 Neutrophils % 80.4 Lymphocytes % 6.4 Monocytes % 7.4 Eosinophils % 4.5 Basophils % 0.7 Nucleated RBC % 0.0 Absolute Neutrophils 8.42 H Absolute Lymphocytes 0.67 L Absolute Monocytes 0.77 Absolute Eosinophils 0.47 Absolute Basophils 0.07 ESR Sodium 134 L Potassium 3.2 L Chloride 100 Carbon Dioxide 25.9 Anion Gap 8.1 BUN 9 Creatinine 0.9 Est GFR (CKD-EPI 2020) 64.63 Glucose 110 H Calcium 9.5 Magnesium 1.6 L 2.3 C-Reactive Protein 1.49 H 03/22/23 17:17 WBC RBC Hgb Hct MCV MCH MCHC RDW Plt Count MPV Immature Gran % Neutrophils % Lymphocytes % Monocytes % Eosinophils % Basophils % Nucleated RBC % Absolute Neutrophils Absolute Lymphocytes Absolute Monocytes Absolute Eosinophils Absolute Basophils ESR Sodium Potassium 3.6 Chloride Carbon Dioxide Anion Gap BUN Creatinine Est GFR (CKD-EPI 2020) Glucose Calcium Magnesium C-Reactive Protein Preliminary micro results at discharge 03/21/23 00:11 Blood Culture - Preliminary Blood NO GROWTH 24 HOURS 03/21/23 00:01 Blood Culture - Preliminary Blood NO GROWTH 24 HOURS PFSH All Active Problems Osteomyelitis of lumbar spine (Acute) Osteoarthritis of right hip (Acute) Discharge planning issues (Acute) DVT prophylaxis (Acute) Fever of unknown origin (Acute) Back pain (Acute) Tricuspid valve regurgitation, secondary (Acute) Mitral regurgitation (Chronic) Lumbar degenerative disc disease (Chronic) Staphylococcus aureus bacteremia (Acute) Back pain (Acute) Hypokalemia (Chronic) Gastritis (Acute) Atrial fibrillation with RVR (Acute) Diarrhea (Acute) Medical History Atrial fibrillation Essential hypertension (01/27/17) Hyperlipidemia, mixed (01/27/17) Hypothyroidism Surgical History History of cardiac radiofrequency ablation History of cataract surgery S/P hysterectomy Social History Smoking/Tobacco Use Status: Never Smoking risk assessment performed?: Yes Alcohol Intake: never Drug use: Never Substance use type: does not use Do you feel safe at home: Yes Do you feel safe in your relationship?: Yes Time Spent with Patient Time Spent with Patient: <45 minutes Time was spent: preparing to see the patient(eg.review tests), referring, communicating with other health home health aide caregiver, indepentently interpreting results, counseling the patient and care coordination
--- NOTE | 2023-03-23 15:57 | CMDISCH_ITS ---
Date of service: 03/23/23 Time of Service: 15:57 LACE Index Scoring Tool Questions: Length of Stay (in days): 1 Was the patient admitted via the E.D.?: Yes E.D. Visits: 2 Answers: Total Score: 6 Risk of Readmission: Low Risk Care Management Discharge Plan Reason for Hospitalization: fever Discharge Plan: Tiffanie will be transferred to [facility] this afternoon. Transportation will be via EMS ([facility]) coordinated by nursing process area supervisor. Patient/Family Education Needs: expectations, limitations
--- NOTE | 2023-03-23 16:08 | NUR.NOTE ---
Nursing Note: Nujrse to Nurse report was [facility] to Mary V[facility] RN at [facility] 03/23/23 at 1610.
--- NOTE | 2023-03-23 16:26 | NT_ITS ---
PT Notes Visit Reasons: New Fever,MSSA Bacteremia on Treatment,Worsening o Patient transferred to [facility] for management of L4-L5 vertebral osteomyelitis w/ epidural abscess. No Pt services provided to patient during this epsiode of care.
--- NOTE | 2023-03-23 16:26 | PT.INNT ---
PT Notes Visit Reasons: New Fever,MSSA Bacteremia on Treatment,Worsening o Patient transferred to [facility] for management of L4-L5 vertebral osteomyelitis w/ epidural abscess. No Pt services provided to patient during this epsiode of care.
--- NOTE | 2023-03-23 21:38 | NUR.NOTE ---
[facility] pharm called to get info on pt's vanco hx. doses given reviewed and pharm report of sched for vanco read to DARBY:
== END 2023-03-23 15:25 | disposition short-term general hospital (02) | DRG 95 ==
LOC: ER 03-22 04:15 → ICU 03-22 04:38
PROVIDERS: Internal Medicine; Admitting Provider Internal Medicine; Emergency Provider Student in an Organized Health Care Education/Training Program; PCP Nurse Practitioner Family; Visit Provider Internal Medicine
DX: G06.2 Extradural and subdural abscess, unspecified (principal); M46.26 Osteomyelitis of vertebra, lumbar region; R78.81 Bacteremia; R50.9 Fever, unspecified; I48.91 Unspecified atrial fibrillation; Z79.01 Long term (current) use of anticoagulants; I08.1 Rheumatic disorders of both mitral and tricuspid valves; I10 Essential (primary) hypertension; E03.9 Hypothyroidism, unspecified; E78.5 Hyperlipidemia, unspecified; M51.36 Other intervertebral disc degeneration, lumbar region; M54.50 Low back pain, unspecified; M25.551 Pain in right hip; B95.61 Methicillin susceptible Staphylococcus aureus infection as the cause of diseases classified elsewhere; R19.7 Diarrhea, unspecified; E87.6 Hypokalemia; K29.70 Gastritis, unspecified, without bleeding; M16.11 Unilateral primary osteoarthritis, right hip
CPT/HCPCS: 36415; 72158; 74177; 80048; 80053; 84145; 85652; 87040; 87081; 87637; 96365; 99223; 99285; 71260; 73502; 81003; 81015; 83605; 83735; 84132; 85025; 86140; 93971; 94667; 99239; J0131; J0690; J1170; J1885; J3475; J3480; J3490

== ENCOUNTER 2023-03-29 17:19 | Inpatient (IN) | payer MEDICARE, OTHER, SELFPAY ==
--- NOTE | 2023-03-29 14:28 | CM.SWINGPC ---
Date of service: 03/29/23 Time of Service: 14:28 Swingbed Plan of Care Activites/Discharge Plan of care: SWING BED PROGRAM ACTIVITIES/DISCHARGE PLAN OF CARE ACTIVITIES PLAN Date: 03/29/23 Identified Need: Life Enrichment during extended hospitalization Intervention/Plan: Activity Cart offered, daily visits with family, reiki, etc. Initials: ELAINE DISCHARGE PLAN Date: 03/29/23 Identified Need: Mobility progression, pain management, epidural abscess Intervention/Plan: SWB1 for six weeks-starting 03/24/23; approx 05/05/23. Initials: ELAINE
[2023-03-29 19:00] VITALS: BP 180/70; PULSE 76; RESP 18; TEMP 36.4; O2SAT 95
--- NOTE | 2023-03-29 20:39 | HPE_ITS ---
Date of service: 03/29/23 Time of Service: 20:39 Assessment and Plan Assessment and plan (1) Osteomyelitis of lumbar spine: Status: Acute Assessment and plan: Plan from [facility] ID reviewed. Plan oxacillin IV for 6 weeks, through 05/05/23. Repeat MRI recommended the week of 05/07/23. Her pain has been a major issue. Continue hydromorphone and acetaminophen per UV discharge as well as topical NSAID for knee OA. We could transition to longer acting opioids if continuous medication needed. (2) Gastritis: Status: Acute Assessment and plan: Given her history and current symptoms, will start pantoprazole. Ondansatron prn okay (EKGs at [facility] did not show prolonged QTc) (3) Essential hypertension: Assessment and plan: BP running high, she is in pain and also holding her outpatient lisinopril. Just restarted amlodipine 03/28 but it hasn't reached steady state. Continue hydralyzine for now, restart lisinopril as Cr improvs. (4) Hypokalemia: Status: Chronic Assessment and plan: I am concenred oral potassium causing signifant GI distress. I will give IV fluids with extra K+ for now. Monitor lytes including Mg++ and replace prn (5) Anemia: Status: Chronic Assessment and plan: developed since illness, normacytic. Continue to monitor, consider iron studies, try to avoid iatrogenic anemia. (6) Acute kidney injury: Status: Acute Assessment and plan: Pre-renal per UV. She is taking limited orally right now, given NS with 40 Kcl (7) Atrial fibrillation: Assessment and plan: apixaban for anticoagulation. Dofetilide for rhythem control, low dose until Cr back to baseline. Qualifiers: Atrial fibrillation type: paroxysmal Qualified Code(s): I48.0 - Paroxysmal atrial fibrillation (8) Hypothyroidism: Assessment and plan: TSH wnl on admission in January, continue levothyroxine (9) Discharge planning issues: Status: Acute Assessment and plan: Fully anticoagulated. She is stable on floor SB1 states for IV antibiotics but she will need monitoring of fluid status, ADRY, pain managment History of Present Illness History of Present Illness Chief Complaint: spine infection Narrative: 78 yo F with a history of atrial fibrillation on apixaban, osteoarthritis, mitral and tricuspid regurgitation, and lumbar disc disease who was previously admitted 4/24/23 with MSSA bactermia. At that point, there was no clear source. She had low back pain but had a negative lumbar MRI. She was sent home on cefazolin. She returned 03/22/23 with worse lower back pain and fever while still on cefazolin. Repeat MRI showed L4-5 osteomyelitis, discitis, and epidural abscess. She was transferred to [facility] and initially treated with vancomycin along with continuing cefazolin. ID consult 03/24 recommended changing to nafcillin and completing 6 week course. Blood culture from 03/21/23 and IR biopsy from lumbar disc and abscess from 03/24 showed no growth x 5 days. At [facility] pain managed with acetaminophen and hydromorphone orally 2-4mg every 3h and 0.25mg IV q 3hr for breakthrough. Per report she had a lot of anxiety around pain and was difficult to mobilize. She had ADRY 03/25 felt to be pre-renal related to decreased oral intake. Cr maxed at 1.46 03/26 from 0.48 03/24, improved to 1.21 by discharge with fluids. Blood pressure was high, amlodipine was resumed 03/28. Hydralazine was added to help blood pressure. Home lisinopril was still on hold. Tikosyn was decreased in half due to drop in GFR. Patient currently complains of low back pain with movement, she also has abdominal discomfort and has been nauseous and vomited before transfer. She hasn't eating much since 03/26, not drinking much. She does like ensure clear. She has some nausea currently. No fevers, stooling well and making urine. Right knee and hip also still hurt when moving. Review of Systems Constitutional Constitutional: Denies chills, Denies fever(s), Denies headache(s) and Reports lethargy Eyes Eyes: Denies change in vision and Denies irritation ENT Ears, Nose, Mouth, and Throat: Denies dizziness, Denies headache(s), Denies nasal congestion, Denies nasal discharge and Denies sore throat Comments: mouth dry, uncomfortable at times Cardiovascular Cardiovascular: Denies chest pain, Denies palpitations and Denies orthopnea Respiratory Respiratory: Denies cough, Denies excessive phlegm production and Denies wheezing Gastrointestinal Gastrointestinal: Reports as per HPI, Denies melena, Denies hematochezia, Denies heartburn, Reports nausea, Reports vomiting and Denies hematemesis Genitourinary Genitourinary: Denies hematuria, Denies dysuria and Denies urinary incontinence Integumentary/Breasts Skin/Breast: Denies rash and Denies skin ulcer Neurologic Neurologic: Denies confusion, Denies dizziness, Denies headache(s) and Denies sensory deficit Psychiatric Psychiatric: Reports anxiety, Denies confusion and Denies mood swings Endocrine Endocrine: Denies palpitations Hematologic/Lymphatic Hematologic/Lymphatic: Denies easy bleeding Allergic/Immunologic Allergic/Immunologic: Denies wheezing PFSH All Active Problems (Updated 03/29/23 @ 21:59 by Harley Ruiz) Discharge planning issues (Acute) Acute kidney injury (Acute) Anemia (Chronic) Osteomyelitis of lumbar spine (Acute) Osteoarthritis of right hip (Acute) Back pain (Acute) Tricuspid valve regurgitation, secondary (Acute) Mitral regurgitation (Chronic) Lumbar degenerative disc disease (Chronic) Staphylococcus aureus bacteremia (Acute) Back pain (Acute) Hypokalemia (Chronic) Gastritis (Acute) Atrial fibrillation with RVR (Acute) Diarrhea (Acute) Medical History Atrial fibrillation Essential hypertension (01/27/17) Hyperlipidemia, mixed (01/27/17) Hypothyroidism Surgical History History of cardiac radiofrequency ablation History of cataract surgery S/P hysterectomy Social History Smoking/Tobacco Use Status: Never Smoking risk assessment performed?: Yes Alcohol Intake: never Drug use: Never Substance use type: does not use Do you feel safe at home: Yes Do you feel safe in your relationship?: Yes Meds Allergies and Home Medications Allergies Allergy/AdvReac Type Severity Reaction Status Date / Time metoprolol Allergy Cardiac Unverified 03/21/23 23:46 Dysrythmia isosorbide mononitrate AdvReac Intermediate Skin Rash Unverified 03/21/23 23:46 [From dur] Home Medications Medication Instructions Recorded Confirmed Type albuterol sulfate 90 mcg/actuation 2 puff inhalation Q4H PRN PRN 09/13/14 03/29/23 History aerosol inhaler apixaban 5 mg tablet (Eliquis) 5 mg PO BID 09/13/14 03/29/23 History inhalational spacing device ##1 09/13/14 03/22/23 Rx (Aerochamber Plus Flow-Vu) levothyroxine 88 mcg tablet 88 mcg PO DAILY 09/13/14 03/29/23 History calcium carbonate 200 mg calcium 500 mg PO DAILY 08/03/16 03/29/23 History (500 mg) chewable tablet acetaminophen 500 mg tablet 1,000 mg PO Q6H PRN PRN 06/17/17 03/29/23 History (Tylenol Extra Strength) cholecalciferol (vitamin D3) 25 1,000 units PO DAILY 06/17/17 03/29/23 History mcg (1,000 unit) tablet potassium chloride 10 mEq 20 meq PO BID 06/17/17 03/29/23 History tablet,extended release(part/cryst) (Klor-Con M) amlodipine 10 mg tablet 10 mg PO DAILY 02/13/23 03/29/23 History dofetilide 250 mcg capsule 250 mcg PO BID 02/13/23 03/29/23 History acetaminophen 500 mg tablet 1,000 mg PO Q8H PRN Back Pain #0 02/24/23 03/22/23 Rx tabs cefazolin 2 gram/50 mL in dextrose 2 g (50 mL) IVPB Q8H #0 ea 02/24/23 03/22/23 Rx (iso-osmotic) intravenous piggyback diclofenac sodium 1 % topical gel 2 - 4 g topical QID #200 grams 02/24/23 03/22/23 Rx polyethylene glycol 3350 17 gram 17 g PO DAILY PRN PRN Constipation 02/24/23 03/22/23 Rx oral powder packet #0 ea multivitamin with minerals-folic 1 tab PO DAILY 03/29/23 03/29/23 History acid 0.5 mg tablet Exam Narrative Exam Narrative: GEN: Lying in bed with eyes closed and blanket up to neck, responds to questions appropriately, cooperative, gives short responses and short bits of history. Uncomfortable with any movement. HEENT: Head atraumatic. Conjunctiva clear, no icterus. PEERL, small in room light about 2mm. EOMI. no rhinorrhea. MMM, OP benign. Neck is supple with no masses or lymphadenopathy, trachea midline, no elevation JVP LUNGS: CTAB with normal effort x slight basilar rales jaden CV: irregularly irregular with no murmurs, gallops, or rubs. ABD: +BS, soft, NT/ND EXT: no cyanosis, clubbing, or edema MSK: No joint redness, some tenderness and hypertrophy right knee. NEURO: CN 2-12 grossly intact. Normal movement of 4 extremities. Slow but intelligible speech and normal coordination SKIN: No rashes or open wounds. PSYCH: restricted mood and affect Results Imaging Additional studies: see [facility] discharge summary and previous admission Time Spent Time spent with Patient: >75 minutes Time was spent: preparing to see the patient(eg.review tests), obtaining and/or reviewing separately otained hiistory, ordering medications,tests, procedures, referring, communicating with other health health care marketing manager and indepentently interpreting results
[2023-03-29] MEDS: Apixaban 5 MG TAB PO (20:41)
[2023-03-29] MEDS: hydrALAZINE 25 MG TAB PO (20:41)
[2023-03-29] MEDS: Normal Saline Flush 10 ML SYR 20 ML IVP (21:48)
[2023-03-29] MEDS: Pantoprazole 40 MG VIAL IVP (22:15)
[2023-03-29] MEDS: Normal Saline Flush 10 ML SYR IVP ×2 (22:15→22:35)
[2023-03-29] MEDS: POTASSIUM CHLORIDE/D5-0.9%NACL 1,000 ML 100 MEQ IV (22:35)
[2023-03-29 22:45] VITALS: BP 184/90; PULSE 68; RESP 16; TEMP 36.1; O2SAT 97
[2023-03-29 23:20] VITALS: BP 170/90; PULSE 67; RESP 16; TEMP 36.4; O2SAT 97
--- NOTE | 2023-03-30 | DI.US_ITS ---
Exam(s) US UPPER EXTREMITY VENOUS RT EXAM: US UPPER EXTREMITY VENOUS RT CLINICAL HISTORY: arm swelling. TECHNIQUE: Ultrasound examination of the right upper extremity venous system(s) is performed using g rayscale, color-flow, and spectral Doppler analysis. COMPARISON: CR XR PORTABLE CHEST AP from 02/20/2023 US US UPPER EXTREMITY VENOUS RT from 03/22/2023 FINDINGS: The right internal jugular, axillary, subclavian, cephalic, basilic and brachial veins are patent wit hout evidence of thrombosis. There is a right PICC line in place. The median cubital vein could not be visualized due to the PICC line. IMPRESSION: No evidence of a right upper extremity DVT. DATA REPOSITORY:
[2023-03-30] MEDS: Normal Saline Flush 10 ML SYR IVP ×6 (00:34→18:04)
[2023-03-30] MEDS: Ondansetron 4 MG/2 ML VIAL IVP ×2 (02:14→17:07)
[2023-03-30] MEDS: Levothyroxine 88 MCG TAB PO (05:00)
[2023-03-30 06:42] LABS: ESR 39 mm/hr (0-30)
[2023-03-30 06:45] LABS: Abs Immature Grans 0.07 10^3/uL (0.0-0.06); Absolute Basophil Count 0.12 10^3/uL (0.0-0.2); Absolute Eosinophil Count 0.04 10^3/uL (0.0-0.7); Absolute Lymphocyte Count 0.98 10^3/uL (1.2-3.4); Absolute Monocyte Count 0.73 10^3/uL (0.1-0.8); Absolute Neutrophil Count 6.07 10^3/uL (1.2-6.7); Basophils % 1.5; Eosinophils % 0.5; HCT 29.7 % (36.0-46.0); Immature Grans % 0.9; Lymphocytes % 12.2; MCH 29.8 pg (27.0-33.0); MCHC 33.7 % (32.0-36.0); MCV 88 fL (80-95); MPV 9.2 fL (8.0-11.0); Monocytes % 9.1; Neutrophils % 75.8; Platelet Count 437 10^3/uL (130-400); RBC 3.36 10^6/uL (3.93-5.22); RDW 13.3 % (11.7-14.6); WBC 8.01 10^3/uL (4.4-10.8)
[2023-03-30 07:14] LABS: Anion Gap 11.6 mmol/L (3-11); BUN 20 mg/dL (7-18); CO2 24.4 mmol/L (21.0-32.0); Calcium 10.5 mg/dL (8.5-10.1); Chloride 108 mmol/L (98-107); Estimated GFR 56.95 (mL/min/1.73m2); Glucose 171 mg/dL (74-106); Magnesium 1.5 mg/dL (1.8-2.4); Sodium 144 mmol/L (136-145)
[2023-03-30 07:24] LABS: Potassium 2.3 mmol/L (3.5-5.1)
[2023-03-30 07:26] VITALS: BP 218/90; PULSE 76; RESP 17; TEMP 37.5; O2SAT 96
[2023-03-30 07:26] LABS: Procalcitonin < 0.1 ng/mL
[2023-03-30] MEDS: Acetaminophen 325 MG TAB 1000 MG PO ×2 (07:58→15:37)
[2023-03-30] MEDS: Apixaban 5 MG TAB PO ×2 (07:59→19:44)
[2023-03-30] MEDS: amLODIPine 10 MG TAB PO (07:59)
[2023-03-30] MEDS: Cholecalciferol (Vitamin D3) 1,000 UNIT TAB 1000 UNITS PO (08:00)
[2023-03-30] MEDS: hydrALAZINE 25 MG TAB PO ×4 (08:00→19:44)
[2023-03-30] MEDS: HYDROmorphone 2 MG TAB PO (08:01)
[2023-03-30] MEDS: Multivitamin w/Minerals TAB 1 TAB PO (08:01)
[2023-03-30] MEDS: Normal Saline Flush 10 ML SYR 20 ML IVP ×2 (08:01→19:45)
[2023-03-30] MEDS: MAGNESIUM SULFATE 4 GM/100 ML BAG IVPB (10:06)
[2023-03-30] MEDS: HYDROmorphone 2 MG/ML SYR 0.5 MG IVP (10:07)
--- NOTE | 2023-03-30 10:33 | IN_ITS ---
PT Notes Visit Reasons: MSSA Osteomyelitis,Discitis, Epidural Abscess L4-5 Inpatient Physical Therapy Evaluation Date: 03/30/23 Referring Doctor: Tangela House MD PT Orders: PT CONSULT: Limited ability Precautions: [] Patient Profile/Admitting Diagnosis: H&P: 78 yo F with a history of atrial fibrillation on apixaban, osteoarthritis, mitral and tricuspid regurgitation, and lumbar disc disease who was previously admitted 02/13/23 with MSSA bactermia.? She returned 03/22/23 with worse lower back pain and fever while still on cefazolin.? Repeat MRI showed L4-5 osteomyelitis, discitis, and epidural abscess.? She was transferred to [facility] for treatment. She now returns for level 1 care, with treatment of nafcillin and completing 6 week course.? Blood culture from 03/21/23 and IR biopsy from lumbar disc and abscess from 03/24 showed no growth x 5 days.? PMHX: All Active Problems?(Updated 03/29/23 @ 21:59 by Harley Ruiz) Discharge planning issues (Acute) Acute kidney injury (Acute) Anemia (Chronic) Osteomyelitis of lumbar spine (Acute) Osteoarthritis of right hip (Acute) Back pain (Acute) Tricuspid valve regurgitation, secondary (Acute) Mitral regurgitation (Chronic) Lumbar degenerative disc disease (Chronic) Staphylococcus aureus bacteremia (Acute) Back pain (Acute) Hypokalemia (Chronic) Gastritis (Acute) Atrial fibrillation with RVR (Acute) Diarrhea (Acute) Medical History? Atrial fibrillation Essential hypertension (01/27/17) Hyperlipidemia, mixed (01/27/17) Hypothyroidism Surgical History? History of cardiac radiofrequency ablation History of cataract surgery S/P hysterectomy Social History/Home Situation: [] Current Functional Limitations: [] Equipment Owned/DME: [] Subjective: [] Objective: [] General Observation: [] Mental Status: [] Pain: [] Vital Signs: [] ROM: Right Upper Extremity: [] Left Upper Extremity: [] Right Lower Extremity: [] Left Lower Extremity: [] Strength: Right Upper Extremity: [] Left Upper Extremity: [] Right Lower Extremity: [] Left Lower Extremity: [] Sensation: [] Bed Mobility/Transfers: [] Gait: [] Balance: [] Static Sitting: [] Dynamic Sitting: [] Static Standing: [] Dynamic Standing: [] Special Tests: Mobility Limitations Standardized Measure [facility] AM-PAC 6 clicks Basic Mobility Inpatient Short Form: Raw Score: [] Standardized Score: [] CMS Score: [] Informed Consent/Education: Patient instructed in purpose of PT consult and plan of care. Assessment: Patient is a [] year old [] referred to physical therapy services with the diagnosis of []. Patient presents with clinical signs and symptoms consistent with [], as demonstrated by the following impairment level findings: []. Impairments are contributing to the following functional limitations: AMPAC score. Patient is assessed as a [] Low 63989 [] Moderate 71335 [] High 92247 complexity based on the following: History: [] Examination: [] Presentation: [] Decision Making: [] Goals: Goals X1 week 1. Supine-Sit [] 2. Sit-Supine [] 3. Sit-Stand [] 4. Stand-Sit [] 5. Bed-Chair [] 6. Chair-Bed [] 7. Gait [] 8. Stairs [] 9. Independent with home exercise program [] 10. Balance [] Plan of Care/Treatment Plan: 1-2x/day, 7 days/week x 1 week. Plan of care has been reviewed with the WASTE REMOVALIST providing the service under Physical Therapy direction. Initiate Physical Therapy intervention for strengthening, bed mobility, transfers, gait, stairs, balance training, use of assistive device. DISCHARGE RECOMMENDATIONS: [] [] Home with no services [] [] Home with services [specify] [] Home with outpatient PT [] [] SNF for continued rehabilitation [] [] Employment Coordinator Care [] [] SNF versus LTC based on ability to participate and progress [] TREATMENT CODE/TIME: []
--- NOTE | 2023-03-30 10:46 | PT.INNT ---
PT Notes Visit Reasons: MSSA Osteomyelitis,Discitis, Epidural Abscess L4-5 PT evaluation was initiated, however family members discouraged treatment at this time as they feel Tiffanie is passing. I have communicated with nursing their concerns and visual upset. Nursing to be reaching out to hospitalist for communication with family, to clarify patient status. Will hold on evaluation for now until further communication with family, and re-direction with hospitalist.
[2023-03-30 11:34] VITALS: BP 194/82; PULSE 65; RESP 17; TEMP 36.4; O2SAT 95
--- NOTE | 2023-03-30 12:14 | NS.NUTBLAN_ITS ---
Date of service: 03/30/23 Time of Service: 12:14 Nutritional Consult ASSESSMENT: Rosibel transfered back to [facility] from [facility]. Was previously admitted 02/13/23 for MSSA. Wt holding stable and typical x 1 month, however, po intake has been poor since return. PMH: osteomylitis of spine, gastritis, HTN, hypokalemia. Will Liberalize diet to regular for increased choices. Per morning meeting, will consider starting marinol as appetite stimulant. Per nursing, prefers drinking ensure and ensure clear than eating at this time. At nutrition risk in view of extended period of not meeting macronutrient needs. Estimated Needs: 1675 kcal, 67 g protein, 1800 ml fluid NUTRITIONAL DIAGNOSIS: Inadequate macronutrient intake secondary to loss of appetite with prolonged hospitalization INTERVENTION: Liberalize Diet From Heart Healthy to Regular Provide ensure clears TID offer Ensure shakes prn ? Marinol MONITORING AND EVALUATION: weight, po intake, labs Time Spent in Nutritional Counseling and Treatment: 0
[2023-03-30] MEDS: Dronabinol 2.5 MG CAP PO ×2 (12:41→15:38)
[2023-03-30] MEDS: HYDROmorphone 4 MG TAB PO ×3 (12:42→22:00)
[2023-03-30] MEDS: Lisinopril 20 MG TAB 40 MG PO (12:42)
[2023-03-30] MEDS: POTASSIUM CHLORIDE/D5-0.9%NACL 1,000 ML 100 MEQ IV (15:40)
[2023-03-30 15:50] VITALS: BP 210/88; PULSE 80; RESP 16; TEMP 36.8; O2SAT 97
[2023-03-30 18:17] VITALS: BP 198/76
[2023-03-30 18:57] LABS: C Diff PCR Negative (Negative)
[2023-03-30] MEDS: Pantoprazole 40 MG VIAL IVP (19:44)
[2023-03-30 20:37] VITALS: BP 195/95
[2023-03-30] MEDS: Acetaminophen 500 MG TAB 1000 MG PO (21:55)
[2023-03-31] VITALS (11 sets, daily range): BP systolic 171–220; BP diastolic 72–143; PULSE 64–122; RESP 12–28; TEMP 36.2–37.3; O2SAT 92–96
[2023-03-31] MEDS: HYDROmorphone 4 MG TAB PO (02:42)
[2023-03-31] MEDS: Ondansetron 4 MG/2 ML VIAL IVP ×2 (04:57→08:51)
[2023-03-31] MEDS: HYDROmorphone 2 MG/ML SYR 0.5 MG IVP (05:10)
[2023-03-31] MEDS: Acetaminophen 500 MG TAB 1000 MG PO (06:02)
[2023-03-31] MEDS: Normal Saline Flush 10 ML SYR IVP ×5 (08:51→13:01)
[2023-03-31] MEDS: Lisinopril 20 MG TAB 40 MG PO (09:09)
[2023-03-31] MEDS: Levothyroxine 88 MCG TAB PO (09:09)
[2023-03-31] MEDS: hydrALAZINE 25 MG TAB PO ×3 (09:10→21:04)
[2023-03-31] MEDS: amLODIPine 10 MG TAB PO (09:10)
[2023-03-31] MEDS: Normal Saline Flush 10 ML SYR 20 ML IVP ×2 (09:10→21:40)
[2023-03-31] MEDS: Apixaban 5 MG TAB PO ×2 (09:10→21:07)
--- NOTE | 2023-03-31 09:16 | NT_ITS ---
PT Notes Visit Reasons: MSSA Osteomyelitis,Discitis, Epidural Abscess L4-5 Re-attempted PT evalauaion with patient this morning who was still with Nurse Fernandez and KAYLEE Sher for morning care. Daughter Nani and other siblings were in the waiting room and were sad to say that their mother told them yesterday afternoon that she was done and did not want to do anything at this point. Touched base with STOPBOARD ASSEMBLER Afsaneh about issue. Will plan on cancelling PT order per patient and family request.
[2023-03-31 11:07] LABS: Magnesium 1.5 mg/dL (1.8-2.4)
[2023-03-31 11:12] LABS: ALT 19 U/L (14-59); AST 15 U/L (15-37); Albumin 2.4 g/dL (3.4-5.0); Alkaline Phosphatase 81 U/L (46-116); Anion Gap 8.7 mmol/L (3-11); BUN 13 mg/dL (7-18); Bilirubin, Total 0.7 mg/dL (0.2-1.0); CO2 28.3 mmol/L (21.0-32.0); Calcium 10.8 mg/dL (8.5-10.1); Chloride 108 mmol/L (98-107); Estimated GFR 56.95 (mL/min/1.73m2); Glucose 149 mg/dL (74-106); Sodium 145 mmol/L (136-145); Total Protein 6.8 g/dL (6.4-8.2)
[2023-03-31 11:15] LABS: Potassium 1.6 mmol/L (3.5-5.1)
[2023-03-31] MEDS: MAGNESIUM SULFATE 4 GM/100 ML BAG IVPB (11:40)
[2023-03-31] MEDS: POTASSIUM CHLORIDE 20 MEQ/100 ML BAG 50 MEQ IVPB ×4 (11:40→19:10)
[2023-03-31 12:06] LABS: Abs Immature Grans 0.17 10^3/uL (0.0-0.06); Absolute Basophil Count 0.15 10^3/uL (0.0-0.2); Absolute Eosinophil Count 0.01 10^3/uL (0.0-0.7); Absolute Lymphocyte Count 1.05 10^3/uL (1.2-3.4); Absolute Monocyte Count 0.73 10^3/uL (0.1-0.8); Absolute Neutrophil Count 11.73 10^3/uL (1.2-6.7); Basophils % 1.1; Eosinophils % 0.1; HCT 30.7 % (36.0-46.0); HGB 10.6 g/dL (11.2-15.7); Immature Grans % 1.2; Lymphocytes % 7.6; MCH 30.1 pg (27.0-33.0); MCHC 34.5 % (32.0-36.0); MCV 87 fL (80-95); MPV 8.8 fL (8.0-11.0); Monocytes % 5.3; Neutrophils % 84.7; Platelet Count 454 10^3/uL (130-400); RBC 3.52 10^6/uL (3.93-5.22); RDW 13.9 % (11.7-14.6); RDW-SD 43.2 fL; WBC 13.85 10^3/uL (4.4-10.8)
[2023-03-31 12:25] LABS: Potassium 1.6 mmol/L (3.5-5.1)
[2023-03-31] MEDS: Ondansetron 4 MG/2 ML VIAL 8 MG IVP ×2 (13:01→17:42)
[2023-03-31] MEDS: Metoprolol 5 MG/5 ML VIAL IVP (13:02)
[2023-03-31] MEDS: Normal Saline 250 ML 500 ML IV (13:02)
[2023-03-31] MEDS: LORazepam 2 MG/ML VIAL 0.5 MG IVP ×2 (14:16→21:03)
--- NOTE | 2023-03-31 14:21 | PHACLINREV_ITS ---
Pharmacy Admission Review - Admission Clinical Review (Last Reviewed 03/29/23 @ 21:50 by Harley Ruiz) Discharge planning issues (Acute) Acute kidney injury (Acute) Osteomyelitis of lumbar spine (Acute) Gastritis (Acute) metoprolol Allergy (Unverified 03/21/23 23:46) Cardiac Dysrythmia isosorbide mononitrate [From Imdur] Adverse Reaction (Intermediate, Unverified 03/21/23 23:46) Skin Rash Resuscitation Status DNR/DNI Height 5 ft 2 in Weight 67.5 kg - Renal Dosing Renal Dosing: BUN 13 mg/dL (7-18) 03/31/23 10:40 Creatinine 1.0 mg/dL (0.55-1.02) 03/31/23 10:40 Medications needing adjustments: Reviewed (eCrCl 40 ml/min) - Anticoagulation Anticoagulation: Hgb 10.6 g/dL (11.2-15.7) L 03/31/23 09:25 Hct 30.7 % (36.0-46.0) L 03/31/23 09:25 Plt Count 454 10^3/uL (130-400) H 03/31/23 09:25 Creatinine 1.0 mg/dL (0.55-1.02) 03/31/23 10:40 Therapeutic Anticoagulation: Reviewed Medications: Apixaban - Opiate Usage Evaluate Pain Scale/Pains Meds: Reviewed (PO/IV hydromorphone prn) Scheduled Bowel Reg ordered if on Opiates?: No (prn, has chronic diarrhea) - Relevant Labs ESR 39 mm/hr (0-30) H 03/30/23 06:10 Sodium 145 mmol/L (136-145) 03/31/23 10:40 Potassium 1.6 mmol/L (3.5-5.1) L* 03/31/23 11:55 Chloride 108 mmol/L (98-107) H 03/31/23 10:40 Magnesium 1.5 mg/dL (1.8-2.4) L 03/31/23 10:40 C-Reactive Protein 1.00 mg/dL (0.0-0.3) H 03/30/23 06:10 Electrolytes, C-Reactive P, ESR: Reviewed (IV replacement today of both Mag and K+) - DM Control DM Control: Glucose 149 mg/dL (74-106) H 03/31/23 10:40 DM Control: N/A - Cardiac Review BP, HR, EF%: Reviewed - Qtc Review QTc: N/A - IV to PO Switch IV Medications: Reviewed - Home Meds Home Med List reviewed: Reviewed Relevent Home Meds Not ordered & why?: all ordered - Current meds Current Medication Order Review: Reviewed (Magnesium and potassium are being repleted today, lorazepam added for anxiety and tylenol has been scheduled for better pain control, oxacillin continues through 05/07/23 for osteomyelitis; family contemplating transition to [employer])
--- NOTE | 2023-03-31 16:59 | PDOC.CMPRO ---
Date of service: 03/31/23 Time of Service: 17:00 Care Management Progress Note Progress Note Text Progress Note Text: S/O:LOUANN met several times today with Tiffanie and her family, together and separately. When LOUANN was alone with her and one of her daughters and asked if she still wanted to be resuscitated if her heart stops, she said No. She then said she is not so much in pain but is suffering every day. She expressed that she is tired of fighting and has indicated to her son, that she is ready to stop. Her code status was changed to DNR/DNI. Tiffanie also requested to meet with a global marketing specialist, which she did this afternoon. A: Rosibel is an 78 year old woman admitted on 03/29/23 from [facility] with MSSA Osteomyelitis requiring several weeks of IV antibiotics. P: Tiffanie's plan is unclear at this time. She was admitted into [facility] for IV antibiotics but has not been doing well. She is discouraged and is suffering every day, her words. She has asked to see all of her children and a global marketing specialist. It is possible that she will make to decision to go on comfort care soon. LOUANN continues to follow and support both Tiffanie and her family.
[2023-03-31] MEDS: Scopolamine 1 MG/3 DAYS PATCH TD (17:34)
[2023-03-31] MEDS: Pantoprazole 40 MG VIAL IVP (21:03)
[2023-03-31 21:56] LABS: Potassium 2.1 mmol/L (3.5-5.1)
[2023-03-31] MEDS: POTASSIUM CHLORIDE 10 MEQ/100 ML BAG 100 MEQ IVPB (22:57)
[2023-04-01] VITALS: PULSE 69
[2023-04-01] MEDS: POTASSIUM CHLORIDE 10 MEQ/100 ML BAG 100 MEQ IVPB ×2 (00:08→01:06)
[2023-04-01] MEDS: Ondansetron 4 MG/2 ML VIAL 8 MG IVP (00:40)
[2023-04-01] MEDS: HYDROmorphone 2 MG/ML SYR 0.5 MG IVP (00:40)
[2023-04-01 00:57] VITALS: BP 220/90; PULSE 75
[2023-04-01] MEDS: Metoprolol 5 MG/5 ML VIAL IVP (00:57)
[2023-04-01] MEDS: ACETAMINOPHEN 1,000 MG/100 ML BTL 400 MG IVPB ×2 (00:57→09:27)
[2023-04-01 01:58] VITALS: BP 170/89; PULSE 60
[2023-04-01 06:13] LABS: Abs Immature Grans 0.09 10^3/uL (0.0-0.06); Absolute Basophil Count 0.14 10^3/uL (0.0-0.2); Absolute Eosinophil Count 0.06 10^3/uL (0.0-0.7); Basophils % 1.2; Eosinophils % 0.5; HGB 9.8 g/dL (11.2-15.7); Immature Grans % 0.8; Lymphocytes % 14.6; MCH 29.9 pg (27.0-33.0); MCHC 33.8 % (32.0-36.0); MCV 88 fL (80-95); MPV 9.1 fL (8.0-11.0); Monocytes % 10.3; Neutrophils % 72.6; Platelet Count 457 10^3/uL (130-400); RBC 3.28 10^6/uL (3.93-5.22); RDW 14.2 % (11.7-14.6); WBC 11.67 10^3/uL (4.4-10.8)
[2023-04-01 06:17] LABS: Absolute Neutrophil Count 8.47 10^3/uL (1.2-6.7)
[2023-04-01 06:40] LABS: Anion Gap 6.3 mmol/L (3-11); BUN 16 mg/dL (7-18); CO2 29.7 mmol/L (21.0-32.0); CREATININE 1.3 mg/dL (0.55-1.02); Calcium 10.6 mg/dL (8.5-10.1); Chloride 110 mmol/L (98-107); Estimated GFR 41.57 (mL/min/1.73m2); Glucose 111 mg/dL (74-106); Magnesium 2.1 mg/dL (1.8-2.4); Sodium 146 mmol/L (136-145)
[2023-04-01 06:41] LABS: Potassium 2.2 mmol/L (3.5-5.1)
[2023-04-01 06:50] VITALS: BP 225/108; PULSE 59; RESP 20; TEMP 36.8; O2SAT 96
[2023-04-01 09:09] VITALS: PULSE 74
[2023-04-01] MEDS: Normal Saline Flush 10 ML SYR 20 ML IVP ×2 (09:27→22:26)
[2023-04-01] MEDS: hydrALAZINE 20 MG/ML VIAL IVP (09:27)
[2023-04-01] MEDS: Normal Saline Flush 10 ML SYR IVP ×3 (09:28→17:50)
[2023-04-01] MEDS: POTASSIUM CHLORIDE 20 MEQ/100 ML BAG 50 MEQ IVPB (09:28)
[2023-04-01] MEDS: Prochlorperazine 10 MG/2 ML VIAL 5 MG IVP (10:07)
[2023-04-01] MEDS: HYDROmorphone 100 MG in Normal Saline 240 ML IV (10:53)
[2023-04-01 10:58] VITALS: BP 185/97
--- NOTE | 2023-04-01 13:59 | W.PM.PROGNOT ---
Date of Service Date of service: 04/01/23 Time of Service: 13:59 Assessment and Plan Assessment and plan (1) Osteomyelitis of lumbar spine: Status: Acute Assessment and plan: Plan from [facility] ID: oxacillin IV for 6 weeks, through 05/05/23. Repeat MRI recommended the week of 05/07/23. Her pain and anxiety has been a major concern. She has now endorsed a desire to stop treatment and make comfort her goal. (2) Essential hypertension: Assessment and plan: BP running high. Her lisinopril was restarted. Also on amlodipine and prn hydralazine. She has received intermittent IV metoprolol. Diltiazem initiated on 03/31 for afib control as well. (3) Hypokalemia: Status: Chronic Assessment and plan: Significantly low; has been receiving large doses of IV K+. Losses through diarrhea which has slowed. PRN lomotil. (4) Acute kidney injury: Status: Acute Assessment and plan: Pre-renal per [facility]. She is taking limited orally right now. Creatinine 1.3. (5) Atrial fibrillation: Assessment and plan: apixaban for anticoagulation. Dofetilide for rhythem control; initially given 1/2 her normal dose d/t ADRY, but then started back on full dosing on 03/31/23. Converted to NSR. Qualifiers: Atrial fibrillation type: paroxysmal Qualified Code(s): I48.0 - Paroxysmal atrial fibrillation (6) Hypothyroidism: Assessment and plan: TSH wnl on admission; on levothyroxine. (7) Comfort measures only status: Status: Acute Assessment and plan: Patient has expressed to her family that she desires no further treatment. Her goal is to be comfortable. Subjective Subjective Patient reports: afebrile; denies shortness of breath Interval history since last seen: Patient has interacted minimally with me but does verbalize more to her family. She has expressed a desire to stop treatment. Oral intake has been very minimal. She currently denies pain. Exam Narrative Exam Narrative: Lying in bed, supine with eyes closed. She mouths yes or no. No grimace. Resp Effort & Inspection: normal respiratory effort Auscultation: clear to auscultation bilaterally Cardio Rate: regular rate Rhythm: regular rhythm GI Palpation: soft and nontender Objective Last Vital Signs Temp 36.8 C 04/01/23 06:50 Pulse 74 04/01/23 09:09 Resp 20 04/01/23 06:50 BP 185/97 H 04/01/23 10:58 Pulse Ox 96 04/01/23 06:50 Laboratory Results - last 24 hr 03/31/23 04/01/23 04/01/23 21:30 05:20 05:20 WBC 11.67 H RBC 3.28 L Hgb 9.8 L Hct 29.0 L MCV 88 MCH 29.9 MCHC 33.8 RDW 14.2 Plt Count 457 H MPV 9.1 Immature Gran % 0.8 Neutrophils % 72.6 Lymphocytes % 14.6 Monocytes % 10.3 Eosinophils % 0.5 Basophils % 1.2 Nucleated RBC % 0.0 Absolute Neutrophils 8.47 H Absolute Lymphocytes 1.70 Absolute Monocytes 1.20 H Absolute Eosinophils 0.06 Absolute Basophils 0.14 Sodium 146 H Potassium 2.1 L* 2.2 L* Chloride 110 H Carbon Dioxide 29.7 Anion Gap 6.3 BUN 16 Creatinine 1.3 H Est GFR (CKD-EPI 2020) 41.57 Glucose 111 H Calcium 10.6 H Magnesium 2.1 Time Spent with Patient Time Spent with Patient: 35-49 minutes Time was spent: preparing to see the patient(eg.review tests), ordering medications,tests, procedures, referring, communicating with other health career development counselor, indepentently interpreting results and counseling the patient
[2023-04-01] MEDS: LORazepam 2 MG/ML VIAL 0.5 MG IVP (17:49)
--- NOTE | 2023-04-02 00:14 | W.PM.DDS ---
Date of service: 04/02/23 Time of Service: 00:14 Discharge Plan Disposition Patient Disposition: Discharge Details Reason For Visit: MSSA Osteomyelitis,Discitis, Epidural Abscess L4-5 Admit Date/Time: 03/29/23 17:19 Admit Provider: Tangela House Attending Provider: Tangeal House Primary Care Provider: Manjula Parra Hospital Course Hospital Course: Ms Metcalf was an 78 year old female with PMHx of atrial fibrillation on apixaban, hypertension, hypothyroid, who was admitted to [facility] on 02/13/23 with MSSA bacteremia, with a negative MRI lumbar spine on that admission, sent home on cefazolin via a PICC line on 02/24/23, who then returned to [facility] On 03/22/23 with worsening back pain, this time with an MRI of the lumbar spine positive for oteomyelitis of L4 and L5 vertebral bodies with epidural abscess and adjacent soft tissue extension. She was transferred to [facility] on 03/23/23 for further workup of above, including IR sampling of the collection (cultures negative), with antibiotics being adjusted to nafcillin by ID, and the patient returning to our facility on 03/29/23 for completion of her antibiotic course in swing bed level 1 status. The patient was switched to oxacillin upon arrival to our facility due to what was available on our formulary. She did have an ADRY at [facility] which we were monitoring. Her pain remained a major issue and was being treated with a combination of tylenol, IV dilaudid, and topical NSAID for knee discomfort from osteoarthritis. Her potassium was also quite low and was being aggressively repleted. On 03/31/23, the patient verbalized to her family and clinical team that she would like to stop active treatment of her infection and would like to be made comfortable. She was initiated on comfort measure with dialudid drip via her PICC line as well as with other symptomatic treatments such as lorazepam, scopolamine. The patient peacefully with family at bedside on 04/01/2023 at 23:50 and was pronounced at 23:53. The family chose for the patient not to have an autopsy. We appreciate the opportunity to help take care of Ms Metcalf in her final days and wish her family well. Home Meds and New Rx's Prescriptions: No Action levothyroxine 88 MCG tablet 88 mcg PO DAILY albuterol sulfate 8.5 GM HFA aerosol inhaler 2 puff Inhalation Q4H PRN PRN Patient Comments: not recently Rx Instructions: q4-6h prn Eliquis 5 MG tablet 5 mg PO BID (DME) Aerochamber Plus Flow-Vu 1 EACH spacer 1 ea Miscellaneous DIRECTED Qty: 1 0RF calcium carbonate 500 MG tablet,chewable 500 mg PO DAILY potassium chloride [Klor-Con M10] 10 MEQ tablet,ER particles/crystals 20 meq PO BID cholecalciferol (vitamin D3) 1,000 UNITS tablet 1,000 units PO DAILY dofetilide 250 mcg capsule 250 mcg PO BID Patient Comments: TAKE ONE CAPSULE BY MOUTH TWICE A DAY amlodipine 10 mg tablet 10 mg PO DAILY Patient Comments: TAKE ONE TABLET BY MOUTH EVERY DAY acetaminophen 500 mg Tablet 1,000 mg PO Q8H PRN (Reason: Back Pain) Qty: 0 0RF polyethylene glycol 3350 17 gram Powder In Packet 17 g PO DAILY PRN PRN (Reason: Constipation) Qty: 0 0RF Patient Comments: not taking diclofenac sodium 1 % Gel 2 - 4 g topical QID Qty: 200 1RF multivit with min-folic acid 0.5 mg Tablet 1 tab PO DAILY lisinopril 40 mg tablet 40 mg PO DAILY Patient Comments: TAKE ONE TABLET BY MOUTH EVERY DAY tramadol 50 mg tablet 50 mg PO TID Patient Comments: TAKE ONE TABLET BY MOUTH THREE TIMES A DAY NEEDED FOR BACK PAIN, MAX OF THREE TABLETS DAILY` omeprazole 20 mg capsule,delayed release(DR/EC) 20 mg PO DAILY Patient Comments: TAKE 1 CAPSULE BY MOUTH ONCE DAILY ON STOMACH magnesium L-lactate [Magtab] 84 mg tablet extended release 84 mg PO BID Patient Comments: TAKE 1 TABLET BY MOUTH TWICE A DAY Eliquis 5 mg tablet 5 mg PO BID Patient Comments: TAKE ONE TABLET BY MOUTH TWICE A DAY Discharge Data Cause of : Staphylococcal infectious disease Discharge Sum: Prov Provider Primary care physician: Manjula Parra Admitting clinician: Harley Ruiz Attending physician on admission: Harley Ruiz Consults: 03/30/23 06:52 Palliative Care Consult [CONS] Routine Consultation Status:: Contact made by Clarification:: Manage/follow per spec. Reason for consult:: goals of care Pronouncing clinician: Frannie Granados Discharge Sum: Diag PCOD Cause of : Staphylococcal infectious disease Contributing Factors (1) MSSA bacteremia: (2) Epidural abscess: (3) Osteomyelitis of lumbar spine: (4) Essential hypertension: (5) Hypokalemia: (6) Acute kidney injury: (7) Atrial fibrillation: (8) Hypothyroidism: Discharge Sum: Summary Date and Time Admission Date: 03/29/2306/07/23 17:19 Date of : 04/01/23 Time of : 23:50 Summary Details: Ms Metcalf was an 78 year old female with PMHx of atrial fibrillation on apixaban, hypertension, hypothyroid, who was admitted to [facility] on 02/13/23 with MSSA bacteremia, with a negative MRI lumbar spine on that admission, sent home on cefazolin via a PICC line on 02/24/23, who then returned to [facility] On 03/22/23 with worsening back pain, this time with an MRI of the lumbar spine positive for oteomyelitis of L4 and L5 vertebral bodies with epidural abscess and adjacent soft tissue extension. She was transferred to [facility] on 03/23/23 for further workup of above, including IR sampling of the collection (cultures negative), with antibiotics being adjusted to nafcillin by ID, and the patient returning to our facility on 03/29/23 for completion of her antibiotic course in swing bed level 1 status. The patient was switched to oxacillin upon arrival to our facility due to what was available on our formulary. She did have an ADRY at [facility] which we were monitoring. Her pain remained a major issue and was being treated with a combination of tylenol, IV dilaudid, and topical NSAID for knee discomfort from osteoarthritis. Her potassium was also quite low and was being aggressively repleted. On 03/31/23, the patient verbalized to her family and clinical team that she would like to stop active treatment of her infection and would like to be made comfortable. She was initiated on comfort measure with dialudid drip via her PICC line as well as with other symptomatic treatments such as lorazepam, scopolamine. The patient peacefully with family at bedside on 04/02/2023 at 23:50 and was pronounced at 23:53. The family chose for the patient not to have an autopsy. We appreciate the opportunity to help take care of Ms Metcalf in her final days and wish her family well. Additional Data Confirmation of as documented by pronouncing clinician: no pulse, no respirations, no heart sounds and pupils fixed and dilated Family: at bedside Attending/PCP notified?: Yes Attending Physician: Tangela Yi Was code activated?: No Autopsy requested?: No automobile insurance claim examiner notified?: No Organ bank notified?: Yes Advance directives: Yes Hospice patient?: No
== END 2023-04-01 23:53 | disposition expired | DRG 539 ==
PROVIDERS: Family Medicine; Nurse Practitioner Family; Admitting Provider Internal Medicine; PCP Nurse Practitioner Family; Visit Provider Internal Medicine
DX: M46.26 Osteomyelitis of vertebra, lumbar region (principal); G06.2 Extradural and subdural abscess, unspecified; N17.9 Acute kidney failure, unspecified; R78.81 Bacteremia; Z51.5 Encounter for palliative care; I10 Essential (primary) hypertension; K29.70 Gastritis, unspecified, without bleeding; D64.9 Anemia, unspecified; E87.6 Hypokalemia; I48.0 Paroxysmal atrial fibrillation; E03.9 Hypothyroidism, unspecified; B95.61 Methicillin susceptible Staphylococcus aureus infection as the cause of diseases classified elsewhere; Z79.01 Long term (current) use of anticoagulants; I08.1 Rheumatic disorders of both mitral and tricuspid valves; M16.11 Unilateral primary osteoarthritis, right hip; M54.9 Dorsalgia, unspecified; M51.36 Other intervertebral disc degeneration, lumbar region; R19.7 Diarrhea, unspecified; E78.2 Mixed hyperlipidemia
CPT/HCPCS: 36415; 36569; 80048; 80053; 84145; 85652; 87493; 83735; 84132; 85025; 86140; 93971; 99308; J0131; J0360; J0780; J1170; J2060; J2405; J2700; J3475; J3480